=== PATIENT | female | born 2000 | race Two or more races ===

== ENCOUNTER 2024-09-18 16:57 | Outpatient (OUT) | payer OTHER, SELFPAY ==
[2024-09-18 17:12] LABS: Basophils Absolute Auto 0.1 10^3/uL (0.0-0.1); Basophils Percent Auto 0.3 % (0.2-2.0); Eosinophils Percent Auto 0.2 % (0.9-7.0); Hematocrit 34.7 % (36.0-48.0); Immature Granulocytes Pct Auto 0.5 % (0.0-0.5); Lymphocytes Absolute Auto 1.2 10^3/uL (1.2-3.8); Lymphocytes Percent Auto 6.5 % (20.5-60.0); Mean Corpuscular HGB Conc 31.7 g/dL (29.9-35.2); Mean Corpuscular Hemoglobin 25.5 pg (26.7-34.0); Mean Corpuscular Volume 80.5 fL (81.0-99.0); Monocytes Absolute Auto 0.4 10^3/uL (0.3-0.8); Monocytes Percent Auto 1.9 % (1.7-12.0); Neutrophils Absolute Auto 17.4 10^3/uL (1.4-6.5); Neutrophils Percent Auto 90.6 % (43.0-75.0); Platelet Count 416 10^3/uL (150-450); Red Blood Count 4.31 10^6/uL (4.20-5.40); Red Cell Distribution Width 16.7 % (11.0-15.0); White Blood Count 19.2 10^3/uL (4.0-11.0)
[2024-09-21 13:11] LABS: Immunoglobulin E, Total 1297 IU/mL (6-495)
== END 2024-09-18 16:58 | disposition home or self-care (01) ==
LOC: LAB 16:57
DX: E84.8 Cystic fibrosis with other manifestations (principal)
CPT/HCPCS: 36415; 82785; 85025

== ENCOUNTER 2024-09-25 17:01 | Outpatient (OUT) | payer OTHER, SELFPAY ==
--- OUTSIDE RECORDS SUMMARY | 2024-09-25 17:03 | XMS_ITS | Encounter Summary ---
Author Organization [facility] Address [address] [place] [address] Care Team Providers Care Aviation Support Equipment Repairer Name Role Phone Chapo Mitchell MD Primary Care Provider [phone] Source Comments In the event this information is protected by the Federal Confidentiality of Alcohol and Drug AbusePatient Records regulations: The Federal rules restrict any use of the information to criminally investigate or prosecute any alcohol or drug abuse patient.[facility] Reason for Visit * Reason Comments Prior Authorization Encounter Details Date Type Department Care Team (Late st Contact Info) Description 09/25/2024 Telephone Pulmonary Medicine [address] [place] [id number] Consuelo Brooks LISW Prior Authorization Social History Tobacco Use Types Packs/Day Years Used Date Smoking Tobacco: Never Passive Smoke Exposure: Never Smokeless Tobacco: Never Alcohol Use Standard Drinks/Week Comments Never 0 (1 standard drink = 0.6 oz pur e alcohol) [facility] Utilities Answer Date Recorded In the past 12 months has e electric, gas, oil, or water company threatened to shut off services in your home? No 07/30/2024 Hunger Vital Sign Answer Date Recorded Within the past 12 months, y ou worried that your food would run out before you got the money to buy more. Never true 07/31/19 25 Within the past 12 months, t he food you bought just didn't last and you didn't have money to get more. Never true 07/30/2024 PRAPARE - Transportation Answer Date Re corded In the past 12 months, has l ack of transportation kept you from medical appointments or from getting medications? No 10/2024 In the past 12 months, has l ack of transportation kept you from meetings, work, or from getting things needed for daily living? No 07/30/2024 Housing Stability Vital Sign Answer Ernst e Recorded In the last 12 months, was t here a time when you were not able to pay the mortgage or rent on time? No 12/09/2023 Number of Places Lived in the Last Year Not on f ile 12/09/2023 In the last 12 months, was t here a time when you did not have a steady place to sleep or slept in a custodial (including now)? No 12/09/2023 Housing Stability Vital Sign Answer Ernst e Recorded In the last 12 months, was t here a time when you were not able to pay the mortgage or rent on time? No 07/30/2024 Number of Times Moved in the Last Year Not on fi le 07/30/2024 At any time in the past 12 m [facility], were you homeless or living in a custodial (including now)? No 07/30/2024 Area Deprivation Index Answer Date Akhil rded National Score (1-100), lower number is lower ri sk 89 12/08/2023 State Score (1-10), lower number is lower risk 8 12/08/2023 Data from: https://www.neighborhoodatlas.medicine[facility].edu/. Last address used for calculation [address] [place] [address] 12/08/2023 Comments Unknown Sex and Gender Information Value Date Recorded Sex Assigned at Not on file Legal Sex Female 2:33 PM EST Gender Identity Not on file Sexual Orientation Not on file documented as of this encounter Functional Status * Are you deaf or do you have serious difficulty hearing? Answer Date of Assessment Author No 12/30/2023 2:14 PM EDT Leah Hernández, RN * Are you blind or do you have serious difficulty seeing, even when wearing glasses? Answer Date of Assessment Author No 12/30/2023 2:14 PM EDT Leah Hernández RN * Do you have serious difficulty walking or climbing stairs? Answer Date of Assessment Author No 12/30/2023 2:14 PM EDT Leah Hernández RN * Do you have difficulty dressing or bathing? Answer Date of Assessment Author No 12/30/2023 2:14 PM EDT Leah Hernández RN * Because of a physical, mental, or emotional condition, do you have difficulty doing errands alone such as visiting a doctor's office or shopping? Answer Date of Assessment Author No 12/30/2023 2:14 PM EDT Leah Hernández RN documented as of this encounter Mental Status * Because of a physical, mental, or emotional condition, do you have serious difficulty concentrating, remembering, or making decisions? Answer Entry Date Author No 12/30/2023 2:14 PM EDT Leah Hernández RN documented in this encounter Miscellaneous Notes * Telephone Encounter - Consuelo Brooks LISW - 09/25/2024 9:49 AM EDT Images from the original note were not included. Medication: budesonide 0.5mg/2mL (nasal irrigation) Date Submitted: September 25, 2024 Prescribing Provider: Alex Method of Submission: CoverMyMeds Outcome: Approved Outcome Date: 09/25/2024 HAMLET Lozada-S documented in this encounter Plan of Treatment Upcoming Encounters Date Type Department Care Team (Late st Contact Info) Description 10/03/2024 10:00 AM EDT Procedure Pulmonary Medicine [address] [place] [address] CF (cystic fibrosis) ([facility]) [E84.9] 10/03/2024 10:30 AM EDT Office Visit Pulmonary Medicine [address] [place] [address] Chapo Mitchell MD [address] [place] [address] CF (cystic fibrosis) ([facility]) [E84.9] 11/23/2024 3:05 PM EDT Office Visit Otolaryngology [address] [address] Diya Bedolla MD [address] [place] [address] 6 month follow up documented as of this encounter Visit Diagnoses Not on filedocumented in this encounter Care Teams Aviation Support Equipment Repairer Relationship Specialty Start Date End Date Chapo Mitchell MD [address] [address] PCP - General Pulmonary and Critical Care Medicine 12/08/23 documented as of this encounter
--- OUTSIDE RECORDS SUMMARY | 2024-09-25 17:03 | XMS_ITS | Encounter Summary ---
Author Organization [facility] tem Address [facility]-[id number] [address] [place] [address] Care Team Providers Care Orthodontist Name Role Phone Becky Dale MD Primary Care Provider [phone] Encounter Details Date Type Department Care Team (Late st Contact Info) Description 01/13/2023 Orders Only [facility]-Cystic Fibrosis [address] [facility] [address] [place] [phone] Anthony Cardoza MD [address] [place], [place] [phone] Social History Tobacco Use Types Packs/Day Years Used Date Smoking Tobacco: Never Smokeless Tobacco: Never Comments:No smoke exposure Alcohol Use Standard Drinks/Week Comments No 0 (1 standard drink = 0.6 oz pur e alcohol) AUDIT-C Answer Date Recorded Q1: How often do you have a drink containing alcohol? Never 09/30/2022 Q2: How many drinks containi ng alcohol do you have on a typical day when you are drinking? Patient does not drink Q3: How often do you have si x or more drinks on one occasion? Never 09/30/2022 PHQ-2 Answer Date Recorded Total Score 0 09/30/2022 Childcare Answer Date Recorded Childcare Unknown 10/02/2018 Employment Answer Date Recorded Employment Unknown 10/02/2018 Purpose - Life Answer Date Recorded Purpose and direction in life Unknown Comments No Sex and Gender Information Value Date Recorded Sex Assigned at Not on file Legal Sex Female 4:18 PM EDT Gender Identity Not on file Sexual Orientation Not on file documented as of this encounter Plan of Treatment Not on file documented as of this encounter Goals Goal Patient Goal Type Associated Problems Recent Progress Patient-Stated? Author return home General Yes Elizabeth Lovell, RN Note: Evaluation of progress towards goal: return home Increase physical activity Lifestyle No Fidelina Henley, GRANT ADMINISTRATOR Note: Evaluation of progress towards goal: Pt started online schooling recently and will get up during lessons to take a short walk. documented as of this encounter Visit Diagnoses Not on filedocumented in this encounter Additional Health Concerns Infection Onset Date Last Indicated Resolved Time Other MDRO Comment:CYSTIC F 06/05/2007 06/05/2007 COVID-19 Rule-Out 11/15/2023 11/16/2023 11/16/2023 1:40 AM EDT Assessment Noted Time PHQ-9 Depression Total Score: 0 10/01/19 23 7:56 PM EDT documented as of this encounter Care Teams Orthodontist Relationship Specialty Start Date End Date Becky Dale MD [address] [place] [address], [address] [place] [address] PCP - General 06/18/14 documented as of this encounter
--- OUTSIDE RECORDS SUMMARY | 2024-09-25 17:03 | XMS_ITS | Encounter Summary ---
Author Organization [facility] Address [id number] [address] [place] [address] Care Team Providers Care Career Developer Name Role Phone Becky Dale MD Primary Care Provider [phone] Encounter Details Date Type Department Care Team (Late st Contact Info) Description 03/09/2023 Telephone [facility] Pediatric Pulmonology-Cystic Fibrosis [address] [facility] [address] [place] [phone] Rina Wynn LPN Social History Tobacco Use Types Packs/Day Years Used Date Smoking Tobacco: Never Smokeless Tobacco: Never Comments:No smoke exposure Alcohol Use Standard Drinks/Week Comments No 0 (1 standard drink = 0.6 oz pur e alcohol) AUDIT-C Answer Date Recorded Q1: How often do you have a drink containing alcohol? Never 01/24/2023 Q2: How many drinks containi ng alcohol do you have on a typical day when you are drinking? Patient does not drink Q3: How often do you have si x or more drinks on one occasion? Never 01/24/2023 PHQ-2 Answer Date Recorded Total Score 1 01/24/2023 Childcare Answer Date Recorded Childcare Unknown 10/02/2018 Employment Answer Date Recorded Employment Unknown 10/02/2018 Purpose - Life Answer Date Recorded Purpose and direction in life Unknown Comments No Sex and Gender Information Value Date Recorded Sex Assigned at Not on file Legal Sex Female 4:18 PM EDT Gender Identity Not on file Sexual Orientation Not on file documented as of this encounter Miscellaneous Notes * Telephone Encounter - Rina Wynn LPN - 03/09/2023 1:31 PM EST Mom calling to state they have set up picking up Xolair 03/11/2023 from [facility]. Also asking if office can reach out to [facility], they keep getting phone calls to schedule [place] when they do not need refills. Mom states calls are getting excessive. Wanting to set up that patient will call to set up refills, they do not want automatic refills or calls. States she has called pharmacy several times with no improvement. Reached out to [facility]. Spoke with customer loyalty representative Lucas Vallejo. States he updated the account to reflect that they will not automatically refill or call family. documented in this encounter Plan of Treatment Not on file documented as of this encounter Goals Goal Patient Goal Type Associated Problems Recent Progress Patient-Stated? Author return home General Yes Elizabeth Lovell, RN Note: Evaluation of progress towards goal: return home Increase physical activity Lifestyle No Fidelina Henley, PATRICIA Note: Evaluation of progress towards goal: Pt [...] Assessment Noted Time PHQ-9 Depression Total Score: 1 01/25/20 4:27 PM EDT documented as of this encounter Care Teams Career Developer Relationship Specialty Start Date End Date Becky Dale MD [address] [place] [address], [address] [place] [address] PCP - General 06/18/14 documented as of this encounter
--- OUTSIDE RECORDS SUMMARY | 2024-09-25 17:03 | XMS_ITS | Encounter Summary ---
Author Organization [facility] Address [id number] [address] [place] [address] Care Team Providers Care Weed Burner Name Role Phone Becky Dale MD Primary Care Provider [phone] Encounter Details Date Type Department Care Team (Late st Contact Info) Description 01/14/2023 Documentation [facility] Pulmonology-Cystic Fibrosis [address] [facility] [address] [place] [phone] Anthony Cardoza MD [address] [place], [place] [phone] Social History Tobacco Use Types Packs/Day Years [...] Increase physical activity Lifestyle No Fidelina Henley, MOVIE WRITER Note: Evaluation of progress towards goal: Pt [...] Time PHQ-9 Depression Total Score: 0 10/01/19 7:56 PM EDT documented as of this encounter Care Teams Weed Burner Relationship Specialty Start Date End Date Becky Dale MD [address] [place] [address], [address] [place] [address] PCP - General 06/18/14 documented as of this encounter
--- OUTSIDE RECORDS SUMMARY | 2024-09-25 17:03 | XMS_ITS | Encounter Summary ---
Author Organization [facility] Address [address] [place] [address] Care Team Providers Care Industry Analyst Name Role Phone Chapo Mitchell MD Primary Care Provider [phone] Source Comments In the event this information is protected by the Federal Confidentiality of Alcohol and Drug AbusePatient Records regulations: The Federal rules restrict any use of the information to criminally investigate or prosecute any alcohol or drug abuse patient.[facility] Reason for Visit * Reason Comments Results [facility] Encounter Details Date Type Department Care Team (Late st Contact Info) Description 09/20/2024 Telephone Pulmonary Medicine [address] [place] [address] Chapo Mitchell MD [address] [place] [address] Results ([facility]) Social History Tobacco Use Types Packs/Day Years Used Date Smoking Tobacco: Never Passive Smoke Exposure: Never Smokeless Tobacco: Never Alcohol Use Standard Drinks/Week Comments Never 0 (1 standard drink = 0.6 oz pur e alcohol) [facility] Utilities Answer Date Recorded In the past 12 months has [employer] electric, gas, oil, or water company threatened [...] place to sleep or slept in a nursing home (including now)? No 12/09/2023 Housing Stability Vital Sign Answer Ernst e Recorded In the last 12 months, was t here a time when you were not able to pay the mortgage or rent on time? No 07/30/2024 Number of Times Moved in the Last Year Not on fi le 07/30/2024 At any time in the past 12 m [facility], were you homeless or living in a nursing home (including now)? No 07/30/2024 Area Deprivation Index Answer Date Akhil rded National Score (1-100), lower number is lower ri sk 89 12/08/2023 State Score (1-10), lower number is lower risk 8 12/08/2023 Data from: https://www.neighborhoodatlas.medicine.[facility].edu/. Last address used for calculation [address] [facility] 12/08/2023 Comments Unknown Sex and Gender Information Value Date Recorded Sex Assigned at Not on file Legal Sex Female 2:33 PM EST Gender Identity Not on file Sexual Orientation Not on file documented as of this encounter Functional Status * Are you deaf or do you have serious difficulty hearing? Answer Date of Assessment Author No 12/30/2023 2:14 PM Leah Denis RN * Are you blind or do [...] encounter Miscellaneous Notes * Telephone Encounter - Marily Crani RN - 09/21/2024 1:31 PM EDT Reviewed faxed results from labs that were obtained on 09/12/2024 PRIOR to patient starting Itraconazole. Overview of results (full results can be found in scanned documents): WBCs: 17.4 IgE: 1,530 Itraconazole: <0.1 Will update Randee Johnson CNP with these results. Still waiting for the results of the Itraconazole level that was drawn on 09/18/2024 prior to patient started her 5th day of medication. Will reach out to patient to have those results sent to us. * Telephone Encounter - Cindy Rosenberg - 09/20/2024 4:07 PM EDT Received 8 pages of lab results from [facility]. Lab results for: Itraconazole, Serum, IgE and CBC auto Diff Uploaded into chart. documented in this encounter Plan of Treatment Upcoming Encounters Date Type Department Care Team (Late st Contact Info) Description 10/03/2024 10:00 AM EDT Procedure Pulmonary Medicine [address] [place] [address] CF (cystic fibrosis) ([facility]) [E84.9] 10/03/2024 10:30 AM EDT Office Visit Pulmonary Medicine [address] [place] [address] Chapo Mitchell MD [address] [place], [place] [phone] CF (cystic fibrosis) ([facility]) [E84.9] 11/23/2024 3:05 PM EDT Office Visit Otolaryngology [address] [place] [address] Diya Bedolla MD [address] [place], [place] [phone] 6 month follow up documented as of this encounter Visit Diagnoses Not on filedocumented in this encounter Care Teams Industry Analyst Relationship Specialty Start Date End Date Chapo Mitchell MD [address] [place] [phone] PCP - General Pulmonary and Critical Care Medicine 12/08/23 documented as of this encounter
--- OUTSIDE RECORDS SUMMARY | 2024-09-25 17:04 | XMS_ITS | Encounter Summary ---
Author Organization [employer] [facility] Address [facility]-[id number] [address] [place] [address] Care Team Providers Care Regrind Mill Operator Name Role Phone Becky Dale MD Primary Care Provider [phone] Reason for Visit * Reason Onset Date Comments Med Refill 04/06/2018 Encounter Details Date Type Department Care Team (Late st Contact Info) Description 04/06/2018 Refill [facility] Pulmonology-Cystic Fibrosis [address] [facility] [address] [place] [phone] Christy Bhatia RN Cystic fibrosis of the lung ([facility]) (Primary Dx) Social History Tobacco Use Types Packs/Day Years Used Date Smoking Tobacco: Never Smokeless Tobacco: Never Comments:No smoke exposure Alcohol Use Standard Drinks/Week Comments No 0 (1 standard drink = 0.6 oz pur e alcohol) Comments No Sex and Gender Information Value Date Recorded Sex Assigned at Not on file Legal Sex Female 4:18 PM EDT Gender Identity Not on file Sexual Orientation Not on file documented as of this encounter Plan of Treatment Not on file documented as of this encounter Results * Cystic fibrosis respiratory culture includes gram stain (04/06/2018 3:39 PM EST) Specimen description CYSTIC SPUTUM Y 04/06/2018 6:22 PM EST [facility] Gram Stain Result >25 WHITE BLOOD CELLS/LPF 04/06/2018 10:51 PM EST [facility] Gram Stain Result 10 to 24 SQUAMOUS EPITHELIAL CELLS/LPF 04/06/2018 10:51 PM [facility] Gram Stain Result 0 CILIATED EPITHELIAL CELLS/LPF 04/06/2018 10:51 PM [facility] Gram Stain Result MANY GRAM POSITIVE COCCI 04/06/2018 10:51 PM [facility] Gram Stain Result RARE GRAM NEGATIVE COCCOBACILLI 04/06/2018 10:51 PM [facility] Gram Stain Result RARE GRAM POSITIVE RODS 04/06/2018 10:51 PM [facility] Culture MANY STAPHYLOCOCCUS AUREUS 04/12/2018 2:26 PM EST [facility] Culture MODERATE STAPHYLOCOCCUS AUREUS VARIANT 04/12/2018 2:26 PM EST [facility] Culture RARE STENOTROPHOMONAS MALTOPHILIA 04/12/2018 2:26 PM EST [facility] Culture RARE ASPERGILLUS FUMIGATUS 04/12/2018 2:26 PM EST [facility] Culture ALONG WITH RARE NORMAL ORAL BRADLY 04/12/2018 2:26 PM EST [facility] Report status 04/12/2018 FINAL 04/12 2:26 PM EST [facility] Organism STAPHYLOCOCCUS AUREUS 04/09/2018 8:50 AM [facility] Organism STAPHYLOCOCCUS AUREUS 04/09/2018 8:50 AM [facility] Organism STENOTROPHOMONAS MALTOPHILIA 04/10/2018 1:36 PM [facility] Sputum specimen (specimen) Cyst / Unknown 04/06/2018 3:39 PM EST 04/06/2018 7:05 PM EST Narrative Organism Antibiotic Method Susceptibility Staphylococcus Aureus Cefazolin MADONNA Susceptible (deduced) Staphylococcus Aureus Clindamycin MADONNA 0.25: Resistant Comment:INDUCIBLE RE SISTANCE TO CLINDAMYCIN DETECTED Staphylococcus Aureus Erythromycin M[place]ONNA >=8: Resistant Staphylococcus Aureus Gentamicin M[place]ON[place] <=0.5: Susceptible Staphylococcus Aureus Oxacillin M[place] 1: Susceptible Staphylococcus Aureus TRIMETH/SULFAMETHOXAZOLE MADONNA <=0.5/9.5: Susceptible Staphylococcus Aureus Vancomycin M[place]ONNA <=0.5: Susceptible Staphylococcus Aureus Doxycycline M[place]ON[place] >=16: Resistant Comment:MANY STAPHYLOCOCCUS AUREUS Staphylococcus Aureus Cefazolin [place] Susceptible (deduced) Staphylococcus Aureus Clindamycin M[place]ONNA 0.25: Resistant Comment:INDUCIBLE RE SISTANCE TO CLINDAMYCIN DETECTED Staphylococcus Aureus Erythromycin M[place]ONNA >=8: Resistant Staphylococcus Aureus Gentamicin M[place]ONNA <=0.5: Susceptible Staphylococcus Aureus Oxacillin M[place]ON[place] 0.5: Susceptible Staphylococcus Aureus TRIMETH/SULFAMETHOXAZOLE M[place]ONNA <=0.5/9.5: Susceptible Staphylococcus Aureus Vancomycin M[place]ON[place] 1: Susceptible Staphylococcus Aureus Doxycycline M[place]ONNA >=16: Resistant Comment:MODERATE STAPHYLOCOC CUS AUREUS VARIANT Stenotrophomonas Maltophilia Ceftazidime M[place]ONNA 8: Susceptible Stenotrophomonas Maltophilia Levofloxacin M[place]ON[place] 4: Intermediate Stenotrophomonas Maltophilia TRIMETH/SULFAMETHOXAZOLE MADONNA <=0.5: Susceptible Comment:RARE STENOTROPHOMONA S MALTOPHILIA Kt Hardin MD MICROBIOLOGY - GENERAL ORDERA BLES Final Result [facility] [address] [place] [address], [place] [facility] documented in this encounter Visit Diagnoses Diagnosis Cystic fibrosis of the lung ([facility])- Primary Cystic fibrosis with pulmonary manifestations documented in this encounter Additional Health Concerns Infection Onset Date Last Indicated Resolved Time Other MDRO Comment:CYSTIC F 06/05/2007 06/05/2007 Respiratory Rule-Out 06/05/2019 06/05/2019 020 11:59 AM EST COVID-19 Rule-Out 03/05/2020 03/05/2020 03/05/2020 7:23 PM EST COVID-19 Rule-Out 01/29/2021 01/29/2021 01/29/2021 11:34 PM EDT COVID-19 Rule-Out 01/22/2022 01/22/2022 01/22/2022 1:40 PM EDT COVID-19 Rule-Out 03/11/2022 03/11/2022 03/11/2022 6:31 PM EST COVID-19 Rule-Out 11/15/2023 11/16/2023 11/16/2023 1:40 AM EDT Assessment Noted Time PHQ-9 Depression Total Score: 0 03/09/20 18 11:00 AM EST documented as of this encounter Care Teams Regrind Mill Operator Relationship Specialty Start Date End Date Becky Dale MD [facility], [address] [place] [address] PCP - General 06/18/14 documented as of this encounter
--- OUTSIDE RECORDS SUMMARY | 2024-09-25 17:04 | XMS_ITS | Encounter Summary ---
Author Organization [employer] Address [facility]-[id number] [address] [place] [address] Care Team Providers Care Dial Equipment Engineer Name Role Phone Becky Dale MD Primary Care Provider [phone] Reason for Visit * Reason Comments Med Refill Encounter Details Date Type Department Care Team (Late st Contact Info) Description 02/08/2024 Refill [facility]-Cystic Fibrosis [address] [facility] [address] [place] [phone] Becky Dale MD [address] [place] [address] [address], [address] [place] [address] Social History Tobacco Use Types Packs/Day Years Used Date Smoking Tobacco: Never Smokeless Tobacco: Never Comments:No smoke exposure Alcohol Use Standard Drinks/Week Comments No 0 (1 standard drink = 0.6 oz pur e alcohol) [facility] Utilities Answer Date Recorded In the past 12 months has [employer], [employer], oil, or water [employer] threatened to shut off services in your home? No 06/07/2023 AUDIT-C Answer Date Recorded Q1: How often do you have a drink containing alcohol? Never 05/31/2023 Q2: How many drinks containi ng alcohol do you have on a typical day when you are drinking? Patient does not drink Q3: How often do you have si x or more drinks on one occasion? Never 05/31/2023 PHQ-2 Answer Date Recorded Total Score 0 05/31/2023 PRAPARE - Transportation Answer Date Re corded In the past 12 months, has l ack of transportation kept you from medical appointments or from getting medications? No 05/26 In the past 12 months, has l ack of transportation kept you from meetings, work, or from getting things needed for daily living? No 06/07/2023 Housing Instability Answer Date Recorde d Are you worried or concerned that in the next two months you may not have stable housing that you own, rent or stay in as a part of a household? No 06/07/2023 Childcare Answer Date Recorded Childcare Unknown 10/02/2018 Employment Answer Date Recorded Employment Unknown 10/02/2018 Hunger Screening Answer Date Recorded Within the past 12 months we worried whether our food would run out before we got money to buy more. Never True 08/16/2023 Within the past 12 months th e food we bought just didn't last and we didn't have money to get more. Never True 08/16/2023 Purpose - Life Answer Date Recorded Purpose [...] Author return home General Yes Elizabeth Lovell, ANOOP Note: Evaluation of progress towards goal: return home Increase physical activity Lifestyle No Fidelina Henley, MINERALOGY PROFESSOR Note: Evaluation of progress towards goal: Pt started online schooling recently and will get up during lessons to take a short walk. documented as of this encounter Visit Diagnoses Not on filedocumented in this encounter Additional Health Concerns Infection Onset Date Last Indicated Resolved Time Other MDRO Comment:CYSTIC F 06/05/2007 06/05/2007 Assessment Noted Time PHQ-9 Depression Total Score: 0 05/31/19 24 12:42 PM EST documented as of this encounter Care Teams Dial Equipment Engineer Relationship Specialty Start Date End Date Becky Dale MD [facility], [address] [place] [address] PCP - General 06/18/14 documented as of this encounter
--- OUTSIDE RECORDS SUMMARY | 2024-09-25 17:04 | XMS_ITS | Encounter Summary ---
Author Organization [facility] Address [facility] [place]-[id number] [address] [place] [address] Care Team Providers Care Plaster Mixer Name Role Phone Becky Dale MD Primary Care Provider [phone] Encounter Details Date Type Department Care Team (Late st Contact Info) Description 12/26/2020 Orders Only [facility] Specialist Sign In [facility] [place] [address] Ros Muniz MD [address] [place] [address], [address] [place] [address] Social History Tobacco Use Types Packs/Day Years Used Date Smoking Tobacco: Never Smokeless Tobacco: Never Comments:No smoke exposure Alcohol Use Standard Drinks/Week Comments No 0 (1 standard drink = 0.6 oz pur e alcohol) PHQ-2 Answer Date Recorded Total Score 1 12/25/2020 Childcare Answer Date Recorded Childcare Unknown 10/02/2018 Employment Answer Date Recorded Employment Unknown 10/02/2018 Purpose - Life Answer Date Recorded Purpose and direction in life Unknown Comments No Sex and Gender Information Value Date Recorded Sex Assigned at Not on file Legal Sex Female 4:18 PM EDT Gender Identity Not on file Sexual Orientation Not on file COVID-19 Exposure Response Date Recorded In the last month, have you been in contact with someone who was confirmed or suspected to have Coronavirus / COVID-19? No / Unsure 12/25/2020 2:02 PM EDT documented as of this encounter Plan of Treatment Not on file documented as of this encounter Goals Goal Patient Goal Type Associated Problems Recent Progress Patient-Stated? Author Increase physical activity Lifestyle Fidelina Wren LSW Note: Evaluation of progress towards goal: Pt started online schooling recently and will get up during lessons to take a short walk. documented as of this encounter Visit Diagnoses Not on filedocumented in this encounter Additional Health Concerns Infection Onset Date Last Indicated Resolved Time Other MDRO Comment:CYSTIC F 06/05/2007 06/05/2007 COVID-19 Rule-Out 01/29/2021 01/29/2021 01/29/2021 11:34 PM EDT COVID-19 Rule-Out 01/22/2022 01/22/2022 01/22/2022 1:40 PM EDT COVID-19 Rule-Out 03/11/2022 03/11/2022 03/11/2022 6:31 PM EST COVID-19 Rule-Out 11/15/2023 11/16/2023 11/16/2023 1:40 AM EDT Assessment Noted Time PHQ-9 Depression Total Score: 1 12/26/19 21 3:00 PM EDT documented as of this encounter Care Teams Plaster Mixer Relationship Specialty Start Date End Date Becky Dale MD [address] [place] [address], [address] [place] [address] PCP - General 06/18/14 documented as of this encounter
--- OUTSIDE RECORDS SUMMARY | 2024-09-25 17:04 | XMS_ITS | Encounter Summary ---
Author Organization [facility] Address [facility]-[id number] [address] [place] [address] Care Team Providers Care Lacing Cutter Name Role Phone Becky Dale MD Primary Care Provider [phone] Encounter Details Date Type Department Care Team (Late st Contact Info) Description 01/01/2022 Orders Only [facility]-Cystic Fibrosis [address] [facility] [address] [place] [phone] Jonah Mosqueda CMA Cough (Primary Dx) Social History Tobacco Use Types Packs/Day Years Used Date Smoking Tobacco: Never Smokeless Tobacco: Never Comments:No smoke exposure Alcohol Use Standard Drinks/Week Comments No 0 (1 standard drink = 0.6 oz pur e alcohol) PHQ-2 Answer Date Recorded Total Score 2 08/25/2021 Childcare Answer Date Recorded Childcare Unknown 10/02/2018 [...] Progress Patient-Stated? Author Increase physical activity Lifestyle No Fidelina Henley LSW Note: Evaluation of progress towards goal: Pt started online schooling recently and will get up during lessons to take a short walk. documented as of this encounter Results * SPIROMETRY (01/05/2022 1:40 PM EDT) Narrative MANUALLY TRANSCRIBED RESULTS - 01/06/2022 3:36 PM EDT PFT showed an FEV1/FVC ratio 84, FVC 59 % predicted, FEV1 55% predicted, and FEF 25-75 of 59% predicted. Results compared to 12/10/2021 showed an FEV1 of 55% predicted and an FEF 25-75 of 39% predicted. 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 Becky Dale MD PFT ORDERABLES Final Result MANUALLY TRANSCRIBED RESULTS documented in this encounter Visit Diagnoses Diagnosis Cough- Primary Cough documented in this encounter Additional Health Concerns Infection Onset Date Last Indicated Resolved Time Other MDRO Comment:CYSTIC F 06/05/2007 06/05/2007 COVID-19 Rule-Out 01/22/2022 01/22/2022 01/22/2022 1:40 PM EDT COVID-19 Rule-Out 03/11/2022 03/11/2022 03/11/2022 6:31 PM EST COVID-19 Rule-Out 11/15/2023 11/16/2023 11/16/2023 1:40 AM EDT Assessment Noted Time PHQ-9 Depression Total Score: 2 08/26/19 22 4:00 PM EDT documented as of this encounter Care Teams Lacing Cutter Relationship Specialty Start Date End Date Becky Dale MD [address] [place] [address], [address] [place] [address] PCP - General 06/18/14 documented as of this encounter
--- OUTSIDE RECORDS SUMMARY | 2024-09-25 17:04 | XMS_ITS | Encounter Summary ---
Author Organization [facility] Address [id number] [address] [place] [address] Care Team Providers Care Customer Service And Sales Consultant Name Role Phone Becky Dale MD Primary Care Provider [phone] Encounter Details Date Type Department Care Team (Late st Contact Info) Description 05/06/2020 Orders Only [facility]-Cystic Fibrosis [address] [facility] [address] [place] [phone] Anthony Cardoza MD [address] [place] [address] Cystic fibrosis ([facility]) (Primary Dx) Social History Tobacco Use Types Packs/Day Years Used Date Smoking Tobacco: Never Smokeless Tobacco: Never Comments:No smoke exposure Alcohol Use Standard Drinks/Week Comments No 0 (1 standard drink = 0.6 oz pur e alcohol) PHQ-2 Answer Date Recorded PHQ-2 Score 0 03/13/2020 Childcare Answer Date Recorded Childcare Unknown 10/02/2018 [...] have Coronavirus / COVID-19? No / Unsure 04/10/2020 1:20 PM EST documented as of this encounter Plan of [...] as of this encounter Results * SPIROMETRY PRE/POST BRONCHODILATOR (06/24/2020 3:28 PM EST) Narrative MANUALLY TRANSCRIBED RESULTS - 06/24/2020 3:45 PM EST Forced vital capacity 72 percent, FEV1 is 63 percent, and FEF 25/75 is 46 percent. Study is abnormal. Study is worse compared to previous study done 2 months ago. us Anthony Cardoza MD PFT ORDERABLES Final Re sult MANUALLY TRANSCRIBED RESULTS documented in this encounter Visit Diagnoses Diagnosis Cystic fibrosis ([facility])- Primary Cystic fibrosis ([facility]) documented in this encounter Additional Health Concerns Infection Onset Date Last Indicated Resolved Time Other MDRO Comment:CYSTIC F 06/05/2007 06/05/2007 COVID-19 Rule-Out 01/29/2021 01/29/2021 01/29/2021 11:34 PM EDT COVID-19 Rule-Out 01/22/2022 01/22/2022 01/22/2022 1:40 PM EDT COVID-19 Rule-Out 03/11/2022 03/11/2022 03/11/2022 6:31 PM EST COVID-19 Rule-Out 11/15/2023 11/16/2023 11/16/2023 1:40 AM EDT Assessment Noted Time PHQ-9 Depression Total Score: 0 03/13/20 20 12:00 PM EST documented as of this encounter Care Teams Customer Service And Sales Consultant Relationship Specialty Start Date End Date Becky Dale MD [facility], [address] [place] [address] PCP - General 06/18/14 documented as of this encounter
--- OUTSIDE RECORDS SUMMARY | 2024-09-25 17:04 | XMS_ITS | Encounter Summary ---
Author Organization [employer] Address [facility] [place]-[id number] [address] [place] [address] Care Team Providers Care Rock Mason Name Role Phone Becky Dale MD Primary Care Provider [phone] Encounter Details Date Type Department Care Team (Late st Contact Info) Description 01/21/2022 Telephone [facility]mon[facility]-Cystic Fibrosis [address] [facility] [address] [place] [phone] Rina Wynn LPN Social History Tobacco Use [...] have Coronavirus / COVID-19? No / Unsure 01/21/2022 10:21 AM EDT documented as of this encounter Functional Status documented as of this encounter Miscellaneous Notes * Telephone Encounter - Rina Wynn LPN - 01/21/2022 9:46 AM EDT Mom called stating patient is going to be late for appointment. Had been told to arrive at 9:15, but Mom states they will likely be closer to 10:00. Spoke with Dr. Hardin. States if they can be herein the pulmonary function lab by 10:15 and have testing, he is willing to still see the patient. Otherwise, patient will need to be rescheduled for Tuesday. Relayed information to Mom. States she willtry. Reiterated that Dr. Hardin wants a pulmonary function testing prior to seeing the patient. documented in this encounter Plan of Treatment [...] documented as of this encounter Care Teams Rock Mason Relationship Specialty Start Date End Date Becky Dale MD [facility] [employer], [address] [place], [place] [phone] PCP - General 06/18/14 documented as of this encounter
--- OUTSIDE RECORDS SUMMARY | 2024-09-25 17:04 | XMS_ITS | Encounter Summary ---
Author Organization [facility] Address [address] [place] [address] Care Team Providers Care Manager Marketing Communication Name Role Phone Chapo Mitchell MD Primary Care Provider [phone] Source Comments In the event this information is protected by the Federal Confidentiality of Alcohol and Drug AbusePatient Records regulations: The Federal rules restrict any use of the information to criminally investigate or prosecute any alcohol or drug abuse patient.[facility] Reason for Referral * Medication Prior Authorization - Closed Specialty Diagnoses / Procedures Referred By Contcesia t Referred To Contact Diagnoses Cystic fibrosis with pulmonary manifestations (HCC) Chronic sinusitis, unspecified location Cystic fibrosis (HCC) Randee Johnson APRN.CNP [address] [place] [address] Phone: tel: fax: Referral ID Status Reason Start Date Expiration Date Visits Re quested Visits Authorized [id number] Closed 1 1 Reason for Visit * Reason Comments Patient Question Encounter Details Date Type Department Care Team (Late st Contact Info) Description 09/20/2024 Telephone Pulmonary Medicine [address] [phone] Chapo Mitchell MD [address] [place] [address] Patient Question Social History Tobacco Use Types Packs/Day Years Used Date Smoking Tobacco: Never Passive Smoke Exposure: Never Smokeless Tobacco: Never Alcohol Use Standard Drinks/Week Comments Never 0 (1 standard drink = 0.6 oz pur e alcohol) [facility] Utilities Answer Date Recorded In the past 12 months has th e [employer], gas, oil, or water company threatened to [...] place to sleep or slept in a detention (including now)? No 12/09/2023 Housing Stability Vital Sign Answer Ernst e Recorded In the last 12 months, was t here a time when you were not able to pay the mortgage or rent on time? No 07/30/2024 Number of Times Moved in the Last Year Not on fi le 07/30/2024 At any time in the past 12 m [facility], were you homeless or living in a detention (including now)? No 07/30/2024 Area Deprivation Index Answer Date Akhil rded National Score (1-100), lower number is lower ri sk 89 12/08/2023 State Score (1-10), lower number is lower risk 8 12/08/2023 Data from: https://www.neighborhoodatlas.[facility]/. Last address used for calculation [address] [facility] [address] 12/08/2023 Comments Unknown Sex and Gender Information Value Date Recorded Sex Assigned at Not on file Legal Sex Female 2:33 PM EST Gender Identity Not on file Sexual Orientation Not on file documented as of this encounter Functional Status * Are you deaf or do you have serious difficulty hearing? Answer Date of Assessment Author No 12/30/2023 2:14 PM EDT eLah Hernández RN * Are you blind or do [...] documented in this encounter Miscellaneous Notes * Addendum Note - Angeles Thomas RN - 09/24/2024 2:26 PM EDTAddended by: ANGELES THOMSA on: 09/24/2024 02:26 PM Modules accepted: Orders * Addendum Note - Angeles Thomas RN - 09/20/2024 2:15 PM EDTAddended by: ANGELES THOMAS on: 09/20/2024 02:15 PM Modules accepted: Orders * Telephone Encounter - Angeles Thomas RN - 09/20/2024 12:14 PM EDT Patient provided update on how she has been feeling. States she still is coughing since the last time we spoke on 09/10/2024. States the coughing has worsened somewhat since that time and she is now coughing up green mucous. States the coughing is keeping her up at night. Patient started Itraconazole on Tuesday, September 14. Forwarding to CF provider for further instruction per pt's request. * Telephone Encounter - Francisca Jackson - 09/20/2024 12:00 PM EDT Angelia called as she missed your call. She said you know what it is about. Please call her back at [phone]. Thanks. documented in this encounter Plan of Treatment Upcoming Encounters Date Type Department Care Team (Late st Contact Info) Description 10/03/2024 10:00 AM EDT Procedure Pulmonary Medicine [address] [place] [phone] CF (cystic fibrosis) ([facility]) [E84.9] 10/03/2024 10:30 AM EDT Office Visit Pulmonary Medicine [address] [place] [address] Cahpo Mitchell MD [address] [place] [address] CF (cystic fibrosis) ([facility]) [E84.9] 11/23/2024 3:05 PM EDT Office Visit Otolaryngology [address] [place] [address] Diya eBdolla MD [address] [phone] 6 month follow up documented as of this encounter Visit Diagnoses Diagnosis Chronic sinusitis, unspecified location- Primary Cystic fibrosis with pulmonary manifestations (HCC) Cystic fibrosis with pulmonary manifestations Cystic fibrosis (HCC) Cystic fibrosis without mention of meconium ileus documented in this encounter Care Teams Manager Marketing Communication Relationship Specialty Start Date End Date Chapo Mitchell MD [address] [place] [address] PCP - General Pulmonary and Critical Care Medicine 12/08/23 documented as of this encounter
--- OUTSIDE RECORDS SUMMARY | 2024-09-25 17:04 | XMS_ITS | Encounter Summary ---
Author Organization [facility] Address [address] [place] [address] Care Team Providers Care Associate Publisher Name Role Phone Chapo Mitchell MD Primary Care Provider [phone] Source Comments In the event this information is protected by the Federal Confidentiality of Alcohol and Drug AbusePatient Records regulations: The Federal rules restrict any use of the information to criminally investigate or prosecute any alcohol or drug abuse patient.[facility] Reason for Visit * Reason Comments Patient Question Encounter Details Date Type Department Care Team (Late st Contact Info) Description 09/20/2024 Telephone Pulmonary Medicine [address] [place] [address] Chapo Mitchell MD [address] [place] [address] Patient Question Social History Tobacco Use Types Packs/Day Years Used Date Smoking Tobacco: Never Passive Smoke Exposure: Never Smokeless Tobacco: Never Alcohol Use Standard Drinks/Week Comments Never 0 (1 standard drink = 0.6 oz pur e alcohol) [facility] Utilities Answer Date Recorded In the [...] place to sleep or slept in a prison (including now)? No 12/09/2023 Housing Stability Vital Sign Answer Ernst e Recorded In the last 12 months, was t here a time when you were not able to pay the mortgage or rent on time? No 07/30/2024 Number of Times Moved in the Last Year Not on fi le 07/30/2024 At any time in the past 12 m [facility], were you homeless or living in a prison (including now)? No 07/30/2024 Area Deprivation Index Answer Date Akhil rded National Score (1-100), lower number is lower ri sk 89 12/08/2023 State Score (1-10), lower number is lower risk 8 12/08/2023 Data from: https://www.neighborhoodatlas.medicine.[facility].edu/. Last address used for calculation [address] 12/08/2023 Comments Unknown Sex and Gender [...] encounter Miscellaneous Notes * Telephone Encounter - Angeles Thomas RN - 09/20/2024 12:16 PM EDT Spoke with patient. She is having another appointment today and requesting new amoxicillin script. Sent to the requested pharmacy. * Addendum Note - Angeles Thomas RN - 09/20/2024 12:13 PM EDTAddended by: ANGELES THOMAS on: 09/20/2024 12:13 PM Modules accepted: Orders * Telephone Encounter - Angeles Thomas RN - 09/20/2024 11:51 AM EDT Attempted to reach patient- had to leave voicemail. Explained that the amoxicillin script back on 08/27/2024 for her dental procedure to her [facility] pharmacy. Instructed patient to call office back if she is having issues filling/picking it up . * Telephone Encounter - Cindy Rosenberg - 09/20/2024 11:38 AM EDT The patient contacted us to inquire about the antibiotics she is permitted to take before her dental appointment. The patient indicated that she is seeking a prescription. Her dental appointment is scheduled for today. The patient can be reached at [phone]. documented in this encounter Plan of Treatment Upcoming Encounters Date Type Department Care Team (Late st Contact Info) Description 10/03/2024 10:00 AM EDT Procedure Pulmonary Medicine [address] [place] [id number] CF (cystic fibrosis) ([facility]) [E84.9] 10/03/2024 10:30 AM EDT Office Visit Pulmonary Medicine [address] [address] Chapo Mitchell MD [address] [place] [address] CF (cystic fibrosis) (HCC) [E84.9] 11/23/2024 3:05 PM EDT Office Visit Otolaryngology [address] [place] [address] Diya Bedolla MD [address] [place], [place] [id number] 6 month follow up documented as of this encounter Visit Diagnoses Diagnosis CF (cystic fibrosis) (HCC) Cystic fibrosis without mention of meconium ileus Cystic fibrosis (HCC) Cystic fibrosis without mention of meconium ileus Need for antibiotic prophylaxis for dental procedure documented in this encounter Care Teams Associate Publisher Relationship Specialty Start Date End Date Chapo Mitchell MD [address] [place] [id number] PCP - General Pulmonary and Critical Care Medicine 12/08/23 documented as of this encounter
--- OUTSIDE RECORDS SUMMARY | 2024-09-25 17:04 | XMS_ITS | Encounter Summary ---
Author Organization [facility] Sys tem Address [id number] [address] [place] [address] Care Team Providers Care Associate Partner Name Role Phone Becky Dale MD Primary Care Provider [phone] Encounter Details Date Type Department Care Team (Late st Contact Info) Description 04/26/2023 Orders Only [facility]-Cystic Fibrosis [address] [facility] [address] [place] [phone] Jonah Mosqueda CMA Cystic fibrosis ([facility]) (Primary Dx) Social History Tobacco Use Types [...] got money to buy more. Never True 04/27/2023 Within the past 12 months th e food we bought just didn't last and we didn't have money to get more. Never True 04/27/2023 Purpose - Life Answer Date Recorded Purpose [...] as of this encounter Results * SPIROMETRY (04/27/2023 12:20 PM EST) Narrative MANUALLY TRANSCRIBED RESULTS - 04/27/2023 12:40 PM EST Evaluation of pulmonary function testing done on this 22-year-old female on 04/27/2023 demonstrated FVC 63%, FEV1 52% and FEF 25-75 31% of predicted values. Compared to her previous evaluation on 02/17/2023, there has been no significant change. Impression: Evidence of mixed restrictive and moderate to severe obstructive lung disease, interval unchanged. Becky Dale MD PFT ORDERABLES Final Result MANUALLY TRANSCRIBED RESULTS documented in this encounter Visit Diagnoses Diagnosis Cystic fibrosis ([facility])- Primary Cystic fibrosis without mention of meconium ileus Cystic fibrosis ([facility]) Cystic fibrosis without mention of meconium ileus documented in this encounter Additional Health Concerns Infection Onset Date Last Indicated Resolved Time Other MDRO Comment:CYSTIC F 06/05/2007 06/05/2007 COVID-19 Rule-Out 11/15/2023 11/16/2023 11/16/2023 1:40 AM EDT Assessment Noted Time PHQ-9 Depression Total Score: 1 01/25/20 4:27 PM EDT documented as of this encounter Care Teams Associate Partner Relationship Specialty Start Date End Date Becky Dale MD [address] [place] [address], [address] [place] [address] PCP - General 06/18/14 documented as of this encounter
--- OUTSIDE RECORDS SUMMARY | 2024-09-25 17:04 | XMS_ITS | Encounter Summary ---
Author Organization [facility] Sys tem Address [facility] [place][id number] [address] [place] [address] Care Team Providers Care Recording Artist Name Role Phone Becky Dale MD Primary Care Provider [phone] Reason for Visit * Reason Comments Med Refill Encounter Details Date Type Department Care Team (Late st Contact Info) Description 02/17/2024 Refill [facility] Pediatric Pulmonology-Cystic Fibrosis [address] [facility] [address] [place] [phone] Becky Dale MD [address] [place] [address] DRIVE, [address] [place] [address] Social History Tobacco Use Types Packs/Day Years Used Date Smoking Tobacco: Never Smokeless Tobacco: Never Comments:No smoke exposure Alcohol Use Standard Drinks/Week Comments No 0 (1 standard drink = 0.6 oz pur e alcohol) [facility] Utilities Answer Date Recorded In the past 12 months has [employer], [employer], oil, or water [employer] threatened to shut off services in your [...] Increase physical activity Lifestyle No Fidelina Henley, DIRECTOR LEARNING Note: Evaluation of progress towards goal: Pt [...] documented as of this encounter Care Teams Recording Artist Relationship Specialty Start Date End Date Becky Dale MD [facility], [address] [place] [address] PCP - General 06/18/14 documented as of this encounter
--- OUTSIDE RECORDS SUMMARY | 2024-09-25 17:04 | XMS_ITS | Encounter Summary ---
Author Organization [employer] Sys tem Address [facility] [place][id number] [address] [place] [address] Care Team Providers Care Tests Superintendent Name Role Phone Becky Dale MD Primary Care Provider [phone] Reason for Visit * Reason Onset Date Comments Maria Guadalupe S Trek aerosol machine 02/17/2017 Let mom know that [facility] has Rx and office visit notes, call [facility] to find out when to medicinal plant picker machine. Encounter Details Date Type Department Care Team (Late st Contact Info) Description 02/17/2017 [facility]phone [facility] [address] [facility] [address] [place] [phone] Deonna Oviedo RCP Maria Guadalupe S [employer] aerosol machine (Let mom know that [facility] has Rx and office visit notes, call [employer] to find out when to medicinal plant picker machine.) Social History Tobacco Use Types Packs/Day Years Used Date Smoking Tobacco: Never Alcohol Use Standard Drinks/Week Comments No 0 (1 standard drink = 0.6 oz pur e alcohol) Comments No Sex and Gender Information Value Date Recorded Sex Assigned at Not on file Legal Sex Female 4:18 PM EDT Gender Identity Not on file Sexual Orientation Not on file documented as of this encounter Plan of Treatment Not on file documented as of this encounter Visit Diagnoses [...] Noted Time PHQ-9 Depression Total Score: 0 09/09/19 17 3:00 PM EDT documented as of this encounter Care Teams Tests Superintendent Relationship Specialty Start Date End Date Becky Dale MD [address] [place] [address], [address] [place], [place] [id number] PCP - General 06/18/14 documented as of this encounter
--- OUTSIDE RECORDS SUMMARY | 2024-09-25 17:04 | XMS_ITS | Encounter Summary ---
[facility] Address [facility] [place]-[id number] [address] [place] [address] Care Team Providers Care Hair Cutter Name Role Phone Becky Dale MD Primary Care Provider [phone] Encounter Details Date Type Department Care Team (Late st Contact Info) Description 05/05/2020 Orders Only [facility]-Cystic Fibrosis [address] [facility] [address] [place] [phone] Maame Barroso LD Cystic fibrosis ([facility]) (Primary Dx); Pancreatic insufficiency Social History Tobacco Use Types Packs/Day Years [...] as of this encounter Visit Diagnoses Diagnosis Cystic fibrosis (CMS-HCC)- Primary Pancreatic insufficiency Other specified disease of pancreas documented in this encounter Additional Health Concerns [...] documented as of this encounter Care Teams Hair Cutter Relationship Specialty Start Date End Date Becky Dale MD [address] [place] [address], [address] [place], [place] [id number] PCP - General 06/18/14 documented as of this encounter
--- OUTSIDE RECORDS SUMMARY | 2024-09-25 17:04 | XMS_ITS | Encounter Summary ---
Author Organization [facility] [employer] [facility] tem Address [facility]-[id number] [address] [place] [address] Care Team Providers Care Irrigation System Operator Name Role Phone Becky Dale MD Primary Care Provider [phone] Encounter Details Date Type Department Care Team (Late st Contact Info) Description 04/19/2022 Telephone [facility] [address] [place] [phone] Gauri Andrews RN Social History Tobacco Use Types Packs/Day Years Used Date Smoking Tobacco: Never Smokeless Tobacco: Never Comments:No smoke exposure Alcohol Use Standard Drinks/Week Comments No 0 (1 standard drink = 0.6 oz pur e alcohol) PHQ-2 Answer Date Recorded Total Score 2 03/10/2022 Childcare Answer Date Recorded Childcare Unknown 10/02/2018 [...] have Coronavirus / COVID-19? No / Unsure 04/19/2022 2:23 PM EST documented as of this encounter [...] Noted Time PHQ-9 Depression Total Score: 2 03/10/20 22 7:00 AM EST documented as of this encounter Care Teams Irrigation System Operator Relationship Specialty Start Date End Date Becky Dale MD [address] [place] [address], [place] [address] PCP - General 06/18/14 documented as of this encounter
--- OUTSIDE RECORDS SUMMARY | 2024-09-25 17:04 | XMS_ITS | Encounter Summary ---
Author Organization [facility] Address [facility] [place]-[id number] [address] [place] [address] Care Team Providers Care Mud Mixer Operator Name Role Phone Becky Dale MD Primary Care Provider [phone] Encounter Details Date Type Department Care Team (Late st Contact Info) Description 03/15/2022 Telephone [facility]mon[facility]-Cystic Fibrosis [address] [facility] [address] [place] [phone] Taisha Adorno, VEST PRESSER-BULL CHAIN OPERATOR [address] [facility], [facility] [address] [place], [place] [phone] Social History Tobacco Use Types Packs/Day Years [...] have Coronavirus / COVID-19? No / Unsure 03/10/2022 1:12 PM EST documented as of this encounter Plan of Treatment Not on file documented as of this encounter Goals Goal Patient Goal Type Associated Problems Recent Progress Patient-Stated? Author return home General Yes Elizabeth Lovell, RN Note: Evaluation of progress towards goal: return home Increase physical activity Lifestyle No Fidelina Henley, HEALTH SCIENCE WRITER Note: Evaluation of progress towards goal: [...] documented as of this encounter Care Teams Mud Mixer Operator Relationship Specialty Start Date End Date Becky Dale MD [address] [place] [address], [address] [place] [address] PCP - General 06/18/14 documented as of this encounter
--- OUTSIDE RECORDS SUMMARY | 2024-09-25 17:04 | XMS_ITS | Encounter Summary ---
Author Organization [employer] tem Address [facility] [place]-[id number] [address] [place] [address] Care Team Providers Care E Business Consultant Name Role Phone Becky Dale MD Primary Care Provider [phone] Encounter Details Date Type Department Care Team (Late st Contact Info) Description 07/13/2023 Abstract [facility] - Medical Oncology [address] [place] [phone] Araceli Trinidad Social History Tobacco Use Types Packs/Day Years Used Date Smoking Tobacco: Never Smokeless Tobacco: Never Comments:No smoke exposure Alcohol Use Standard Drinks/Week Comments No 0 (1 standard drink = 0.6 oz pur e alcohol) [facility] Utilities Answer Date Recorded In the [...] got money to buy more. Never True 07/12/2023 Within the past 12 months th e food we bought just didn't last and we didn't have money to get more. Never True 07/12/2023 Purpose - Life Answer Date Recorded Purpose [...] documented as of this encounter Care Teams E Business Consultant Relationship Specialty Start Date End Date Becky Dale MD [facility] [facility], [address] [place] [address] PCP - General 06/18/14 documented as of this encounter
--- OUTSIDE RECORDS SUMMARY | 2024-09-25 17:04 | XMS_ITS | Encounter Summary ---
Author Organization [email or web address] Sys tem Address [facility]-[id number] [address] [place] [address] Care Team Providers Care Circus Trainer Name Role Phone Becky Dale MD Primary Care Provider [phone] Encounter Details Date Type Department Care Team (Late st Contact Info) Description 03/07/2017 Telephone [facility] Pediatric Pulmonology-Cystic Fibrosis [address] [place] [address] [address] [place] [phone] Fidelina Henley LSW Social History Tobacco Use Types Packs/Day Years [...] documented as of this encounter Care Teams Circus Trainer Relationship Specialty Start Date End Date Becky Dale MD [address] [place] [address], [address] [place], [place] [id number] PCP - General 06/18/14 documented as of this encounter
--- OUTSIDE RECORDS SUMMARY | 2024-09-25 17:04 | XMS_ITS | Encounter Summary ---
Author Organization [facility] Address [address] [place] [address] Care Team Providers Care Architectural Design Lecturer Name Role Phone Chapo Mitchell MD Primary Care Provider [phone] Source Comments In the event this information is protected by the Federal Confidentiality of Alcohol and Drug AbusePatient Records regulations: The Federal rules restrict any use of the information to criminally investigate or prosecute any alcohol or drug abuse patient.[facility] Encounter Details Date Type Department Care Team (Late st Contact Info) Description 09/13/2024 Get Medical Advice Pulmonary Medicine [address] [place] [phone] Randee Johnson APRN.[place] [phone] Blood draw Social History Tobacco Use Types Packs/Day Years Used Date Smoking Tobacco: Never Passive Smoke Exposure: Never Smokeless Tobacco: Never Alcohol Use Standard Drinks/Week Comments Never 0 (1 standard drink = 0.6 oz pur e alcohol) [facility] Utilities Answer Date Recorded In the [...] place to sleep or slept in a correction (including now)? No 12/09/2023 Housing Stability Vital Sign Answer Ernst e Recorded In the last 12 months, was t here a time when you were not able to pay the mortgage or rent on time? No 07/30/2024 Number of Times Moved in the Last Year Not on fi le 07/30/2024 At any time in the past 12 m [facility], were you homeless or living in a correction (including now)? No 07/30/2024 Area Deprivation Index Answer Date Akhil rded National Score (1-100), lower number is lower ri sk 89 12/08/2023 State Score (1-10), lower number is lower risk 8 12/08/2023 Data from: https://www.neighborhoodatlas.medicine.[facility].edu/. Last address used for calculation [address] [facility] 12/08/2023 Comments Unknown Sex and Gender Information Value Date Recorded Sex Assigned at Not on file Legal Sex Female 2:33 PM EST Gender Identity Not on file Sexual Orientation Not on file documented as of this encounter Functional Status * Are you deaf or do you have serious difficulty hearing? Answer Date of Assessment Author No 12/30/2023 2:14 PM EDT [place], Leah, RN * Are you blind or do [...] Miscellaneous Notes * Telephone Encounter - Marily Crain RN - 09/20/2024 10:59 AM EDT Have not yet received fax. Called [facility] and requested lab results be sent as soon aspossible. documented in this encounter Plan of Treatment Upcoming Encounters Date Type Department Care Team (Late st Contact Info) Description 10/03/2024 10:00 AM EDT Procedure Pulmonary Medicine [address] [place] [address] CF (cystic fibrosis) ([facility]) [E84.9] 10/03/2024 10:30 AM EDT Office Visit Pulmonary Medicine [address] [place] [address] Chapo Mitchell MD [address] [place] [address] CF (cystic fibrosis) ([facility]) [E84.9] 11/23/2024 3:05 PM EDT Office Visit Otolaryngology [address] [address] Diya Bedolla MD [address] [place] [address] 6 month follow up documented as of this encounter Visit Diagnoses Not on filedocumented in this encounter Care Teams Architectural Design Lecturer Relationship Specialty Start Date End Date Chapo Mitchell MD [address] [place] [address] PCP - General Pulmonary and Critical Care Medicine 12/08/23 documented as of this encounter
--- OUTSIDE RECORDS SUMMARY | 2024-09-25 17:04 | XMS_ITS | Encounter Summary ---
Author Organization [employer] [facility] tem Address [facility] [place]-[id number] [address] [place] [address] Care Team Providers Care Coil Finisher Name Role Phone Becky Dale MD Primary Care Provider [phone] Encounter Details Date Type Department Care Team (Late st Contact Info) Description 08/12/2023 Orders Only [facility] [address] [place] [address] [address] [place] [phone] Nadeen Sandra CMA CF (cystic fibrosis) ([facility]) (Primary Dx) Social History Tobacco Use Types Packs/Day Years Used Date Smoking Tobacco: Never Smokeless Tobacco: Never Comments:No smoke exposure Alcohol Use Standard Drinks/Week Comments No 0 (1 standard drink = 0.6 oz pur e alcohol) [facility] Utilities Answer Date Recorded In the past 12 months has [employer], gas, oil, or water company threatened to [...] as of this encounter Plan of Treatment Scheduled Orders Name Type Priority Associated Diagnoses Orde r Schedule Pulmonary function test Spirometry (Flow Volume Loop) PFT Routine [place]cystic [place]) ([facility] 1 Occurrences starting 08/12/2023 until 08/11/2024 documented as of this encounter Goals Goal Patient Goal Type Associated Problems Recent Progress Patient-Stated? Author return home General Yes Elizabeth Lovell, RN Note: Evaluation of progress towards goal: return home Increase physical activity Lifestyle No Fidelina Henley LSW Note: Evaluation of progress towards goal: Pt started online schooling recently and will get up during lessons to take a short walk. 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
--- OUTSIDE RECORDS SUMMARY | 2024-09-25 17:04 | XMS_ITS | Encounter Summary ---
Author Organization [facility] Address [address] [place] [address] Care Team Providers Care Crystal Attacher Name Role Phone Chapo Mitchell MD Primary Care Provider [phone] Source Comments In the event this information is protected by the Federal Confidentiality of Alcohol and Drug AbusePatient Records regulations: The Federal rules restrict any use of the information to criminally investigate or prosecute any alcohol or drug abuse patient.[facility] Encounter Details Date Type Department Care Team (Late st Contact Info) Description 09/11/2024 Telephone Pulmonary Medicine [address] [place] [id number] Randee Johnson APRN.[place] [id number] Social History Tobacco Use Types Packs/Day Years Used Date Smoking Tobacco: Never Passive Smoke Exposure: Never Smokeless Tobacco: Never Alcohol Use Standard Drinks/Week Comments Never 0 (1 standard drink = 0.6 oz pur e alcohol) [facility] Utilities Answer Date Recorded In [...] any time in the past 12 m [facility], were you homeless or living in a prison (including now)? No 07/30/2024 Area Deprivation Index Answer Date Akhil rded National Score (1-100), lower number is lower ri sk 89 12/08/2023 State Score (1-10), lower number is lower risk 8 12/08/2023 Data from: https://www.neighborhoodatlas.medicine.[facility].edu/. Last address used for calculation [address] [facility] 12/08/2023 Comments Unknown Sex and Gender [...] Leah Hernández RN documented in this encounter Plan of Treatment Upcoming Encounters Date Type Department Care Team (Late st Contact Info) Description 10/03/2024 10:00 AM EDT Procedure Pulmonary Medicine [address] [place] [address] CF (cystic fibrosis) ([facility]) [E84.9] 10/03/2024 10:30 AM EDT Office Visit Pulmonary Medicine [address] [address] Chapo Mitchell MD [address] [place] [address] CF (cystic fibrosis) ([facility]) [E84.9] 11/23/2024 3:05 PM EDT Office Visit Otolaryngology [address] [place] [address] Diya Bedolla MD [address] [place], [place] [phone] 6 month follow up documented as of this encounter Visit Diagnoses Not on filedocumented in this encounter Care Teams Crystal Attacher Relationship Specialty Start Date End Date Chapo Mitchell MD [address] [place] [address] PCP - General Pulmonary and Critical Care Medicine 12/08/23 documented as of this encounter
--- OUTSIDE RECORDS SUMMARY | 2024-09-25 17:04 | XMS_ITS | Encounter Summary ---
Author Organization [facility] Address [facility][id number] [address] [place] [address] Care Team Providers Care Aprn Name Role Phone Becky Dale MD Primary Care Provider [phone] Encounter Details Date Type Department Care Team (Late st Contact Info) Description 03/11/2020 Telephone [facility]mon[facility]-Cystic Fibrosis [address] [facility] [address] [place] [phone] Anthony Cardoza MD [address] [place] [address] Social History Tobacco Use Types Packs/Day Years Used Date Smoking Tobacco: Never Smokeless Tobacco: Never Comments:No smoke exposure Alcohol Use Standard Drinks/Week Comments No 0 (1 standard drink = 0.6 oz pur e alcohol) PHQ-2 Answer Date Recorded PHQ-2 Score 0 03/13/2020 Childcare Answer Date Recorded Childcare Unknown 10/02/2018 Employment Answer Date Recorded Employment Unknown 10/02/2018 Comments No Sex and Gender Information Value Date Recorded Sex Assigned at Not on file Legal Sex Female 4:18 PM EDT Gender Identity Not on file Sexual Orientation Not on file COVID-19 Exposure Response Date Recorded In the last month, have you been in contact with someone who was confirmed or suspected to have Coronavirus / COVID-19? No / Unsure 03/13/2020 10:51 AM EST documented as of this encounter Miscellaneous Notes * Telephone Encounter - Lolis Moe - 03/11/2020 11:28 AM EST Mother called and stated that they would be late for appointment. Chief Client Officer spoke with Dr. Cardoza and was told to reschedule appointment for 03/13. Chief Client Officer called Mother back and let her knowthat we would be unable to see them today and would have to reschedule for 03/13. Mother voiced concern about having PFT being done in PPA room. Chief Client Officer informed her that there was no availability in the PFT room upstairs. Mother agreed to come in for the appointment on 03/13. documented in this encounter Plan of Treatment [...] Noted Time PHQ-9 Depression Total Score: 1 12/04/19 20 12:00 PM EDT documented as of this encounter Care Teams Aprn Relationship Specialty Start Date End Date Becky Dale MD [address] [place] [address], [address] [place] [address] PCP - General 06/18/14 documented as of this encounter
--- OUTSIDE RECORDS SUMMARY | 2024-09-25 17:04 | XMS_ITS | Encounter Summary ---
Author Organization [facility] Address [facility] [place] [address] Care Team Providers Care Agricultural Consultant Name Role Phone Chapo Mitchell MD Primary Care Provider [phone] Source Comments In the event this information is protected by the Federal Confidentiality of Alcohol and Drug AbusePatient Records regulations: The Federal rules restrict any use of the information to criminally investigate or prosecute any alcohol or drug abuse patient.[facility] Reason for Visit * Reason Comments Medication Question Encounter Details Date Type Department Care Team (Late st Contact Info) Description 09/13/2023 Telephone Pediatric Pulmonary [address] [phone] Randee Johnson APRN.[employer] [address] [place] [address] Medication Question Social History Tobacco Use Types Packs/Day Years Used Date Smoking Tobacco: Never Assessed [facility] Utilities Answer Date Recorded [...] any time in the past [address] [facility], were you homeless or living in a prison (including now)? No 07/30/2024 Area Deprivation Index Answer Date Akhil rded National Score (1-100), lower number is lower ri sk 89 12/08/2023 State Score (1-10), lower number is lower risk 8 12/08/2023 Data from: https://www.neighborhoodatlas.medicine.[facility].edu/. Last address used for calculation [address] [place] [address] 12/08/2023 Comments Unknown Sex and Gender Information Value Date Recorded Sex Assigned at Not on file Legal Sex Female 2:33 PM EST Gender Identity Not on file Sexual Orientation Not on file documented as of this encounter Miscellaneous Notes * Telephone Encounter - Elizabet Lancaster - 09/13/2023 11:14 AM EDT Patient's Name: Angelia Caro Caller's Name: Mitra Relation to Patient: [facility] Telephone Number: [phone] Reason for Call: Colistimethate Colistimethate dosage question, current dosage is 150 mg. Pharmacy has a question about preparationand how many days the medication has been approved for. Elizabet Lancaster documented in this encounter Plan of Treatment Upcoming Encounters Date Type Department Care Team (Late st Contact Info) Description 10/03/2024 10:00 AM EDT Procedure Pulmonary Medicine [address] [place] [phone] CF (cystic fibrosis) ([facility]) [E84.9] 10/03/2024 10:30 AM EDT Office Visit Pulmonary Medicine [address] [place] [phone] Chapo Mitchell MD [address] [place], [place] [phone] CF (cystic fibrosis) ([facility]) [E84.9] 11/23/2024 3:05 PM EDT Office Visit Otolaryngology [address] [place] [address] Diya Bedolla MD [address] [place], [place] [phone] 6 month follow up documented as of this encounter Visit Diagnoses Not on filedocumented in this encounter Additional Health Concerns Infection Onset Date Last Indicated Resolved Time Respiratory Rule-Out 09/26/2023 09/27/2023 024 12:46 PM EDT COVID-19 Rule-Out 12/09/2023 12/09/2023 12/09/2023 4:45 PM EDT Respiratory Rule-Out 12/09/2023 12/09/2023 024 4:45 PM EDT COVID-19 Rule-Out 04/09/2024 04/09/2024 04/09/2024 2:28 PM EST Respiratory Rule-Out 04/09/2024 04/09/2024 024 2:28 PM EST Respiratory Rule-Out 05/15/2024 05/15/20242 025 1:34 AM EST Rhinovirus 05/15/2024 05/15/2024 05/26/2024 8:51 PM EST COVID-19 Rule-Out 07/29/2024 07/30/2024 07/30/2024 1:39 AM EDT Respiratory Rule-Out 07/29/2024 07/30/2024 025 1:39 AM EDT documented as of this encounter Care Teams Agricultural Consultant Relationship Specialty Start Date End Date Chapo Mitchell MD [address] [place] [address] PCP - General Pulmonary and Critical Care Medicine 12/08/23 documented as of this encounter
--- OUTSIDE RECORDS SUMMARY | 2024-09-25 17:04 | XMS_ITS | Encounter Summary ---
Author Organization [employer] [facility] [employer] Address [id number] [address] [place] [address] Care Team Providers Care Dub Room Engineer Name Role Phone Becky Dale MD Primary Care Provider [phone] Encounter Details Date Type Department Care Team (Late st Contact Info) Description 04/08/2022 Telephone [facility] Pediatric Pulmonology-Cystic Fibrosis [address] [phone] Samy Cam RN Social History Tobacco Use Types Packs/Day [...] have Coronavirus / COVID-19? No / Unsure 04/07/2022 4:51 PM EST documented as of this encounter Miscellaneous Notes * Telephone Encounter - Samy Cam RN - 04/08/2022 4:58 PM EST LVM letting patient know reviewed lab work. Improving but still elevated. Continue with 30mg of prednisone daily and we will get blood work done again with CT on 04/19/22. documented in this encounter Plan of Treatment Not on file documented as of this encounter Goals Goal Patient Goal Type Associated Problems Recent Progress Patient-Stated? Author return home General Yes Elizabeth Lovell, ANOOP Note: Evaluation of progress towards goal: return home Increase physical activity Lifestyle No Fidelina Henley, PHOTOGRAPHY SALES ASSOCIATE Note: Evaluation of progress towards goal: Pt [...] documented as of this encounter Care Teams Dub Room Engineer Relationship Specialty Start Date End Date Becky Dale MD [address] [place] [address], [place] [address] PCP - General 06/18/14 documented as of this encounter
--- OUTSIDE RECORDS SUMMARY | 2024-09-25 17:04 | XMS_ITS | Encounter Summary ---
Author Organization [employer] Address [id number] [address] [place] [address] Care Team Providers Care Larry Car Operator Name Role Phone Becky Dale MD Primary Care Provider [phone] Reason for Visit * Reason Onset Date Comments Med Refill 05/08/2018 Encounter Details Date Type Department Care Team (Late st Contact Info) Description 05/08/2018 Refill [facility] Pediatric Pulmonology-Cystic Fibrosis [address] [facility] [address] [place] [phone] Christy Bhatia RN Social History Tobacco Use Types Packs/Day Years Used Date Smoking Tobacco: Never Smokeless Tobacco: Never Comments:No smoke exposure Alcohol Use Standard Drinks/Week Comments No 0 (1 standard drink = 0.6 oz pur e alcohol) PHQ-2 Answer Date Recorded PHQ-2 Score 0 04/21/2018 Comments No Sex and Gender Information Value [...] documented as of this encounter Care Teams Larry Car Operator Relationship Specialty Start Date End Date Becky Dale MD [address] [place] [address], [address] [place], [place] [id number] PCP - General 06/18/14 documented as of this encounter
--- OUTSIDE RECORDS SUMMARY | 2024-09-25 17:04 | XMS_ITS | Encounter Summary ---
Author Organization [facility] [employer] [facility] Address [id number] [address] [place] [address] Care Team Providers Care Steam Brush Operator Name Role Phone Becky Dale MD Primary Care Provider [phone] Encounter Details Date Type Department Care Team (Late st Contact Info) Description 06/06/2020 Orders Only [facility] Pediatric Pulmonology-Cystic Fibrosis [address] [facility] [address] [place] [phone] Kt Hardin MD [address] [facility], [address] Provider left PM 06/2023 [place] [address] Social History Tobacco Use Types Packs/Day Years [...] have Coronavirus / COVID-19? No / Unsure 05/15/2020 11:25 AM EST documented as of this encounter Plan [...] Noted Time PHQ-9 Depression Total Score: 0 05/15/19 21 12:00 PM EST documented as of this encounter Care Teams Steam Brush Operator Relationship Specialty Start Date End Date Becky Dale MD [address] [place] [address], [address] [place] [address] PCP - General 06/18/14 documented as of this encounter
--- OUTSIDE RECORDS SUMMARY | 2024-09-25 17:04 | XMS_ITS | Encounter Summary ---
Author [facility] Address [id number] [address] [place] [address] Care Team Providers Care E Business Project Manager Name Role Phone Becky Dale MD Primary Care Provider [phone] Reason for Visit * Reason Onset Date Comments Follow-up 11/25/2021 Encounter Details Date Type Department Care Team (Late st Contact Info) Description 11/25/2021 Nurse Triage [facility] Pediatric Pulmonology-Cystic Fibrosis [address] [facility] [address] [place] [phone] Rina Wynn LPN Social History Tobacco Use [...] have Coronavirus / COVID-19? No / Unsure 11/26/2021 2:05 PM EDT documented as of this encounter Functional Status documented as of this encounter Miscellaneous Notes * Telephone Encounter - Rina Wynn LPN - 11/25/2021 10:50 AM EDT Patient's mom, Inder calling to give status update and to get culture results. Attempted to triagecall, but Inder declined to give further information. documented in this encounter Plan of Treatment [...] of this encounter Care Teams E Business Project Manager Relationship Specialty Start Date End Date Becky Dale MD [address] [place] [address], [address] [place] [address] PCP - General 06/18/14 documented as of this encounter
--- OUTSIDE RECORDS SUMMARY | 2024-09-25 17:04 | XMS_ITS | Clinical Summary ---
Author Organization [facility] Address [address] [place] [id number] Care Team Providers Care Mud Tank Operator Name Role Phone Chapo Mitchell MD Primary Care Provider [phone] Allergies Active Allergy Reactions Criticality Noted Date Comments Sulfamethoxazole-Trimethoprim Rash,Swelling Medium Voriconazole Other: See Comments 03/30/2023 Medications pediatric multivit 22-D3-vit K (MVW COMPLETE FORMUL MULTIVIT) 1,500-1,000 unit-mcg chew Take 2 tablets by mouth. 021 Active lactobacillus rhamnosus (CULTURELLE) 10 billion cell capsuleIndications :Cystic fibrosis (HCC),ABPA (allergic bronchopulmonary aspergillosis) (HCC) Take 1 capsule by mouth once daily. 30 capsule 2 024 Active sterile water (STERILE WATER FOR INJECTION) injection Inject 4 mL intravenously two times a day. Inject 4 mls in 1 vial of ceftaz, then pull up 2 mls and nebulize twice daily 240 mL 6 024 Active acetaminophen (TYLENOL) 500 mg tablet Take 2 tablets by mouth every 8 hours as needed for pain. 90 tablet 04/27/19 25 12:51 PM EST 025 Active vanzacaftor-tezaca ftor-deutivacaftor (ALYFTREK) 10-50-125 mg tablet Take 2 tablets by mouth once daily. 56 tablet 11 025 Active budesonide (PULMICORT) 1 mg/2 mL nebulizer solutionIndication s:Cystic fibrosis with pulmonary manifestations (HCC) INHALE CONTENTS OF 1 VIAL( 2 MILLILITERS) IN NEBULIZER ONCE DAILY 60 mL 11 /03/2 025 Active Nebulizer Accessories miscIndications:Cy stic fibrosis with pulmonary manifestations (HCC) Please dispense tubing for nebulizer 2 Each Active ibuprofen (MOTRIN) 800 mg tablet Take 2 tablets by mouth every 12 hours. 120 tablet Active pseudoephedrine (SUDAFED) 30 mg tablet Take 1 tablet by mouth every 6 hours as needed. 30 tablet 025 Active xczjru-andhbrpm-rh ylase (CREON 24) 24,000-76,000 -120,000 unit delayed release capsuleIndications :Pancreatic insufficiency due to cystic fibrosis (HCC) Take 3 capsules with meals and 1 with snacks. Total 12 capsules per day 360 capsule Active loratadine (CLARITIN) 10 mg tabletIndications: Cystic fibrosis (HCC),Cystic fibrosis with pulmonary manifestations (HCC),Chronic sinusitis, unspecified location Take 1 tablet by mouth once daily. 30 tablet Active azithromycin (ZITHROMAX) 500 mg tabletIndications: Cystic fibrosis (HCC),Cystic fibrosis with pulmonary manifestations (HCC),Chronic sinusitis, unspecified location 500 mg every Tuesday, Tuesday, Tuesday 12 tablet Active fluticasone propion-salmeterol 232-14 mcg/actuationIndic ations:Cystic fibrosis (HCC),Cystic fibrosis with pulmonary manifestations (HCC),Chronic sinusitis, unspecified location Inhale 1 Inhalation as instructed two times a day. 1 Each Active albuterol HFA (PROVENTIL HFA, VENTOLIN HFA) 90 mcg/actuation inhalerIndications :Cystic fibrosis (HCC),Cystic fibrosis with pulmonary manifestations (HCC),Chronic sinusitis, unspecified location Inhale 2 Puffs as instructed once daily. 1 g 025 Active dornase odilon (PULMOZYME) 1 mg/mL nebulizer solutionIndication s:Cystic fibrosis (HCC),Cystic fibrosis with pulmonary manifestations (HCC),Chronic sinusitis, unspecified location Inhale 2.5 mL as instructed once daily. 75 mL 025 Active fluticasone (FLONASE) 50 mcg/actuation nasal sprayIndications:C ystic fibrosis (HCC),Cystic fibrosis with pulmonary manifestations (HCC),Chronic sinusitis, unspecified location Use 1 [place] in each nostril once daily. 1 Each Active cefTAZidime (FORTAZ) 1 gram solrIndications:Cy stic fibrosis (HCC),Cystic fibrosis with pulmonary manifestations (HCC),Chronic sinusitis, unspecified location Inhale 500 mg as instructed q 12 HR. Use 1 month on, 1 month off, alternating with coly-mycin. 28 g Active cholecalciferol (VITAMIN D3) 5,000 unit tabIndications:Cys tic fibrosis (HCC),Cystic fibrosis with pulmonary manifestations (HCC),Chronic sinusitis, unspecified location Take 1 tablet by mouth once daily. 30 tablet Active colistimethate (COLY-MYCIN M) 150 mg injectionIndicatio ns:Cystic fibrosis (HCC),Cystic fibrosis with pulmonary manifestations (HCC),Chronic sinusitis, unspecified location Inhale 2cc (150mg) twice daily every other month 60 Each 025 Active Syringe with Needle, Safety (3CC SAFETY SYRINGE 22GX1 ) 3 mL 22 gauge x 1 syrgIndications:Cy stic fibrosis (HCC),Cystic fibrosis with pulmonary manifestations (HCC),Chronic sinusitis, unspecified location 1 Each two times a day. 60 Each 025 Active Syringe with Needle, Safety (ECLIPSE SYRINGE) 3 mL 21 gauge x 1 syrgIndications:Cy stic fibrosis (HCC),Cystic fibrosis with pulmonary manifestations (HCC),Chronic sinusitis, unspecified location 1 Units two times a day. Pull up 4 mls sterile water and mix with ceftaz . Then pull up 2 mls and nebulize. Every other month 60 Each Active tiotropium bromide (SPIRIVA RESPIMAT) 1.25 mcg/actuation inhalerIndications :Cystic fibrosis (HCC),Cystic fibrosis with pulmonary manifestations (HCC),Chronic sinusitis, unspecified location Inhale 2 Puffs as instructed once daily. 1 Each Active sodium chloride 3% solution 3 % nebulizer solutionIndication s:Cystic fibrosis (HCC),Cystic fibrosis with pulmonary manifestations (HCC),Chronic sinusitis, unspecified location Use 4 mL via nebulizer two times a day. 240 mL Active Omeprazole Magnesium (PRILOSEC OTC) 20 mg tabletIndications: Cystic fibrosis (HCC),Cystic fibrosis with pulmonary manifestations (HCC),Chronic sinusitis, unspecified location Take 1 tablet by mouth once daily. 30 tablet 025 2025 Active ferrous sulfate (FEROSUL) 325 mg (65 mg iron) tabletIndications: Cystic fibrosis (HCC),Cystic fibrosis with pulmonary manifestations (HCC),Chronic sinusitis, unspecified location Take 1 tablet by mouth every other day. 15 tablet Active albuterol (PROVENTIL) 2.5 mg /3 mL (0.083 %) nebulizer solutionIndication s:Cystic fibrosis (HCC),Cystic fibrosis with pulmonary manifestations (HCC),Chronic sinusitis, unspecified location Use 3 mL via nebulizer three times a day as needed for wheezing/shortn ess of breath. Inhale over 5-15 minutes 270 mL Active sodium chloride 0.65 % nasal sprayIndications:C ystic fibrosis (HCC),Cystic fibrosis with pulmonary manifestations (HCC),Chronic sinusitis, unspecified location Use 2 Sprays in the nose as needed. 50 mL Active polyethylene glycol 3350 17 gram/dose powder Take 17 g by mouth two times a day as needed for constipation. Dissolve dose in 4 - 8 ounces of liquid and take as directed. 238 g 1 08/23/19 25 6:16 PM EDT Active predniSONE (DELTASONE) 10 mg tablet Take 3 tablets by mouth once daily. Take 30 mg (3 tabs) X14 days; then 20 mg (2 tablets) X 28 days; then 10 mg (1 tablet) X 28 days then 10 mg every other day X 28 days 126 tablet Active famotidine (PEPCID) 20 mg tabletIndications: Cystic fibrosis (HCC),ABPA (allergic bronchopulmonary aspergillosis) (HCC) Take 1 tablet by mouth daily at bedtime. 30 tablet 3 Active itraconazole (SPORANOX) 100 mg capsuleIndications :ABPA (allergic bronchopulmonary aspergillosis) (HCC),Cystic fibrosis (HCC) Take 2 capsules by mouth two times a day with meals. 120 capsule 2 025 2024 Active amoxicillin (AMOXIL) 875 mg tabletIndications: CF (cystic fibrosis) (HCC),Cystic fibrosis (HCC),Need for antibiotic prophylaxis for dental procedure Take 1 tablet by mouth every 24 hours. Take 1 tablet the day before dental procedure then take 1 tablet the day of dental procedure. 2 tablet Active minocycline (MINOCIN, DYNACIN) 100 mg capsuleIndications :Cystic fibrosis with pulmonary manifestations (HCC) Take 1 capsule by mouth two times a day for 21 days. 42 capsule 025 2024 Active budesonide (PULMICORT) 0.5 mg/2 mL nebulizer solutionIndication s:Cystic fibrosis with pulmonary manifestations (HCC),Chronic sinusitis, unspecified location,Cystic fibrosis (HCC) Add the entire 2 mL of budesonide to 240 mL of normal saline irrigation bottle and mix well. Apply half of this mixture (about 120 mL) to each nasal cavity, two times a day. 120 mL 11 Active famotidine (PEPCID) 20 mg tabletIndications: Cystic fibrosis (HCC),ABPA (allergic bronchopulmonary aspergillosis) (HCC) Take 1 tablet by mouth daily at bedtime. 30 tablet 1 024 2024 Discontinued minocycline (MINOCIN, DYNACIN) 100 mg capsuleIndications :Cystic fibrosis with pulmonary manifestations (HCC) Take 1 capsule by mouth two times a day for 21 days. 42 capsule 025 2024 Discontinued predniSONE (DELTASONE) 10 mg tablet Take 3 tablets by mouth once daily for 5 days, THEN 2 tablets once daily for 7 days, THEN 1 tablet once daily for 7 days, THEN 0.5 tablets once daily for 7 days. 40 tablet 025 2024 Discontinued amoxicillin (AMOXIL) 875 mg tabletIndications: CF (cystic fibrosis) (HCC),Cystic fibrosis (HCC),Need for antibiotic prophylaxis for dental procedure Take 1 tablet by mouth every 24 hours. Take 1 tablet the day before dental procedure then take 1 tablet the day of dental procedure. 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 09/27/2023 Pancreatic insufficiency due to cystic fibrosis 09/27/2023 Sinusitis (chronic) 09/27/2023 Cystic fibrosis with pulmonary exacerbation 07/2023 CF (cystic fibrosis) 09/26/2023 Encounters Date Type Department Care Team Description 09/25/2024 Telephone Pulmonary Medicine [address] [place] [address] Consuelo Brooks LISW Prior Authorization 09/20/2024 Telephone Pulmonary Medicine [address] [place] [address] Chapo Mitchell MD Results ([facility]) 09/20/2024 Telephone Pulmonary Medicine [address] [place], [place] [phone] Chapo Mitchell MD Patient Question 09/20/2024 Telephone Pulmonary Medicine [address] [address] Chapo Mitchell MD Patient Question 09/19/2024 Telephone Pulmonary Medicine [address] [place] [id number] Tony Johnson APRN.CARPENTERS Results () 09/13/2024 Get Medical Advice Pulmonary Medicine [address] [place], [place] [id number] Tony Johnson APRN.CARPENTERS Blood draw 09/11/2024 Telephone Pulmonary Medicine [address] [place], [place] [phone] Tony Johnson APRN.CARPENTERS 09/10/2024 Get Medical Advice Pulmonary Medicine [address] [place], [place] [phone] Tony Johnson ADE.CARPENTERS Symptom Update 08/27/2024 Orders Only Pulmonary Medicine [address] [place] [address] Tony Johnson APRN.CARPENTERS Cystic fibrosis ([facility]) (Primary Dx); ABPA (allergic bronchopulmonary aspergillosis) ([facility]) 08/27/2024 Get Medical Advice Pulmonary Medicine [address] [place] [address] Tony Johnson, ADE.CARPENTERS Prednisone/ Antibiotic 08/23/2024 Get Medical Advice Pulmonary Medicine [address] [place] [address] Chapo Mitchell MD Prednisone 08/22/2024 Telephone Pulmonary Medicine [address] [place] [address] Consuelo Brooks LISW Saturator Tender - Other ([facility]-nebulizers) 08/15/2024 2:45 PM EDT Office Visit Pulmonary Medicine [address] [place] [address] CF (cystic fibrosis) ([facility]) (Primary Dx) 08/09/2024 Get Medical Advice Pulmonary Medicine [address] [place] [address] Tony Johnson, ADE.CARPENTERS Prednisone 08/07/2024 Abstract Pulmonary Medicine [address] [place] [address] Helena Johns, MICHELLE Abstract 08/02/2024 2:30 PM EDT Office Visit Pulmonary Medicine [address] [place] [id number] CF (cystic fibrosis) ([facility]) (Primary Dx) 07/29/2024 6:26 PM EDT - 08/22/2024 3:28 PM EDT Hospital Encounter [id number] [address] [place] [id number] Kelly Howard MD Farooq, Sobia, MD Pennington, Emily, MD Lessa Ribeiro Neto, Manuel, MD Heresi, Gustavo A, MD Parambil, Joseph, MD Abou Asala, Elian, MD Cystic fibrosis ([facility]) Discharge Disposition: Home 07/26/2024 Telephone Pulmonary Medicine [address] [address] Tony Johnson APRN.CARPENTERS Patient Question 07/23/2024 Orders Only Pulmonary Medicine [address] [place] [address] CF (cystic fibrosis) ([facility]) (Primary Dx) 07/20/2024 Orders Only Pulmonary Medicine [address] [place] [address] Marily Crain, ANOOP Cystic fibrosis ([facility]); Cystic fibrosis with pulmonary manifestations ([facility]); Chronic sinusitis, unspecified location 07/11/2024 11:00 AM EDT Office Visit Pulmonary Medicine [address] [address] Therapy, Pulm Main Respiratory CF (cystic fibrosis) ([facility]) (Primary Dx) 07/11/2024 10:30 AM EDT Office Visit Pulmonary Medicine [address] [place] [address] Chapo Mitchell MD CF (cystic fibrosis) ([facility]) (Primary Dx); ABPA (allergic bronchopulmonary aspergillosis) ([facility]) 07/11/2024 10:15 AM EDT Procedure Pulmonary Medicine [address] [place] [address] Spirometry 07/11/2024 Social Work Pulmonary Medicine [address] [place] [address] Consuelo Brooks LISW 07/11/2024 Orders Only Pulmonary Medicine [address] [place] [address] Marily Crain, ANOOP Cystic fibrosis ([facility]) (Primary Dx) 07/11/2024 Orders Only Pulmonary Medicine [address] [place] [address] Pancreatic insufficiency due to cystic fibrosis ([facility]) (Primary Dx) 07/11/2024 Travel 07/06/2024 Abstract Pulmonary Medicine [address] [place] [address] Abstract from Last 3 Months Immunizations Immunization Administration Dates Next Due COVID-19 vaccine, unspecifie d formulation 12/11/2021 Haemophilus influenzae b (Hi b PRP-T) vaccine, 4-dose series (ACTHIB, HIBERIX) 03/18/2004 Haemophilus influenzae b (Hi b) vaccine, unspecified formulation 12/23/2003,04/23/2003,02/21/2003,02/19 Haemophilus influenzae b-hep atitis B (Hib-HepB) vaccine (COMVAX) 12/23/2003 diphtheria tetanus pertussis (DTaP) vaccine, pediatric (INFANRIX) 09/11/2007,03/18/2004,06/27/2003,04/23,02/19/2003 hepatitis A (HepA) vaccine, adult (HAVRIX, VAQTA) 09/11/2007,03/02/2007 hepatitis B (HepB) vaccine, 3-dose series, age 20+ yr (ENGERIX-B, RECOMBIVAX HB) 12/23/2003,04/23/2003,02/19/2003 human papillomavirus (HPV4) vaccine, quadrivalent (GARDASIL) 06/27/2014 influenza (IIV3) vaccine, tr ivalent (AFLURIA, FLULAVAL, FLUVIRIN, FLUZONE) 01/28/2009,03/05/2008,03/02/2007 influenza (IIV3) vaccine, tr ivalent, PF (AFLURIA, FLUARIX, FLULAVAL, FLUVIRIN, FLUZONE) 01/06/2016,03/01/2013,12/28/2011,02/08 influenza (IIV4) vaccine, ag e 6 mo - 64 yr, quadrivalent, PF (AFLURIA, FLUARIX, FLULAVAL, FLUZONE) 02/18/2022,03/04/2020,03/29/2019,03/09,02/15/2017 influenza (IIV4) vaccine, qu adrivalent (AFLURIA, FLULAVAL, FLUZONE) 04/16/2014 influenza (LAIV) vaccine, na isidro, unspecified formulation 02/03/2010 influenza vaccine, whole virus 03/04/2005 measles mumps rubella (MMR) vaccine (M-M-R II, PRIORIX) 03/05/2008,03/18/2004 meningococcal (MenACWY-D) [facility], quadrivalent (MENACTRA) 06/27/2014 novel influenza (R2Z8-39) vaccine 05/21/2009 pneumococcal (PCV7) vaccine, 7 valent (PREVNAR 7) 03/18/2004,06/27/2003 pneumococcal conjugate (PCV1 3) vaccine, 13 valent (PREVNAR 13) 01/06/2016 pneumococcal vaccine, unspec ified formulation 05/21/2009,04/23/2003,02/19/2003 poliovirus (IPV) vaccine, in activated (IPOL) 09/11/2007,09/30/2003,04/23/2003,02/19 tetanus diphtheria pertussis (Tdap) vaccine, age 7+ yr (ADACEL, BOOSTRIX) 06/27/2014 varicella (JOAQUINA) vaccine (VARIVAX) 05/21/2009, Social History Tobacco Use Types Packs/Day Years Used Date Smoking Tobacco: Never Passive Smoke Exposure: Never Smokeless Tobacco: Never Tobacco Cessation:Counseling Given: Not Answered Alcohol Use Standard Drinks/Week Comments Never 0 (1 standard drink = 0.6 oz pur e alcohol) [facility] Utilities Answer Date Recorded In the past 12 months has th e [facility], gas, oil, or water [email or web address] threatened to shut off services in your [...] place to sleep or slept in a half-way (including now)? No 12/09/2023 Housing Stability Vital Sign Answer Ernst e Recorded In the last 12 months, was t here a time when you were not able to pay the mortgage or rent on time? No 07/30/2024 Number of Times Moved in the Last Year Not on fi le 07/30/2024 At any time in the past 12 m [facility], were you homeless or living in a half-way (including now)? No 07/30/2024 Area Deprivation Index Answer Date Akhil rded National Score (1-100), lower number is lower ri sk 89 12/08/2023 State Score (1-10), lower number is lower risk 8 12/08/2023 Data from: https://www.neighborhoodatlas.medicine.[employer] [facility].edu/. Last address used for calculation [address] 12/08/2023 Comments Unknown Sex and Gender Information Value Date Recorded Sex Assigned at Not on file Legal Sex Female 2:33 PM EST Gender Identity Not on file Sexual Orientation Not on file Last Filed Vital Signs Vital Sign Reading Time Taken Comments Blood Pressure 127/79 08/22/2024 10:04 AM EDT Pulse 90 08/22/2024 11:42 AM EDT Temperature 36.6 C (97.9 F) 08/22/2024 10:04 AM EDT Respiratory Rate 16 08/22/2024 11:42 AM EDT Oxygen Saturation 98% 08/22/2024 11:42 AM EDT Inhaled Oxygen Concentration - - Weight 60.6 kg (133 lb 9.6 oz) 07/29/2024 6:42 P M EDT Height 154.9 cm (5' 1 ) 07/29/2024 6:42 PM EDT Body Mass Index 25.24 07/29/2024 6:42 PM EDT Plan of Treatment Upcoming Encounters Date Type Department Care Team (Late st Contact Info) Description 10/03/2024 10:00 AM EDT Procedure Pulmonary Medicine [address] [place] [address] CF (cystic fibrosis) ([facility]) [E84.9] 10/03/2024 10:30 AM EDT Office Visit Pulmonary Medicine [address], [place] [address] Chapo Mitchell MD [address] [place] [address] CF (cystic fibrosis) ([facility]) [E84.9] 11/23/2024 3:05 PM EDT Office Visit Otolaryngology [address], [place] [address] Diya Bedolla MD [address] [place] [address] 6 month follow up Health Maintenance Due Date Last Done Comments Peds To Adult Transition Ini tial Discussion 2014 HPV Vaccine (2 - 2-dose series) 12/28/2014 5 Pneumococcal Vaccine (2 of 2 - PPSV23) 03/02/2016 01/06/2016, 05/21/2009, 03/18/2004, Additional history exists Peds To Adult Transition Iesha ual Assessment 2016 Meningococcal B Vaccine (1 o f 2 - Standard) 2018 Anxiety Screening 2020 Chlamydia Screening (18-24) 2020 Depression Screening 2020 GC (Gonorrhea) Screening (18-24) 2020 HIV Screening 2020 Hepatitis C Screening 2020 Cervical Cancer Screening 12/15/2023 Covid-19 Vaccine (4 - 2023-2 5 season) 2023 12/11/2021, 08/27/2020, 08/06/2020 DTaP,Tdap,Td Vaccine (7 - Td or Tdap) 06/27/2024 06/27/2014, 09/11/2007, 03/18/2004, Additional history exists Influenza Vaccine (Season Ended) 2024 02/17/2023, 02/18/2022, 03/04/2020, Additional history exists Hepatitis B Vaccine Completed 12/23/2003, 12/23/2003, 04/23/2003, Additional history exists Procedures Procedure Name Priority Date/Time Associated Diagnosis Comments EXTERNAL LAB 09/21/2024 2:06 PM EDT EXTERNAL LAB 09/21/2024 8:58 AM EDT EXTERNAL LAB 09/21/2024 8:58 AM EDT EXTERNAL LAB 09/21/2024 8:57 AM EDT EXTERNAL LAB 09/20/2024 11:07 AM EDT EXTERNAL LAB 09/18/2024 6:06 PM EDT COMPREHENSIVE METABOLIC PANEL Routine 08/20/2024 6:56 AM EDT COMPLETE BLOOD COUNT Routine 08/20/2024 6:56 AM EDT COMPLETE BLOOD COUNT Routine 08/16/2024 5:53 AM EDT COMPREHENSIVE METABOLIC PANEL Routine 08/16/2024 5:53 AM EDT SPIROMETRY BASELINE ONLY Routine 08/15/2024 2:52 PM EDT SPIROMETRY BASELINE ONLY Routine 08/15/2024 12:01 AM EDT COMPREHENSIVE METABOLIC PANEL Routine 08/13/2024 6:42 AM EDT COMPLETE BLOOD COUNT Routine 08/13/2024 6:42 AM EDT COMPLETE BLOOD COUNT Routine 08/09/2024 7:15 AM EDT COMPREHENSIVE METABOLIC PANEL Routine 08/09/2024 7:15 AM EDT SPIROMETRY BASELINE ONLY Routine 08/08/2024 12:02 AM EDT FERRITIN BLD Add-on 08/06/2024 6:07 AM EDT IRON + TIBC Add-on 08/06/2024 6:07 AM EDT COMPREHENSIVE METABOLIC PANEL Routine 08/06/2024 6:07 AM EDT COMPLETE BLOOD COUNT Routine 08/06/2024 6:07 AM EDT SPIROMETRY BASELINE ONLY Routine 08/02/2024 2:24 PM EDT COMPLETE BLOOD COUNT Routine 08/02/2024 5:24 AM EDT COMPREHENSIVE METABOLIC PANEL Routine 08/02/2024 5:24 AM EDT DIFFERENTIAL BLD Add-on 08/02/2024 5:24 AM EDT FUNGAL CULTURE AND SMEAR (NON DERMAL) Routine 07/31/2024 5:53 PM EDT BACTERIAL CULTURE AND GRAM STAIN, ABSCESS AND WOUND (AEROBIC CULTURE) Routine 07/31/2024 5:52 PM EDT OTOLARYNGOLOGY IMAGING (TASHA) 07/31/2024 5:[address] CHEST WO IVCON STAT 07/30/2024 10: 35 AM EDT XR CHEST 1V FRONTAL PORT STAT 07/30/2024 9:42 AM EDT STREPTOCOCCUS PNEUMONIAE AG Routine 07/30/2024 12:50 AM EDT URINALYSIS, REFLEX MICROSCOPIC Routine 07/30/2024 12:50 AM EDT LEGIONELLA AG URINE Routine 07/30/2024 1 2:50 AM EDT EXPANDED RESPIRATORY PATHOGEN PANEL BY PCR, EXPEDITED Routine 07/30/2024 12:25 AM EDT STAPHYLOCOCCUS AUREUS & MRSA SCREEN, PCR, NASAL Routine 07/30/2024 12:25 AM EDT BACTERIAL CULTURE AND GRAM STAIN, RESPIRATORY, SPUTUM AND TRACHEAL ASPIRATE Routine 07/30/2024 12:24 AM EDT MYCOPLASMA PNEUM PCR Routine 07/30/2024 12:24 AM EDT BACTERIAL CULTURE, BLOOD Routine 07/29/2024 11:30 PM EDT RAST, IMMUNOCAP SCORE (REFLEX ONLY) Routine 07/29/2024 11:30 PM EDT VITAMIN D 25 HYDROXY Add-on 07/29/2024 11:30 PM EDT HEMOGLOBIN A1C Add-on 07/29/2024 11:30 PM EDT IGE BLD Add-on 07/29/2024 11:30 PM EDT D-DIMER STAT 07/29/2024 11:30 PM EDT HCG QUANTITATIVE Routine 07/29/2024 11:3 0 PM EDT SEPSIS LACTATE STAT 07/29/2024 11:30 PM EDT C-REACTIVE PROTEIN (CRP) Routine 07/29/2024 11:30 PM EDT SED RATE WESTERGREN Routine 07/29/2024 1 1:30 PM EDT ASPERGILLUS GALACTOMANNAN SERUM Routine 07/29/2024 11:30 PM EDT BRONCHOPUL ASPERGILL Routine 07/29/2024 11:30 PM EDT PROCALCITONIN (LAB) STAT 07/29/2024 1 1:30 PM EDT PROTHROMBIN TIME Routine 07/29/2024 11:3 0 PM EDT HEPATIC FUNCTION PNL Routine 07/29/2024 11:30 PM EDT MAGNESIUM BLD Routine 07/29/2024 11:30 PM EDT PHOSPHORUS INORGANIC Routine 07/29/2024 11:30 PM EDT BASIC METABOLIC PANEL Routine 07/29/2024 11:30 PM EDT COMPLETE BLOOD COUNT Routine 07/29/2024 11:30 PM EDT BACTERIAL CULTURE AND GRAM STAIN, RESPIRATORY, SPUTUM AND TRACHEAL ASPIRATE Routine 07/29/2024 8:28 PM EDT HCG QUAL UR Routine 07/29/2024 8:28 PM EDT COMPREHENSIVE METABOLIC PANEL Routine 07/11/2024 12:56 PM EDT Cystic fibrosis (HCC) ORGANISM IDENT. MOLD (LAB ORDER ONLY) Routine 07/11/2024 12:22 PM EDT CF (cystic fibrosis) (HCC) ABPA (allergic bronchopulmonary aspergillosis) ([facility]) BACTERIAL CULTURE, RESPIRATORY, CYSTIC FIBROSIS Routine 07/11/2024 12:22 PM EDT CF (cystic fibrosis) (HCC) ABPA (allergic bronchopulmonary aspergillosis) ([facility]) FUNGAL CULTURE AND SMEAR (NON DERMAL) Routine 07/11/2024 12:22 PM EDT CF (cystic fibrosis) (HCC) ABPA (allergic bronchopulmonary aspergillosis) ([facility]) AFB CULTURE & STAIN FOR PATIENTS WITH CYSTIC FIBROSIS Routine 07/11/2024 12:22 PM EDT CF (cystic fibrosis) (HCC) ABPA (allergic bronchopulmonary aspergillosis) ([facility]) SPIROMETRY BASELINE ONLY Routine 07/11/2024 11:29 AM EDT Cystic fibrosis (HCC) from Last 3 Months Results * EXTERNAL LAB (09/21/2024 2:06 PM EDT) Only the most recent of6 resultswithin the time period is included. us External Provider [facility] Final Res ult * (ABNORMAL) COMPREHENSIVE METABOLIC PANEL (08/20/2024 6:56 AM EDT) Only the most recent of7 resultswithin the time period is included. Pathologist [facility] Protein, Total 5.2(L) 6.3 - 8.0 g/dL 08/20/2024 8:41 AM EDT [facility] Albumin 2.7(L) 3.9 - 4.9 g/dL 08/20/2024 8:41 AM EDT [facility] Calcium, Total 7.0(L) 8.5 - 10.2 mg/dL 08/20/2024 8:41 AM EDT [facility] Bilirubin, Total 0.4 0.2 - 1.3 mg/dL 08/20/2024 8:41 AM EDT [facility] Alkaline Phosphatase 92 34 - 123 U/L 08/20/2024 8:41 AM EDT [facility] AST 22 13 - 35 U/L 08/20/2024 8:41 AM EDT [facility] ALT 19 7 - 38 U/L 08/20/2024 8:41 AM EDT [facility] Glucose 67(L) 74 - 99 mg/dL 08/20/2024 8:41 AM EDT [facility] Comment: The [place] Diabetes [employer] (ADA) provides guidance for cutoff values for fasting glucose and random glucose. The ADA defines fasting as no caloric intake for at least 8 hours. Fasting plasma glucose results between 100 to 125 mg/dL indicate increased risk for diabetes (prediabetes). Fasting plasma glucose results greater than or equal to 126 mg/dL meet the criteria for diagnosis of diabetes. In the absence of unequivocal hyperglycemia, results should be confirmed by repeat testing. In a patient with classic symptoms of hyperglycemia or hyperglycemic crisis, random plasma glucose results greater than or equal to 200 mg/dL meet the criteria for diagnosis of diabetes. Reference: Standards of Medical Care in Diabetes 2016, [place] [employer]. Diabetes Care. 2016.39(Suppl 1). BUN 26(H) 7 - 21 mg/dL 08/20/2024 8:41 AM EDT [facility] Creatinine 0.90 0.58 - 0.96 mg/dL 08/20/2024 8:41 AM EDT [facility] Sodium 138 136 - 144 mmol/L 08/20/2024 8:41 AM EDT [facility] Potassium 5.1 3.7 - 5.1 mmol/L 08/20/2024 8:41 AM EDT [facility] Chloride 105 98 - 107 mmol/L 08/20/2024 8:41 AM EDT [facility] CO2 21(L) 22 - 30 mmol/L 08/20/2024 8:41 AM EDT [facility] Anion Gap 12 8 - 15 mmol/L 08/20/2024 8:41 AM EDT [facility] Estimated Glomerular Filtration Rate 93 >=60 mL/min/1.7 3m 08/20/2024 8:41 AM EDT [facility] Comment:Estimated Glomerular Filtration Rate (eGFR) is calculated using the 2020 CKD-EPI creatinine equation. This equation utilizes serum creatinine, sex, and age as parameters. The creatinine assay has traceable calibration to isotope dilution- mass spectrometry. Refer to KDIGO guidelines for clinical interpretation. In patients with unstable renal function, e.g. those with acute kidney injury, the eGFR may not accurately reflect actual GFR. Blood BLOOD SPECIMEN / Unknown Central Line / Unknown 08/20/2024 6:56 AM EDT 08/20/2024 7:01 AM EDT us Kelly Howard MD LABORATORY Final Result [facility] [address] [place] [address], * (ABNORMAL) COMPLETE BLOOD COUNT (08/20/2024 6:56 AM EDT) Only the most recent of7 resultswithin the time period is included. WBC 11.32(H) 3.70 - 11.00 k/uL 08/20/2024 8:33 AM EDT [facility] RBC 3.85(L) 3.90 - 5.20 m/uL 08/20/2024 8:33 AM EDT [facility] Hemoglobin 9.8(L) 11.5 - 15.5 g/dL 08/20/2024 8:33 AM EDT [facility] Hematocrit 29.5(L) 36.0 - 46.0 % 08/20/2024 8:33 AM EDT [facility] MCV 76.6(L) 80.0 - 100.0 fL 08/20/2024 8:33 AM EDT [facility] MCH 25.5(L) 26.0 - 34.0 pg 08/20/2024 8:33 AM EDT [facility] MCHC 33.2 30.5 - 36.0 g/dL 08/20/2024 8:33 AM EDT [facility] RDW-CV 15.9(H) 11.5 - 15.0 % 08/20/2024 8:33 AM EDT [facility] Platelet Count 296 150 - 400 k/uL 08/20/2024 8:33 AM EDT [facility] MPV 10.7 9.0 - 12.7 fL 08/20/2024 8:33 AM EDT [facility] Absolute nRBC 0.04(H) <0.01 k/uL 08/20/2024 8:33 AM EDT [facility] Blood BLOOD SPECIMEN / Unknown Central Line / Unknown 08/20/2024 6:56 AM EDT 08/20/2024 7:01 AM EDT us Kelly Howard MD LABORATORY Final Result [facility] [address] [place] [id number], * SPIROMETRY BASELINE ONLY (08/15/2024 2:52 PM EDT) FVC PRE (L) 2.45 L [facility] FVC PREDICTED (L) 3.10 L [facility] FVC LLN (L) 2.41 L [facility] FVC ULN (L) 3.82 L [facility] FEV1 PRE (L) 1.68 L [facility]A RY FUNCTION [facility] FEV1 PREDICTED (L) 2.78 L [facility] FEV1 LLN (L) 2.15 L [facility] FEV1 ULN (L) 3.37 L [facility] FEV1/FVC PRE (%) 68 % [facility] FEV1/FVC PREDICTED (%) 89 % [facility] FEV1/FVC LLN (%) 78 % [facility] FEF25% PRE (L/S) 3.44 L/S [facility] FEF75% PRE (L/S0 0.32 L/S [facility] FEF75% PREDICTED (L/S) 1.70 L/S [facility] FEF75% LLN (L/S) 0.95 L/S [facility] FEF75% ULN (L/S) 2.76 L/S [facility] SYV57-15% PRE (L/S) 0.98 L/S [facility] MPV18-28% PREDICTED (L/S) 3.46 L/S [facility] FPU56-51% LLN (L/S) 2.29 L/S [facility] PEF PRE (L/S) 5.52 L/S [facility] T[facility] PEF LLN (L/S) 4.86 L/S [facility] PEF ULN (L/S) 7.97 L/S [facility] FET PRE (S) 10.57 S [facility] 08/15/2024 2:52 PM EDT Narrative [facility] - 08/17/2024 11:[address] [facility] [address] [place] [address] Test Date: 2024-08-15 Pat Name: ANGELIA SANCHEZ Department: Room: Gender: Female Manufacturing Applications Engineer: : 2000 Requested By: Order Number: [id number] Reading MD: Kana Sánchez MD Interpretive Statements Current ATS/ERS acceptability and repeatability standards for spirometry met. Start of test and EOFE criteria met. //HC IMPRESSION: Spirometry indicates moderate obstruction. Electronically Signed On 08-17-2024 11:10:54 EDT by Kana Sánchez MD ID: [id number] Name: ANGELIA SANCHEZ Race: Other Ht: 61.02 in Wt: 133.60 lbs Age: 23 Gender: Female : 2000 Dx: Cystic Fibrosis - Unspecified. May include CFTR disorder. Smoking Hx: Non-smoker Doctor: Test Date: 08/15/2024 Site: Tech: Beatriz Tom PRE-BRONCH POST-BRONCH Daniel LLN Pred ULN %Pred ZScore Daniel %Pred %Chg ZScore SPIROMETRY FVC 2.45 2.41 3.10 3.82 78 -1.54 FEV1 1.68 2.15 2.78 3.37 60 -2.82 FEV1/FVC 0.68 0.78 0.89 0.98 76 -2.68 FEFMax 5.52 4.86 6.42 7.97 86 -0.95 FEF50 1.50 2.41 4.02 5.63 37 -2.58 FIF50 5.12 FEF50/FIF50 0.29 90-100 FIVC 2.01 JSR62-15 0.98 2.29 3.46 4.77 28 -3.91 ExpiredTime 10.57 TimeToFEFMax 0.06 AUREA 0.05 VolExtrap% 2 Comments: Current ATS/ERS acceptability and repeatability standards for spirometry met. Start of test and EOFE criteria met. //HC us Chapo Mitchell MD PULMONARY Final Result [facility] [address] [facility]. [place] [id number] * IRON AND TIBC (08/06/2024 6:07 AM EDT) Iron 77 41 - 186 ug/dL 08/06/2024 2:18 PM EDT [facility] TIBC 275 232 - 386 ug/dL 08/06/2024 2:18 PM EDT [facility] Transferrin Saturation 28.0 15.0 - 57.0 % 08/06/2024 2:18 PM EDT [facility] Blood BLOOD SPECIMEN / Unknown Venipuncture / Unknown 08/06/2024 6:07 AM EDT 08/06/2024 6:16 AM EDT Jana Ovalle MD LABORATORY Final Result [facility] [address] [place] [address], * FERRITIN (08/06/2024 6:07 AM EDT) [facility] Ferritin 37.5 14.7 - 205.1 ng/mL 08/06/2024 2:24 PM EDT [facility] Blood BLOOD SPECIMEN / Unknown Venipuncture / Unknown 08/06/2024 6:07 AM EDT 08/06/2024 6:16 AM EDT Jana Ovalle MD LABORATORY Final Result [facility] [address] [place] [id number], * SPIROMETRY BASELINE ONLY (08/02/2024 2:24 PM EDT) [facility] FVC PRE (L) 2.44 L P[facility] Y FUNCTION LAB FVC PREDICTED (L) 3.10 L [facility] FVC LLN (L) 2.41 L [facility] FUNCTION [facility] FVC ULN (L) 3.82 L [facility] FUN[facility] FEV1 PRE (L) 1.67 L [facility]UL[facility]A RY FUNCTION [facility] FEV1 PREDICTED (L) 2.78 L [facility] FEV1 LLN (L) 2.15 L [facility] FEV1 ULN (L) 3.37 L [facility] FEV1/FVC PRE (%) 69 % [facility] FEV1/FVC PREDICTED (%) 89 % [facility] FEV1/FVC LLN (%) 78 % [facility] FEF25% PRE (L/S) 3.18 L/S [facility] FEF75% PRE (L/S0 0.27 L/S [facility] FEF75% PREDICTED (L/S) 1.75 L/S [facility] FEF75% LLN (L/S) 0.96 L/S [facility] FEF75% ULN (L/S) 2.89 L/S [facility] DFY23-54% PRE (L/S) 0.90 L/S [facility] KDM99-93% PREDICTED (L/S) 3.65 L/S [facility] TGD23-05% LLN (L/S) 2.43 L/S [facility] PEF PRE (L/S) 5.78 L/S [facility] PEF LLN (L/S) 4.86 L/S [facility] PEF ULN (L/S) 7.97 L/S [facility] FET PRE (S) 8.36 S [facility] 08/02/2024 2:24 PM EDT Narrative [facility] - 08/02/2024 4:[address] [facility] [address] [place] [address] Test Date: 2024-08-02 Pat Name: ANGELIA SANCHEZ Department: Room: [place] [address] Gender: Female Manufacturing Applications Engineer: : 2000 Requested By: Order Number: [id number] Reading MD: Kana Sánchez MD Interpretive Statements Current ATS/ERS acceptability and repeatability standards for spirometry met. Start of test and EOFE criteria met. Coughing noted throughout. //HC IMPRESSION: Spirometry indicates moderate obstruction. Electronically Signed On 08-02-2024 16:36:11 EDT by Kana Sánchez MD ID: [id number] Name: ANGELIA SANCHEZ Race: White Ht: 61.02 in Wt: 134.04 lbs Age: 23 Gender: Female : 2000 Dx: Cystic Fibrosis - Unspecified. May include CFTR disorder. Smoking Hx: Non-smoker Doctor: Test Date: 08/02/2024 Site: Tech: Beatriz Tom PRE-BRONCH POST-BRONCH Daniel LLN Pred ULN %Pred ZScore Daniel %Pred %Chg ZScore SPIROMETRY FVC 2.44 2.41 3.10 3.82 78 -1.57 FEV1 1.67 2.15 2.78 3.37 60 -2.83 FEV1/FVC 0.69 0.78 0.89 0.98 76 -2.67 FEFMax 5.78 4.86 6.42 7.97 90 -0.68 FEF50 1.44 2.41 4.02 5.63 35 -2.64 FIF50 5.91 FEF50/FIF50 0.24 90-100 FIVC 2.12 XON25-98 0.90 2.43 3.65 5.02 24 -4.20 ExpiredTime 8.36 TimeToFEFMax 0.05 AUREA 0.04 VolExtrap% 2 Comments: Current ATS/ERS acceptability and repeatability standards for spirometry met. Start of test and EOFE criteria met. Coughing noted throughout. //HC us Delia Camilo MD PULMONARY Final Result [facility] [address] [place] [phone] * DIFFERENTIAL BLD (08/02/2024 5:24 AM EDT) Neutrophils % 63.0 % 08/02/2024 5:40 AM EDT [facility] Abs Neut 6.24 1.45 - 7.50 k/uL 08/02/2024 5:40 AM EDT [facility] Lymphocytes % 27.3 % 08/02/2024 5:40 AM EDT [facility] Abs Lymph 2.71 1.00 - 4.00 k/uL 08/02/2024 5:40 AM EDT [facility] Monocytes % 7.4 % 08/02/2024 5:40 AM EDT [facility] Abs Sevier 0.73 <0.87 k/uL 08/02/2024 5:40 AM EDT [facility] Eosinophils % 1.5 % 08/02/2024 5:40 AM EDT [facility] Abs Eosin 0.15 <0.46 k/uL 08/02/2024 5:40 AM EDT [facility] Basophils % 0.5 % 08/02/2024 5:40 AM EDT [facility] Abs Baso 0.05 <0.11 k/uL 08/02/2024 5:40 AM EDT [facility] Immature Granulocytes % 0.3 % 08/02/2024 5:40 AM EDT [facility] Abs Immature Gran 0.03 <0.10 k/uL 025 5:40 AM EDT [facility] Diff Type Auto 08/02/2024 5:40 AM EDT [facility] Blood BLOOD SPECIMEN / Unknown Venipuncture / Unknown 08/02/2024 5:24 AM EDT 08/02/2024 5:29 AM EDT us Kelly Howard MD LABORATORY Final Result [facility] [address] [place] [address], * (ABNORMAL) FUNGAL CULTURE AND SMEAR (NON DERMAL) (07/31/2024 5:53 PM EDT) Only the most recent of2 resultswithin the time period is included. Culture, Fungal Rare Yeast, not Cryptococcus neoformans(A) MINIMUM INHIBITORY CONCENTRATION (VITEK) 08/28/2024 3:39 PM EDT [facility] Culture, Fungal Rare Aspergillus fumigatus(A) 08/28/2024 3:39 PM EDT [facility] Comment:Refer to specimen co llected on 07/11/2024 1222 ORGANISM IDENT. MOLD (LAB ORDER ONLY)[[id number]] for identification. Fungal Smear No fungus seen 08/29/19 3:39 PM EDT [facility] Sputum SPUTUM SPECIMEN / Unknown Non Blood / Unknown 07/31/2024 5:53 PM EDT 07/31/2024 6:01 PM EDT Narrative [facility] - 08/28/2024 3:39 PM EDT This test was developed and its performance characteristics determined by the [facility] ([facility]). It has not been cleared or approved by the FDA. [facility] is regulated under CLIA as qualified to perform high-complexity testing. This test is used for clinical purposes. It should not be regarded as investigational or for research. us Kelly Howard MD MICROBIOLOGY Final Result [facility] [address] [facility] [address] [address], * (ABNORMAL) BACTERIAL CULTURE AND GRAM STAIN, ABSCESS AND WOUND (AEROBIC CULTURE) (07/31/2024 5:52 PM EDT) Culture, Wound Few Staphylococcus aureus(A) MINIMUM INHIBITORY CONCENTRATION( VITEK) 5 5:23 PM EDT [facility] [place] PBP2a SA Culture [place] Test PBP2a was not detected by an immunochromatographic assay, so this isolate is methicillin-susceptible . MINIMUM INHIBITORY CONCENTRATION (VIZION) 5 5:23 PM EDT [facility] Culture, Wound Few Stenotrophomonas maltophilia(A) MINIMUM INHIBITORY CONCENTRATION (VIZION) 5 5:23 PM EDT [facility] Culture, Wound Few normal respiratory bentley MINIMUM INHIBITORY CONCENTRATION( VITEK) 5 5:23 PM EDT [facility] Gram Stain Rare Gram positive cocci(A) 5 5:23 PM EDT [facility] Gram Stain No Polymorphonuclear Leukocytes(A) 5 5:23 PM EDT [facility] Swab NASAL / Unknown Non Blood / Unknown 07/31/2024 5:52 PM EDT 07/31/2024 6:01 PM EDT [facility] - 08/06/2024 5:23 PM EDT For wound culture, tissue or aspirates are superior to swab specimens. If a swab must be used, eSwab is preferred (Snapflow No. [id number]). This test was developed and its performance characteristics determined by the [facility] ([facility]). It has not been cleared or approved by the FDA. -[facility] is regulated under CLIA as qualified to perform high-complexity testing. This test is used for clinical purposes. It should not be regarded as investigational or for research. Organism Antibiotic Method Susceptibility Staphylococcus aureus Oxacillin MINIMUM IN HIBITORY CONCENTRATION(VITEK) 1: Susceptible Comment:Oxacillin-swanson sceptible staphylococci are susceptible to other penicilllinase-stable penicillins, beta-lactam/beta-lactamase inhibitor combinations, anti-staphylococcal cephems, and carbapenems. Staphylococcus aureus Erythromycin MINIMUM IN HIBITORY CONCENTRATION(VITEK) Resistant Staphylococcus aureus Clindamycin MINIMUM IN HIBITORY CONCENTRATION(VITEK) Resistant Comment:Inducible cl indamycin resistance detected. Staphylococcus aureus Trimeth sulfameth MINIMUM INHIBITORY CONCENTRATION(VITEK) <=10: Susceptible Staphylococcus aureus Vancomycin MINIMUM IN HIBITORY CONCENTRATION(VITEK) 1: Susceptible Staphylococcus aureus Rifampin MINIMUM IN HIBITORY CONCENTRATION(VITEK) <=0.5: Susceptible Comment:Rifampin derrick uld not be used alone for antimicrobial therapy. Staphylococcus aureus Tetracycline MINIMUM IN HIBITORY CONCENTRATION(VITEK) >=16: Resistant Staphylococcus aureus Doxycycline MINIMUM IN HIBITORY CONCENTRATION(VITEK) >=16: Resistant Stenotrophomonas maltophilia Trimeth sulfameth MINIMUM INHIBITORY CONCENTRATION (VIZION) <=1: Susceptible Comment:Stenotrophom onas maltophilia is intrinsically resistant to aminoglycosides and most B-lactam agents including carbapenem. Stenotrophomonas maltophilia Minocycline MINIMUM INHIBITORY CONCENTRATION (VIZION) <=1: Susceptible Stenotrophomonas maltophilia Levofloxacin MINIMUM INHIBITORY CONCENTRATION(E-TEST ) 4: Intermediate Stenotrophomonas maltophilia Levofloxacin DISK DIFFUSION SUSCEPTIBILITY Comment:See E-test f or result us Kelly Howard MD MICROBIOLOGY Final Result [facility] [address] [address], * OTOLARYNGOLOGY IMAGING (TASHA) (07/31/2024 5:38 PM EDT) Anatomical Region Laterality Modality Other 07/31/2024 5:38 PM EDT us [facility] Provider IMAGES Final Result * CT CHEST WO IVCON (07/30/2024 10:35 AM EDT) Anatomical Region Laterality Modality Chest Computed Tomogra phy 07/30/2024 10:3 5 AM EDT Impressions 07/30/2024 5:02 PM EDT IMPRESSION: Findings compatible with known cystic fibrosis with upper lobe predominant air trapping and bronchiectasis. Findings are progressed from the 08/06/2021 CT. Multifocal areas of tree-in-bud nodularity and nodular consolidations and mucous impaction and endobronchial air-fluid levels scattered throughout both lungs suggesting superimposed acute infection. I agree that this report by the resident or fellow represents my interpretation of the study. Support Representative: RAFAELA Transcribe Date/Time: Jul 30 2024 10:43A Dictated by : CLAUDIA FERREIRA, DO This examination was interpreted and the report reviewed and electronically signed by: CHAPO MARX MD on Jul 30 2024 5:00PM EST Narrative 07/30/2024 5:02 PM EDT * * *Final Report* * * DATE OF EXAM: Jul 30 2024 10:35AM [facility] [place] 0541 - CT CHEST WO IVCON / PROCEDURE REASON: Chronic lung disease (Ped 0-18y) * * * * Physician Interpretation * * * * EXAMINATION: CHEST CT WITHOUT CONTRAST CLINICAL HISTORY: Cystic fibrosis. Fever, worsening cough. Technique: Spiral CT acquisition of the chest from the thoracic inlet to the upper abdomen without contrast. MQ: CTCWO_6 CT Radiation dose: Integrated Dose-length product (DLP) for this visit = 179 mGy*cm CT Dose Reduction Employed: Automated exposure control (AEC) Comparison: CT 08/06/2021 RESULT: Lines, tubes, and devices: Right chest port with tip in the right atrium. Lung parenchyma and airways: Diffuse bronchiectasis, with a slight upper lobe predominance with bronchial wall thickening. Multifocal areas of tree-in-bud nodularity greatest in the upper lobes and right middle lobe, lingula and left lung base. Consolidations in the anterior right upper lobe and middle lobes. Scattered areas of mucus plugging. Free breathing images show upper lobe predominant Mosaic attenuation/air trapping. Pleural space: No pleural effusion. No pleural thickening. Lower neck, lymph nodes, and mediastinum: The imaged thyroid gland is normal. Borderline enlarged hilar and mediastinal lymph nodes, for example a 1.1 cm right paratracheal node (image 59) and a 1.0 cm subcarinal node (3:73), likely reactive. Heart, pericardium, and thoracic vessels: The thoracic aorta and main pulmonary artery are normal in caliber. The cardiac chambers are normal in size. No coronary artery atherosclerotic calcifications are noted, although the study is not optimized for coronary assessment. No pericardial effusion or thickening. Bones and soft tissues: No destructive bone lesion. Chest wall is unremarkable. Upper abdomen: Atrophic pancreas. Localizer images: No additional findings. Procedure Note Provider, [facility] - 07/30/2024 * * *Final Report* * * DATE OF EXAM: Jul 30 2024 10:35AM [facility] [place] 0541 - CT CHEST WO IVCON / PROCEDURE REASON: Chronic lung disease (Ped 0-18y) * * * * Physician Interpretation * * * * EXAMINATION: CHEST CT WITHOUT CONTRAST CLINICAL HISTORY: Cystic fibrosis. Fever, worsening cough. Technique: Spiral CT acquisition of the chest from the thoracic inlet to the upper abdomen without contrast. MQ: CTCWO_6 CT Radiation dose: Integrated Dose-length product (DLP) for this visit = 179 mGy*cm CT Dose Reduction Employed: Automated exposure control (AEC) Comparison: CT 08/06/2021 RESULT: Lines, tubes, and devices: Right chest port with tip in the rightatrium. Lung parenchyma and airways: Diffuse bronchiectasis, with a slight upper lobe predominance with bronchial wall thickening. Multifocal areas of tree-in-bud nodularity greatest in the upper lobes and right middle lobe, lingula and left lung base. Consolidations in the anterior right upper lobe and middle lobes. Scattered areas of mucus plugging. Free breathing images show upper lobe predominant Mosaic attenuation/air trapping. Pleural space: No pleural effusion. No pleural thickening. Lower neck, lymph nodes, and mediastinum: The imaged thyroid gland is normal. Borderline enlarged hilar and mediastinal lymph nodes, for example a 1.1 cm right paratracheal node (image 59) and a 1.0 cm subcarinal node (3:73), likely reactive. Heart, pericardium, and thoracic vessels: The thoracic aorta and main pulmonary artery are normal in caliber. The cardiac chambers are normal in size. No coronary artery atherosclerotic calcifications are noted, although the study is not optimized for coronary assessment. No pericardial effusion or thickening. Bones and soft tissues: No destructive bone lesion. Chest wall is unremarkable. Upper abdomen: Atrophic pancreas. Localizer images: No additional findings. IMPRESSION IMPRESSION: Findings compatible with known cystic fibrosis with upper lobe predominant air trapping and bronchiectasis. Findings are progressed from the 08/06/2021 CT. Multifocal areas of tree-in-bud nodularity and nodular consolidations and mucous impaction and endobronchial air-fluid levels scattered throughout both lungs suggesting superimposed acute infection. I agree that this report by the resident or fellow represents my interpretation of the study. Support Representative: RAFAELA Transcribe Date/Time: Jul 30 2024 10:43A Dictated by : CLAUDIA FERREIRA DO This examination was interpreted and the report reviewed and electronically signed by: CHAPO MARX MD on Jul 30 2024 5:00PM EST Chaz Joel MD CT-PAMA Final Result * XR CHEST 1V FRONTAL PORT (07/30/2024 9:42 AM EDT) Anatomical Region Laterality Modality Chest Radiographic Crystal ging 07/30/2024 9:42 AM EDT Impressions 07/30/2024 11:03 AM EDT IMPRESSION: See result. Support Representative: RAFAELA Transcribe Date/Time: Jul 30 2024 11:00A Dictated by : GER CONNER MD This examination was interpreted and the report reviewed and electronically signed by: GER CONNER MD on Jul 30 2024 11:01AM EST Narrative 07/30/2024 11:03 AM EDT * * *Final Report* * * DATE OF EXAM: Jul 30 2024 9:42AM [id number] [id number] - XR CHEST 1V FRONTAL PORT / PROCEDURE REASON: Evaluate tube, line, or lead position * * * * Physician Interpretation * * * * EXAMINATION: CHEST RADIOGRAPH (PORTABLE SINGLE VIEW AP) Exam Date/Time: 07/30/2024 9:42 AM Clinical History: Evaluate tube, line, or lead position MQ: XCPMC_6 Comparison: 04/09/2024 RESULT: Lines, tubes, and devices: Right internal jugular port catheter remains in place per Lungs and pleura: Bilateral diffuse bronchiectasis and bronchial wall thickening is seen. Interstitial and airspace opacities are likely infectious/inflammatory in etiology. No substantial pleural effusion is seen. There is no pneumothorax. Cardiomediastinal silhouette: Stable cardiomediastinal silhouette. Procedure Note Provider, [facility] - 07/30/2024 * * *Final Report* * * DATE OF EXAM: Jul 30 2024 9:42AM [id number] [id number] - XR CHEST 1V FRONTAL PORT / PROCEDURE REASON: Evaluate tube, line, or lead position * * * * Physician Interpretation * * * * EXAMINATION: CHEST RADIOGRAPH (PORTABLE SINGLE VIEW AP) Exam Date/Time: 07/30/2024 9:42 AM Clinical History: Evaluate tube, line, or lead position MQ: XCPMC_6 Comparison: 04/09/2024 RESULT: Lines, tubes, and devices: Right internal jugular port catheter remains in place per Lungs and pleura: Bilateral diffuse bronchiectasis and bronchial wall thickening is seen. Interstitial and airspace opacities are likely infectious/inflammatory in etiology. No substantial pleural effusion is seen. There is no pneumothorax. Cardiomediastinal silhouette: Stable cardiomediastinal silhouette. IMPRESSION IMPRESSION: See result. Support Representative: RAFAELA Transcribe Date/Time: Jul 30 2024 11:00A Dictated by : GER CONNER MD This examination was interpreted and the report reviewed and electronically signed by: GER CONNER MD on Jul 30 2024 11:01AM EST Chaz Joel MD RAD-PAMA Final Result * (ABNORMAL) URINALYSIS, REFLEX MICROSCOPIC (07/30/2024 12:50 AM EDT) Color Yellow Yellow 07/30/2024 2:22 AM EDT [facility] Clarity Clear Clear 07/30/2024 2:22 AM EDT [facility] Glucose, Urine Negative Negative 07/30/2024 2:22 AM EDT [facility] Bilirubin, Urine Negative Negative 07/31/19 25 2:22 AM EDT [facility] Ketones, Urine Negative Negative 07/30/2024 2:22 AM EDT [facility] Specific Gracey, Ur 1.014 1.005 - 1.030 07/30/2024 2:22 AM EDT [facility] Hemoglobin/Blood ,Ur Trace(A) Negative 07/30/2024 2:22 AM EDT [facility] pH, Urine 6.0 <8.5 07/30/2024 2:22 AM EDT [facility] Protein, Urine Negative Negative 07/30/2024 2:22 AM EDT [facility] Urobilinogen 0.2 EU/dL 0.2-1.0 EU/dL 07/30/2024 2:22 AM EDT [facility] Nitrites Negative Negative 07/30/2024 2:22 AM EDT [facility] Leuk Esterase Negative Negative 07/30/2024 2:22 AM EDT [facility] WBC, Urine 0-5 /HPF 0-5 /HPF 07/30/2024 2:22 AM EDT [facility] RBC, Urine 0-2 /HPF 0-2 /HPF 07/30/2024 2:22 AM EDT [facility] Bacteria Negative Negative /HPF 07/30/2024 2:22 AM EDT [facility] Squamous Epithelial Cells None Seen /HPF 07/30/2024 2:22 AM EDT [facility] Casts, Hyaline 0 /LPF 0 /LPF 07/30/2024 2:22 AM EDT [facility] Urine URINE SPECIMEN / Unknown Non Blood / Unknown 07/30/2024 12:50 AM EDT 07/30/2024 1:07 AM EDT [facility] - 07/30/2024 2:22 AM EDT This test was developed and its performance characteristics determined by [facility]'s Ty Rodriguez [facility] ([facility]). It has not been cleared or approved by the FDA. -[facility] is regulated under CLIA as qualified to perform high-complexity testing. This test is used for clinical purposes. It should not be regarded as investigational or for research. Chaz Joel MD LABORATORY Final Result Performing Organization Address [facility] Co de Phone Number [facility] [address] [place] [address], [place] * STREPTOCOCCUS PNEUMONIAE ANTIGEN URINE (07/30/2024 12:50 AM EDT) Strep pneumo AG Result Negative for Streptococcus pneumoniae antigen. Negative 07/30/2024 11:01 AM EDT [facility] Comment:Presumptive negative for pneumococcal pneumonia, suggesting no current or recent pneumococcal infection. Infection due to S.pneumoniae cannot be ruled out since the antigen present in the sample may be below the detection limit of the test. Urine URINE SPECIMEN / Unknown Non Blood / Unknown 07/30/2024 12:50 AM EDT 07/30/2024 5:41 AM EDT Chaz Joel MD MICROBIOLOGY Final Result Performing Organization Address [facility] Co de Phone Number [facility] [address] [place] [phone], [place] * LEGIONELLA ANTIGEN URINE (07/30/2024 12:50 AM EDT) [facility] Legionella Urine Ag Negative Negative 07/31/2024 11:04 AM EDT [facility] Comment:Legionella urinary a ntigen test is used as an aid in diagnosis of infection with Legionella pneumophila serogroup 1. It may be detected from a few days to several months after onset of signs and symptoms despite antibiotic therapy or disease resolution. A negative result cannot exclude Legionellosis. Clinical correlation is required. Urine URINE SPECIMEN / Unknown Non Blood / Unknown 07/30/2024 12:50 AM EDT 07/30/2024 5:41 AM EDT Chaz Joel MD LABORATORY Final Result Performing Organization Address [facility] Co de Phone Number [facility] [address] [place] [address], [place] * (ABNORMAL) STAPHYLOCOCCUS AUREUS & MRSA SCREEN, PCR, NASAL (07/30/2024 12:25 AM EDT) Staphylococcus aureus DNA Methicillin-SUSC EPTIBLE Staphylococcus aureus Detected(A) Not Detected CEPHEID GENEXPERT COVID19 07/30/2024 6:11 AM EDT [facility] Swab POSTERIOR NARES / Unknown Non Blood / Unknown 07/30/2024 12:25 AM EDT 07/30/2024 2:40 AM EDT Narrative [facility] - 07/30/2024 6:11 AM EDT Performance characteristics of this assay for testing specimens from patients <=21 years of age were determined by [facility]'s Ty Rodriguez [facility] ([facility]). Performance on this age group has not been approved by the FDA. [facility] is regulated under CLIA as qualfied to perform high-complexity testing. This test is used for clinical purposes. It shoudl not be regarded as investigational or for research us Chaz Joel MD LABORATORY Final Result [facility] [address] [place] [address], * EXPANDED RESPIRATORY PATHOGEN PANEL BY PCR, EXPEDITED (07/30/2024 12:25 AM EDT) Pathologist [facility] SARS-CoV-2 (Agent of COVID-19) RNA Not detected See comment 07/30/2024 1:39 AM EDT [facility] Influenza A RNA Not detected Not detected 07/30/2024 1:39 AM EDT [facility] Influenza B RNA Not detected Not detected 07/30/2024 1:39 AM EDT [facility] Respiratory syncytial virus (RSV) RNA Not detected Not detected 07/30/2024 1:39 AM EDT [facility] Human metapneumovirus (hMPV) RNA Not detected Not detected 07/30/2024 1:39 AM EDT [facility] Human rhinovirus/enterov irus RNA Not detected Not detected 07/30/2024 1:39 AM EDT [facility] Adenovirus DNA Not detected Not detected 07/30/2024 1:39 AM EDT [facility] Parainfluenza 1 RNA Not detected Not detected 07/30/2024 1:39 AM EDT [facility] Parainfluenza 2 RNA Not detected Not detected 07/30/2024 1:39 AM EDT [facility] Parainfluenza 3 RNA Not detected Not detected 07/30/2024 1:39 AM EDT [facility] Parainfluenza 4 RNA Not detected Not detected 07/30/2024 1:39 AM EDT [facility] Coronavirus 229E RNA Not detected Not detected 07/30/2024 1:39 AM EDT [facility] Coronavirus OC43 RNA Not detected Not detected 07/30/2024 1:39 AM EDT [facility] Coronavirus NL63 RNA Not detected Not detected 07/30/2024 1:39 AM EDT [facility] Coronavirus HKU1 RNA Not detected Not detected 07/30/2024 1:39 AM EDT [facility] Chlamydia pneumoniae DNA Not detected Not detected 07/30/2024 1:39 AM EDT [facility] Mycoplasma pneumoniae DNA Not detected Not detected 07/30/2024 1:39 AM EDT [facility] Bordetella pertussis DNA Not detected Not detected 07/30/2024 1:39 AM EDT [facility] Bordetella parapertussis DNA Not detected Not detected 07/30/2024 1:39 AM EDT [facility] Swab NASOPHARYNGEAL SWAB / Unknown Non Blood / Unknown 07/30/2024 12:25 AM EDT 07/30/2024 12:48 AM EDT Narrative [facility] - 07/30/2024 1:39 AM EDT Reference Range (the expected result in uninfected individuals): Not detected us Chaz Joel MD MICROBIOLOGY Final Result [facility] [address] [facility] [address] [address], * MYCOPLASMA PNEUM PCR (07/30/2024 12:24 AM EDT) Specimen Source (MYCPCR) Sputum 08/01/2024 11:36 AM EDT [facility] Mycoplasma pneum DNA Not Detected 08/01/2024 11:36 AM EDT [facility] [employer] Comment: NOT DETECTED - A negative result does not rule out the presence of PCR inhibitors in the patient specimen or assay specific nucleic acid in concentrations below the level of detection by the assay. INTERPRETIVE INFORMATION: Mycoplasma pneumoniae by PCR This test was developed and its performance characteristics determined by [facility]. It has not been cleared or approved by the [place] Food and Drug Administration. This test was performed in a CLIA certified laboratory and is intended for clinical purposes. Performed By: [facility] [address] [place] [address] Riprap Worker: Gildardo Herrera MD, PhD CLIA Number: [id number] [employer] SPUTUM SPECIMEN / Unknown Non Blood / Unknown 07/30/2024 12:24 AM EDT 07/30/2024 2:27 AM EDT Chaz Joel MD MICROBIOLOGY Final Result [facility] [address] [place] [address] * (ABNORMAL) BACTERIAL CULTURE AND GRAM STAIN, RESPIRATORY, SPUTUM AND TRACHEAL ASPIRATE (07/30/2024 12:24 AM EDT) Only the most recent of2 resultswithin the time period is included. Pathologist [facility] Culture, Respiratory Few Staphylococcus aureus(A) MINIMUM INHIBITORY CONCENTRATION( VITEK) 11:59 AM EDT [facility] Comment:Insignificant colony count. No further workup. Culture, Respiratory Few normal respiratory bentley(A) 11:59 AM EDT [facility] Culture, Respiratory Few Stenotrophomonas maltophilia(A) MINIMUM INHIBITORY CONCENTRATION (VIZION) 11:59 AM EDT [facility] Comment:Additional susceptib ility testing performed by request. Gram Stain Moderate Mixed oral bentley(A) 11:59 AM EDT [facility] Gram Stain Moderate Polymorphonuclear leukocytes(A) 11:59 AM EDT [facility] Gram Stain Rare Epithelial cells(A) 11:59 AM EDT [facility] Sputum SPUTUM SPECIMEN / Unknown Non Blood / Unknown 07/30/2024 12:24 AM EDT 07/30/2024 2:27 AM EDT Narrative [facility] - 08/05/2024 11:59 AM EDT No Pseudomonas aeruginosa isolated. This test was developed and its performance characteristics determined by the [facility]). It has not been cleared or approved by the FDA. [facility] is regulated under CLIA as qualified to perform high-complexity testing. This test is used for clinical purposes. It should not be regarded as investigational or for research. Organism Antibiotic Method Susceptibility Stenotrophomonas maltophilia Trimeth sulfameth MINIMUM INHIBITORY CONCENTRATION (VIZION) <=1: Susceptible Comment:Stenotrophom onas maltophilia is intrinsically resistant to aminoglycosides and most B-lactam agents including carbapenem. Stenotrophomonas maltophilia Levofloxacin MINIMUM INHIBITORY CONCENTRATION (VIZION) 8: Resistant Stenotrophomonas maltophilia Minocycline MINIMUM INHIBITORY CONCENTRATION (VIZION) <=1: Susceptible Chaz Joel MD MICROBIOLOGY Edited Resul t - Final Performing Organization Address [facility]/ZIP Co de Phone Number [facility] [address] [place] [address], * MAGNESIUM (07/29/2024 11:30 PM EDT) Magnesium 1.8 1.7 - 2.3 mg/dL 07/30/2024 12:40 AM EDT [facility] Blood BLOOD SPECIMEN / Unknown Venipuncture / Unknown 07/29/2024 11:30 PM EDT 07/29/2024 11:51 PM EDT Chaz Joel MD LABORATORY Final Result [facility] [address] [place] [phone], * ASPERGILLUS GALACTOMANNAN SERUM (07/29/2024 11:30 PM EDT) Pathologist [facility] Asper. Ag Ser,Qual Negative Negative 2024 3:47 PM EDT [facility] Comment:Aspergillus Galactom donell antigen assay is used as an aid in diagnosis of invasive aspergillosis in immunocompromised individuals especially in post-stem cell transplant, hematological malignancies on chemotherapy, and HIV-positive patients with very low CD4 T-cell counts. The test may also be used in disease prognostication and for monitoring response to anti-fungal therapy. False positive and false negative results are not uncommon. Clinical and radiological correlation is required. Aspergillus galactomannan 0.22 <=0.49 Index Value 07/31/2024 3:47 PM EDT [facility] Blood BLOOD SPECIMEN / Unknown Venipuncture / Unknown 07/29/2024 11:30 PM EDT 07/29/2024 11:51 PM EDT Chaz Joel MD LABORATORY Final Result Performing Organization Address [facility]/State/ZIP Co de Phone Number [facility] [address] [place] [address], * RAST, IMMUNOCAP SCORE (REFLEX ONLY) (07/29/2024 11:30 PM EDT) [facility] Allergen, Interp, Immunocap Score IgE See Note 08/01/2024 7:33 AM EDT [employer] Comment: REFERENCE INTERVAL: Allergen, Interpretation Less than 0.10 kU/L......Class 0.....No significant level detected 0.10-0.34 kU/L...........Class 0/1...Clinical relevance undetermined 0.35-0.70 kU/L...........Class 1.....Low 0.71-3.50 kU/L...........Class 2.....Moderate 3.51-17.50 kU/L..........Class 3.....High 17.51-50.00 kU/L.........Class 4.....Very High 50.01-100.00 kU/L........Class 5.....Very High Greater than 100.00kU/L..Class 6.....Very High Allergen results of 0.10-0.34 kU/L are intended for specialist use as the clinical relevance is undetermined. Even though increasing ranges are reflective of increasing concentrations of allergen-specific IgE, these concentrations may not correlate with the degree of clinical response or skin testing results when challenged with a specific allergen. The correlation of allergy laboratory results with clinical history and in vivo reactivity to specific allergens is essential. A negative test may not rule out clinical allergy or even anaphylaxis. Performed By: [facility] [address] [place] [id number] Riprap Worker: Gildardo Herrera MD, PhD CLIA Number: [id number] Blood BLOOD SPECIMEN / Unknown Venipuncture / Unknown 07/29/2024 11:30 PM EDT 07/29/2024 11:51 PM EDT Chaz Joel MD LABORATORY Final Result Performing Organization Address City/[facility]/ZIP Co de Phone Number [employer] [address] [place] [address] * SEPSIS LACTATE (07/29/2024 11:30 PM EDT) Sepsis Lactate 1.2 <=2.0 mmol/L 07/30/2024 12:00 AM EDT [facility] Blood BLOOD SPECIMEN / Unknown Venipuncture / Unknown 07/29/2024 11:30 PM EDT 07/29/2024 11:56 PM EDT us Chaz Joel MD BLOOD GASES Final Result [facility] [address] [place] [address], [place] * (ABNORMAL) PROCALCITONIN (07/29/2024 11:30 PM EDT) Procalcitonin 0.09(H) <0.09 ng/mL 07/30/2024 12:49 AM EDT [facility] Comment:For a guided interpr etation of test results, please visit the Change in Procalcitonin Calculator, [email or web address]. Blood BLOOD SPECIMEN / Unknown Venipuncture / Unknown 07/29/2024 11:30 PM EDT 07/29/2024 11:51 PM EDT Chaz Joel MD LABORATORY Final Result [facility] [address] [facility] [address] [place] [phone], * (ABNORMAL) BRONCHOPUL ASPERGILL (07/29/2024 11:30 PM EDT) Immunoglobulin E 4994(H) <=214 kU/L 08/05/19 6:33 AM EDT [employer] Comment: REFERENCE INTERVAL: Immunoglobulin E, Serum Access complete set of age- and/or gender-specific reference intervals for this test in the [facility] Test Directory (Handshake). Allergen, Fungi/Mold, A. Fumigatus IgE 2.55(H) <=0.34 kU/L 08/04/2024 6:33 AM EDT [employer] [facility] Aspergillus fumigatus 6 Detected (A) None Detected 08/04/2024 6:33 AM EDT [employer] Comment: Performed By: [facility] [address] [place] [id number] Riprap Worker: Gildardo Herrera MD, PhD CLIA Number: [id number] Aspergillus fumigatus 1 Detected (A) None Detected 08/04/2024 6:33 AM EDT [employer] Blood BLOOD SPECIMEN / Unknown Venipuncture / Unknown 07/29/2024 11:30 PM EDT 07/29/2024 11:51 PM EDT Chaz Joel MD LABORATORY Final Result [address] [address] * BACTERIAL CULTURE, BLOOD (07/29/2024 11:30 PM EDT) Culture, Blood No growth 5 days 08/04/2024 4:01 AM EDT [facility] Blood BLOOD SPECIMEN / Unknown Venipuncture / Unknown 07/29/2024 11:30 PM EDT 07/30/2024 3:15 AM EDT Chaz Joel MD MICROBIOLOGY Final Result Performing Organization Address City/[facility]/ZIP Co de Phone Number [facility] [address] [place] [phone], * VITAMIN D 25 HYDROXY (07/29/2024 11:30 PM EDT) Vitamin D 25 Hydroxy 42.4 31.0 - 80.0 ng/mL 07/31/2024 3:21 PM EDT [facility] Comment: Classification of 25 OH Vitamin D status: Deficiency/Insufficiency: < or = 30 ng/ml. Sufficiency/Optimal Levels: 31-80 ng/mL Toxicity: > 100 ng/mL. Test performed by chemiluminescent immunoassay. Blood BLOOD SPECIMEN / Unknown Venipuncture / Unknown 07/29/2024 11:30 PM EDT 07/29/2024 11:51 PM EDT Narrative [facility] - 07/31/2024 3:21 PM EDT The reference range interval was based on an analysis of samples from healthy adults and may not pertain to children from 0-18 years old. Kelly Howard MD LABORATORY Final Result [facility] [address] [address], * (ABNORMAL) SEDIMENTATION RATE, WESTERGREN (07/29/2024 11:30 PM EDT) Sed Rate, Westergren 26(H) 0 - 20 mm/hr 07/30/2024 2:39 AM EDT [facility] Blood BLOOD SPECIMEN / Unknown Venipuncture / Unknown 07/29/2024 11:30 PM EDT 07/29/2024 11:51 PM EDT us Chaz Joel MD LABORATORY Final Result [facility] [address] [facility] [place] [address], [place] * PROTHROMBIN TIME (07/29/2024 11:30 PM EDT) PT Sec 11.1 9.7 - 13.0 sec 07/30/2024 12:10 AM EDT [facility] INR 1.0 0.9 - 1.3 07/30/2024 12:10 AM EDT [facility] Comment: Vitamin K Antagonist (VKA) Therapeutic Range: INR 2 to 3 (Target INR of 2.5) Note: For patients treated with VKA drugs, such as warfarin, the [place] [employer] 2012 Guideline recommends a therapeutic INR range of 2 to 3 (target INR of 2.5). This recommendation includes high-risk patients with antiphospholipid syndrome with previous arterial or venous thromboembolism, current-generation mechanical or bioprosthetic aortic heart valve replacement. Note: Patients with mechanical aortic valve replacement and additional risk factors for thromboembolic events (atrial fibrillation, previous thromboembolism, LV dysfunction, hypercoagulable conditions) or an older generation mechanical AVR (i.e., ball in-Cage) or any mechanical MVR should have a INR therapeutic range of 2.5 to 3.5 (target INR of 3). Veronica GH, et al. Chest 2012, 141:7S-47S Pearl RA et al. [facility] 2017, 70: 252-289 Blood BLOOD SPECIMEN / Unknown Venipuncture / Unknown 07/29/2024 11:30 PM EDT 07/29/2024 11:53 PM EDT us Chaz Joel MD LABORATORY Final Result Performing Organization Address City/[facility]/ZIP Co de Phone Number [facility] [address] [place] [phone], [place] * PHOSPHORUS INORGANIC (07/29/2024 11:30 PM EDT) Phosphorus 3.5 2.7 - 4.8 mg/dL 07/30/2024 12:40 AM EDT [facility] Blood BLOOD SPECIMEN / Unknown Venipuncture / Unknown 07/29/2024 11:30 PM EDT 07/29/2024 11:51 PM EDT Chaz Joel MD LABORATORY Final Result Performing Organization Address City/[facility] Co de Phone Number [facility] [address] [address], [place] * (ABNORMAL) IMMUNOGLOBULIN E (07/29/2024 11:30 PM EDT) IgE 4,436.0(H) <114.0 kU/l 07/30/2024 9:34 PM EDT [facility] Blood BLOOD SPECIMEN / Unknown Venipuncture / Unknown 07/29/2024 11:30 PM EDT 07/29/2024 11:51 PM EDT Kelly Howard MD LABORATORY Final Result Performing Organization Address City/[facility]/ZIP Co de Phone Number [facility] [address] [address], [place] * HEMOGLOBIN A1C (07/29/2024 11:30 PM EDT) Hemoglobin A1C 5.6 4.3 - 5.6 % 07/31/2024 4:18 PM EDT [facility] Comment:[place] [employer] As sociation guidelines indicate that patients with HgbA1c in the range 5.7-6.4% are at increased risk for development of diabetes, and intervention by lifestyle modification may be beneficial. HgbA1c greater or equal to 6.5% is considered diagnostic of diabetes. Estimated Average Glucose 114 mg/dL 07/31/2024 4:18 PM EDT [facility] Comment:eAG: (Estimated aver age glucose) is a calculated value from HgbA1c and is hotel services sales representative of the average blood glucose level in the last 2-3 month period. Blood BLOOD SPECIMEN / Unknown Venipuncture / Unknown 07/29/2024 11:30 PM EDT 07/29/2024 11:51 PM EDT Kelly Howard MD LABORATORY Final Result Performing Organization Address City/[facility]/ZIP Co de Phone Number [facility] [address] * HEPATIC FUNCTION PNL (07/29/2024 11:30 PM EDT) Albumin 3.9 3.9 - 4.9 g/dL 07/30/2024 12:40 AM EDT [facility] Bilirubin, Total 0.3 0.2 - 1.3 mg/dL 07/30/2024 12:40 AM EDT [facility] Bilirubin, Direct 0.1 <0.3 mg/dL 07/30/2024 12:40 AM EDT [facility] Alkaline Phosphatase 75 34 - 123 U/L 07/30/2024 12:40 AM EDT [facility] AST 18 13 - 35 U/L 07/30/2024 12:40 AM EDT [facility] ALT 12 7 - 38 U/L 07/30/2024 12:40 AM EDT [facility] Protein, Total 7.1 6.3 - 8.0 g/dL 07/30/2024 12:40 AM EDT [facility] Blood BLOOD SPECIMEN / Unknown Venipuncture / Unknown 07/29/2024 11:30 PM EDT 07/29/2024 11:51 PM EDT Chaz Joel MD LABORATORY Final Result [facility] [address] [facility] [address] [place] [address], [place] * HCG QUANTITATIVE (07/29/2024 11:30 PM EDT) hCG Quantitative, Blood <0.6 <5.0 mIU/mL 07/30/2024 12:46 AM EDT [facility] Comment:Negative Blood BLOOD SPECIMEN / Unknown Venipuncture / Unknown 07/29/2024 11:30 PM EDT 07/29/2024 11:51 PM EDT Chaz Joel MD LABORATORY Final Result [facility] [address] [address], [place] * D-DIMER (07/29/2024 11:30 PM EDT) Pathologist [facility] D Dimer 300 <500 ng/mL FEU 07/30/2024 12:10 AM EDT [facility] Blood BLOOD SPECIMEN / Unknown Venipuncture / Unknown 07/29/2024 11:30 PM EDT 07/29/2024 11:53 PM EDT Narrative [facility] - 07/30/2024 12:10 AM EDT 500 ng/mL FEU is the D Dimer cutoff to exclude DVT (deep vein thrombosis) and PE (pulmonary embolism) in patients with a low pre test probability. Supplemental Comment: In patients over 50 years with a low pre test probability for DVT and/or PE, an age adjusted D dimer cutoff can be calculated as [age x 10] ng/mL FEU. For example, a patient of 88 years would have an age adjusted D dimer cutoff of 880 ng/mL FEU. For patients with a suspected DVT, a D dimer level below 500 ng/mL FEU has a negative predictive value of >98.9%, a sensitivity of >96.9% and a specificity of >35.7%. For patients with a suspected PE, a D dimer level below 500 ng/mL FEU has a negative predictive value of >98.5%, and a sensitivity of >96.5% and a specificity of >38.8%. Reference: Alcides M, et al. CHRIS 2014 311:1117 and Stepan Garcia N, et al. Iesha Int Med 2016 165:253. Chaz Joel MD LABORATORY Final Result Performing Organization Address [facility] Co de Phone Number [facility] [address] [place] [phone], [place] * (ABNORMAL) C-REACTIVE PROTEIN (07/29/2024 11:30 PM EDT) CRP 1.9(H) <0.9 mg/dL 07/30/2024 12:40 AM EDT [facility] Blood BLOOD SPECIMEN / Unknown Venipuncture / Unknown 07/29/2024 11:30 PM EDT 07/29/2024 11:51 PM EDT Chaz Joel MD LABORATORY Final Result Performing Organization Address [facility] Co de Phone Number [facility] [address] [address], [place] * (ABNORMAL) BASIC METABOLIC PANEL (07/29/2024 11:30 PM EDT) Glucose 101(H) 74 - 99 mg/dL 07/30/2024 12:42 AM EDT [facility] Comment: The [place] [employer] (ADA) provides guidance for cutoff values for fasting glucose and random glucose. The ADA defines fasting as no caloric intake for at least 8 hours. Fasting plasma glucose results between 100 to 125 mg/dL indicate increased risk for diabetes (prediabetes). Fasting plasma glucose results greater than or equal to 126 mg/dL meet the criteria for diagnosis of diabetes. In the absence of unequivocal hyperglycemia, results should be confirmed by repeat testing. In a patient with classic symptoms of hyperglycemia or hyperglycemic crisis, random plasma glucose results greater than or equal to 200 mg/dL meet the criteria for diagnosis of diabetes. Reference: Standards of Medical Care in Diabetes 2016, [place] [employer]. Diabetes Care. 2016.39(Suppl 1). BUN 11 7 - 21 mg/dL 07/30/2024 12:42 AM EDT [facility] Creatinine 0.68 0.58 - 0.96 mg/dL 07/30/2024 12:42 AM EDT [facility] Sodium 141 136 - 144 mmol/L 07/30/2024 12:42 AM EDT [facility] Potassium 4.0 3.7 - 5.1 mmol/L 07/30/2024 12:42 AM EDT [facility] Chloride 108(H) 98 - 107 mmol/L 07/30/2024 12:42 AM EDT [facility] CO2 18(L) 22 - 30 mmol/L 07/30/2024 12:42 AM EDT [facility] Anion Gap 15 8 - 15 mmol/L 07/30/2024 12:42 AM EDT [facility] Calcium, Total 9.0 8.5 - 10.2 mg/dL 07/30/2024 12:42 AM EDT [facility] Estimated Glomerular Filtration Rate 127 >=60 mL/min/1.7 3m 07/30/2024 12:42 AM EDT [facility] Comment:Estimated Glomerular Filtration Rate (eGFR) is calculated using the 2020 CKD-EPI creatinine equation. This equation utilizes serum creatinine, sex, and age as parameters. The creatinine assay has traceable calibration to isotope dilution- mass spectrometry. Refer to KDIGO guidelines for clinical interpretation. In patients with unstable renal function, e.g. those with acute kidney injury, the eGFR may not accurately reflect actual GFR. Blood BLOOD SPECIMEN / Unknown Venipuncture / Unknown 07/29/2024 11:30 PM EDT 07/29/2024 11:51 PM EDT us Chaz Joel MD LABORATORY Final Result [facility] [address] [address], * HCG, QUALITATIVE, URINE (07/29/2024 8:28 PM EDT) HCG Qualitative, Urine Negative Negative 07/29/2024 10:05 PM EDT [facility] Comment:This test is intende d to aid in the early detection of . Very dilute urine samples, as indicated by a low specific gravity, may not contain hotel services sales representative levels of hCG. This test detects intact hCG only. This test does not reliably detect hCG degradation products, including free-beta subunit and beta-core fragment. Therefore, this test may show reduced reactivity in urine after 8 weeks gestation. A number of conditions other than , including trophoblastic disease and certain non-trophoblastic neoplasms cause elevated levels of hCG. As with any assay employing mouse antibodies, the possibility exists for interference by human anti-mouse antibodies (HAMA) in the specimen. The test provides a presumptive diagnosis for . Urine URINE SPECIMEN / Unknown Non Blood / Unknown 07/29/2024 8:28 PM EDT 07/29/2024 8:35 PM EDT Chaz Joel MD LABORATORY Final Result Performing Organization Address [facility] Co de Phone Number [facility] [address] [place] [address], [place] * AFB CULTURE & STAIN FOR PATIENTS WITH CYSTIC FIBROSIS (07/11/2024 12:22 PM EDT) Culture, AFB No Acid Fast Bacilli isolated after 42 days 08/22/2024 8:02 PM EDT [facility] AFB Stain No acid fast bacilli seen by fluorochrome stain 08/22/2024 8:02 PM EDT [facility] Sputum SPUTUM SPECIMEN / Unknown Non Blood / Unknown 07/11/2024 12:22 PM EDT 07/11/2024 7:07 PM EDT Chapo Mitchell MD MICROBIOLOGY Final Result Performing Organization Address [facility] Co de Phone Number [facility] [address] [place] [address], [place] * (ABNORMAL) BACTERIAL CULTURE, RESPIRATORY, CYSTIC FIBROSIS (07/11/2024 12:22 PM EDT) Culture, Resp Cystic Fibrosis Few normal respiratory bentley(A) MINIMUM INHIBITORY CONCENTRATION (VIZION) 07/19/2024 1:57 PM EDT [facility] Culture, Resp Cystic Fibrosis One colony Mold(A) MINIMUM INHIBITORY CONCENTRATION (VIZION) 07/19/2024 1:57 PM EDT [facility] Comment:Mold isolated. Refer to Organism Identification, Mold culture, for species identification. Culture, Resp Cystic Fibrosis One colony Stenotrophomonas maltophilia(A) MINIMUM INHIBITORY CONCENTRATION (VIZION) 07/19/2024 1:57 PM EDT [facility] Comment: Sputum SPUTUM SPECIMEN / Unknown Non Blood / Unknown 07/11/2024 12:22 PM EDT 07/11/2024 7:07 PM EDT Narrative [facility] - 07/19/2024 1:57 PM EDT No S. aureus, P. aeruginosa, or B. cepacia complex isolated. This test was developed and its performance characteristics determined by the [facility] ([facility]). It has not been cleared or approved by the FDA. [facility] is regulated under CLIA as qualified to perform high-complexity testing. This test is used for clinical purposes. It should not be regarded as investigational or for research. Organism Antibiotic Method Susceptibility Stenotrophomonas maltophilia Trimeth sulfameth MINIMUM INHIBITORY CONCENTRATION (VIZION) <=1: Susceptible Comment:Stenotrophom onas maltophilia is intrinsically resistant to aminoglycosides and most B-lactam agents including carbapenem. Stenotrophomonas maltophilia Minocycline MINIMUM INHIBITORY CONCENTRATION (VIZION) <=1: Susceptible Stenotrophomonas maltophilia Levofloxacin MINIMUM INHIBITORY CONCENTRATION(E-TEST) 2: Susceptible Stenotrophomonas maltophilia Levofloxacin DISK DIFFUSION SUSCEPTIBILITY Comment:See E-test f or result Comment: This slow growing organism required an additional period of incubation to generate susceptibility results. The impact of extended incubation on the accuracy of the susceptibility test results is unknown. us Chapo Mitchell MD MICROBIOLOGY Edited Result - Final [facility] [address] [facility] [address]k [address] [address], * (ABNORMAL) ORGANISM IDENT. MOLD (LAB ORDER ONLY) (07/11/2024 12:22 PM EDT) Culture, Organism ID Mold Rare Aspergillus fumigatus(A) 07/16/2024 12:16 PM EDT [facility] Comment: By MALDI TOF Mass Spectrometry. Sputum SPUTUM SPECIMEN / Unknown Non Blood / Unknown 07/11/2024 12:22 PM EDT 07/11/2024 7:07 PM EDT us Chapo Mitchell MD MICROBIOLOGY Final Result [facility] [address] [facility] [place] [address], * SPIROMETRY BASELINE ONLY (07/11/2024 11:29 AM EDT) FVC PRE (L) 2.58 L [facility] FVC PREDICTED (L) 3.10 L [facility] FVC LLN (L) 2.41 L [facility] FVC ULN (L) 3.82 L [facility] FEV1 PRE (L) 1.81 L PULMONA RY FUNCTION LAB FEV1 PREDICTED (L) 2.78 L [facility] FEV1 LLN (L) 2.15 L [facility] FEV1 ULN (L) 3.38 L [facility] FEV1/FVC PRE (%) 70 % [facility] FEV1/FVC PREDICTED (%) 89 % [facility] FEV1/FVC LLN (%) 78 % [facility] FEF25% PRE (L/S) 3.61 L/S [facility] FEF75% PRE (L/S0 0.36 L/S [facility] FEF75% PREDICTED (L/S) 1.75 L/S [facility] FEF75% LLN (L/S) 0.96 L/S [facility] FEF75% ULN (L/S) 2.89 L/S [facility] CEP05-50% PRE (L/S) 1.08 L/S [facility] BQN12-44% PREDICTED (L/S) 3.65 L/S [facility] FAF31-05% LLN (L/S) 2.43 L/S [facility] PEF PRE (L/S) 6.40 L/S [facility] PEF LLN (L/S) 4.86 L/S [facility] PEF ULN (L/S) 7.97 L/S [facility] FET PRE (S) 7.38 S [facility] 07/11/2024 11:2 9 AM EDT Narrative [facility] - 07/16/2024 11:[address] [facility] [address] [place] [address] Test Date: 2024-07-11 Pat Name: ANEGLIA SANCHEZ Department: Room: Gender: Female Manufacturing Applications Engineer: : 2000 Requested By: Order Number: [id number] Reading MD: Tiago Gomez MD Interpretive Statements Current ATS/ERS acceptability and repeatability standards for spirometry met. Start of test and EOFE criteria met. // IMPRESSION: Spirometry indicates moderate obstruction. Electronically Signed On 07-16-2024 11:54:04 EDT by Tiago Gomez MD ID: [id number] Name: ANGELIA SANCHEZ Race: White Ht: 61.02 in Wt: 134.04 lbs Age: 23 Gender: Female : 2000 Dx: Cystic Fibrosis - Unspecified. May include CFTR disorder. Smoking Hx: Non-smoker Doctor: TONY JOHNSON Test Date: 07/11/2024 Site: Tech: Olive Guzman PRE-BRONCH POST-BRONCH Daniel LLN Pred ULN %Pred ZScore Daniel %Pred %Chg ZScore SPIROMETRY FVC 2.58 2.41 3.10 3.82 83 -1.24 FEV1 1.81 2.15 2.78 3.38 65 -2.50 FEV1/FVC 0.70 0.78 0.89 0.98 78 -2.53 FEFMax 6.40 4.86 6.42 7.97 99 -0.01 FEF50 1.59 2.41 4.02 5.63 39 -2.48 FIF50 5.85 FEF50/FIF50 0.27 90-100 FIVC 2.15 AEG87-69 1.08 2.43 3.65 5.03 29 -3.83 ExpiredTime 7.38 TimeToFEFMax 0.04 AUREA 0.05 VolExtrap% 2 Comments: Current ATS/ERS acceptability and repeatability standards for spirometry met. Start of test and EOFE criteria met. //BH us Tony Johnson BEEF LUGGER.CARPENTERS SCHEDULED PROCEDURES Sis l Result [facility] [address] [place] [address] from Last 3 Months Insurance [employer]ICA[employer] Advance Directives * Full Code (Latest Code Status on File) Date Activated Date Inactivated Comments 07/29/2024 10:09 PM 08/22/2024 7:35 PM Question Answer Comments Full Code Order Discussed With: Patient * Full Code Date Activated Date Inactivated Comments 04/06/2024 11:25 PM 04/28/2024 4:13 AM Question Answer Comments Full Code Order Discussed With: Patient Care Teams Mud Tank Operator Relationship Specialty Start Date End Date Chapo Mitchell MD [address] [place] [address] PCP - General Pulmonary and Critical Care Medicine 12/08/23
--- OUTSIDE RECORDS SUMMARY | 2024-09-25 17:04 | XMS_ITS | Encounter Summary ---
Author Organization [facility] Address [address] [place] [address] Care Team Providers Care Battery Assembler Plastic Name Role Phone Chapo Mitchell MD Primary Care Provider [phone] Source Comments In the event this information is protected by the Federal Confidentiality of Alcohol and Drug AbusePatient Records regulations: The Federal rules restrict any use of the information to criminally investigate or prosecute any alcohol or drug abuse patient.[facility] Encounter Details Date Type Department Care Team (Late st Contact Info) Description 09/10/2024 Get Medical Advice Pulmonary Medicine [address] [place] [id number] Randee Johnson APRN.INSTALLMENT DEALER [address] [place] [address] [phone] Symptom Update Social History Tobacco Use Types Packs/Day Years Used Date Smoking Tobacco: Never Passive Smoke Exposure: Never Smokeless Tobacco: Never Alcohol Use Standard Drinks/Week Comments Never 0 (1 standard drink = 0.6 oz pur e alcohol) [facility] Utilities Answer Date Recorded In the [...] place to sleep or slept in a senior living (including now)? No 12/09/2023 Housing Stability Vital Sign Answer Ernst e Recorded In the last 12 months, was t here a time when you were not able to pay the mortgage or rent on time? No 07/30/2024 Number of Times Moved in the Last Year Not on fi le 07/30/2024 At any time in the past 12 m [facility], were you homeless or living in a senior living (including now)? No 07/30/2024 Area Deprivation Index Answer Date Akhil rded National Score (1-100), lower number is lower ri sk 89 12/08/2023 State Score (1-10), lower number is lower risk 8 12/08/2023 Data from: https://www.neighborhoodatlas.medicine.[facility].edu/. Last address used for calculation [address] 12/08/2023 Comments Unknown Sex and Gender Information Value Date Recorded Sex Assigned at Not on file Legal Sex Female 2:33 PM EST Gender Identity Not on file Sexual Orientation Not on file documented as of this encounter Functional Status * Are you deaf or do you have serious difficulty hearing? Answer Date of Assessment Author No 12/30/2023 2:14 PM EDT Angels, Leah, RN * Are you blind or [...] Date Type Department Care Team (Late st 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
--- OUTSIDE RECORDS SUMMARY | 2024-09-25 17:04 | XMS_ITS | Encounter Summary ---
Author Organization [facility] Address [address] [place] [address] Care Team Providers Care Lime Plant Operator Name Role Phone Chapo Mitchell MD Primary Care Provider [phone] Source Comments In the event this information is protected by the Federal Confidentiality of Alcohol and Drug AbusePatient Records regulations: The Federal rules restrict any use of the information to criminally investigate or prosecute any alcohol or drug abuse patient.[facility] Reason for Visit * Reason Comments Results [facility] Encounter Details Date Type Department Care Team (Late st Contact Info) Description 09/19/2024 Telephone Pulmonary Medicine [address] [place] [phone] Randee Johnson APRN.SNACK BAR ATTENDANT [address] [place], [place] [phone] Results ([facility]) Social History Tobacco Use Types Packs/Day Years Used Date Smoking Tobacco: Never Passive Smoke Exposure: Never Smokeless Tobacco: Never Alcohol Use Standard Drinks/Week Comments Never 0 (1 standard drink = 0.6 oz pur e alcohol) [facility] Utilities Answer Date Recorded In the past [...] place to sleep or slept in a skilled nursing (including now)? No 12/09/2023 Housing Stability Vital Sign Answer Ernst e Recorded In the last 12 months, was t here a time when you were not able to pay the mortgage or rent on time? No 07/30/2024 Number of Times Moved in the Last Year Not on fi le 07/30/2024 At any time in the past 12 m [facility], were you homeless or living in a skilled nursing (including now)? No 07/30/2024 Area Deprivation Index Answer Date Akhil rded National Score (1-100), lower number is lower ri sk 89 12/08/2023 State Score (1-10), lower number is lower risk 8 12/08/2023 Data from: https://www.neighborhoodatlas.medicine.[facility].edu/. Last address used for calculation [address] [facility] 12/08/2023 Comments Unknown Sex and Gender [...] 2:14 PM EDT Leah Hernández RN * Are you blind or [...] Encounter - Marily Crain RN - 09/20/2024 11:00 AM EDT Reviewed CBC w/ Diff results. Await IgE level as well a Itraconazole level. Patient started the Itraconazole on September 14. She stopped and completed her labs on September 18 before taking that day's dose. * Telephone Encounter - Cindy Rosenberg - 09/19/2024 4:48 PM EDT Images from the original note were not included. Received lab results from [facility]. Dated: 09/18/2024 Uploaded into chart. documented in this encounter Plan of Treatment Upcoming Encounters Date Type Department Care Team (Late st Contact Info) Description 10/03/2024 10:00 AM EDT Procedure Pulmonary Medicine [address] [place] [address] CF (cystic fibrosis) ([facility]) [E84.9] 10/03/2024 10:30 AM EDT Office Visit Pulmonary Medicine [address] [place] [address] Chapo Mitchell MD [address] [place], [place] [phone] CF (cystic fibrosis) ([facility]) [E84.9] 11/23/2024 3:05 PM EDT Office Visit Otolaryngology [address] [place] [address] Diya Bedolla MD [address] [place], [place] [phone] 6 month follow up documented as of this encounter Visit Diagnoses Not on filedocumented in this encounter Care Teams Lime Plant Operator Relationship Specialty Start Date End Date Chapo Mitchell MD [address] [place] [address] PCP - General Pulmonary and Critical Care Medicine 12/08/23 documented as of this encounter
--- OUTSIDE RECORDS SUMMARY | 2024-09-25 17:04 | XMS_ITS | Encounter Summary ---
Author Organization [facility] Address [id number] [address] [place] [address] Care Team Providers Care Outsole Compressor Name Role Phone Becky Dale MD Primary Care Provider [phone] Encounter Details Date Type Department Care Team (Late st Contact Info) Description 07/22/2020 Orders Only [facility]-Cystic Fibrosis [address] [facility] [address] [place] [phone] Jonah Mosqueda CMA Cystic fibrosis ([facility]) (Primary Dx) Social History Tobacco Use Types [...] have Coronavirus / COVID-19? No / Unsure 06/25/2020 6:35 PM EST documented as of this encounter [...] as of this encounter Results * SPIROMETRY (08/05/2020 1:27 PM EDT) Narrative MANUALLY TRANSCRIBED RESULTS - 08/05/2020 5:27 PM EDT Evaluation of spirometry shows the FVC is 77%, FEV1 is 71% and FEF 25-75 is 64%. The FEV1 shows some decline compared to previous while the small airway flows are similar to previous. 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 us Anthony Cardoza MD PFT ORDERABLES Final Re sult MANUALLY TRANSCRIBED RESULTS documented in this encounter Visit Diagnoses Diagnosis Cystic fibrosis ([facility])- Primary Cystic fibrosis without mention of meconium ileus Cystic fibrosis ([facility]) Cystic fibrosis without mention of meconium ileus [...] documented as of this encounter Care Teams Outsole Compressor Relationship Specialty Start Date End Date Becky Dale MD [facility], [address] [place] [address] PCP - General 06/18/14 documented as of this encounter
--- OUTSIDE RECORDS SUMMARY | 2024-09-25 17:04 | XMS_ITS | Encounter Summary ---
Author Organization [employer] Address [id number] [address] [place] [address] Care Team Providers Care Business School Dean Name Role Phone Becky Dale MD Primary Care Provider [phone] Encounter Details Date Type Department Care Team (Late st Contact Info) Description 10/31/2020 Telephone [facility]-Cystic Fibrosis [address] [phone] Reyna Bowser, RN Social History Tobacco Use Types Packs/Day Years Used Date Smoking Tobacco: Never Smokeless Tobacco: Never Comments:No smoke exposure Alcohol Use Standard Drinks/Week Comments No 0 (1 standard drink = 0.6 oz pur e alcohol) PHQ-2 Answer Date Recorded Total Score 0 08/05/2020 Childcare Answer Date Recorded Childcare Unknown 10/02/2018 [...] encounter Miscellaneous Notes * Telephone Encounter - Reyna Bowser RN - 10/31/2020 10:44 AM EDT Mom called stating that Angelia was prescribed an antibiotic on 10/02/20 for 14 days and that momentarily stopped her cough but a couple days after the antibiotic was finished her cough increased again with clear to yellow sputum. She also stated that Angelia feels like she has a lot of nasal drainage. Mom would like an another antibiotic prescribed and stated that Angelia has an appointment on 11/06/20 but is worried about waiting that long to start another antibiotic. Please advise. * Telephone Encounter - Reyna Bowser RN - 10/31/2020 10:44 AM EDT Medical Service Representative spoke with Dr. Matthews who stated that we will wait on antibiotic until we see Angelia at her appointment and encouraged that she increase her albuterol treatments to 4 times per day. Medical Service Representative informed mom of Dr. Matthews???s advise, mom voiced concern and frustration and stated she wanted me to inform the doctor how she feels and stated ???You guys don???t want to give them an antibiotic and then you see them 5 days later and give them an antibiotic and now they are 5 days behind?? . She stated she does not want her daughter to suffer that long and stated she will most likely takeher to the emergency room. Medical Service Representative verbalized understanding and informed mom that Dr. Matthews is radiation technician if she feels that she needs to take them to the ER, and to call us Tuesday with an update. Mom verbalized understanding. documented in this encounter Plan of Treatment [...] Noted Time PHQ-9 Depression Total Score: 0 08/06/19 1:00 PM EDT documented as of this encounter Care Teams Business School Dean Relationship Specialty Start Date End Date Becky Dale MD [address] [place] [address], [place] [address] PCP - General 06/18/14 documented as of this encounter
--- OUTSIDE RECORDS SUMMARY | 2024-09-25 17:04 | XMS_ITS | Encounter Summary ---
Author Organization [employer] Address [id number] [address] [place] [address] Care Team Providers Care Material Handler Name Role Phone Becky Dale MD Primary Care Provider [phone] Reason for Visit * Reason Comments Med Refill Encounter Details Date Type Department Care Team (Late st Contact Info) Description 02/13/2024 Refill [facility]-Cystic Fibrosis [address] [facility] [address] [place] [phone] Becky Dale MD [address] [place] [address] [address] [place] [address] Social History Tobacco Use Types Packs/Day Years Used Date Smoking Tobacco: Never Smokeless Tobacco: Never Comments:No smoke exposure Alcohol Use Standard Drinks/Week Comments No 0 (1 standard drink = 0.6 oz pur e alcohol) [facility] Utilities Answer Date Recorded In the past 12 months has [employer], [employer], oil, or water [employer] threatened to shut off services in your [...] Increase physical activity Lifestyle No Fidelina Henley, INVESTIGATION MANAGER Note: Evaluation of progress towards goal: Pt [...] documented as of this encounter Care Teams Material Handler Relationship Specialty Start Date End Date Becky Dale MD [facility] [employer], [address] [place] [address] PCP - General 06/18/14 documented as of this encounter
--- OUTSIDE RECORDS SUMMARY | 2024-09-25 17:04 | XMS_ITS | Encounter Summary ---
Author Organization [facility] Sys tem Address [facility] [id number] [address] [place] [address] Care Team Providers Care Photographic Laboratory Technician Name Role Phone Becky Dale MD Primary Care Provider [phone] Encounter Details Date Type Department Care Team (Late st Contact Info) Description 03/08/2022 Telephone [facility] Pediatric Pulmonology-Cystic Fibrosis [address] [phone] Samy Cam RN Social History Tobacco Use [...] Telephone Encounter - Samy Cam RN - 03/08/2022 4:30 PM EST Mother calling patient has been coughing since Tuesday with a harsh productive cough. Coughing all day and starting to cough through the night as well. Patient finished Linazolid on 02/18/22 and started the minocycline after visit. Tuesday the patient started with a cough that is lasting all day longand is starting to keep them up at night. It has not gotten to the point of the patient coughing so hard she vomits but mom would like to come up with a plan before it gets that bad. They are currently taking the minocycling, increasing albuterol treatments and nasal rinses. Mom is aware that since it is late in the day that we will call her tomorrow with a plan. Please advise * Telephone Encounter - Samy Cam RN - 03/08/2022 4:30 PM EST Rn Radiology had a care team conference with Dr. Dale, Dr. Cardoza, Dr. Matthews and Taisha Adorno nurse practitioner Nurse practitioner is the only one with open appointments and MD's would like patient to be seen tomorrow. MD will have a plan in place and be available to assist nurse practitioner with care. MD's would like blood work, RPP, sputum culture and assessment on patient. From there we will determine if patient qualifies for an antiinflammatory medication which they think taken with the current antibiotic minocycline could help improve their cough. They suspect inflammation could be playing a role in increased cough. They also based on cultures may place them on a secondary antibiotic Zithromax if after work up and assessment seem appropriate. Please contact mom with plan. * Telephone Encounter - Samy Cam RN - 03/08/2022 4:30 PM EST Rn Radiology called back to let mom know that the [facility] CF team would like her to come in on Tuesday afternoon and be seen with the nurse practitioner in the office. The [facility] doctors do not have any appointments available for the next few weeks and they did not want to wait to get patient in to be seen.They had a plan in place and science writer explained the plan in detail as explained in her previous note to mother letting her know the steps that would occur during the appointment. Mom was confused and upset why the nurse practitioner was going to see the patient because she had never seen the patient before and now was not the time for her to see the patient because she was sick and she needed someone who knew her child to see her for a sick visit. The mother continued to speak on behalf of the patient mom was pressured speech and defensive towards the science writer and stated that they would not be coming in to see the nurse practitioner because she is just a nurse and what is she going to be able to do for the patient , it would be no different if the science writer was to see the patient for a visit. She needs a physician to be seeing her daughter and they do this to them every time they are sick theythrow them into the adult world during one of their sickest hospital stays and now they are doing it now and they will not be coming. Rn Radiology verbalized she understood the mother's frustration, she stated that the nurse practitioner that they would be seeing is very knowledgeable in CF because she sees and manages the adult cf patients at the center. The nurse practitioner manages some pretty sickadult CF patients and that a new perspective could be a good thing for the patient, also that the [facility] physicians would be available for the nurse practiconer to update and bounce ideas off of because she does not change big things especially in this case without collaborating with a physician first. Plus the nurse practiceoner had a detailed conversation with the [facility] cf team about what their plan was and she was involved in the conversation and knew what was expected with this visit. The patient got on the phone and stated I am not _ _ _ _ing coming and seeing some nurse. I am not starting any new medications. I just need something to let the Trielia kick in They pushed us off to the adult world what they were sick and they are pushing us to the adult providers now that they are sick Rn Radiology let mom know that when the patient transistioned this is who would be managing the patient with the collaboration with Dr. Duncan Strauss and Dr. Ellen Balbuena and that they are only in on Wednesdays so Taisha will be mostly who they would be communicating with. Inder stated she did not like that aphysician was not in the office everyday in the adult clinic and that this might be a good reason for them to leave this center. Mom then stated that they do not want to start a new medication because that is not the answer we never listen to the patient and what she wants to do and the mother is just advocating for her daughter and to call the family back when the office had a better plan in place and hung up the phone. documented in this encounter Plan of Treatment [...] MDRO Comment:CYSTIC F 06/05/2007 06/05/2007 COVID-19 Rule-Out 03/11/2022 03/11/2022 03/11/2022 6:31 PM EST COVID-19 Rule-Out 11/15/2023 11/16/2023 11/16/2023 1:40 AM EDT Assessment Noted Time PHQ-9 Depression Total Score: 2 08/26/19 22 4:00 PM EDT documented as of this encounter Care Teams Photographic Laboratory Technician Relationship Specialty Start Date End Date Becky Dale MD [address] [place] [address], [address] [place] [address] PCP - General 06/18/14 documented as of this encounter
--- OUTSIDE RECORDS SUMMARY | 2024-09-25 17:05 | XMS_ITS | Encounter Summary ---
Author Organization [employer] Sys tem Address [facility] [place][id number] [address] [place] [address] Care Team Providers Care Sole Scraper Name Role Phone Becky Dale MD Primary Care Provider [phone] Reason for Visit * Reason Onset Date Comments Med Refill 07/02/2016 Encounter Details Date Type Department Care Team (Late st Contact Info) Description 07/02/2016 Refill [facility] Pediatric Pulmonology-Cystic Fibrosis [address] [facility] [address] [place] [phone] Dayan Crouch, MACHINED PARTS METAL SPRAYER Cystic fibrosis of the lung (HCC) (Primary Dx) Social History Tobacco Use Types Packs/Day Years Used Date Smoking Tobacco: Never Assessed Comments Unknown Sex and Gender Information Value Date Recorded Sex Assigned at Not on file Legal Sex Female 4:18 PM EDT Gender Identity Not on file Sexual Orientation Not on file documented as of this encounter Plan of Treatment Not on file documented as of this encounter Visit Diagnoses Diagnosis Cystic fibrosis of the lung (CMS-HCC)- Primary Cystic fibrosis with pulmonary manifestations documented [...] Rule-Out 11/15/2023 11/16/2023 11/16/2023 1:40 AM EDT documented as of this encounter Care Teams Sole Scraper Relationship Specialty Start Date End Date Becky Dale MD [address] [place] [address], [address] [place] [id number] PCP - General 06/18/14 documented as of this encounter
--- OUTSIDE RECORDS SUMMARY | 2024-09-25 17:05 | XMS_ITS | Encounter Summary ---
Author Organization [facility] Address [address] [place] [address] Care Team Providers Care Gravel Wheeler Name Role Phone Chapo Mitchell MD Primary Care Provider [phone] Source Comments In the event this information is protected by the Federal Confidentiality of Alcohol and Drug AbusePatient Records regulations: The Federal rules restrict any use of the information to criminally investigate or prosecute any alcohol or drug abuse patient.[facility] Encounter Details Date Type Department Care Team (Late st Contact Info) Description 08/09/2024 Get Medical Advice Pulmonary Medicine [address] [place] [id number] Randee Johnson APRN.[address] [id number] Prednisone Social History Tobacco Use Types Packs/Day Years Used Date Smoking Tobacco: Never Passive Smoke Exposure: Never Smokeless Tobacco: Never Alcohol Use Standard Drinks/Week Comments Never 0 (1 standard drink = 0.6 oz pur e alcohol) [facility] Utilities Answer Date Recorded In the past [...] any time in the past 12 m [facility], were you homeless or living in a prison (including now)? No 07/30/2024 Area Deprivation Index Answer Date Akhil rded National Score (1-100), lower number is lower ri sk 89 12/08/2023 State Score (1-10), lower number is lower risk 8 12/08/2023 Data from: https://www.neighborhoodatlas.medicine.[facility].edu/. Last address used for calculation [address] [facility] 12/08/2023 Comments Unknown Sex and Gender [...] AM EDT Procedure Pulmonary Medicine [address] [place] [address] CF (cystic fibrosis) ([facility]) [E84.9] 10/03/2024 10:30 AM EDT Office Visit Pulmonary Medicine [address] [address] Chapo Mitchell MD [address] [place] [phone] CF (cystic fibrosis) ([facility]) [E84.9] 11/23/2024 3:05 PM EDT Office Visit Otolaryngology [address] [address] Diya Bedolla MD [address] [place] [address] 6 month follow up documented as of this encounter Visit Diagnoses Not on filedocumented in this encounter Care Teams Gravel Wheeler Relationship Specialty Start Date End Date Chapo Mitchell MD [address] [address] PCP - General Pulmonary and Critical Care Medicine 12/08/23 documented as of this encounter
--- OUTSIDE RECORDS SUMMARY | 2024-09-25 17:05 | XMS_ITS | Encounter Summary ---
Author Organization [facility] Sys tem Address [facility] [id number] [address] [place] [address] Care Team Providers Care Vacuum Tester Cans Name Role Phone Becky Dale MD Primary Care Provider [phone] Reason for Visit * Reason Comments Med Refill Encounter Details Date Type Department Care Team (Late st Contact Info) Description 06/12/2021 Refill [facility] Pediatric Pulmonology-Cystic Fibrosis [address] [facility] [address] [place] [phone] Becky Dale MD [address], [address] [place], [place] [phone] Cystic fibrosis ([facility]) Social History Tobacco Use Types Packs/Day Years [...] Patient-Stated? Author Increase physical activity Lifestyle No Kale, Fidelina, CHIEF BANK EXAMINER Note: Evaluation of progress towards goal: Pt started online schooling recently and will get up during lessons to take a short walk. documented as of this encounter Visit Diagnoses Diagnosis Cystic fibrosis (CMS-HCC) Cystic fibrosis without mention of meconium ileus [...] documented as of this encounter Care Teams Vacuum Tester Cans Relationship Specialty Start Date End Date Becky Dale MD [address] [place] [address], [address] [place] [address] PCP - General 06/18/14 documented as of this encounter
--- OUTSIDE RECORDS SUMMARY | 2024-09-25 17:05 | XMS_ITS | Encounter Summary ---
[facility] [facility] Address [facility] [id number] [address] [place] [address] Care Team Providers Care Superintendent Cemetery Name Role Phone Becky Dale MD Primary Care Provider [phone] Encounter Details Date Type Department Care Team (Late st Contact Info) Description 03/27/2019 Telephone [facility] Pediatric Pulmonology-Cystic Fibrosis [address] [facility] [address] [place] [phone] Fidelina Helney LSW Social History Tobacco Use Types Packs/Day Years Used Date Smoking Tobacco: Never Smokeless Tobacco: Never Comments:No smoke exposure Alcohol Use Standard Drinks/Week Comments No 0 (1 standard drink = 0.6 oz pur e alcohol) PHQ-2 Answer Date Recorded PHQ-2 Score 0 04/21/2018 Childcare Answer Date Recorded Childcare Unknown 10/02/2018 [...] Noted Time PHQ-9 Depression Total Score: 0 12/29/19 2:00 PM EDT documented as of this encounter Care Teams Superintendent Cemetery Relationship Specialty Start Date End Date Becky Dale MD [address] [place] [address], [place] [phone] PCP - General 06/18/14 documented as of this encounter
--- OUTSIDE RECORDS SUMMARY | 2024-09-25 17:05 | XMS_ITS | Encounter Summary ---
Author [facility] Address [facility] [id number] [address] [place] [address] Care Team Providers Care Pants Presser Name Role Phone Becky Dale MD Primary Care Provider [phone] Encounter Details Date Type Department Care Team (Late st Contact Info) Description 08/06/2022 Orders Only [facility] Pediatric Pulmonology-Cystic Fibrosis [address] [facility] [address] [place] [phone] Jonah Mosqueda CMA Cystic fibrosis ([facility]) (Primary Dx) Social History Tobacco Use Types Packs/Day Years Used Date Smoking Tobacco: Never Smokeless Tobacco: Never Comments:No smoke exposure Alcohol Use Standard Drinks/Week Comments No 0 (1 standard drink = 0.6 oz pur e alcohol) PHQ-2 Answer Date Recorded Total Score 2 05/25/2022 Childcare Answer Date Recorded Childcare Unknown 10/02/2018 [...] have Coronavirus / COVID-19? No / Unsure 07/22/2022 5:14 PM EDT documented as of this encounter Plan of Treatment Not on file documented as of this encounter Goals Goal Patient Goal Type Associated Problems Recent Progress Patient-Stated? Author return home General Yes Elizabeth Lovell, RN Note: Evaluation of progress towards goal: return home Increase physical activity Lifestyle No Fidleina Henley, ELEMENTARY TUTOR Note: Evaluation of progress towards goal: Pt started online schooling recently and will get up during lessons to take a short walk. documented as of this encounter Results * SPIROMETRY (08/10/2022 2:27 PM EDT) Narrative MANUALLY TRANSCRIBED RESULTS - 08/11/2022 7:08 AM EDT Evaluation of pulmonary function testing done on this 21-year-old female on 08/10/2022 demonstrated FVC 70%, FEV1 61% and FEF 25-75 44% of predicted values. Previous study from 06/22/2022 demonstrated FVC 61%, FEV1 54% and FEF 25-75 42% of predicted values. 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
--- OUTSIDE RECORDS SUMMARY | 2024-09-25 17:05 | XMS_ITS | Encounter Summary ---
Author Organization [employer] Sys tem Address [facility] [id number] [address] [place] [address] Care Team Providers Care Corporate Strategist Name Role Phone Becky Dale MD Primary Care Provider [phone] Reason for Visit * Reason Onset Date Comments Med Refill 04/11/2019 Encounter Details Date Type Department Care Team (Late st Contact Info) Description 04/11/2019 Refill [facility] Pediatric Pulmonology-Cystic Fibrosis [address] [facility] [address] [place] [phone] Reyna Bowser RN Cystic fibrosis ([facility]) (Primary Dx) Social History Tobacco Use [...] Telephone Encounter - Reyna Bowser RN - 04/11/2019 10:35 AM EST [facility] called stating they need a prescription for [place]. Reyna Bowser RN 04/11/19 1038 documented in this encounter Plan of Treatment Not on file documented as of this encounter Visit Diagnoses Diagnosis Cystic fibrosis ([facility]-HCC)- Primary documented in this encounter Additional Health Concerns [...] Noted Time PHQ-9 Depression Total Score: 0 03/29/20 2:00 PM EST documented as of this encounter Care Teams Corporate Strategist Relationship Specialty Start Date End Date Becky Dale MD [address] [place] [address], [place] [address] PCP - General 06/18/14 documented as of this encounter
--- OUTSIDE RECORDS SUMMARY | 2024-09-25 17:05 | XMS_ITS | Encounter Summary ---
Author Organization [facility] Address [address] [place] [address] Care Team Providers Care Referral Coordinator Name Role Phone Chapo Mitchell MD Primary Care Provider [phone] Source Comments In the event this information is protected by the Federal Confidentiality of Alcohol and Drug AbusePatient Records regulations: The Federal rules restrict any use of the information to criminally investigate or prosecute any alcohol or drug abuse patient.[facility] Encounter Details Date Type Department Care Team (Late st Contact Info) Description 11/01/2023 Patient Msg Pulmonary Medicine [address] [place], [place] [phone] Provider, [facility] Quarterly Newsletter Social History Tobacco Use Types Packs/Day Years Used Date Smoking Tobacco: Never Passive Smoke Exposure: Never Alcohol Use Standard Drinks/Week Comments Never 0 (1 standard drink = 0.6 oz pur e alcohol) [facility] Utilities Answer Date Recorded In the past 12 months has e electric, gas, oil, or water company threatened to shut off services in your home? No 09/26/2023 Hunger Vital Sign Answer Date Recorded Within the past 12 months, y ou worried that your food would run out before you got the money to buy more. Never true 09/26/19 24 Within the past 12 months, t he food you bought just didn't last and you didn't have money to get more. Never true 09/26/2023 PRAPARE - Transportation Answer Date Re corded In the past 12 months, has l ack of transportation kept you from medical appointments or from getting medications? No 06/2023 In the past 12 months, has l ack of transportation kept you from meetings, work, or from getting things needed for daily living? No 09/26/2023 Housing Stability Vital Sign Answer Ernst e Recorded In the last 12 months, was t here a time when you were not able to pay the mortgage or rent on time? No 09/26/2023 Number of Places Lived in the Last Year Not on f ile 09/26/2023 In the last 12 months, was t here a time when you did not have a steady place to sleep or slept in a custodial (including now)? No 09/26/2023 Area Deprivation Index Answer Date Akhil rded National Score (1-100), lower number is lower ri sk 63 10/25/2023 State Score (1-10), lower number is lower risk 4 10/25/2023 Data from: https://www.neighborhoodatlas.medicine.[facility].edu/. Last address used for calculation [address] 10/25/2023 Comments Unknown Sex and Gender Information Value Date Recorded Sex Assigned at Not on file Legal Sex Female 2:33 PM EST Gender Identity Not on file Sexual Orientation Not on file documented as of this encounter Plan of Treatment Upcoming Encounters Date Type Department Care Team (Late st Contact Info) Description 10/03/2024 10:00 AM EDT Procedure Pulmonary Medicine [address] [place] [address] CF (cystic fibrosis) ([facility]) [E84.9] 10/03/2024 10:30 AM EDT Office Visit Pulmonary Medicine [address] [place] [address] Chapo Mitchell MD [address] [place], [place] [phone] CF (cystic fibrosis) ([facility]) [E84.9] 11/23/2024 3:05 PM EDT Office Visit Otolaryngology [address] [address] Diya Bedolla MD [address] [place] [address] 6 month follow up documented as of this encounter Visit Diagnoses Not on filedocumented in this encounter Additional Health Concerns Infection Onset Date Last Indicated Resolved Time COVID-19 Rule-Out 12/09/2023 12/09/2023 12/09/2023 4:45 PM EDT Respiratory Rule-Out 12/09/2023 12/09/2023 024 4:45 PM EDT COVID-19 Rule-Out 04/09/2024 04/09/2024 04/09/2024 2:28 PM EST Respiratory Rule-Out 04/09/2024 04/09/2024 024 2:28 PM EST Respiratory Rule-Out 05/15/2024 05/15/2024 025 1:34 AM EST Rhinovirus 05/15/2024 05/15/2024 05/26/2024 8:51 PM EST COVID-19 Rule-Out 07/29/2024 07/30/2024 07/30/2024 1:39 AM EDT Respiratory Rule-Out 07/29/2024 07/30/2024 025 1:39 AM EDT documented as of this encounter Care Teams Referral Coordinator Relationship Specialty Start Date End Date Chapo Mitchell MD [address] [address] PCP - General Pulmonary and Critical Care Medicine 12/08/23 documented as of this encounter
--- OUTSIDE RECORDS SUMMARY | 2024-09-25 17:05 | XMS_ITS | Clinical Summary ---
Author Organization [employer] tem Address [id number] [address] [place] [address] Care Team Providers Care Lithographic Camera Operator Name Role Phone Becky Dale MD Primary Care Provider [phone] Allergies Active Allergy Reactions Criticality Noted Date Comments Sulfamethoxazole-Trimethoprim Swelling,Rash Medium Voriconazole Facial Swelling 03/30/2023 Medications inhalational spacing device (AEROCHAMBER WITH FLOWSIGNAL) spacerIndications:C ystic fibrosis of the lung ([facility]) use with MDI as directed 1 each 09/23/19 22 Active compressor, for nebulizer (DEVILBISS PULMO-AIDE COMPRESSR) deviceIndications:C ystic fibrosis ([facility]) Per CF guidelines please dispense pulmoaide to nebulize inhaled medications. 1 each 03/16/20 22 Active compressor, for nebulizer deviceIndications:C ystic fibrosis ([facility]) Please dispense [place] Erin nebulizer 1 each 03/22/20 22 Active fluticasone propionate (FLONASE) 50 mcg/actuation nasal sprayIndications:Cy stic fibrosis of the lung ([facility]) Administer 1 spray into each nostril in the morning. 16 g 11 06/09/19 23 Active pediatric multivit 22-D3-vit K (MVW COMPLETE FORMUL MULTIVIT) 1,500-1,000 unit-mcg tablet,chewableIndi cations:Cystic fibrosis ([facility]) Chew 2 tablets and swallow in the morning. (Winston flavor). 60 tablet 06/09/19 23 Active sodium chloride 3 % nebulizer solution Inhale by nebulization 2 (two) times a day. 750 mL 06/09/19 Active nebulizers miscIndications:Cys tic fibrosis ([facility]) Please dispense 1 altera handset for cayston nebulization. 1 each 10/15/19 Active nebulizers (CodeStreetA NEBULIZER SYSTEM) miscIndications:Cys tic fibrosis ([facility]) Please dispense altera handset and neb cups for cayston administration 1 each 11/03/19 Active nebulizers (CodeStreetA NEBULIZER SYSTEM) miscIndications:Cys tic fibrosis ([facility]) Please dispense 1 altera nebulizer machine for cayston administration 1 each 11/13/19 Active syringe with needle, safety 10 mL 18 gauge x 1 1/2 syringeIndications: Cystic fibrosis ([facility]) To be used to reconstitute medication 28 each 12/07/19 Active sterile water, PF, (sterile water, preservative free,) solutionIndications :Cystic fibrosis ([facility]) To reconstitute with fortaz/ceftazidim e. Mix 10 ml daily for 28 days on and 28 days off cycling. 280 mL 12/07/19 Active aztreonam lysine ([facility]) 75 mg/mL solution for nebulization Inhale 75 mg by nebulization every 8 (eight) hours. Active budesonide (PULMICORT) 0.5 mg/2 mL nebulizer solutionIndications :Cystic fibrosis ([facility]) Administer 2 mL (0.5 mg total) into each nostril in the morning and 2 mL (0.5 mg total) before bedtime. 120 mL 02/06/20 Active sod vwebj-sihbfu-qrpgmk bottle (AYR NASAL RINSE) packet with rinse device nasal solution Administer 1 packet into each nostril in the morning and 1 packet before bedtime. 30 each 02/06/20 Active calcium carbonate (TUMS) 200 mg elemental (500 mg) chewable tablet Chew 1 tablet (200 mg total) and swallow daily as needed for indigestion or heartburn. 30 tablet 1 02/06/20 Active EPINEPHrine (EPIPEN) 0.3 mg/0.3 mL auto-injectorIndica tions:ABPA (allergic bronchopulmonary aspergillosis) ([facility]),Severe persistent asthma without complication ([facility]) Inject 0.3 mL (0.3 mg total) into the appropriate muscle as needed (anaphylaxis). 2 each 1 02/18/20 23 Active elexacaftor-tezacaf tor-ivacaft (TRIKAFTA) 100-50-75 mg(d) /150 mg (n) tablets, sequentialIndicatio ns:Cystic fibrosis ([facility]) Two tablets in the AM and one tablet in the pm 84 tablet 03/03/20 23 Active fluticasone propion-salmeteroL (AIRDUO RESPICLICK) 232-14 mcg/actuation aerosol powdr breath activatedIndication s:Cystic fibrosis ([facility]) Inhale 1 puff in the morning and 1 puff before bedtime. 1 each 03/03/20 23 Active budesonide (PULMICORT) 1 mg/2 mL nebulizer solutionIndications :Cystic fibrosis ([facility]),ABPA (allergic bronchopulmonary aspergillosis) ([facility]),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[facility]) Inhale 2 mL (1 mg total) by nebulization once daily. 60 mL 03/30/20 23 Active predniSONE (DELTASONE) 5 mg tabletIndications:C ystic fibrosis ([facility]),ABPA (allergic bronchopulmonary aspergillosis) ([facility]) Take 1 tablet (5 mg total) by mouth every other day. 30 tablet 2 04/27/19 24 Active PULMOZYME 1 mg/mL nebulizer solutionIndications :Cystic fibrosis ([facility]) INHALE CONTENTS OF ONE VIAL VIA NEBULIZER ONCE DAILY. KEEP REFRIGERATED UNTIL USE. 75 mL 06/15/19 24 Active omeprazole (PriLOSEC) 20 mg capsuleIndications: Cystic fibrosis ([facility]),Pancreati c insufficiency TAKE 1 CAPSULE (20 MG TOTAL) BY MOUTH IN THE MORNING. 30 capsule 06/15/19 24 Active ALLERGY RELIEF, LORATADINE, 10 mg tabletIndications:C ystic fibrosis of the lung ([facility]),Allergic rhinitis TAKE 1 TABLET (10 MG TOTAL) BY MOUTH DAILY NEEDED FOR ALLERGIES. 30 tablet 06/15/19 24 Active jtljqf-crxqhypt-vdu lase (CREON) 24,000-76,000 -120,000 unit capsule,delayed release(DR/EC)Indic ations:Cystic fibrosis ([facility]) TAKE 1-2 CAPSULES WITH MEALS AND SNACKS. ALLOWING FOR 3 MEALS AND 3 SNACKS PER DAY. 12 CAPS/DAY 360 capsule 06/15/19 24 Active albuterol (VENTOLIN HFA) 90 mcg/actuation inhalerIndications: Cystic fibrosis of the lung ([facility]) INHALE 2 PUFFS TWICE DAILY AND EVERY 4 HOURS NEEDED. 18 g 06/15/19 24 Active cholecalciferol, vitamin D3, (VITAMIN D3) 5,000 units capsuleIndications: Pancreatic insufficiency due to cystic fibrosis ([facility]) TAKE 1 CAPSULE (5,000 UNITS TOTAL) BY MOUTH IN THE MORNING. 30 capsule 06/16/19 24 Active miscellaneous medical supply tray Apply 1 Application topically as needed (Maintain PICC line per agency protocol). 100 each 06/20/19 24 Active sodium chloride injection Infuse 10-20 mL into a venous catheter as needed for line care (Per agency protocol and PRN for PICC maintenance and lab draws). 1000 mL 06/20/19 24 Active miscellaneous medical supply tray Apply 1 Application topically as needed (Maintain PICC line per agency protocol). 100 each 06/20/19 24 Active omalizumab (XOLAIR) 150 mg/mL syringeIndications: Severe persistent asthma without complication ([facility]),Elevated IgE level,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[facility]) Inject 2 mL (300 mg total) under the skin every 14 (fourteen) days. 4 mL 3 07/25/19 24 Active nebulizers (ANNIE LC D NEBULIZER) miscIndications:Cys tic fibrosis ([facility]) Please dispense annie set up with mask per CF guidelines with inhaled medications 1) Albuterol 2) Hypertonic saline 3% . 3)Fortaz 4)Pulmozyme 5) Pulmicort 10 each 08/03/19 24 Active tiotropium bromide (SPIRIVA RESPIMAT) 1.25 mcg/actuation mist INHALE 2 PUFFS BY MOUTH IN THE MORNING. 4 g 5 08/17/19 24 Active Active Problems Problem Noted Date Diagnosed Date Cystic fibrosis exacerbation 05/30/2023 Cystic fibrosis with pulmonary exacerbation 11/2021 Chronic pansinusitis 04/10/2020 Moderate persistent asthma without complication 03/29/2019 Pseudomonas aeruginosa colonization 09/04/2018 MSSA (methicillin-susceptibl e Staphylococcus aureus) colonization 06/29/2018 Infection due to Stenotrophomonas maltophilia Pancreatic insufficiency 02/18/2005 Cystic fibrosis 02/15/2005 Overview (04/27/2018): [id number] Resolved Problems Problem Noted Date Diagnosed Date Resolved Date Exacerbation of cystic fibrosis 09/30/2022 01/25/2023 Cystic fibrosis exacerbation 11/26/2021 10/01/2022 Anaphylaxis 03/04/2021 07/30/2021 Cystic fibrosis exacerbation 06/25/2020 07/30/2021 Cystic fibrosis with pulmonary exacerbation 01/08/2020 07/30/2021 Exacerbation of cystic fibrosis 06/05/2019 07/30/2021 Cystic fibrosis with pulmonary exacerbation 02/27/2019 06/06/2019 Exacerbation of cystic fibrosis 10/06/2017 03/08/2019 Encounters Date Type Department Care Team Description 09/12/2024 Travel 07/16/2024 3:30 PM EDT Infusion [facility] [address] [place] [address] Cystic fibrosis ([facility]) (Primary Dx) 07/16/2024 Travel 07/11/2024 Travel 07/06/2024 Travel from Last 3 Months Immunizations Immunization Administration Dates Next Due Covid-19, Mrna, Lnp-s, Pf, 3 0 Mcg/0.3 Ml Dose, Kign-sucrose 12/11/2021 DTaP 09/11/2007, 4,06/27/2003,04/23,02/19/2003 DTaP, Unspecified 09/11/2007,04/23/2003,02/20/20 03 H1N1 Inj 05/21/2009 H1N1 Inj Preservative Free 05/21/2009 HPV Quadrivalent 06/27/2014 HPV, Unspecified 06/27/2014 Hep A, 2 Dose 09/11/2007,03/02/2007 Hep B / HIB 12/23/2003 Hep B, Adolescent or Pediatric 04/23/2003,2002 Hepatitis A 09/11/2007,03/02/2007 Hepatitis B 12/23/2003,04/23/2003,02/19/2003 HiB 03/18/2004, 4,04/23/2003,02/21,02/19/2003 Hib (PRP-T) 03/18/2004 IPV 09/11/2007, 4,04/23/2003,02/19 Influenza (IM) Preservative Free 016,03/01/2013,12/28/2011,02/08 Influenza Whole 01/06/2016,03/04/2005 Influenza, Im Pediatric (Pf) 04/16/2014 Influenza, Im Trivalent Preservative 03/2010,01/28/2009,03/05/2008,03/02 Influenza, Injectable, Quadrivalent 04/16/2014 Influenza, Injectable, quadr ivalent (PF) 02/17/2023,02/18/2022,03/04/2020,03/29,03/09/2018,02/15/2017 Influenza, Unspecified 04/16/2014,2012,12/28/2011,02/08,02/03/2010 MMR 03/05/2008,03/18/2004 Meningococcal Conjugate 06/27/2014 Meningococcal MCV4P 06/27/2014 Pneumococcal Conjugate 03/18/2004,2003,04/23/2003,02/19 Pneumococcal Conjugate 13-Valent 01/06/2016 Pneumococcal, Unspecified 05/21/2009,04/23/2003, 02/19/2003 Polio, Unspecified 04/23/2003,02/19/2003 Tdap 06/27/2014 Varicella 05/21/2009,12/23/2003 Family History Medical History Relation Name Comments No Known Problems Father defects Maternal Aunt Cancer Maternal Grandfather No Known Problems Mother Cystic fibrosis Sister Relation Name Status Comments Father Maternal Aunt Maternal Grandfather Mother Sister Social History Tobacco Use Types Packs/Day Years Used Date Smoking Tobacco: Never Smokeless Tobacco: Never Tobacco Cessation:Counseling Given: Not Answered Comments:No smoke exposure Alcohol Use Standard Drinks/Week Comments No 0 (1 standard drink = 0.6 oz pur e alcohol) [facility] Utilities Answer Date Recorded In the past 12 months has th e [employer], [employer], or water company threatened to shut off [...] Sign Reading Time Taken Comments Blood Pressure 110/73 11/16/2023 2:30 AM EDT Pulse 126 11/16/2023 2:30 AM EDT Temperature 37.6 C (99.7 F) 11/15/2023 11:46 PM EDT Respiratory Rate 24 11/16/2023 2:30 AM EDT Oxygen Saturation 97% 11/16/2023 2:30 AM EDT Inhaled Oxygen Concentration - - Weight 56.7 kg (125 lb) 11/15/2023 11:46 PM EDT Height 154.9 cm (5' 1 ) 11/15/2023 11:46 PM EDT Body Mass Index 23.62 11/15/2023 11:46 PM EDT Plan of Treatment Health Maintenance Due Date Last Done Comments Pap Smear 12/15/2023 COVID-19 Vaccine (4 - 2023-2 5 season) 2023 12/11/2021, 08/27/2020, 08/06/2020 Depression Screening 05/31/2024 05/31/2023 DTaP,Tdap and Td Vaccines (7 - Td or Tdap) 06/27/2024 06/27/2014, 09/11/2007, 09/11/2007, Additional history exists Adult BMI Screening 11/14/2024 11/15/2023 Tobacco Screening 11/14/2024 11/15/2023 Influenza Vaccine 12/24/2024 02/17/2023, , 03/04/2020, Additional history exists Goals Goal Patient Goal Type Associated Problems Recent Progress Patient-Stated? Author return home General Yes Elizabeth Lovell, RN Note: Evaluation of progress towards goal: return home Increase physical activity Lifestyle No Fidelina Henley LSW Note: Evaluation of progress towards goal: Pt started online schooling recently and will get up during lessons to take a short walk. Medical Devices Implanted Type Area Refrigerated Cargo Clerk Device Identifier Shelf Expiration Date Model / Serial / Lot Port Powerport Clrvu 8fr Intmd Kt Slim Implinfn Lf - [id number] Implanted:Qty: 1 on 06/16/2023 at [facility] [place] [employer] [id number] 07/23/2024 [id number] / / [id number] Procedures Procedure Name Priority Date/Time Associated Diagnosis Comments ITRACONAZOLE, SERUM Routine 09/12/2024 5 :12 PM EDT Cystic fibrosis with other manifestations (CMS-HCC) IGE Routine 09/12/2024 5:12 PM EDT Cystic fibrosis with other manifestations (CMS-HCC) CBC WITH AUTO DIFFERENTIAL Routine 09/12/2024 5:12 PM EDT Cystic fibrosis with other manifestations ([facility]) from Last 3 Months Results * Itraconazole, Serum (09/12/2024 5:12 PM EDT) [facility] ITRACONAZOLE, S <0.1 mcg/mL 11:44 AM EDT [facility] [employer] Comment: REFERENCE VALUE >0.5 (localized infection), >1.0 (systemic infection) HYDROXYITRACONAZOLE <0.1 mcg/mL 09/14 11:44 AM EDT [facility] [employer] Comment: REFERENCE VALUE No therapeutic range established; activity and serum concentration are similar to parent drug. ADDITIONAL INFORMATION This test was developed and its performance characteristics determined by [facility] in a manner consistent with CLIA requirements. This test has not been cleared or approved by the U.S. Food and Drug Administration. Test Performed by: [facility] [place] [address] Radiator Mechanic: Patricia Laura Ph.D.; CLIA# [id number] Blood Venous blood / Unknown Venipuncture / Unknown 09/12/2024 5:12 PM EDT 09/12/2024 5:12 PM EDT us Chapo Mitchell MD LAB BLOOD ORDERABLES Final Res ult [facility] [address] [place] [id number], [place] * (ABNORMAL) CBC auto differential (09/12/2024 5:12 PM EDT) WBC 17.4(H) 4 - 11 x10E9/L 09/12/2024 9:24 PM EDT [facility] RBC Count 4.24 3.8 - 5.2 X10E12/L 09/12/2024 9:24 PM EDT [facility] Hemoglobin 10.7(L) 11.7 - 15.5 g/dL 09/12/2024 9:24 PM T [facility] Hematocrit 33.1(L) 35 - 47 % 09/12/2024 9:24 PM EDT [facility] MCV 78(L) 80 - 100 fL 09/12/2024 9:24 PM T [facility] MCH 25.1(L) 27 - 34 pg 09/12/2024 9:24 PM EDT [facility] MCHC 32.2 32 - 36 g/dL 09/12/2024 9:24 PM T [facility] RDW 17.1(H) 11.5 - 15 % 09/12/2024 9:24 PM EDT [facility] Platelet Count 454(H) 150 - 450 X10E9/L 09/12/2024 9:24 PM [facility] MPV 7.7 7 - 12 fL 09/12/2024 9:24 PM [facility] Neutrophils Relative 69.8 % 09/12/2024 [facility] Lymphocytes Relative 21.6 % 09/12/2024 9[facility] Monocytes Relative 7.2 % 09/12/2024 9:24 [facility] Eosinophils Relative 1.0 % 09/12/2024 9:24 PM [facility] Basophils Relative 0.4 % 09/12/2024 9:24 PM [facility] Neutrophils Absolute (A) 12.1(H) 1.5 - 6.6 10*3/uL 09/12/2024 9:24 PM T [facility] Lymphocytes Absolute 3.8(H) 1.0 - 3.5 10*3/uL 09/12/2024 9:24 PM EDT [facility] Monocytes Absolute 1.2(H) 0.0 - 0.9 10*3/uL 09/12/2024 9:24 PM EDT [facility] Eosinophils Absolute 0.2 0.0 - 0.4 10*3/uL 09/12/2024 9:24 PM EDT [facility] Basophils Absolute 0.1 0.0 - 0.2 10*3/uL 09/12/2024 9:24 PM EDT [facility] Differential Type AUTOMATED DIFFERENTIAL 09/12/2024 9:24 PM EDT [facility] Blood Venous blood / Unknown Venipuncture / Unknown 09/12/2024 5:12 PM EDT 09/12/2024 5:12 PM EDT us Chapo Mitchell MD LAB BLOOD ORDERABLES Final Res ult [facility] [address] [place] [address], [place] [phone] * (ABNORMAL) IgE (09/12/2024 5:12 PM EDT) IGE 1,530(H) <=165 IU/mL 09/13/2024 11:47 AM EDT [facility] Blood Venous blood / Unknown Venipuncture / Unknown 09/12/2024 5:12 PM EDT 09/12/2024 5:12 PM EDT us Chapo Mitchell MD LAB BLOOD ORDERABLES Final Res ult [facility] [address] [place] [address], [place] [phone] from Last 3 Months Additional Health Concerns Infection Onset Date Last Indicated Other MDRO Comment:CYSTIC F 06/05/2007 06/05/2007 Insurance [facility] [employer] [facility] Advance Directives * Full Code (Latest Code Status on File) Date Activated Date Inactivated Comments 05/30/2023 11:32 PM 06/20/2023 8:50 PM * Full Code Date Activated Date Inactivated Comments 01/24/2023 5:19 PM 02/05/2023 9:03 PM * Full Code Date Activated Date Inactivated Comments 09/30/2022 5:53 PM 10/14/2022 7:58 PM * Full Code Date Activated Date Inactivated Comments 01/21/2022 3:16 PM 02/04/2022 5:01 PM * Full Code Date Activated Date Inactivated Comments 11/26/2021 7:25 PM 12/11/2021 2:53 PM Care Teams Lithographic Camera Operator Relationship Specialty Start Date End Date Becky Dale MD [address] [place] [address], [address] [place] [address] PCP - General 06/18/14
--- OUTSIDE RECORDS SUMMARY | 2024-09-25 17:05 | XMS_ITS | Encounter Summary ---
Author Organization [facility] Address [id number] [address] [place] [address] Care Team Providers Care Director Home Name Role Phone Becky Dale MD Primary Care Provider [phone] Encounter Details Date Type Department Care Team (Late st Contact Info) Description 06/18/2022 Orders Only [facility] Pediatric Pulmonology-Cystic Fibrosis [address] [facility] [address] [place] [phone] Jonah Mosqueda CMA Cystic fibrosis ([facility]) (Primary Dx) Social History Tobacco Use [...] have Coronavirus / COVID-19? No / Unsure 06/21/2022 4:54 PM EST documented as of this encounter Plan of Treatment Not on file documented as of this encounter Goals Goal Patient Goal Type Associated Problems Recent Progress Patient-Stated? Author return home General Yes Eilzabeth Lovell, RN Note: Evaluation of progress towards goal: return home Increase physical activity Lifestyle No Fidelina Henley LSW Note: Evaluation of progress towards goal: Pt started online schooling recently and will get up during lessons to take a short walk. documented as of this encounter Results * SPIROMETRY (06/22/2022 2:55 PM EST) Narrative MANUALLY TRANSCRIBED RESULTS - 06/23/2022 12:24 PM EST Consistent with a moderate ventilatory defect. FEV1 is 1.7 L, 54% predicted. Forced vital capacity is 61% predicted. Expiratory flow rates are preserved. History of cystic fibrosis is noted. Clinical correlation is advised. Becky Dale MD PFT ORDERABLES Final Result MANUALLY TRANSCRIBED RESULTS documented in this encounter Visit Diagnoses Diagnosis Cystic fibrosis ([facility])- Primary Cystic fibrosis without mention of meconium ileus Cystic fibrosis ([facility]) Cystic fibrosis without mention of meconium ileus documented in this encounter Additional Health Concerns Infection Onset Date Last Indicated Resolved Time Other MDRO Comment:CYSTIC F 06/05/2007 06/05/2007 COVID-19 Rule-Out 11/15/2023 11/16/2023 11/16/2023 1:40 AM EDT Assessment Noted Time PHQ-9 Depression Total Score: 2 05/25/19 23 4:00 PM EST documented as of this encounter Care Teams Director Home Relationship Specialty Start Date End Date Becky Dale MD [facility] [employer], [address] [place] [address] PCP - General 06/18/14 documented as of this encounter
--- OUTSIDE RECORDS SUMMARY | 2024-09-25 17:05 | XMS_ITS | Encounter Summary ---
Author Organization [facility] Address [address] [place] [address] Care Team Providers Care Director Of Web Marketing Name Role Phone Chapo Mitchell MD Primary Care Provider [phone] Source Comments In the event this information is protected by the Federal Confidentiality of Alcohol and Drug AbusePatient Records regulations: The Federal rules restrict any use of the information to criminally investigate or prosecute any alcohol or drug abuse patient.[facility] Encounter Details Date Type Department Care Team (Late st Contact Info) Description 06/06/2024 Patient Msg Pulmonary Medicine [address] [place], [place] [id number] Consuelo Brooks [facility] renewal Social History Tobacco Use Types Packs/Day Years Used Date Smoking Tobacco: Never Passive Smoke Exposure: Never Smokeless Tobacco: Never Alcohol Use Standard Drinks/Week Comments Never 0 (1 standard drink = 0.6 oz pur e alcohol) [facility] Utilities Answer Date Recorded In the past 12 months has e electric, gas, oil, or water company threatened to shut off services in your home? No 12/09/2023 Hunger Vital Sign Answer Date Recorded Within the past 12 months, y ou worried that your food would run out before you got the money to buy more. Never true 12/09/19 24 Within the past 12 months, t he food you bought just didn't last and you didn't have money to get more. Never true 12/09/2023 PRAPARE - Transportation Answer Date Re corded In the past 12 months, has l ack of transportation kept you from medical appointments or from getting medications? No 11/23 In the past 12 months, has l ack of transportation kept you from meetings, work, or from getting things needed for daily living? No 12/09/2023 Housing Stability Vital Sign Answer [...] in a half-way (including now)? No 12/09/2023 Area Deprivation Index Answer Date Akhil rded National Score (1-100), lower number is lower ri sk 89 12/08/2023 State Score (1-10), lower number is lower risk 8 12/08/2023 Data from: https://www.neighborhoodatlas.medicine.[facility].edu/. Last address used for calculation [address] [facility] 12/08/2023 Comments Unknown Sex and Gender Information Value Date Recorded Sex Assigned at Not on file Legal Sex Female 2:33 PM EST Gender Identity Not on file Sexual Orientation Not on file documented as of this encounter Functional Status * Are you deaf or do you have serious difficulty hearing? Answer Date of Assessment Author No 12/30/2023 2:14 PM CANDIT Leah Hernández RN * Are you blind or do you have serious difficulty seeing, even when wearing glasses? Answer Date of Assessment Author No 12/30/2023 2:14 PM CANDIT Leah Hernández RN * Do you have [...] Date Type Department Care Team (Late st [facility] Info) Description 10/03/2024 10:00 AM EDT Procedure Pulmonary Medicine [address] [place] [address] CF (cystic fibrosis) ([facility]) [E84.9] 10/03/2024 10:30 AM EDT Office Visit Pulmonary Medicine [address] [place] [address] Chapo Mitchell MD [address] [place], [place] [phone] CF (cystic fibrosis) ([facility]) [E84.9] 11/23/2024 3:05 PM EDT Office Visit Otolaryngology [address] [place] [address] Diya Bedolla MD [address] [place] [address] 6 month follow up documented as of this encounter Visit Diagnoses Not on filedocumented in this encounter Additional Health Concerns Infection Onset Date Last Indicated Resolved Time COVID-19 Rule-Out 07/29/2024 07/30/2024 07/30/2024 1:39 AM EDT Respiratory Rule-Out 07/29/2024 07/30/2024 025 1:39 AM EDT documented as of this encounter Care Teams Director Of Web Marketing Relationship Specialty Start Date End Date Chapo Mitchell MD [address] [place] [address] PCP - General Pulmonary and Critical Care Medicine 12/08/23 documented as of this encounter
--- OUTSIDE RECORDS SUMMARY | 2024-09-25 17:05 | XMS_ITS | Encounter Summary ---
Author [facility] Address [facility]-[id number] [address] [place] [address] Care Team Providers Care Civil Engineering Draftsperson Name Role Phone Becky Dale MD Primary Care Provider [phone] Encounter Details Date Type Department Care Team (Late st Contact Info) Description 09/14/2021 Orders Only [facility] Pediatric Pulmonology-Cystic Fibrosis [address] [facility] [address] [place] [phone] Jonah Mosqueda CMA Cough (Primary Dx) Social [...] Exposure Response Date Recorded In the last 10 days, have yo u been in contact with someone who was confirmed or suspected to have Coronavirus/COVID-19? No / Unsure 09/16/2021 1:16 PM EDT documented as of this encounter [...] as of this encounter Results * SPIROMETRY (09/16/2021 2:46 PM EDT) Narrative MANUALLY TRANSCRIBED RESULTS - 09/17/2021 6:49 AM EDT [id number] Evaluation of flow volume loop done on 09/16/2021 on this 20-year-old female known to have cystic fibrosis demonstrates forced vital capacity of 75, FEV1 of 66, and FEF 25-75% of 52. Impression mixed obstructive and restrictive lung disease. Compared to previous study done 08/25/2021 there is some mild improvement appreciated in small airway flow. Clinical correlation is suggested. us Carline Matthews MD PFT ORDERABLES Final Result MANUALLY TRANSCRIBED [...] documented as of this encounter Care Teams Civil Engineering Draftsperson Relationship Specialty Start Date End Date Becky Dale MD [address] [place] [address], [address] [place] [address] PCP - General 06/18/14 documented as of this encounter
--- OUTSIDE RECORDS SUMMARY | 2024-09-25 17:05 | XMS_ITS | Encounter Summary ---
Author Organization [employer] [facility] [employer] Address [facility][id number] [address] [place] [address] Care Team Providers Care Shade Matcher Name Role Phone Becky Dale MD Primary Care Provider [phone] Reason for Visit * Reason Comments Med Refill Encounter Details Date Type Department Care Team (Late st Contact Info) Description 06/14/2022 Refill [facility] Pediatric Pulmonology-Cystic Fibrosis [address] [facility] [address] [place] [phone] Becky Dale MD [address], [address] [place], [place] [phone] Cystic fibrosis ([facility]) Social History Tobacco Use Types Packs/Day Years [...] have Coronavirus / COVID-19? 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
--- OUTSIDE RECORDS SUMMARY | 2024-09-25 17:05 | XMS_ITS | Encounter Summary ---
Author Organization [employer] Address [facility][id number] [address] [place] [address] Care Team Providers Care Security And Privacy Consultant Name Role Phone Becky Dale MD Primary Care Provider [phone] Encounter Details Date Type Department Care Team (Late st Contact Info) Description 04/07/2021 Telephone [facility] Pediatric Pulmonology-Cystic Fibrosis [address] [phone] Reyna Bowser, RN Social History Tobacco Use [...] Telephone Encounter - Reyna Bowser RN - 04/07/2021 10:42 AM EST Paper Tester received a faxed prescription request for Creon 24,000 from [facility]. Previousmedications have been filled through [facility] [employer] [facility] [employer]. Jaiden attempted to contact mom to clarifywhich pharmacy the Creon needs to be at. No answer, mortgage underwriter left voicemail for return call. documented in this encounter Plan of Treatment Not on file documented as of this encounter Goals Goal Patient Goal Type Associated Problems Recent Progress Patient-Stated? Author Increase physical activity Lifestyle No Fidelina Henley, [...] documented as of this encounter Care Teams Security And Privacy Consultant Relationship Specialty Start Date End Date Becky Dale MD [address] [place] [address], [address] [address] PCP - General 06/18/14 documented as of this encounter
--- OUTSIDE RECORDS SUMMARY | 2024-09-25 17:05 | XMS_ITS | Encounter Summary ---
Author Organization [employer] [facility] [employer] Address [facility] [id number] [address] [place] [address] Care Team Providers Care Salicylic Acid Blender Name Role Phone Becky Dale MD Primary Care Provider [phone] Reason for Visit * Reason Onset Date Comments Med Refill 06/14/2019 Encounter Details Date Type Department Care Team (Late st Contact Info) Description 06/14/2019 Refill [facility] Pulmonology-Cystic Fibrosis [address] [facility] [address] [place] [phone] Christy Bhatia RN Social History Tobacco Use [...] Time PHQ-9 Depression Total Score: 0 03/29/20 19 2:00 PM EST documented as of this encounter Care Teams Salicylic Acid Blender Relationship Specialty Start Date End Date Becky Dale MD [address] [place] [address], [address] [place], [place] [phone] PCP - General 06/18/14 documented as of this encounter
--- OUTSIDE RECORDS SUMMARY | 2024-09-25 17:05 | XMS_ITS | Encounter Summary ---
Author Organization [employer] Address [facility] [id number] [address] [place] [address] Care Team Providers Care Shade Cutter Name Role Phone Becky Dale MD Primary Care Provider [phone] Encounter Details Date Type Department Care Team (Latest Contact Info) Description 09/12/2024 Travel Social History Tobacco Use Types Packs/Day Years Used Date Smoking Tobacco: Never Smokeless Tobacco: Never Comments:No smoke exposure Alcohol Use Standard Drinks/Week Comments No 0 (1 standard drink = 0.6 oz pur e alcohol) [facility] Utilities Answer Date Recorded In the past 12 months has [employer] electric, gas, oil, or water [employer] threatened to shut off services in your [...] as of this encounter Care Teams Shade Cutter Relationship Specialty Start Date End Date Becky Dale MD [facility], [address] [place] [address] PCP - General 06/18/14 documented as of this encounter
--- OUTSIDE RECORDS SUMMARY | 2024-09-25 17:05 | XMS_ITS | Encounter Summary ---
Author Organization [employer] [facility] [employer] Address [facility][id number] [address] [place] [address] Care Team Providers Care Dimension Warehouse Supervisor Name Role Phone Becky Dale MD Primary Care Provider Reason for Visit * Reason Comments Med Refill Encounter Details Date Type Department Care Team (Late st Contact Info) Description 04/30/2024 Refill [facility]monology-Cystic Fibrosis [address] [facility] [address] [place] [phone] Becky Dale MD [address] [place] [address] DR[address], [address] [place] [address] Social History Tobacco Use Types Packs/Day Years Used Date Smoking Tobacco: Never Smokeless Tobacco: Never Comments:No smoke exposure Alcohol Use Standard Drinks/Week Comments No 0 (1 standard drink = 0.6 oz pur e alcohol) [facility] Utilities Answer Date Recorded In the past 12 months has [employer], oil, or water [employer] threatened to shut off services in your [...] Increase physical activity Lifestyle No Fidelina Henley, RPG DEVELOPER Note: Evaluation of progress towards goal: Pt [...] documented as of this encounter Care Teams Dimension Warehouse Supervisor Relationship Specialty Start Date End Date Becky Dale MD [facility] [email or web address], [address] [place] [address] PCP - General 06/18/14 documented as of this encounter
--- OUTSIDE RECORDS SUMMARY | 2024-09-25 17:05 | XMS_ITS | Encounter Summary ---
Author Organization [facility] Address [facility] [place][id number] [address] [place] [address] Care Team Providers Care Allied Health Teacher Name Role Phone Becky Dale MD Primary Care Provider [phone] Encounter Details Date Type Department Care Team (Late st Contact Info) Description 08/21/2021 Orders Only [facility] Pediatric Pulmonology-Cystic Fibrosis [address] [facility] [address] [place] [phone] Jonah Mosqueda CMA Cough (Primary Dx); Cystic fibrosis (CMS-HCC) Social History Tobacco Use Types Packs/Day Years [...] suspected to have Coronavirus/COVID-19? No / Unsure 07/23/2021 10:00 AM EDT documented as of this encounter Plan [...] as of this encounter Results * SPIROMETRY (08/25/2021 3:25 PM EDT) Narrative MANUALLY TRANSCRIBED RESULTS - 08/25/2021 4:36 PM EDT Evaluation of spirometry shows the FVC is 77%, FEV1 is 63%, and FEF 25-75 is 36%. This is decreased compared to previous spirometry. 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
--- OUTSIDE RECORDS SUMMARY | 2024-09-25 17:05 | XMS_ITS | Encounter Summary ---
Author Organization [employer] Sys tem Address [facility] [id number] [address] [place] [address] Care Team Providers Care Line Pilot Name Role Phone Becky Dale MD Primary Care Provider [phone] Encounter Details Date Type Department Care Team (Late st Contact Info) Description 04/28/2022 Telephone [facility]monology-Cystic Fibrosis [address] [facility] [address] [place] [phone] Samy Cam RN Social History Tobacco Use [...] have Coronavirus / COVID-19? No / Unsure 04/23/2022 4:37 PM EST documented as of this encounter Miscellaneous Notes * Telephone Encounter - Samy Cam RN - 04/28/2022 4:00 PM EST [facility] needs a new rx for Trikafta * Telephone Encounter - Samy Cam RN - 04/28/2022 4:00 PM EST Water Sander spoke with [facility] who stated they did not need a new rx, they were just trying to reach patient to deliver medication. * Telephone Encounter - Samy Cam RN - 04/28/2022 4:00 PM EST Water Sander called and asked if patient was able to get trikafta ordered. Family stated they were waiting for the prescription to process, they will let us know if they have any problems obtaining. documented in this encounter Plan of Treatment [...] encounter Visit Diagnoses Diagnosis Cystic fibrosis (CMS-HCC) documented in this encounter Additional Health Concerns Infection Onset Date Last Indicated Resolved Time Other MDRO Comment:CYSTIC F 06/05/2007 06/05/2007 COVID-19 Rule-Out 11/15/2023 11/16/2023 11/16/2023 1:40 AM EDT Assessment Noted Time PHQ-9 Depression Total Score: 2 03/10/20 22 7:00 AM EST documented as of this encounter Care Teams Line Pilot Relationship Specialty Start Date End Date Becky Dale MD [address] [place] [address], [address] [place] [address] PCP - General 06/18/14 documented as of this encounter
--- OUTSIDE RECORDS SUMMARY | 2024-09-25 17:05 | XMS_ITS | Encounter Summary ---
Author Organization [employer] [facility] [employer] Address [facility] [id number] [address] [place] [address] Care Team Providers Care Lobby Attendant Name Role Phone Becky Dale MD Primary Care Provider [phone] Reason for Visit * Reason Comments Med Refill Encounter Details Date Type Department Care Team (Late st Contact Info) Description 05/24/2024 Refill [facility] Pulmonology-Cystic Fibrosis [address] [place] [address] [address] [place] [phone] Becky Dale MD [address] [place] [address], [address] [place] [address] Cystic fibrosis ([facility]); ABPA (allergic bronchopulmonary aspergillosis) ([facility]); 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[facility]) Social History Tobacco Use Types Packs/Day Years Used Date Smoking Tobacco: Never Smokeless Tobacco: Never Comments:No smoke exposure Alcohol Use Standard Drinks/Week Comments No 0 (1 standard drink = 0.6 oz pur e alcohol) [facility] Utilities Answer Date Recorded In the past 12 months has [employer], gas, oil, or water [employer] threatened to shut off services in your [...] this encounter Visit Diagnoses Diagnosis Cystic fibrosis ([facility]) ABPA (allergic bronchopulmonary aspergillosis) ([facility]) 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
--- OUTSIDE RECORDS SUMMARY | 2024-09-25 17:05 | XMS_ITS | Encounter Summary ---
Author Organization [employer] Address [facility][id number] [address] [place] [address] Care Team Providers Care Media/Instructional Designer Name Role Phone Becky Dale MD Primary Care Provider [phone] Reason for Visit * Reason Comments Med Refill Encounter Details Date Type Department Care Team (Late st Contact Info) Description 06/20/2024 Refill [facility] Pulmonology-Cystic Fibrosis [address] [place] [address] [address] [place] [phone] Becky Dale MD [address] [place] [address], [address] [place], [place] [phone] Cystic fibrosis ([facility]); Cystic fibrosis ([facility]); Pancreatic insufficiency; Cystic fibrosis of the lung ([facility]); Allergic rhinitis Social History Tobacco Use Types Packs/Day Years Used Date Smoking Tobacco: Never Smokeless Tobacco: Never Comments:No smoke exposure Alcohol Use Standard Drinks/Week Comments No 0 (1 standard drink = 0.6 oz pur e alcohol) [facility] Utilities Answer Date Recorded In the past 12 months has [employer], gas, oil, or water [employer] threatened to shut off services in your [...] mention of meconium ileus Cystic fibrosis (CMS-HCC) Pancreatic insufficiency Other specified disease of pancreas Cystic fibrosis of the lung (CMS-HCC) Cystic fibrosis with pulmonary manifestations Allergic rhinitis Allergic rhinitis, cause unspecified documented in this encounter Additional Health Concerns Infection Onset Date Last Indicated Resolved Time Other MDRO Comment:CYSTIC F 06/05/2007 06/05/2007 Assessment Noted Time PHQ-9 Depression Total Score: 0 05/31/19 24 12:42 PM EST documented as of this encounter Care Teams Media/Instructional Designer Relationship Specialty Start Date End Date Becky Dale MD [address] [place] [address], [address] [place] [id number] PCP - General 06/18/14 documented as of this encounter
--- OUTSIDE RECORDS SUMMARY | 2024-09-25 17:05 | XMS_ITS | Encounter Summary ---
Author Organization [employer] Address [facility]-[id number] [address] [place] [address] Care Team Providers Care Glass Driller Name Role Phone Becky Dale MD Primary Care Provider Encounter Details Date Type Department Care Team (Late st Contact Info) Description 09/25/2021 Telephone [facility] Pulmonology-Cystic Fibrosis [address] [facility] [address] [place] [phone] Reyna Bowser, ANOOP Social History Tobacco Use Types Packs/Day Years [...] PM EDT documented as of this encounter Miscellaneous Notes * Telephone Encounter - Reyna Bowser RN - 09/25/2021 11:23 AM EDT Mom called stating that Angelia has been coughing since a couple days after her last appointment and that it has gotten worse the last couple days. She informed that she does her albuterol treatments 3times a day but from past experience increasing the albuterol treatments does not help. She stated that the sputum is yellow/green and that there is no blood. Mom said that the cough is aggravating for Angelia and she is not sure she can go another day coughing as much. Mom is inquiring about an antibiotic. Wire Stripper spoke with Dr. Cardoza who informed that they are getting a bronch done next week so he ishesitant about starting an antibiotic. He informed that he will send a prednisone prescription to the pharmacy and to have her stop the current prednisone taper dose. He would like a call Tuesday withan update from mom. Wire Stripper spoke with mom and informed her of the steroid prescription, she verbalized understanding. documented in this encounter Plan [...] documented as of this encounter Care Teams Glass Driller Relationship Specialty Start Date End Date Becky Dale MD [address] [place] [address], [address] [place] [address] PCP - General 06/18/14 documented as of this encounter
--- OUTSIDE RECORDS SUMMARY | 2024-09-25 17:05 | XMS_ITS | Encounter Summary ---
Author Organization [employer] Address [facility]-[id number] [address] [place] [address] Care Team Providers Care Grill Associate Name Role Phone Becky Dale MD Primary Care Provider [phone] Encounter Details Date Type Department Care Team (Late st Contact Info) Description 08/23/2022 Telephone [facility]ology-Cystic Fibrosis [address] [facility] [address] [place] [phone] Maame Barroso LD Social History Tobacco Use Types Packs/Day Years [...] Patient-Stated? Author return home General Yes Elizabeth Lovlel, RN Note: Evaluation of progress towards goal: [...] documented as of this encounter Care Teams Grill Associate Relationship Specialty Start Date End Date Becky Dale MD [address] [place] [address], [address] [place] [address] PCP - General 06/18/14 documented as of this encounter
[2024-09-25 17:51] LABS: Basophils Absolute Auto 0.1 10^3/uL (0.0-0.1); Basophils Percent Auto 0.3 % (0.2-2.0); Eosinophils Percent Auto 0.2 % (0.9-7.0); Hematocrit 39.2 % (36.0-48.0); Hemoglobin 12.4 g/dL (12.0-16.0); Immature Granulocytes Abs Auto 0.05 10^3/uL (0.00-0.03); Immature Granulocytes Pct Auto 0.3 % (0.0-0.5); Lymphocytes Absolute Auto 0.9 10^3/uL (1.2-3.8); Lymphocytes Percent Auto 6.1 % (20.5-60.0); Mean Corpuscular HGB Conc 31.6 g/dL (29.9-35.2); Mean Corpuscular Hemoglobin 25.3 pg (26.7-34.0); Mean Platelet Volume 9.3 fL (9.5-13.5); Monocytes Absolute Auto 0.4 10^3/uL (0.3-0.8); Monocytes Percent Auto 2.9 % (1.7-12.0); Neutrophils Absolute Auto 13.2 10^3/uL (1.4-6.5); Neutrophils Percent Auto 90.2 % (43.0-75.0); Platelet Count 430 10^3/uL (150-450); Red Cell Distribution Width 17.2 % (11.0-15.0); White Blood Count 14.7 10^3/uL (4.0-11.0)
[2024-09-30 20:11] LABS: Immunoglobulin E, Total 961 IU/mL (6-495)
== END 2024-09-25 17:02 | disposition home or self-care (01) ==
LOC: LAB 17:01
DX: E84.8 Cystic fibrosis with other manifestations (principal)
CPT/HCPCS: 36415; 80189; 82785; 85025

== ENCOUNTER 2024-10-17 16:51 | Outpatient (OUT) | payer OTHER, SELFPAY ==
--- OUTSIDE RECORDS SUMMARY | 2024-10-03 10:00 | XMS_ITS | Encounter Summary ---
Author Organization [facility] Address [address] [place] [id number] Care Team Providers Care Try On Baster Name Role Phone Chapo Adams MD Primary Care Provider [phone] Source Comments In the event this information is protected by the Federal Confidentiality of Alcohol and Drug AbusePatient Records regulations: The Federal rules restrict any use of the information to criminally investigate or prosecute any alcohol or drug abuse patient.[facility] Reason for Visit * Reason Comments Spirometry * Outpatient Procedure (Routine) - Closed Specialty Diagnoses / Procedures Referred By Contact Referred To Contact [facility] Diagnoses CF (cystic fibrosis) ([facility]) ABPA (allergic bronchopulmonary aspergillosis) ([facility]) Procedures SPIROMETRY BASELINE ONLY SPMTRY W/VC EXPIRATORY BRIANA W/WO MXML VOL VNTJ Chapo Adams MD [address] [place] [address] Phone: tel:[phone] fax:[phone] [facility] [place] [address] [place] [address] Referral ID Status Reason Start Date Expiration Date V isits Requested Visits Authorized [id number] Closed Auto-Generate d Referral 07/11/2024 08/10/2025 1 1 Encounter Details Date Type Department Care Team (Late st Contact Info) Description 10/03/2024 10:00 AM EDT Procedure Pulmonary Medicine [address] [address] Main, [facility] Pulm Lab [address] [address] Spirometry Social History Tobacco Use Types Packs/Day Years Used Date Smoking Tobacco: Never Passive Smoke Exposure: Never Smokeless Tobacco: Never Alcohol Use Standard Drinks/Week Comments Never 0 (1 standard drink = 0.6 oz pur e alcohol) [facility] Utilities Answer Date Recorded In the past 12 months has th e [employer], gas, oil, or water [employer] threatened to shut off services in your [...] place to sleep or slept in a care home (including now)? No 12/09/2023 Housing Stability Vital Sign Answer Ernst e Recorded In the last 12 months, was t here a time when you were not able to pay the mortgage or rent on time? No 07/30/2024 Number of Times Moved in the Last Year Not on fi le 07/30/2024 At any time in the past 12 m [facility], were you homeless or living in a care home (including now)? No 07/30/2024 Area Deprivation Index Answer Date Akhil rded National Score (1-100), lower number is lower ri sk 63 10/03/2024 State Score (1-10), lower number is lower risk 4 10/03/2024 Data from: https://www.neighborhoodatlas.medicine.[facility]/. Last address used for calculation [address] [address] 10/03/2024 Comments Unknown Sex and Gender Information Value [...] Upcoming Encounters Date Type Department Care Team (Latest Contact Info) Description 11/08/2024 9:15 AM EDT Procedure Pulmonary Medicine [address] [address] Tyrone Davila Pulm Lab [address] [address] 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] 11/08/2024 9:45 AM EDT Appointment Radiology [address] [place] [id number] US ELASTOGRAPHY LIVER 11/08/2024 10:45 AM EDT Office Visit Pulmonary Medicine [address] [address] Randee Johnson APRN.NUCLEAR EQUIPMENT DESIGN ENGINEER [address] [place] [address] follow up 4-5 weeks 11/08/2024 1:30 PM EDT Appointment Radiology [address] [address] [place] ABD RIGHT UPPER QUADRANT 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] 11/23/2024 3:05 PM EDT Office Visit Otolaryngology [address] [address] Diya Bedolla MD [address] [place] [address] 6 month follow up documented as of this encounter Procedures Procedure Name Priority Date/Time Associated Diagnosis Comments SPIROMETRY BASELINE ONLY Routine 10/03/2024 11:22 AM EDT CF (cystic fibrosis) ([facility]) ABPA (allergic bronchopulmonary aspergillosis) ([facility]) documented in this encounter Results * SPIROMETRY BASELINE ONLY (10/03/2024 11:22 AM EDT) FVC PRE (L) 2.38 L PULMONAR Y FUNCTION LAB FVC PREDICTED (L) 3.10 L PULMONARY FUNCTION LAB FVC LLN (L) 2.41 L PULMONAR Y FUNCTION LAB FVC ULN (L) 3.82 L PULMONAR Y FUNCTION LAB FEV1 PRE (L) 1.61 L PULMONA RY FUNCTION LAB FEV1 PREDICTED (L) 2.78 L PULMONARY FUNCTION LAB FEV1 LLN (L) 2.15 L PULMONA RY FUNCTION LAB FEV1 ULN (L) 3.37 L PULMONA RY FUNCTION LAB FEV1/FVC PRE (%) 67 % PULMONARY FUNCTION LAB FEV1/FVC PREDICTED (%) 89 % PULMONARY FUNCTION LAB FEV1/FVC LLN (%) 78 % PULMONARY FUNCTION LAB FEF25% PRE (L/S) 3.31 L/S PULMONARY FUNCTION LAB FEF75% PRE (L/S0 0.24 L/S PULMONARY FUNCTION LAB FEF75% PREDICTED (L/S) 1.70 L/S PULMONARY FUNCTION LAB FEF75% LLN (L/S) 0.95 L/S PULMONARY FUNCTION LAB FEF75% ULN (L/S) 2.76 L/S PULMONARY FUNCTION LAB NDQ13-82% PRE (L/S) 0.82 L/S PULMONARY FUNCTION LAB VHV65-69% PREDICTED (L/S) 3.46 L/S PULMONARY FUNCTION LAB URM60-48% LLN (L/S) 2.29 L/S PULMONARY FUNCTION LAB PEF PRE (L/S) 5.55 L/S PULMON TONY FUNCTION LAB PEF LLN (L/S) 4.87 L/S PULMON TONY FUNCTION LAB PEF ULN (L/S) 7.98 L/S PULMON TONY FUNCTION LAB FET PRE (S) 10.63 S PULMONAR Y FUNCTION LAB 10/03/2024 11:2 2 AM EDT Narrative PULMONARY FUNCTION LAB - 10/09/2024 11:24 AM EDT [facility] [address] [place] [address] Test Date: 2024-10-03 Pat Name: ANGELIA CARO Department: Room: Gender: Female Medical Records Assistant: : 2000 Requested By: Order Number: [id number] Reading MD: Tiago Gomez MD Interpretive Statements Current ATS/ERS acceptability and repeatability standards for spirometry met. Start of test and EOFE criteria met. //HC IMPRESSION: Spirometry indicates obstruction. The severity of obstruction cannot be graded due to the reduced FVC. The reduced FVC may be due to obstruction, however, concomitant restriction cannot be excluded, recommend lung volumes for definitive determination. Electronically Signed On 10-09-2024 11:24:18 EDT by Tiago Gomez MD ID: [id number] Name: ANGELIA CARO Race: Other Ht: 61.02 in Wt: 128.09 lbs Age: 23 Gender: Female : 2000 Dx: Cystic Fibrosis - Unspecified. May include CFTR disorder. Smoking Hx: Non-smoker Doctor: CHAPO ADAMS Test Date: 10/03/2024 Site: Tech: Beatriz Tom PRE-BRONCH POST-BRONCH Daniel LLN Pred ULN %Pred ZScore Daniel %Pred %Chg ZScore SPIROMETRY FVC 2.38 2.41 3.10 3.82 76 -1.70 FEV1 1.61 2.15 2.78 3.37 57 -2.98 FEV1/FVC 0.67 0.78 0.89 0.98 75 -2.76 FEFMax 5.55 4.87 6.42 7.98 86 -0.92 FEF50 1.23 2.41 4.01 5.62 30 -2.85 FIF50 5.55 FEF50/FIF50 0.22 90-100 FIVC 2.06 EVM15-39 0.82 2.29 3.46 4.77 23 -4.23 ExpiredTime 10.63 TimeToFEFMax 0.06 AUREA 0.06 VolExtrap% 3 Comments: Current ATS/ERS acceptability and repeatability standards for spirometry met. Start of test and EOFE criteria met. //HC us Chapo Adams MD SCHEDULED PROCEDURES Final Res ult PULMONARY FUNCTION LAB [address] [facility]. 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
--- OUTSIDE RECORDS SUMMARY | 2024-10-03 10:30 | XMS_ITS | Encounter Summary ---
Author Organization [facility] Address [address] [place] [address] Care Team Providers Care Director Pharmacy Services Name Role Phone Chapo Mitchell MD Primary Care Provider [phone] Source Comments In the event this information is protected by the Federal Confidentiality of Alcohol and Drug AbusePatient Records regulations: The Federal rules restrict any use of the information to criminally investigate or prosecute any alcohol or drug abuse patient.[facility] Reason for Referral * Consult, Test, Treat (Routine) - Authorized Specialty Diagnoses / Procedures Referred By Contac t Referred To Contact Dermatology Diagnoses Cystic fibrosis with pulmonary manifestations (HCC) Procedures CONSULT TO DERMATOLOGY OFFICE/OUTPATIENT [facility] 60 MINUTES Chapo Mitchell MD [facility] [place] [address] Phone: tel: fax: Referral ID Status Reason Start Date Expiration Date Visits Requested Visits Authorized [id number] Authorized PCP Requested Referral 11/28/2024 10/03/2025 1 1 * Diagnostic Procedure Only (Routine) - Authorized Specialty Diagnoses / Procedures Referred By Contac t Referred To Contact [facility] IM[facility] Diagnoses 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) Pancreatic insufficiency due to cystic fibrosis (HCC) Procedures US ELASTOGRAPHY LIVER ULTRASOUND ELASTOGRAPHY PARENCHYMA Chapo Mitchell MD [address] [place] [address] Phone: tel: fax: [facility] [place] [phone] Referral ID Status Reason Start Date Expiration Date Visits Requested Visits Authorized [id number] Authorized Auto-Generat ed Referral 10/03/2024 11/02/2025 1 1 * Diagnostic Procedure Only (Routine) - Authorized Specialty Diagnoses / Procedures Referred By Contac t Referred To Contact US IMAGING Diagnoses 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) Pancreatic insufficiency due to cystic fibrosis (HCC) Procedures US ABD RIGHT UPPER QUADRANT US ABDOMINAL REAL TIME W/IMAGE LIMITED Chapo Mitchell MD [address] [place] [address] Phone: tel: fax: [facility] [place] [phone] Referral ID Status Reason Start Date Expiration Date Visits Requested Visits Authorized [id number] Authorized Auto-Generat ed Referral 10/03/2024 11/02/2025 1 1 * Outpatient Procedure (Routine) - Authorized Specialty Diagnoses / Procedures Referred By Contac t Referred To Contact [facility] Diagnoses Cystic fibrosis with pulmonary manifestations (HCC) Procedures SPIROMETRY BASELINE ONLY SPMTRY W/VC EXPIRATORY BRIANA W/WO MXML VOL VNTJ Chapo Mitchell MD [facility] [place] [address] Phone: tel: fax: [facility] [address] [place] [address] Referral ID Status Reason Start Date Expiration Date Visits Requested Visits Authorized [id number] Authorized Auto-Generat ed Referral 10/03/2024 11/02/2025 1 1 Reason for Visit * Reason Comments Recheck Encounter Details Date Type Department Care Team (Latest Contact Info) Description 10/03/2024 10:30 AM EDT Office Visit Pulmonary Medicine [address] [place] [address] Chapo Mitchell MD [address] [place] [address] 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); ABPA (allergic bronchopulmonary aspergillosis) (HCC); Pancreatic insufficiency due to cystic fibrosis (HCC) Social History Tobacco Use Types Packs/Day Years Used Date Smoking Tobacco: Never Passive Smoke Exposure: Never Smokeless Tobacco: Never Tobacco Cessation:Counseling Given: Not Answered Alcohol Use Standard Drinks/Week Comments Never 0 (1 standard drink = 0.6 oz pur e alcohol) [facility] Utilities Answer Date Recorded In the past 12 months has th e electric, gas, oil, or water company [...] place to sleep or slept in a longterm (including now)? No 12/09/2023 Housing Stability Vital Sign Answer Ernst e Recorded In the last 12 months, was t here a time when you were not able to pay the mortgage or rent on time? No 07/30/2024 Number of Times Moved in the Last Year Not on fi le 07/30/2024 At any time in the past 12 m [facility], were you homeless or living in a longterm (including now)? No 07/30/2024 Area Deprivation Index Answer Date Akhil rded National Score (1-100), lower number is lower ri sk 63 10/03/2024 State Score (1-10), lower number is lower risk 4 10/03/2024 Data from: https://www.neighborhoodatlas.[facility]/. Last address used for calculation [address] [address] 10/03/2024 Comments Unknown Sex and Gender Information Value Date Recorded Sex Assigned at Not on file Legal Sex Female 2:33 PM EST Gender Identity Not on file Sexual Orientation Not on file documented as of this encounter Last Filed Vital Signs Vital Sign Reading Time Taken Comments Blood Pressure 124/76 10/03/2024 11:10 AM EDT Pulse 79 10/03/2024 11:10 AM EDT Temperature 36.1 C (97 F) 10/03/2024 11:10 AM EDT Respiratory Rate 20 10/03/2024 11:10 AM EDT Oxygen Saturation 97% 10/03/2024 11:10 AM EDT Inhaled Oxygen Concentration - - Weight 58.1 kg (128 lb 1.4 oz) 10/03/2024 11:10 AM EDT Height - - Body Mass Index 24.2 07/29/2024 6:42 PM EDT documented in this encounter Functional Status * Are you [...] Leah Hernández RN documented in this encounter Patient Instructions * Patient Instructions* Chapo Mitchell MD - 10/03/2024 1:07 PM EDT Welcome back to the [facility]. It was a pleasure to see you today. You were seen by Dr. Mitchell. Today we discussed your lab studies, your X-rays, and breathing tests. We reviewed the normal and potentially abnormal values for you (if applicable). Please continue Alyftrek Please increase prednisone to 40 mg daily for a week, then decrease to 20 mg prednisone for a month Please continue your inhaled ceftaz Please continue your minocycline through October 24 I have ordered tums I have ordered a derm consult I have requested an ultrasound of the liver for next time Again, it was good to see you today... Please don't hesitate to call or email with concerns or questions. Sincerely, Chapo Mitchell MD documented in this encounter Progress Notes * Chapo Mitchell MD - 09/30/2024 7:50 AM EDT Images from the original note were not included. PULMONARY MEDICINE CYSTIC FIBROSIS FOLLOW UP Patient Name: Angelia Caro PRIMARY CARE PHYSICIAN: Chapo Mitchell MD Portions of this note were taken from the note dated 07/11/2024 ASSESSMENT AND PLAN: Angelia Caro is a 22 year old female, here for return visit / post hospitalization follow up for Cystic Fibrosis Genotype: [id number] Complications of CF: ---moderate stage lung disease (FEV1 around 50%) ---Chronic infection with stenotrophomonas ---Intermittent infection with pseudomonas and MSSA ---Pancreatic insufficiency ---Chronic sinusitis ---aspergillus ---H/O ABPA ---Moderate persistent Asthma A CF Pulmonary Exacerbation is MILD and worsening We discussed the following today: ----Your PFT was down slightly compared to hospital discharge ----CF respiratory culture today ----Continue minocycline through October 24 as planned ----Continue your cycling inhaled ceftaz ----Please increase prednisone back to 40 mg daily tomorrow and continue 7 days ----After that restart prednisone 20 mg daily for a month, after that step down to 10 mg daily for a month ----continue Alyftrek use today ----you saw social work today ----we need a liver ultrasound this year. ----I have requested dermatology appointment ----Follow up with Dr Mitchell on TueOctober 03 at 10:30 with PFT 1. CYSTIC FIBROSIS PULMONARY DISEASE AND BRONCHIECTASIS Symptoms : worse currently on oral levaquin FEV1% predicted today: 1.61 L and 57% predicted on 10/03/24 1.81 L and 65 % predicted 54%; was 69% 04/23 end of IV abx. Was 52% 10/25/23 up from 50% Complicated by chronic respiratory tract infection with Stenotrophomonas and MSSA Chronic maintenance regimen: CFTR modulators: Alyftrek full dose Modulator Management CFTR Modulator: Alyftrek Dosing: Full dose Experiencing any of these side effects? No symptoms or side effects of VTD Any other side effects not listed above? none Pulmozyme: once daily Hypertonic saline: once to twice daily; 3% Chronic Azithromycin (anti-inflammatory): 500 mg Tue Inhaled Abx: alternates inhaled colistin and ceftazidime now Ibuprofen: no - but will obtain kinetics Nebulized short-acting bronchodilator: albuterol VEST: BID ICS: budesonide Oral prednisone: as needed Pulm rehab: N/A Supplemental oxygen use: N/A Exercise and minutes per week: 5 hrs walking Recommended ORDER OF AIRWAY CLEARANCE: Albuterol, Hypertonic, VEST (with hypertonic), pulmozyme, Inhaled antibiotics, Inhaled corticosteroids INTERMITTENT RESPIRATORY TRACT PSEUDOMONAS ---Inhaled antibiotic: ceftazidime ---Second inhaled antibiotic: colistin, every other month alternating with the first inhaled antibiotic ---Oral antibiotic that patient responds to: levaquin ---IV abx that patient responds to: avycaz, colistin CYSTIC FIBROSIS PANCREATIC INSUFFICIENCY --- No generic enzymes, ever. ---Creon 24,000 1-2, BEFORE meals AND 1-2 BEFORE snacks ---Fat soluble supplemental vitamins: cholecalciferol 5,000 daily ---CF Vitamins: MVW 2 daily Vitamin D 25 Hydroxy (ng/mL) Date Value 09/26/2023 41.0 CHRONIC PANSINUSITIS Sinuses can be a reservoir of bacterial infection and contribute to recurrent lower respiratory tract infections, especially in patients infected with Pseudomonas Symptoms congested and draining typical for spring allergy season stable. Nasal polyps present. S/P 2 sinus surgeries 03/15 and 07/14 ---Antihistamine: claritin ---Nasal steroid: flonase ---Nasal rinse: saline, steroid, antibiotic ---Referral to ENT for surgical eval. Appt [phone]. Needs ENT - will reschedule eval this summer Reviewed CT sinus Hemoglobin A1C (%) Date Value 09/26/2023 6.0 ANNUAL SCREENING: ANNUAL LABS: Needs in Fall OGTT: Fall 2023 EYE EXAM TO CHECK FOR CATARACTS:Needs DEXA: NEEDS LIVER US/Fibroscan: Needs COLONOSCOPY: Start screening at age 40 years (re-screen every 5 years) in CF due to increased risk of GI carcinoma: <35 INTERESTED IN RESEARCH: Yes Was the patient screened for barriers to adherence using the Daily Care Check- In? No Immunization History Administered Date(s) Administered COVID-19 original vaccine, age 12+ yr, monovalent ([place] [employer] - PURPLE TOP) 08/06/2020 08/27/2020 COVID-19 vaccine, unspecified formulation 12/11/2021 Haemophilus influenzae b (Hib PRP-T) vaccine, 4-dose series (ACTHIB, HIBERIX) 03/18/2004 Haemophilus influenzae b (Hib) vaccine, unspecified formulation 02/19/2003 02/21/2003 04/23/2003 12/23/2003 Haemophilus influenzae b-hepatitis B (Hib-HepB) vaccine (COMVAX) 12/23/2003 diphtheria tetanus pertussis (DTaP) vaccine, pediatric (INFANRIX) 02/19/2003 04/23/2003 06/27/2003 03/18/2004 09/11/2007 hepatitis A (HepA) vaccine, adult (HAVRIX, VAQTA) 03/02/2007 09/11/2007 hepatitis B (HepB) vaccine, 3-dose series, age 20+ yr (ENGERIX-B, RECOMBIVAX HB) 02/19/2003 04/23/2003 12/23/2003 human papillomavirus (HPV4) vaccine, quadrivalent (GARDASIL) 06/27/2014 influenza (IIV3) vaccine, trivalent (AFLURIA, FLULAVAL, FLUVIRIN, FLUZONE) 03/02/2007 03/05/2008 01/28/2009 influenza (IIV3) vaccine, trivalent, PF (AFLURIA, FLUARIX, FLULAVAL, FLUVIRIN, FLUZONE) 02/08/2011 12/28/2011 03/01/2013 01/06/2016 influenza (IIV4) vaccine, age 6 mo - 64 yr, quadrivalent, PF (AFLURIA, FLUARIX, FLULAVAL, FLUZONE) 02/15/2017 03/09/2018 03/29/2019 03/04/2020 02/18/2022 influenza (IIV4) vaccine, quadrivalent (AFLURIA, FLULAVAL, FLUZONE) 04/16/2014 influenza (LAIV) vaccine, nasal, unspecified formulation 02/03/2010 influenza vaccine, whole virus 03/04/2005 measles mumps rubella (MMR) vaccine (M-M-R II, PRIORIX) 03/18/2004 03/05/2008 meningococcal (MenACWY-D) vaccine, quadrivalent (MENACTRA) 06/27/2014 novel influenza (E4U0-05) vaccine 05/21/2009 pneumococcal (PCV7) vaccine, 7 valent (PREVNAR 7) 06/27/2003 03/18/2004 pneumococcal conjugate (PCV13) vaccine, 13 valent (PREVNAR 13) 01/06/2016 pneumococcal vaccine, unspecified formulation 02/19/2003 04/23/2003 05/21/2009 poliovirus (IPV) vaccine, inactivated (IPOL) 02/19/2003 04/23/2003 09/30/2003 09/11/2007 tetanus diphtheria pertussis (Tdap) vaccine, age 7+ yr (ADACEL, BOOSTRIX) 06/27/2014 varicella (JOAQUINA) vaccine (VARIVAX) 12/23/2003 05/21/2009 CHIEF COMPLAINT: Cystic Fibrosis HISTORY OF PRESENT ILLNESS: Angelia Caro is a 23 year old female, here for follow-up of Cystic Fibrosis last seen in June for a sick visit and was admitted for IV antibiotics the next day. Messages / interval events 08/23/24-Questions about pred taper 08/27/24-needed amoxicillin for dental appt 09/09/24- symptom update - increased cough; wants abx on hand--start itraconazole; modify Alyftrek dose; stop PPI, start Pepcid 09/20/24-cough has worsened; increased green mucous; start PO Minocycline; budesonide nasal rinses need separate script and prior auth-Approved 09/20/24-needed itraconazole level? Or IgE level (last on 09/18/24) 09/27/24-[facility] referral sent for appt next week Starting to get sick with rhinorrhea, cough, chest tightness; currently taking minocycline, inhaledceftaz, along with 20 mg prednisone (about 2-3 weeks in) and on PO itraconazole. Feels like she is getting sick, in the same way her sister who is recovering got sick; patients' mother also sick - feels viral INTERVAL HISTORY RESPIRATORY: Cough: moderate and worsening Paroxysms: moderate Sputum: yes moderate and worsening Hemoptysis: no Chest Congestion: moderate Dyspnea: mild with stairs Chest Pain: no Night sweats: no Fever: no Fatigue:yes Wheezing: mild - occasional Sinuses: very severe GASTROINTESTINAL: GE Reflux: very severe Appetite: improving Abdominal Pain: minimal Bowel Movement: 1/day, Diet (details): high calorie/high fat Supplements: none Vomiting: no Prolapse: None TINNITUS: no JOINT/BACK PAIN: moderate/no Anxiety no Depression: no ENDOCRINE CFRD: Not present Without polyuria, polydipsia, nocturia or hypoglycemic symptoms PAST MEDICAL HISTORY Diagnosis Date Cystic fibrosis (HCC) No past surgical history on file. No family history on file. Social History Tobacco Use Smoking status: Never Passive exposure: Never Smokeless tobacco: Never Vaping Use Vaping status: Never Used Substance Use Topics Alcohol use: Never Drug use: Never ALLERGIES: ALLERGIES Allergen Reactions Sulfamethoxazole-Tr* Rash, Swelling Voriconazole Other: See Comments CURRENT OUTPATIENT MEDICATIONS: budesonide (PULMICORT) 0.5 mg/2 mL nebulizer solution Add the entire 2 mL of budesonide to 240 mL of normal saline irrigation bottle and mix well. Apply half of this mixture (about 120 mL) to each nasal cavity, two times a day. amoxicillin (AMOXIL) 875 mg tablet Take 1 tablet by mouth every 24 hours. Take 1 tablet the day before dental procedure then take 1 tablet the day of dental procedure. minocycline (MINOCIN, DYNACIN) 100 mg capsule Take 1 capsule by mouth two times a day for 21 days. famotidine (PEPCID) 20 mg tablet Take 1 tablet by mouth daily at bedtime. itraconazole (SPORANOX) 100 mg capsule Take 2 capsules by mouth two times a day with meals. predniSONE (DELTASONE) 10 mg tablet Take 3 tablets by mouth once daily. Take 30 mg (3 tabs) X14 days; then 20 mg (2 tablets) X 28 days; then 10 mg (1 tablet) X 28 days then 10 mg every other day X 28days polyethylene glycol 3350 17 gram/dose powder Take 17 g by mouth two times a day as needed for constipation. Dissolve dose in 4 - 8 ounces of liquid and take as directed. loratadine (CLARITIN) 10 mg tablet Take 1 tablet by mouth once daily. azithromycin (ZITHROMAX) 500 mg tablet 500 mg every Tuesday, Tuesday, Tuesday fluticasone propion-salmeterol 232-14 mcg/actuation Inhale 1 Inhalation as instructed two times a day. albuterol HFA (PROVENTIL HFA, VENTOLIN HFA) 90 mcg/actuation inhaler Inhale 2 Puffs as instructed once daily. dornase odilon (PULMOZYME) 1 mg/mL nebulizer solution Inhale 2.5 mL as instructed once daily. fluticasone (FLONASE) 50 mcg/actuation nasal spray Use 1 Newell in each nostril once daily. cefTAZidime (FORTAZ) 1 gram solr Inhale 500 mg as instructed q 12 HR. Use 1 month on, 1 month off, alternating with coly-mycin. cholecalciferol (VITAMIN D3) 5,000 unit tab Take 1 tablet by mouth once daily. colistimethate (COLY-MYCIN M) 150 mg injection Inhale 2cc (150mg) twice daily every other month Syringe with Needle, Safety (3CC SAFETY SYRINGE 22GX1 ) 3 mL 22 gauge x 1 syrg 1 Each two times a day. Syringe with Needle, Safety (ECLIPSE SYRINGE) 3 mL 21 gauge x 1 syrg 1 Units two times a day. Pullup 4 mls sterile water and mix with ceftaz . Then pull up 2 mls and nebulize. Every other month tiotropium bromide (SPIRIVA RESPIMAT) 1.25 mcg/actuation inhaler Inhale 2 Puffs as instructed once daily. sodium chloride 3% solution 3 % nebulizer solution Use 4 mL via nebulizer two times a day. Omeprazole Magnesium (PRILOSEC OTC) 20 mg tablet Take 1 tablet by mouth once daily. ferrous sulfate (FEROSUL) 325 mg (65 mg iron) tablet Take 1 tablet by mouth every other day. albuterol (PROVENTIL) 2.5 mg /3 mL (0.083 %) nebulizer solution Use 3 mL via nebulizer three times a day as needed for wheezing/shortness of breath. Inhale over 5-15 minutes sodium chloride 0.65 % nasal spray Use 2 Sprays in the nose as needed. vogbsi-mwivdbpl-agyvwty (CREON 24) 24,000-76,000 -120,000 unit delayed release capsule Take 3 capsules with meals and 1 with snacks. Total 12 capsules per day pseudoephedrine (SUDAFED) 30 mg tablet Take 1 tablet by mouth every 6 hours as needed. ibuprofen (MOTRIN) 800 mg tablet Take 2 tablets by mouth every 12 hours. Nebulizer Accessories [facility] Please dispense tubing for nebulizer budesonide (PULMICORT) 1 mg/2 mL nebulizer solution INHALE CONTENTS OF 1 VIAL( 2 MILLILITERS) IN NEBULIZER ONCE DAILY pdeilirzgwj-varsnbpkpn-lcdduvqvakrmb (ALYFTREK) 10-50-125 mg tablet Take 2 tablets by mouth once daily. acetaminophen (TYLENOL) 500 mg tablet Take 2 tablets by mouth every 8 hours as needed for pain. sterile water (STERILE WATER FOR INJECTION) injection Inject 4 mL intravenously two times a day. Inject 4 mls in 1 vial of ceftaz, then pull up 2 mls and nebulize twice daily lactobacillus rhamnosus (CULTURELLE) 10 billion cell capsule Take 1 capsule by mouth once daily. pediatric multivit 22-D3-vit K (MVW COMPLETE FORMUL MULTIVIT) 1,500-1,000 unit- mcg chew Take 2 tablets by mouth. REVIEW OF SYSTEMS CONSTITUTIONAL: No acute distress. HEENT:POS for sinusitis; See HPI RESPIRATORY: Positive for cough. See HPI CARDIOVASCULAR: Neg for chest pain GASTROINTESTINAL: Neg for abdominal discomfort, No blood in stools or black stools MUSCULOSKELETAL: Neg for synovitis NEUROLOGIC:Negative for focal numbness or weakness, SKIN:Negative for rash. PSYCHIATRIC: Negative for mood disorder The remainder of the ROS was negative. PHYSICAL EXAMINATION: VITAL SIGNS: BP 124/76 Pulse 79 Temp (Src) 97 (Temporal) Resp 20 Wt 128 lb 1.4 oz (58.1kg) SpO2 97% Last 5 Encounter Wt Readings: Date: Wt: 10/03/2024 58.1 kg (128 lb 1.4 oz) 07/11/2024 60.8 kg (134 lb 0.6 oz) 05/15/2024 57.4 kg (126 lb 8.7 oz) 04/04/2024 60.5 kg (133 lb 6.1 oz) 01/10/2024 59 kg (130 lb 1.1 oz) 12/07/2023 61.8 kg (136 lb 3.9 oz) 10/25/2023 57.2 kg (126 lb) GENERAL APPEARANCE: She Is well appearing, alert, in no acute distress, well-hydrated, INTEGUMENTARY: skin color, texture, turgor normal, no rashes or lesions; Port on right side of chest wall . EYES: Anicteric sclera. Pupils are equally round and reactive to light. Extraocular movements are intact. ENT: Mild nasal erthema; mild congestion of B turbinates; +cobblestoning. mild HEME/LYMPH: Supple neck, no adenopathy; thyroid symmetric, normal size, no bruits RESPIRATORY: Good air exchange. Rare fine crackles on RUL. No wheezing, rhonchi, rales, Percussion normal, good diaphragmatic excursion, Cough, CARDIOVASCULAR: No edema. RRR without murmur, gallop, or rubs. No ectopy GI: Normal abdominal exam, Abdomen soft, non-tender. Bowel sounds normal. No masses, organomegaly MUSCULOSKELETAL: 1+ clubbing B; No arthritis. No deformities or cyanosis. Gait normal. PSYCH:no signs of depression or anxiety Neuro: Non-focal. Sensation grossly intact. DATA: Diagnostic tests reviewed for today's visit were personally reviewed by me: Sputum culture results and Most recent labs LAST LAB RESULTS: ---Reviewed in [facility] CBC with diff: WBC 11.04 04/26/2024 RBC 3.99 04/26/2024 Hemoglobin 10.0 04/26/2024 Hematocrit 32.5 04/26/2024 MCV 81.5 04/26/2024 MCH 25.1 04/26/2024 MCHC 30.8 04/26/2024 RDW-CV 17.6 04/26/2024 Platelet Count 271 04/26/2024 MPV 9.8 04/26/2024 Neutrophils % 81.1 04/26/2024 Lymphocytes % 14.2 04/26/2024 Monocytes % 3.3 04/26/2024 Eosinophils % 0.3 04/26/2024 Basophils % 0.6 04/26/2024 Abs Neut 8.95 04/26/2024 Abs Craig 0.36 04/26/2024 Abs Eosin 0.03 04/26/2024 Abs Baso 0.07 04/26/2024 Glucose (mg/dL) Date Value 08/20/2024 67 07/31/2021 135 Potassium (mmol/L) Date Value 08/20/2024 5.1 01/23/2022 3.5 Sodium (mmol/L) Date Value 08/20/2024 138 Chloride (mmol/L) Date Value 08/20/2024 105 CO2 (mmol/L) Date Value 08/20/2024 21 Creatinine (mg/dL) Date Value 08/20/2024 0.90 BUN (mg/dL) Date Value 08/20/2024 26 Anion Gap (mmol/L) Date Value 08/20/2024 12 Calcium, Total (mg/dL) Date Value 08/20/2024 7.0 Protein, Total (g/dL) Date Value 08/20/2024 5.2 Albumin (g/dL) Date Value 08/20/2024 2.7 Bilirubin, Total (mg/dL) Date Value 08/20/2024 0.4 Alkaline Phosphatase (U/L) Date Value 08/20/2024 92 AST (U/L) Date Value 08/20/2024 22 ALT (U/L) Date Value 08/20/2024 19 Vitamin D 25 Hydroxy (ng/mL) Date Value 07/29/2024 42.4 ] Hemoglobin A1C (%) Date Value 07/29/2024 5.6 05/25/2024 5.9 04/07/2024 6.3 12/08/2023 5.8 09/26/2023 6.0 SPIROMETRY: Reviewed in [facility] FVC 2.38 2.41 3.10 3.82 76 -1.70 FEV1 1.61 2.15 2.78 3.37 57 -2.98 FEV1/FVC 0.67 0.78 0.89 0.98 75 -2.76 FEFMax 5.55 4.87 6.42 7.98 86 -0.92 FEF50 1.23 2.41 4.01 5.62 30 -2.85 FIF50 5.55 FEF50/FIF50 0.22 90-100 FIVC 2.06 FJT85-66 0.82 2.29 3.46 4.77 23 -4.23 ExpiredTime 10.63 MICROBIOLOGY: Reviewed MICROBIOLOGY SNAPSHOT Written and verbal health teaching given to patient, patient verbalizes understanding and agrees with treatment plan. I spent a total of 45 minutes on the date of the service which included preparing to see the patient, qobi-rl-zxer patient care, completing clinical documentation, performing a medically appropriate examination, ordering medications, tests, or procedures, independently interpreting results (not sepa rately reported), communicating results to the patient/family/caregiver, and care coordination (notseparately reported). Electronically Signed: Chapo Mitchell MD October 03, 2024 documented in this encounter Plan of Treatment Upcoming Encounters Date Type Department Care Team (Latest Contact Info) Description 11/08/2024 9:15 AM EDT Procedure Pulmonary Medicine [address] [address] [place], [place] Pulm Lab [address] [address] 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] 11/08/2024 9:45 AM EDT Appointment Radiology [address] [address] US ELASTOGRAPHY LIVER 11/08/2024 10:45 AM EDT Office Visit Pulmonary Medicine [address] [address] Randee Johnson APRN.[employer] ATTENDANT [address] [place] [address] follow up 4-5 weeks 11/08/2024 1:30 PM EDT Appointment Radiology [address] [address] US ABD RIGHT UPPER QUADRANT 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] 11/23/2024 3:05 PM EDT Office Visit Otolaryngology [address] [address] Diya Bedolla MD [address] [place] [address] 6 month follow up Pending Results Name Type Priority Associated Diagnoses Date /Time AFB CULTURE & STAIN FOR PATIENTS WITH CYSTIC FIBROSIS Microbiology Routine Cystic fibrosis with pulmonary manifestations (HCC) 10/03/2024 11:59 AM EDT FUNGAL CULTURE AND SMEAR (NON DERMAL) Microbiology Routine Cystic fibrosis with pulmonary manifestations (HCC) 10/03/2024 11:59 AM EDT Scheduled Orders Name Type Priority Associated Diagnoses Orde r Schedule SPIROMETRY BASELINE ONLY PFT Routine Cystic fibrosis with pulmonary manifestations (HCC) 1 Occurrences starting 10/03/2024 until 11/02/2025 US ABD RIGHT UPPER QUADRANT Radiology Routine 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) Pancreatic insufficiency due to cystic fibrosis (HCC) 1 Occurrences starting 10/03/2024 until 11/02/2025 US ELASTOGRAPHY LIVER Radiology Routine 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) Pancreatic insufficiency due to cystic fibrosis (HCC) 1 Occurrences starting 10/03/2024 until 11/02/2025 documented as of this encounter Procedures Procedure Name Priority Date/Time Associated Diagnosis Comments AFB CULTURE & STAIN FOR PATIENTS WITH CYSTIC FIBROSIS Routine 10/03/2024 11:59 AM EDT Cystic fibrosis with pulmonary manifestations (HCC) EXPANDED RESPIRATORY PATHOGEN PANEL BY PCR, ROUTINE Routine 10/03/2024 11:59 AM EDT Cystic fibrosis with pulmonary manifestations (HCC) BACTERIAL CULTURE, RESPIRATORY, CYSTIC FIBROSIS Routine 10/03/2024 11:59 AM EDT Cystic fibrosis with pulmonary manifestations (HCC) FUNGAL CULTURE AND SMEAR (NON DERMAL) Routine 10/03/2024 11:59 AM EDT Cystic fibrosis with pulmonary manifestations (HCC) documented in this encounter Results * (ABNORMAL) EXPANDED RESPIRATORY PATHOGEN PANEL BY PCR, ROUTINE (10/03/2024 11:59 AM EDT) SARS-CoV-2 (Agent of COVID-19) RNA Not detected See comment 10/03/2024 11:45 PM EDT [facility] Influenza A RNA Not detected Not detected 10/03/2024 11:45 PM EDT [facility] Influenza B RNA Not detected Not detected 10/03/2024 11:45 PM EDT [facility] Respiratory syncytial virus (RSV) RNA Not detected Not detected 10/03/2024 11:45 PM EDT [facility] Human metapneumovirus (hMPV) RNA Not detected Not detected 10/03/2024 11:45 PM EDT [facility] Human rhinovirus/enterov irus RNA Not detected Not detected 10/03/2024 11:45 PM EDT [facility] Adenovirus DNA Not detected Not detected 10/03/2024 11:45 PM EDT [facility] Parainfluenza 1 RNA Not detected Not detected 10/03/2024 11:45 PM EDT [facility] Parainfluenza 2 RNA Not detected Not detected 10/03/2024 11:45 PM EDT [facility] Parainfluenza 3 RNA Detected(A) Not detected 10/03/2024 11:45 PM EDT [facility] Parainfluenza 4 RNA Not detected Not detected 10/03/2024 11:45 PM EDT [facility] Coronavirus 229E RNA Not detected Not detected 10/03/2024 11:45 PM EDT [facility] Coronavirus OC43 RNA Not detected Not detected 10/03/2024 11:45 PM EDT [facility] Coronavirus NL63 RNA Not detected Not detected 10/03/2024 11:45 PM EDT [facility] Coronavirus HKU1 RNA Not detected Not detected 10/03/2024 11:45 PM EDT [facility] Chlamydia pneumoniae DNA Not detected Not detected 10/03/2024 11:45 PM EDT [facility] Mycoplasma pneumoniae DNA Not detected Not detected 10/03/2024 11:45 PM EDT [facility] Bordetella pertussis DNA Not detected Not detected 10/03/2024 11:45 PM EDT [facility] Bordetella parapertussis DNA Not detected Not detected 10/03/2024 11:45 PM EDT [facility] Swab NASOPHARYNGEAL SWAB / Unknown Non Blood / Unknown 10/03/2024 11:59 AM EDT 10/03/2024 5:32 PM EDT Narrative [facility] - 10/03/2024 11:45 PM EDT Reference Range (the expected result in uninfected individuals): Not detected us Chapo Mitchell MD MICROBIOLOGY Final Result [facility] [address] [place] [address], * (ABNORMAL) BACTERIAL CULTURE, RESPIRATORY, CYSTIC FIBROSIS (10/03/2024 11:59 AM EDT) Culture, Resp Cystic Fibrosis Many Staphylococcus aureus(A) MINIMUM INHIBITORY CONCENTRATION( VITEK) 5 2:46 PM EDT [facility] Dupree PBP2a SA Culture [place] Test PBP2a was not detected by an immunochromatographic assay, so this isolate is methicillin-susceptible . 5 2:46 PM EDT [facility] Culture, Resp Cystic Fibrosis Few Stenotrophomonas maltophilia(A) MINIMUM INHIBITORY CONCENTRATION (VIZION) 5 2:46 PM EDT [facility] Culture, Resp Cystic Fibrosis Moderate normal respiratory bentley(A) MINIMUM INHIBITORY CONCENTRATION( VITEK) 5 2:46 PM EDT [facility] Culture, Resp Cystic Fibrosis Rare Aspergillus species(A) MINIMUM INHIBITORY CONCENTRATION( VITEK) 5 2:46 PM EDT [facility] Comment: Refer to specimen collected on 10/03/2024 at 1159 (Fungal Culture and smear [id number], Isolate 1) Sputum SPUTUM SPECIMEN / Unknown Non Blood / Unknown 10/03/2024 11:59 AM EDT 10/03/2024 8:17 PM EDT [facility] - 10/10/2024 2:46 PM EDT No Pseudomonas aeruginosa isolated. No Burkholderia cepacia complex isolated. This test was developed and its performance characteristics determined by the [facility]'s [facility] [place] ([facility]). It has not been cleared or approved by the FDA. [facility] is regulated under CLIA as qualified to perform high-complexity testing. This test is used for clinical purposes. It should not be regarded as investigational or for research. Organism Antibiotic Method Susceptibility Staphylococcus aureus Oxacillin MINIMUM IN HIBITORY CONCENTRATION(VITEK) 0.5: Susceptible Comment:Oxacillin-swanson sceptible staphylococci are susceptible to [...] Stenotrophomonas maltophilia Minocycline MINIMUM INHIBITORY CONCENTRATION (VIZION) 2: Susceptible us Chapo Mitchell MD MICROBIOLOGY Final Result [facility] [address] [facility] [address] [place] [address], documented in this encounter Visit Diagnoses Diagnosis Cystic fibrosis with pulmonary manifestations (HCC)- Primary Cystic fibrosis with pulmonary manifestations ABPA (allergic bronchopulmonary aspergillosis) (HCC) Allergic bronchopulmonary aspergillosis Pancreatic insufficiency due to cystic fibrosis (HCC) documented in this encounter Additional Health Concerns Infection Onset Date Last Indicated Resolved Time Respiratory Rule-Out 10/03/2024 10/03/2024 025 11:45 PM EDT documented as of this encounter Care Teams Director Pharmacy Services Relationship Specialty Start Date End Date Chapo Mitchell MD [address] [place] [address] PCP - General Pulmonary and Critical Care Medicine 12/08/23 documented as of this encounter
--- OUTSIDE RECORDS SUMMARY | 2024-10-17 17:00 | XMS_ITS | Encounter Summary ---
Author Organization [facility] Sys tem Address [id number] [address] [place] [address] Care Team Providers Care Lehr Cutter Name Role Phone Becky Dale MD Primary Care Provider [phone] Encounter Details Date Type Department Care Team (Late st Contact Info) Description 01/13/2023 Orders Only [facility] Pulmonology-Cystic Fibrosis [address] [facility] [address] [place] [phone] Anthony Cardoza MD [address] [place], [place] [id number] Social History Tobacco Use Types Packs/Day Years [...] Increase physical activity Lifestyle No Fidelina Henley, FOOD TECHNICIAN Note: Evaluation of progress towards goal: Pt [...] documented as of this encounter Care Teams Lehr Cutter Relationship Specialty Start Date End Date Becky Dale MD [address] [place] [address], [address] [place] [address] PCP - General 06/18/14 10/03/24 documented as of this encounter
--- OUTSIDE RECORDS SUMMARY | 2024-10-17 17:00 | XMS_ITS | Encounter Summary ---
Author Organization [facility] Address [facility] [place] [id number] [address] [place] [address] Care Team Providers Care Manager Photography Name Role Phone Becky Dale MD Primary Care Provider [phone] Encounter Details Date Type Department Care Team (Late st Contact Info) Description 03/09/2023 Telephone [facility] Pulmonology-Cystic Fibrosis [address] [facility] [address] [place] [phone] Rina Wynn LPN Social History Tobacco Use [...] asking if office can reach out to [facility] Specialty, they keep getting phone calls to schedule [place] when they do not need refills. Mom states calls are getting excessive. Wanting to set up that patient will call to set up refills, they do not want automatic refills or calls. States she has called pharmacy several times with no improvement. Reached out to [facility] Specialty Pharmacy. Spoke with quality audit representative Lucas Vallejo. States he updated the [...] documented as of this encounter Care Teams Manager Photography Relationship Specialty Start Date End Date Becky Dale MD [address] [place] [address], [address] [place] [address] PCP - General 06/18/14 10/03/24 documented as of this encounter
--- OUTSIDE RECORDS SUMMARY | 2024-10-17 17:00 | XMS_ITS | Encounter Summary ---
Author Organization [facility] Address [address] [place] [id number] Care Team Providers Care Rn Transitional Care Name Role Phone Chapo Mitchell MD Primary Care Provider [phone] Source Comments In the event this information is protected by the Federal Confidentiality of Alcohol and Drug AbusePatient Records regulations: The Federal rules restrict any use of the information to criminally investigate or prosecute any alcohol or drug abuse patient.[facility] Reason for Visit * Reason Comments Results [facility] Encounter Details Date Type Department Care Team (Late st Contact Info) Description 09/20/2024 Telephone Pulmonary Medicine [address] [place] [address] Chapo Mitchell MD [address] [place] [id number] Results ([facility]) Social History Tobacco Use Types Packs/Day Years Used Date Smoking Tobacco: Never Passive Smoke Exposure: Never Smokeless Tobacco: Never Alcohol Use Standard Drinks/Week Comments Never 0 (1 standard drink = 0.6 oz pur e alcohol) [facility] Utilities Answer Date Recorded In the past 12 months has [employer] electric, gas, oil, or water company threatened [...] place to sleep or slept in a mcc (including now)? No 12/09/2023 Housing Stability Vital Sign Answer Ernst e Recorded In the last 12 months, was t here a time when you were not able to pay the mortgage or rent on time? No 07/30/2024 Number of Times Moved in the Last Year Not on fi le 07/30/2024 At any time in the past 12 m [facility], were you homeless or living in a mcc (including now)? No 07/30/2024 Area Deprivation Index Answer Date Akhil rded National Score (1-100), lower number is lower ri sk 63 10/03/2024 State Score (1-10), lower number is lower risk 4 10/03/2024 Data from: https://www.neighborhoodatlas.medicine.[facility].edu/. Last address used for calculation [address] [...] Telephone Encounter - Marily Crain RN - 10/05/2024 1:22 PM EDT Reviewed faxed result from [facility] system (in scanned documents from 10/03/2024). Result was drawn on 09/25/2024 PRIOR to patient's 13th Itraconazole dose: Itraconzole level: 0.5 ug/mL Result forwarded to providers. * Telephone Encounter - Marily Crain RN - 09/21/2024 1:31 PM EDT Reviewed [...] Received 8 pages of lab results from [facility]. Lab results for: Itraconazole, Serum, IgE and CBC auto Diff Uploaded into chart. documented in this encounter Plan of Treatment Upcoming Encounters Date Type Department Care Team (Latest Contact Info) Description 11/08/2024 9:15 AM EDT Procedure Pulmonary Medicine [address] [place] [id number] Main, [facility] Pulm Lab [address] [address] 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] 11/08/2024 9:45 AM EDT Appointment Radiology [address] [place] [phone] US ELASTOGRAPHY LIVER 11/08/2024 10:45 AM EDT Office Visit Pulmonary Medicine [address] [place] [address] Randee Johnson APRN.ON SITE PROPERTY MANAGER [address] [place] [address] follow up 4-5 weeks 11/08/2024 1:30 PM EDT Appointment Radiology [address] [address] US ABD RIGHT UPPER QUADRANT 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] 11/23/2024 3:05 PM EDT Office Visit Otolaryngology [address] [address] Diya Bedolla MD [address] [place] [address] 6 month follow up documented as of this encounter Visit Diagnoses Not on filedocumented in this encounter Additional Health Concerns Infection Onset Date Last Indicated Resolved Time Respiratory Rule-Out 10/03/2024 10/03/2024 025 11:45 PM EDT Parainfluenza Virus 10/03/2024 10/03/2024 documented as of this encounter Care Teams Rn Transitional Care Relationship Specialty Start Date End Date Chapo Mitchell MD [address] [place] [phone] PCP - General Pulmonary and Critical Care Medicine 12/08/23 documented as of this encounter
--- OUTSIDE RECORDS SUMMARY | 2024-10-17 17:00 | XMS_ITS | Clinical Summary ---
Author Organization [facility] Address [address] [place] [address] Care Team Providers Care Finishing Room Operator Name Role Phone Chapo Mitchell MD Primary Care Provider [phone] Allergies Active Allergy Reactions Criticality Noted Date [...] hours as needed. 30 tablet 025 Active rouuka-ysepjqtb-lh ylase (CREON 24) 24,000-76,000 -120,000 unit delayed [...] manifestations (HCC),Chronic sinusitis, unspecified location Use 1 [place] in each nostril once daily. 1 Each [...] Each two times a day. 60 Each Active Syringe with Needle, Safety (ECLIPSE SYRINGE) 3 mL 21 gauge x 1 syrgIndications:Cy stic fibrosis (HCC),Cystic fibrosis with pulmonary manifestations (HCC),Chronic sinusitis, unspecified location 1 Units two times a day. Pull up 4 mls sterile water and mix with ceftaz . Then pull up 2 mls and nebulize. Every other month 60 Each Active sodium chloride 3% solution 3 % nebulizer solutionIndication s:Cystic fibrosis (HCC),Cystic fibrosis with pulmonary manifestations (HCC),Chronic sinusitis, unspecified location Use 4 mL via nebulizer two times a day. 240 mL Active Omeprazole Magnesium (PRILOSEC OTC) 20 mg tabletIndications: Cystic fibrosis (HCC),Cystic fibrosis with pulmonary manifestations (HCC),Chronic sinusitis, unspecified location Take 1 tablet by mouth once daily. 30 tablet 11 025 2025 Active ferrous sulfate (FEROSUL) 325 [...] breath. Inhale over 5-15 minutes 270 mL 2 Active sodium chloride 0.65 % nasal sprayIndications:C [...] tabletIndications: Cystic fibrosis (HCC),ABPA (allergic bronchopulmonary aspergillosis) ([facility]LY [facility]) Take 1 tablet by mouth daily at bedtime. 30 tablet 3 025 Active amoxicillin (AMOXIL) 875 mg tabletIndications: CF (cystic fibrosis) ([facility]),Cystic fibrosis (HCC),Need for antibiotic prophylaxis for dental procedure Take 1 tablet by mouth every 24 hours. Take 1 tablet the day before dental procedure then take 1 tablet the day of dental procedure. 2 tablet 025 Active budesonide (PULMICORT) 0.5 mg/2 mL nebulizer solutionIndication s:Cystic fibrosis with pulmonary manifestations (HCC),Chronic sinusitis, unspecified location,Cystic fibrosis (HCC) Add the entire 2 mL of budesonide to 240 mL of normal saline irrigation bottle and mix well. Apply half of this mixture (about 120 mL) to each nasal cavity, two times a day. 120 mL 11 Active calcium carbonate (TUMS) 500 mg chew Take 2 tablets by mouth two times a day as needed. 180 tablet 025 2024 Active itraconazole (SPORANOX) 100 mg capsuleIndications :ABPA (allergic bronchopulmonary aspergillosis) (HCC),Cystic fibrosis (HCC) Take 3 capsules by mouth two times a day with meals. 180 capsule 1 Active minocycline (MINOCIN, DYNACIN) 100 mg capsuleIndications :Cystic fibrosis with pulmonary manifestations (HCC) Take 1 capsule by mouth two times a day for 21 days. 42 capsule 025 2024 Discontinued tiotropium bromide (SPIRIVA RESPIMAT) 1.25 mcg/actuation inhalerIndications :Cystic fibrosis (HCC),Cystic fibrosis with pulmonary manifestations (HCC),Chronic sinusitis, unspecified location Inhale 2 Puffs as instructed once daily. 1 Each 11 025 2024 Discontinued amoxicillin (AMOXIL) 875 mg tabletIndications: CF (cystic fibrosis) (HCC),Cystic fibrosis (HCC),Need for antibiotic prophylaxis for dental procedure Take 1 tablet by mouth every 24 hours. Take 1 tablet the day before dental procedure then take 1 tablet the day of dental procedure. 2 tablet 025 2024 Discontinued itraconazole (SPORANOX) 100 mg capsuleIndications :ABPA (allergic bronchopulmonary aspergillosis) (HCC),Cystic fibrosis (HCC) Take 2 capsules by mouth two times a day with meals. 120 capsule 2 025 2024 Discontinued minocycline (MINOCIN, DYNACIN) 100 mg capsuleIndications :Cystic fibrosis with pulmonary manifestations (HCC) Take 1 capsule by mouth two times a day for 21 days. 42 capsule 025 2024 Active Problems Problem Noted Date Diagnosed Date [...] Encounters Date Type Department Care Team Description 10/10/2024 Telephone Pulmonary Medicine [address] [place], [place] [phone] Helena Johns RD Medication Problem 10/05/2024 Telephone Pulmonary Medicine [address] [phone] Chapo Mitchell MD Medication Problem 10/05/2024 Telephone Pulmonary Medicine [address] [place], [place] [phone] Chapo Mitchell MD Results ([place]) 10/04/2024 Telephone Pediatric Pulmonary [address] [place] [phone] Randee Johnson APRN.GEOSPATIAL ENGINEER Orders 10/03/2024 10:30 AM EDT Office Visit Pulmonary Medicine [address] [place], [place] [phone] Chapo Mitchell MD 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); ABPA (allergic bronchopulmonary aspergillosis) (HCC); Pancreatic insufficiency due to cystic fibrosis (HCC) 10/03/2024 10:00 AM EDT Procedure Pulmonary Medicine [address] [place] [address] Tyrone Davila Pulm Lab Spirometry 10/03/2024 Social Work Pulmonary Medicine [address] [place] [address] Consuelo Brooks LISW 10/03/2024 Orders Only Pulmonary Medicine [address] [place], [place] [phone] Marily Crain RN ABPA (allergic bronchopulmonary aspergillosis) ([facility]); Cystic fibrosis ([facility]) 10/03/2024 Orders Only Pulmonary Medicine [address] [place] [address] Marily Crain RN 10/02/2024 Travel 09/27/2024 Abstract Pulmonary Medicine [address] [address] Consuelo Brooks LISW 09/27/2024 Telephone Pulmonary Medicine [address] [address] Randee Johnson APRN.GEOSPATIAL ENGINEER Medication Authorization 09/27/2024 Telephone Pulmonary Medicine [address] [place], [place] [phone] Chapo Mitchell MD Results, Lab ([place]) 09/25/2024 Telephone Pulmonary Medicine [address] [place], [place] [phone] Consuelo Brooks LISW Prior Authorization 09/20/2024 Telephone Pulmonary Medicine [address] [place] [address] Chapo Mitchell MD Results ([facility]) 09/20/2024 Telephone Pulmonary Medicine [address] [place] [address] Chapo Mitchell MD Patient Question 09/20/2024 Telephone Pulmonary Medicine [address] [place] [address] Chapo Mitchell MD Patient Question 09/19/2024 Telephone Pulmonary Medicine [address] [place] [address] Randee Johnson APRN.GEOSPATIAL ENGINEER Results ([place]) 09/13/2024 Get Medical Advice Pulmonary Medicine [address] [place] [address] Randee Johnson APRN.GEOSPATIAL ENGINEER Blood draw 09/11/2024 Telephone Pulmonary Medicine [address] [place] [address] Randee Johnson APRN.GEOSPATIAL ENGINEER 09/10/2024 Get Medical Advice Pulmonary Medicine [address] [place] [address] Randee Johnson, ADE.GEOSPATIAL ENGINEER Symptom Update 08/27/2024 Orders Only Pulmonary Medicine [address] [place] [address] Randee Johnson, AIRBRUSH PAINTER.GEOSPATIAL ENGINEER Cystic fibrosis ([facility]) (Primary Dx); ABPA (allergic bronchopulmonary aspergillosis) ([facility]) 08/27/2024 Get Medical Advice Pulmonary Medicine [address] [address] Randee Johnson, AIRBRUSH PAINTER.GEOSPATIAL ENGINEER Prednisone/ Antibiotic 08/23/2024 Get Medical Advice Pulmonary Medicine [address] [place] [address] Chapo Mitchell MD Prednisone 08/22/2024 Telephone Pulmonary Medicine [address] [place], [place] [phone] Consuelo Brooks LISW Special Events Manager - Other ([facility]-nebulizers) 08/15/2024 2:45 PM EDT Office Visit Pulmonary Medicine [address] [place] [address] CF (cystic fibrosis) ([facility]) (Primary Dx) 08/09/2024 Get Medical Advice Pulmonary Medicine [address] [place] [address] Randee Johnson, ADE.GEOSPATIAL ENGINEER Prednisone 08/07/2024 Abstract Pulmonary Medicine [address] [place] [address] Helena Johns, MICHELLE Abstract 08/02/2024 2:30 PM EDT Office Visit Pulmonary Medicine [address] [place] [address] CF (cystic fibrosis) ([facility]) (Primary Dx) 07/29/2024 6:26 PM EDT - 08/22/2024 3:28 PM EDT Hospital Encounter [id number] [address] [phone] Kelly Howard MD Farooq, Sobia, MD Pennington, Emily, MD Lessa Ribeiro Neto, Manuel, MD Heresi, Gustavo A, MD Parambil, Joseph, MD Abou Asala, Elian MD Cystic fibrosis ([facility]) Discharge Disposition: Home 07/26/2024 Telephone Pulmonary Medicine [address] [phone] Randee Johnson APRN.GEOSPATIAL ENGINEER Patient Question 07/23/2024 Orders Only Pulmonary Medicine [address] [place] [address] CF (cystic fibrosis) ([facility]) (Primary Dx) 07/20/2024 Orders Only Pulmonary Medicine [address] [place] [address] [phone] Marily Crain RN Cystic fibrosis ([facility]); Cystic fibrosis with pulmonary manifestations ([facility]); Chronic sinusitis, unspecified location from Last 3 Months Immunizations Immunization Administration [...] vaccine (M-M-R II, PRIORIX) 03/05/2008,03/18/2004 meningococcal (MenACWY-D) va ccine, quadrivalent (MENACTRA) 06/27/2014 novel influenza (I1H2-94) vaccine 05/21/2009 pneumococcal (PCV7) vaccine, 7 valent [...] drink = 0.6 oz pur e alcohol) [facility] Utilities Answer Date Recorded In the past 12 months has e [employer], gas, oil, or water [employer] threatened to shut off services in your [...] any time in the past 12 m [facility], were you homeless or living in a care home (including now)? No 07/30/2024 Area Deprivation Index Answer Date Akhil rded National Score (1-100), lower number is lower ri sk 63 10/03/2024 State Score (1-10), lower number is lower risk 4 10/03/2024 Data from: https://www.neighborhoodatlas.medicine.[facility].edu/. Last address used for calculation [address] [...] 1.4 oz) 10/03/2024 11:10 AM EDT Height 154.9 cm (5' 1 ) 07/29/2024 6:42 PM EDT Body Mass Index 24.2 07/29/2024 6:42 PM EDT Plan of Treatment Upcoming Encounters Date Type Department Care Team (Latest Contact Info) Description 11/08/2024 9:15 AM EDT Procedure Pulmonary Medicine [address] [address] Main, Cf Pulm Lab [address] [address] 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] 11/08/2024 9:45 AM EDT Appointment Radiology [address] [address] US ELASTOGRAPHY LIVER 11/08/2024 10:45 AM EDT Office Visit Pulmonary Medicine [address] [address] Randee Johnson APRN.GEOSPATIAL ENGINEER [address] [place] [address] follow up 4-5 weeks 11/08/2024 1:30 PM EDT Appointment Radiology [address] [address] [place] ABD RIGHT UPPER QUADRANT 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] 11/23/2024 3:05 PM EDT Office Visit Otolaryngology [address] [address] Diya Bedolla MD [address] [place] [address] 6 month follow up Health Maintenance Due [...] Priority Date/Time Associated Diagnosis Comments EXTERNAL LAB 10/03/2024 12:12 PM EDT BACTERIAL CULTURE, RESPIRATORY, CYSTIC FIBROSIS Routine 10/03/2024 11:59 AM EDT Cystic fibrosis with pulmonary manifestations (HCC) FUNGAL CULTURE AND SMEAR (NON DERMAL) Routine 10/03/2024 11:59 AM EDT Cystic fibrosis with pulmonary manifestations (HCC) AFB CULTURE & STAIN FOR PATIENTS WITH CYSTIC FIBROSIS Routine 10/03/2024 11:59 AM EDT Cystic fibrosis with pulmonary manifestations (HCC) EXPANDED RESPIRATORY PATHOGEN PANEL BY PCR, ROUTINE Routine 10/03/2024 11:59 AM EDT Cystic fibrosis with pulmonary manifestations (HCC) SPIROMETRY BASELINE ONLY Routine 10/03/2024 11:22 AM EDT CF (cystic fibrosis) (HCC) ABPA (allergic bronchopulmonary aspergillosis) (HCC) EXTERNAL LAB 09/30/2024 9:04 PM EDT EXTERNAL LAB 09/25/2024 6:11 PM EDT EXTERNAL LAB 09/21/2024 2:06 PM EDT EXTERNAL [...] QUAL UR Routine 07/29/2024 8:28 PM EDT from Last 3 Months Results * EXTERNAL LAB (10/03/2024 12:12 PM EDT) Only the most recent of9 resultswithin the time period is included. us External Provider PA-C LABORATORY Final Res ult * (ABNORMAL) EXPANDED RESPIRATORY PATHOGEN PANEL BY PCR, ROUTINE (10/03/2024 11:59 AM EDT) SARS-CoV-2 (Agent of COVID-19) RNA Not detected See comment 10/03/2024 11:45 PM EDT [facility] Influenza A RNA Not detected Not detected 10/03/2024 11:45 PM EDT [facility] Influenza B RNA Not detected Not detected 10/03/2024 11:45 PM EDT [facility] Respiratory syncytial virus (RSV) RNA Not detected Not detected 10/03/2024 11:45 PM EDT [facility] Human metapneumovirus (hMPV) RNA Not detected Not detected 10/03/2024 11:45 PM EDT [facility] Human rhinovirus/enterov irus RNA Not detected Not detected 10/03/2024 11:45 PM EDT [facility] Adenovirus DNA Not detected Not detected 10/03/2024 11:45 PM EDT [facility] Parainfluenza 1 RNA Not detected Not detected 10/03/2024 11:45 PM EDT [facility] Parainfluenza 2 RNA Not detected Not detected 10/03/2024 11:45 PM EDT [facility] Parainfluenza 3 RNA Detected(A) Not detected 10/03/2024 11:45 PM EDT [facility] Parainfluenza 4 RNA Not detected Not detected 10/03/2024 11:45 PM EDT [facility] Coronavirus 229E RNA Not detected Not detected 10/03/2024 11:45 PM EDT [facility] Coronavirus OC43 RNA Not detected Not detected 10/03/2024 11:45 PM EDT [facility] Coronavirus NL63 RNA Not detected Not detected 10/03/2024 11:45 PM EDT [facility] Coronavirus HKU1 RNA Not detected Not detected 10/03/2024 11:45 PM EDT [facility] Chlamydia pneumoniae DNA Not detected Not detected 10/03/2024 11:45 PM EDT [facility] Mycoplasma pneumoniae DNA Not detected Not detected 10/03/2024 11:45 PM EDT [facility] Bordetella pertussis DNA Not detected Not detected 10/03/2024 11:45 PM EDT [facility] Bordetella parapertussis DNA Not detected Not detected 10/03/2024 11:45 PM EDT [facility] Swab NASOPHARYNGEAL SWAB / Unknown Non Blood / Unknown 10/03/2024 11:59 AM EDT 10/03/2024 5:32 PM EDT Narrative [facility] - 10/03/2024 11:45 PM EDT Reference Range (the expected result in uninfected individuals): Not detected us Chapo Mitchell MD MICROBIOLOGY Final Result [facility] [address] [place] [address], * (ABNORMAL) BACTERIAL CULTURE, RESPIRATORY, CYSTIC FIBROSIS (10/03/2024 11:59 AM EDT) Culture, Resp Cystic Fibrosis Many Staphylococcus aureus(A) MINIMUM INHIBITORY CONCENTRATION( VITEK) 2:46 PM EDT [facility] [employer] PBP2a SA Culture [place] Test PBP2a was not detected by an immunochromatographic assay, so this isolate is methicillin-susceptible . 2:46 PM EDT [facility] Culture, Resp Cystic Fibrosis Few Stenotrophomonas maltophilia(A) MINIMUM INHIBITORY CONCENTRATION (VIZION) 2:46 PM EDT [facility] Culture, Resp Cystic Fibrosis Moderate normal respiratory bentley(A) MINIMUM INHIBITORY CONCENTRATION( VITEK) 2:46 PM EDT [facility] Culture, Resp Cystic Fibrosis Rare Aspergillus species(A) MINIMUM INHIBITORY CONCENTRATION( VITEK) 2:46 PM EDT [facility] Comment: Refer to specimen collected on 10/03/2024 at 1159 (Fungal Culture and smear [id number], Isolate 1) Sputum SPUTUM SPECIMEN / Unknown Non Blood / Unknown 10/03/2024 11:59 AM EDT 10/03/2024 8:[address] [facility] - 10/10/2024 2:46 PM EDT No Pseudomonas aeruginosa isolated. No Burkholderia cepacia complex isolated. This test was developed and its performance characteristics determined by the [facility] [place] ([facility]). It has not been cleared or approved by the FDA. -[facility] is regulated under CLIA as qualified [...] MINIMUM INHIBITORY CONCENTRATION (VIZION) 2: Susceptible us Chaop Mitchell MD MICROBIOLOGY Final Result [facility] [address] [facility] [place] [address], * SPIROMETRY BASELINE ONLY (10/03/2024 11:22 AM [...] ULN (L/S) 2.76 L/S [facility] GTP31-74% PRE (L/S) 0.82 L/S [facility] GCM58-73% PREDICTED (L/S) 3.46 L/S [facility]CTION LAB CDO24-70% LLN (L/S) 2.29 L/S [facility] LAB PEF PRE (L/S) 5.55 L/S PULMON TONY FUNCTION LAB PEF LLN (L/S) 4.87 L/S PULMON [facility]ONY FUNCTION LAB PEF ULN (L/S) 7.98 L/S PULMON TONY FUNCTION LAB FET PRE (S) 10.63 S PULMONAR Y FUNCTION LAB 10/03/2024 11:2 2 AM EDT Narrative PULMONARY FUNCTION LAB - 10/09/2024 11:24 AM EDT [facility] [address] [place] [address] Test Date: 2024-10-03 Pat Name: ANGELIA SANCHEZ Department: Room: Gender: Female Installment Dealer: : 2000 Requested By: Order Number: [id number] Reading MD: Tiago Gomez MD Interpretive Statements [...] 11:24:18 EDT by Tiago Gomez MD ID: [id number] Name: ANGELIA SANCHEZ Race: Other Ht: 61.02 in Wt: 128.09 lbs Age: 23 Gender: Female : 2000 Dx: Cystic Fibrosis - Unspecified. May include CFTR disorder. Smoking Hx: Non-smoker Doctor: CHAPO MITCHELL Test Date: 10/03/2024 Site: Tech: Beatriz Tom PRE-BRONCH POST-BRONCH Daniel LLN Pred ULN %Pred ZScore Daniel %Pred %Chg ZScore SPIROMETRY FVC 2.38 2.41 3.10 3.82 76 -1.70 FEV1 1.61 2.15 2.78 3.37 57 -2.98 FEV1/FVC 0.67 0.78 0.89 0.98 75 -2.76 FEFMax 5.55 4.87 6.42 7.98 86 -0.92 FEF50 1.23 2.41 4.01 5.62 30 -2.85 FIF50 5.55 FEF50/FIF50 0.22 90-100 FIVC 2.06 RLN66-78 0.82 2.29 3.46 4.77 23 -4.23 ExpiredTime 10.63 TimeToFEFMax 0.06 AUREA 0.06 VolExtrap% 3 Comments: Current ATS/ERS acceptability and repeatability standards for spirometry met. Start of test and EOFE criteria met. //HC us Chapo Mitchell MD SCHEDULED PROCEDURES Final Res ult [facility] FUNCTION LAB [address] [place] [id number] * (ABNORMAL) COMPREHENSIVE METABOLIC PANEL (08/20/2024 6:56 AM EDT) Only the most recent of6 resultswithin the time period is included. Protein, Total 5.2(L) 6.3 - 8.0 g/dL 08/20/2024 8:41 AM EDT [facility] Albumin 2.7(L) 3.9 - 4.9 g/dL 08/20/2024 8:41 AM EDT [facility] Calcium, Total 7.0(L) 8.5 - 10.2 mg/dL 08/20/2024 8:41 AM EDT [facility] Bilirubin, Total 0.4 0.2 - 1.3 mg/dL 08/20/2024 8:41 AM EDT [facility] Alkaline Phosphatase 92 34 - 123 U/L 08/20/2024 8:41 AM [facility] AST 22 13 - 35 U/L 08/20/2024 8:41 AM [facility] ALT 19 7 - 38 U/L 08/20/2024 8:41 AM [facility] Glucose 67(L) 74 - 99 mg/dL 08/20/2024 8:41 AM [facility] Comment: The [place] Diabetes Association (ADA) provides guidance for cutoff [...] Standards of Medical Care in Diabetes 2016, [place] [employer]. Diabetes Care. 2016.39(Suppl 1). BUN 26(H) 7 - 21 mg/dL 08/20/2024 8:41 AM [facility] Creatinine 0.90 0.58 - 0.96 mg/dL 08/20/2024 8:41 AM [facility] Sodium 138 136 - 144 mmol/L 08/20/2024 8:41 AM [facility] Potassium 5.1 3.7 - 5.1 mmol/L 08/20/2024 8:41 AM [facility] Chloride 105 98 - 107 mmol/L 08/20/2024 8:41 AM [facility] CO2 21(L) 22 - 30 mmol/L 08/20/2024 8:41 AM [facility] Anion Gap 12 8 - 15 mmol/L 08/20/2024 8:41 AM [facility] Estimated Glomerular Filtration Rate 93 >=60 mL/min/1.7 3m 08/20/2024 8:41 AM [facility] Comment:Estimated Glomerular Filtration Rate (eGFR) is [...] us Kelly Howard MD LABORATORY Final Result [facility] [address] [facility] [place] [address], * (ABNORMAL) COMPLETE BLOOD COUNT (08/20/2024 6:56 AM EDT) Only the most recent of7 resultswithin the time period is included. WBC 11.32(H) 3.70 - 11.00 k/uL 08/20/2024 8:33 AM EDT [facility] RBC 3.85(L) 3.90 - 5.20 m/uL 08/20/2024 8:33 AM EDT [facility] Hemoglobin 9.8(L) 11.5 - 15.5 g/dL 08/20/2024 8:33 AM EDT [facility] Hematocrit 29.5(L) 36.0 - 46.0 % 08/20/2024 8:33 AM EDT [facility] MCV 76.6(L) 80.0 - 100.0 fL 08/20/2024 8:33 AM EDT [facility] MCH 25.5(L) 26.0 - 34.0 pg 08/20/2024 8:33 AM EDT [facility] MCHC 33.2 30.5 - 36.0 g/dL 08/20/2024 8:33 AM EDT [facility] RDW-CV 15.9(H) 11.5 - 15.0 % 08/20/2024 8:33 AM EDT [facility] Platelet Count 296 150 - 400 k/uL 08/20/2024 8:33 AM EDT [facility] MPV 10.7 9.0 - 12.7 fL 08/20/2024 8:33 AM EDT [facility] Absolute nRBC 0.04(H) <0.01 k/uL 08/20/2024 8:33 AM EDT [facility] Blood BLOOD SPECIMEN / Unknown Central Line / Unknown 08/20/2024 6:56 AM EDT 08/20/2024 7:01 AM EDT us Kelly Howard MD LABORATORY Final Result [facility] [address] [address], * SPIROMETRY BASELINE ONLY (08/15/2024 2:52 PM [...] ULN (L/S) 2.76 L/S [facility] LAB IAJ82-31% PRE (L/S) 0.98 L/S [facility]CTION LAB DRY84-22% PREDICTED (L/S) 3.46 L/S [facility] LAB QNG91-21% LLN (L/S) 2.29 L/S [facility] LAB PEF PRE (L/S) 5.52 L/S PULMON TONY FUNCTION LAB PEF LLN (L/S) 4.86 L/S PULMON [facility]ONY FUNCTION LAB PEF ULN (L/S) 7.97 L/S PULMON [facility]ONY FUNCTION LAB FET PRE (S) 10.57 S PULMONAR Y FUNCTION LAB 08/15/2024 2:52 PM EDT Narrative PULMONARY FUNCTION LAB - 08/17/2024 11:10 AM EDT [facility] [address] [place] [address] Test Date: 2024-08-15 Pat Name: ANGELIA SANCHEZ Department: Room: Gender: Female Installment Dealer: : 2000 Requested By: Order Number: [id number] Reading MD: Kana Sánchez MD Interpretive Statements Current ATS/ERS acceptability and repeatability standards for spirometry met. Start of test and EOFE criteria met. //HC IMPRESSION: Spirometry indicates moderate obstruction. Electronically Signed On 08-17-2024 11:10:54 EDT by Kana Sánchez MD ID: [id number] Name: ANGELIA SANCHEZ Race: Other Ht: 61.02 [...] FIF50 5.12 FEF50/FIF50 0.29 90-100 FIVC 2.01 NKH81-44 0.98 2.29 3.46 4.77 28 -3.91 ExpiredTime 10.57 TimeToFEFMax 0.06 AUREA 0.05 VolExtrap% 2 Comments: Current ATS/ERS acceptability and repeatability standards for spirometry met. Start of test and EOFE criteria met. //HC Chapo Mitchell MD PULMONARY Final Result Performing Organization Address [facility]/ZIP Co de Phone Number PULMONARY FUNCTION LAB [address] [place] [phone] * IRON AND TIBC (08/06/2024 6:07 AM EDT) Iron 77 41 - 186 ug/dL 08/06/2024 2:18 PM EDT [facility] TIBC 275 232 - 386 ug/dL 08/06/2024 2:18 PM EDT [facility] Transferrin Saturation 28.0 15.0 - 57.0 % 08/06/2024 2:18 PM EDT [facility] Blood BLOOD SPECIMEN / Unknown Venipuncture / Unknown 08/06/2024 6:07 AM EDT 08/06/2024 6:16 AM EDT Jana Ovalle MD LABORATORY Final Result Performing Organization Address [facility]/ZIP Co de Phone Number [facility] [address] * FERRITIN (08/06/2024 6:07 AM EDT) Ferritin 37.5 14.7 - 205.1 ng/mL 08/06/2024 2:24 PM EDT [facility] Blood BLOOD SPECIMEN / Unknown Venipuncture / Unknown 08/06/2024 6:07 AM EDT 08/06/2024 6:16 AM EDT us Jana Ovalle MD LABORATORY Final Result [facility] [address] [facility] [address] [place] [address], * SPIROMETRY BASELINE ONLY (08/02/2024 2:24 PM EDT) FVC PRE (L) 2.44 L PULMONAR Y [...] ULN (L/S) 2.89 L/S PULMONARY FUNCTION LAB VVM71-89% PRE (L/S) 0.90 L/S PULMONARY FUNCTION LAB KPI85-56% PREDICTED (L/S) 3.65 L/S PULMONARY FUNCTION LAB WZU27-26% LLN (L/S) 2.43 L/S PULMONARY FUNCTION LAB PEF PRE (L/S) 5.78 L/S PULMON TONY FUNCTION LAB PEF LLN (L/S) 4.86 L/S PULMON TONY FUNCTION LAB PEF ULN (L/S) 7.97 L/S PULMON TONY FUNCTION LAB FET PRE (S) 8.36 S PULMONAR Y FUNCTION LAB 08/02/2024 2:24 PM EDT Narrative PULMONARY FUNCTION LAB - 08/02/2024 4:36 PM EDT [facility] [address] [place] [address] Test Date: 2024-08-02 Pat Name: ANGELIA SANCHEZ Department: Room: [place] [address] Gender: Female Installment Dealer: : [id number] Requested By: Order Number: [id number] Reading MD: Kana Sánchez MD Interpretive Statements Current ATS/ERS acceptability and repeatability standards for spirometry met. Start of test and EOFE criteria met. Coughing noted throughout. //HC IMPRESSION: Spirometry indicates moderate obstruction. Electronically Signed On 08-02-2024 16:36:11 EDT by Kana Sánchez MD ID: [id number] Name: ANGELIA SANCHEZ Race: White Ht: 61.02 [...] FIF50 5.91 FEF50/FIF50 0.24 90-100 FIVC 2.12 ILC80-08 0.90 2.43 3.65 5.02 24 -4.20 ExpiredTime 8.36 TimeToFEFMax 0.05 AUREA 0.04 VolExtrap% 2 Comments: Current ATS/ERS acceptability and repeatability standards for spirometry met. Start of test and EOFE criteria met. Coughing noted throughout. //HC us Delia Camilo MD PULMONARY Final Result Performing Organization Address City/[facility]/ZIP Co de Phone Number [facility] [address] [place] [address] * DIFFERENTIAL BLD (08/02/2024 5:24 AM EDT) Neutrophils % 63.0 % 08/02/2024 5:40 AM EDT [facility] Abs Neut 6.24 1.45 - 7.50 k/uL 08/02/2024 5:40 AM EDT [facility] Lymphocytes % 27.3 % 08/02/2024 5:40 AM EDT [facility] Abs Lymph 2.71 1.00 - 4.00 k/uL 08/02/2024 5:40 AM EDT [facility] Monocytes % 7.4 % 08/02/2024 5:40 AM EDT [facility] Abs Dunn 0.73 <0.87 k/uL 08/02/2024 5:40 AM EDT [facility] Eosinophils % 1.5 % 08/02/2024 5:40 AM EDT [facility] Abs Eosin 0.15 <0.46 k/uL 08/02/2024 5:40 AM EDT [facility] Basophils % 0.5 % 08/02/2024 5:40 AM EDT [facility] Abs Baso 0.05 <0.11 k/uL 08/02/2024 5:40 AM EDT [facility] Immature Granulocytes % 0.3 % 08/02/2024 5:40 AM EDT [facility] Abs Immature Gran 0.03 <0.10 k/uL 025 5:40 AM EDT [facility] Diff Type Auto 08/02/2024 5:40 AM EDT [facility] Blood BLOOD SPECIMEN / Unknown Venipuncture / Unknown 08/02/2024 5:24 AM EDT 08/02/2024 5:29 AM EDT us Kelly Howard MD LABORATORY Final Result [facility] [address] [facility] [address] [place] [address], [place] * (ABNORMAL) FUNGAL CULTURE AND SMEAR (NON DERMAL) (07/31/2024 5:53 PM EDT) Culture, Fungal Rare Yeast, not Cryptococcus neoformans(A) MINIMUM INHIBITORY CONCENTRATION (VITEK) 08/28/2024 3:39 PM EDT [facility] Culture, Fungal Rare Aspergillus fumigatus(A) 08/28/2024 3:39 PM EDT [facility] Comment:Refer to specimen co llected on 07/11/2024 1222 ORGANISM IDENT. MOLD (LAB ORDER ONLY)[[id number]] for identification. Fungal Smear No fungus seen 08/29/19 3:39 PM EDT [facility] Sputum SPUTUM SPECIMEN / Unknown Non Blood / Unknown 07/31/2024 5:53 PM EDT 07/31/2024 6:01 PM EDT Narrative [facility] - 08/28/2024 3:39 PM EDT This test was developed and its performance characteristics determined by the [facility] [place] ([facility]). It has not been cleared or approved by the FDA. -[facility] is regulated under CLIA as qualified to perform high-complexity testing. This test is used for clinical purposes. It should not be regarded as investigational or for research. Kelly Howard MD MICROBIOLOGY Final Result [facility] [address] [facility] [address] [address] [place] [address], [place] * (ABNORMAL) BACTERIAL CULTURE AND GRAM STAIN, ABSCESS AND WOUND (AEROBIC CULTURE) (07/31/2024 5:52 PM EDT) Culture, Wound Few Staphylococcus aureus(A) MINIMUM INHIBITORY CONCENTRATION( VITEK) 5:23 PM EDT [facility] [employer] PBP2a SA Culture [place] Test PBP2a was not detected by an immunochromatographic assay, so this isolate is methicillin-susceptible . MINIMUM INHIBITORY CONCENTRATION (VIZION) 5 5:23 PM EDT [facility] Culture, Wound Few Stenotrophomonas maltophilia(A) MINIMUM INHIBITORY CONCENTRATION (VIZION) 5 5:23 PM EDT [facility] Culture, Wound Few normal respiratory bentley MINIMUM INHIBITORY CONCENTRATION( VITEK) 5 5:23 PM EDT [facility] Gram Stain Rare Gram positive cocci(A) 5 5:23 PM EDT [facility] Gram Stain No Polymorphonuclear Leukocytes(A) 5 5:23 PM EDT [facility] Swab NASAL / Unknown Non Blood / Unknown 07/31/2024 5:52 PM EDT 07/31/2024 6:[address] [facility] - 08/06/2024 5:23 PM EDT For wound culture, tissue or aspirates are superior to swab specimens. If a swab must be used, eSwab is preferred ([employer] No. [id number]). This test was developed and its performance characteristics determined by the [facility] [place] ([facility]). It has not been cleared or approved by the FDA. [facility] is regulated under CLIA as qualified [...] us Kelly Howard MD MICROBIOLOGY Final Result [facility] [address] [facility] [address] [place] [id number], [place] * OTOLARYNGOLOGY IMAGING (TASHA) (07/31/2024 5:38 PM [...] fellow represents my interpretation of the study. Cpo: RAFAELA Transcribe Date/Time: Jul 30 2024 10:43A Dictated by : CLAUDIA FERREIRA, DO This examination was interpreted and the report reviewed and electronically signed by: CHAPO MARX MD on Jul 30 2024 5:00PM EST Narrative 07/30/2024 5:02 PM EDT * * *Final Report* * * DATE OF EXAM: Jul 30 2024 10:35AM [facility] 0541 - CT CHEST WO IVCON / [...] images: No additional findings. Procedure Note Provider, [facility] [place] - 07/30/2024 * * *Final Report* * * DATE OF EXAM: Jul 30 2024 10:35AM [facility] 0541 - CT CHEST WO IVCON / [...] fellow represents my interpretation of the study. Cpo: RAFAELA Transcribe Date/Time: Jul 30 2024 10:43A Dictated by : CLAUDIA FERREIRA, DO This examination was interpreted and the report reviewed and electronically signed by: CHAPO MARX MD on Jul 30 2024 5:00PM EST us Chaz Joel MD CT-PAMA Final Result * XR CHEST 1V FRONTAL PORT (07/30/2024 9:42 AM EDT) Anatomical Region Laterality Modality Chest Radiographic Crystal ging 07/30/2024 9:42 AM EDT Impressions 07/30/2024 11:03 AM EDT IMPRESSION: See result. Cpo: RAFAELA Transcribe Date/Time: Jul 30 2024 11:00A [...] silhouette: Stable cardiomediastinal silhouette. Procedure Note Provider, [facility] [place] - 07/30/2024 * * *Final Report* * [...] Stable cardiomediastinal silhouette. IMPRESSION IMPRESSION: See result. Cpo: RAFAELA Transcribe Date/Time: Jul 30 2024 11:00A Dictated by : GER CONNER MD This examination was interpreted and the report reviewed and electronically signed by: GER CONNER MD on Jul 30 2024 11:01AM EST hCaz Joel MD RAD-PAMA Final Result * (ABNORMAL) URINALYSIS, REFLEX MICROSCOPIC (07/30/2024 12:50 AM EDT) Color Yellow Yellow 07/30/2024 2:22 AM EDT [facility] Clarity Clear Clear 07/30/2024 2:22 AM EDT [facility] Glucose, Urine Negative Negative 07/30/2024 2:22 AM EDT [facility] Bilirubin, Urine Negative Negative 07/31/19 2:22 AM EDT [facility] Ketones, Urine Negative Negative 07/30/2024 2:22 AM EDT [facility] Specific Triangle, Ur 1.014 1.005 - 1.030 07/30/2024 2:22 AM EDT [facility] Hemoglobin/Blood ,Ur Trace(A) Negative 07/30/2024 2:22 AM EDT [facility] pH, Urine 6.0 <8.5 07/30/2024 2:22 AM EDT [facility] Protein, Urine Negative Negative 07/30/2024 2:22 AM EDT [facility] Urobilinogen 0.2 EU/dL 0.2-1.0 EU/dL 07/30/2024 2:22 AM EDT [facility] Nitrites Negative Negative 07/30/2024 2:22 AM EDT [facility] Leuk Esterase Negative Negative 07/30/2024 2:22 AM EDT [facility] WBC, Urine 0-5 /HPF 0-5 /HPF 07/30/2024 2:22 AM EDT [facility] RBC, Urine 0-2 /HPF 0-2 /HPF 07/30/2024 2:22 AM EDT [facility] Bacteria Negative Negative /HPF 07/30/2024 2:22 AM EDT [facility] Squamous Epithelial Cells None Seen /HPF 07/30/2024 2:22 AM EDT [facility] Casts, Hyaline 0 /LPF 0 /LPF 07/30/2024 2:22 AM EDT [facility] Urine URINE SPECIMEN / Unknown Non Blood / Unknown 07/30/2024 12:50 AM EDT 07/30/2024 1:07 AM EDT Narrative [facility] - 07/30/2024 2:22 AM EDT This test was developed and its performance characteristics determined by [facility] [place] ([facility]). It has not been cleared or approved by the FDA. [facility] is regulated under CLIA as qualified to perform high-complexity testing. This test is used for clinical purposes. It should not be regarded as investigational or for research. us Chaz Jeol MD LABORATORY Final Result Performing Organization Address City/[facility]/ZIP Co de Phone Number [facility] [address] [place] [phone], [place] * STREPTOCOCCUS PNEUMONIAE ANTIGEN URINE (07/30/2024 12:50 AM EDT) Strep pneumo AG Result Negative for Streptococcus pneumoniae antigen. Negative 07/30/2024 11:01 AM EDT [facility] Comment:Presumptive negative for pneumococcal pneumonia, suggesting no current or recent pneumococcal infection. Infection due to S.pneumoniae cannot be ruled out since the antigen present in the sample may be below the detection limit of the test. Urine URINE SPECIMEN / Unknown Non Blood / Unknown 07/30/2024 12:50 AM EDT 07/30/2024 5:41 AM EDT Chaz Joel MD MICROBIOLOGY Final Result [facility] [address] [address], [place] * LEGIONELLA ANTIGEN URINE (07/30/2024 12:50 AM EDT) Pathologist [facility] Legionella Urine Ag Negative Negative 07/31/2024 11:04 AM EDT [facility] Comment:Legionella urinary a ntigen test is [...] MD LABORATORY Final Result Performing Organization Address [facility] de Phone Number [facility] [address] [place] [phone], * (ABNORMAL) STAPHYLOCOCCUS AUREUS & MRSA SCREEN, PCR, NASAL (07/30/2024 12:25 AM EDT) Pathologist [facility] Staphylococcus aureus DNA Methicillin-SUSC EPTIBLE Staphylococcus aureus Detected(A) Not Detected CEPHEID GENEXPERT COVID19 07/30/2024 6:11 AM EDT [facility] Swab POSTERIOR NARES / Unknown Non Blood / Unknown 07/30/2024 12:25 AM EDT 07/30/2024 2:40 AM EDT Narrative [facility] - 07/30/2024 6:11 AM EDT Performance characteristics of this assay for testing specimens from patients <=21 years of age were determined by [facility] [place] ([facility]). Performance on this age group has not been approved by the FDA. [facility] is regulated under CLIA as qualfied to perform high-complexity testing. This test is used for clinical purposes. It shoudl not be regarded as investigational or for research Chaz Joel MD LABORATORY Final Result [facility] [address] [facility] [address] [place] [address], * EXPANDED RESPIRATORY PATHOGEN PANEL BY PCR, EXPEDITED (07/30/2024 12:25 AM EDT) SARS-CoV-2 (Agent of COVID-19) RNA Not detected See comment 07/30/2024 1:39 AM EDT [facility] Influenza A RNA Not detected Not detected 07/30/2024 1:39 AM EDT [facility] Influenza B RNA Not detected Not detected 07/30/2024 1:39 AM EDT [facility] Respiratory syncytial virus (RSV) RNA Not detected Not detected 07/30/2024 1:39 AM EDT [facility] Human metapneumovirus (hMPV) RNA Not detected Not detected 07/30/2024 1:39 AM EDT [facility] Human rhinovirus/enterov irus RNA Not detected Not detected 07/30/2024 1:39 AM EDT [facility] Adenovirus DNA Not detected Not detected 07/30/2024 1:39 AM EDT [facility] Parainfluenza 1 RNA Not detected Not detected 07/30/2024 1:39 AM EDT [facility] Parainfluenza 2 RNA Not detected Not detected 07/30/2024 1:39 AM EDT [facility] Parainfluenza 3 RNA Not detected Not detected 07/30/2024 1:39 AM EDT [facility] Parainfluenza 4 RNA Not detected Not detected 07/30/2024 1:39 AM EDT [facility] Coronavirus 229E RNA Not detected Not detected 07/30/2024 1:39 AM EDT [facility] Coronavirus OC43 RNA Not detected Not detected 07/30/2024 1:39 AM EDT [facility] Coronavirus NL63 RNA Not detected Not detected 07/30/2024 1:39 AM EDT [facility] Coronavirus HKU1 RNA Not detected Not detected 07/30/2024 1:39 AM EDT [facility] Chlamydia pneumoniae DNA Not detected Not detected 07/30/2024 1:39 AM EDT [facility] Mycoplasma pneumoniae DNA Not detected Not detected 07/30/2024 1:39 AM EDT [facility] Bordetella pertussis DNA Not detected Not detected 07/30/2024 1:39 AM EDT [facility] Bordetella parapertussis DNA Not detected Not detected 07/30/2024 1:39 AM EDT [facility] Swab NASOPHARYNGEAL SWAB / Unknown Non Blood / Unknown 07/30/2024 12:25 AM EDT 07/30/2024 12:48 AM EDT Narrative [facility] - 07/30/2024 1:39 AM EDT Reference Range (the expected result in uninfected individuals): Not detected Chaz Joel MD MICROBIOLOGY Final Result [facility] [address] * MYCOPLASMA PNEUM PCR (07/30/2024 12:24 AM EDT) Specimen Source (MYCPCR) Sputum 08/01/2024 11:36 AM EDT [facility] Mycoplasma pneum DNA Not Detected 08/01/2024 11:36 AM EDT [facility] Comment: NOT DETECTED - A negative result does not rule out the presence of PCR inhibitors in the patient specimen or assay specific nucleic acid in concentrations below the level of detection by the assay. INTERPRETIVE INFORMATION: Mycoplasma pneumoniae by PCR This test was developed and its performance characteristics determined by [facility]. It has not been cleared or approved by the [place] Food and Drug Administration. This test was performed in a CLIA certified laboratory and is intended for clinical purposes. Performed By: [facility] [address] [place] [address] Sales Operations Director: Gildardo Herrera MD, PhD CLIA Number: [id number] Sputum SPUTUM SPECIMEN / Unknown Non Blood / Unknown 07/30/2024 12:24 AM EDT 07/30/2024 2:27 AM EDT Chaz Joel MD MICROBIOLOGY Final Result [place] [address] * (ABNORMAL) BACTERIAL CULTURE AND GRAM STAIN, RESPIRATORY, SPUTUM AND TRACHEAL ASPIRATE (07/30/2024 12:24 AM EDT) Only the most recent of2 resultswithin the time period is included. Culture, Respiratory Few Staphylococcus aureus(A) MINIMUM INHIBITORY CONCENTRATION( VITEK) 11:59 AM EDT [facility] Comment:Insignificant colony count. No further workup. Culture, Respiratory Few normal respiratory bentley(A) 11:59 AM EDT [facility] Culture, Respiratory Few Stenotrophomonas maltophilia(A) MINIMUM INHIBITORY CONCENTRATION (VIZION) 11:59 AM EDT [facility] Comment:Additional susceptib ility testing performed by request. Gram Stain Moderate Mixed oral bentley(A) 11:59 AM EDT [facility] Gram Stain Moderate Polymorphonuclear leukocytes(A) 11:59 AM EDT [facility] Gram Stain Rare Epithelial cells(A) 11:59 AM EDT [facility] Sputum SPUTUM SPECIMEN / Unknown Non Blood / Unknown 07/30/2024 12:24 AM EDT 07/30/2024 2:27 AM EDT Narrative [facility] - 08/05/2024 11:59 AM EDT No Pseudomonas aeruginosa isolated. This test was developed and its performance characteristics determined by the [facility] [place] (-[facility]). It has not been cleared or approved by the FDA. -[facility] is regulated under CLIA as qualified [...] Minocycline MINIMUM INHIBITORY CONCENTRATION (VIZION) <=1: Susceptible us Chaz Joel MD MICROBIOLOGY Edited Resul t - Final Performing Organization Address City/[facility]/ZIP Co de Phone Number [facility] [place] [address], [place] * MAGNESIUM (07/29/2024 11:30 PM EDT) Magnesium 1.8 1.7 - 2.3 mg/dL 07/30/2024 12:40 AM EDT [facility] Blood BLOOD SPECIMEN / Unknown Venipuncture / Unknown 07/29/2024 11:30 PM EDT 07/29/2024 11:51 PM EDT Chaz Joel MD LABORATORY Final Result Performing Organization Address [facility] Co de Phone Number [facility] [place] [address], [place] * ASPERGILLUS GALACTOMANNAN SERUM (07/29/2024 11:30 PM EDT) Asper. Ag Ser,Qual Negative Negative 2024 3:47 PM EDT [facility] Comment:Aspergillus Galactom donell antigen assay is [...] <=0.49 Index Value 07/31/2024 3:47 PM EDT [facility] Blood BLOOD SPECIMEN / Unknown Venipuncture / Unknown 07/29/2024 11:30 PM EDT 07/29/2024 11:51 PM EDT Chaz Joel MD LABORATORY Final Result [facility] [address] [facility] [address] [place] [address], [place] * RAST, IMMUNOCAP SCORE (REFLEX ONLY) (07/29/2024 11:30 PM EDT) Allergen, Interp, Immunocap Score IgE See Note 08/01/2024 7:33 AM EDT [facility] Comment: REFERENCE INTERVAL: Allergen, Interpretation Less than [...] clinical allergy or even anaphylaxis. Performed By: [facility] [address] [place] [address] Sales Operations Director: Gildardo Herrera MD, PhD CLIA Number: [id number] Blood BLOOD SPECIMEN / Unknown Venipuncture / Unknown 07/29/2024 11:30 PM EDT 07/29/2024 11:51 PM EDT Chaz Joel MD LABORATORY Final Result [facility] [address] [place] [address] * SEPSIS LACTATE (07/29/2024 11:30 PM EDT) [facility] Sepsis Lactate 1.2 <=2.0 mmol/L 07/30/2024 12:00 AM EDT [facility] Blood BLOOD SPECIMEN / Unknown Venipuncture / Unknown 07/29/2024 11:30 PM EDT 07/29/2024 11:56 PM EDT Chaz Joel MD BLOOD GASES Final Result Performing Organization Address City/[facility]/ZIP Co de Phone Number [facility] [address] [place] [address], [place] * (ABNORMAL) PROCALCITONIN (07/29/2024 11:30 PM EDT) [facility] Procalcitonin 0.09(H) <0.09 ng/mL 07/30/2024 12:49 AM EDT [facility] Comment:For a guided interpr etation of test results, please visit the Change in Procalcitonin Calculator, [email or web address]. Blood BLOOD SPECIMEN / Unknown Venipuncture / Unknown 07/29/2024 11:30 PM EDT 07/29/2024 11:51 PM EDT Chaz Joel MD LABORATORY Final Result [facility] [address] [place] [phone], [place] * (ABNORMAL) BRONCHOPUL ASPERGILL (07/29/2024 11:30 PM EDT) [facility] Immunoglobulin E 4994(H) <=214 kU/L 08/05/19 6:33 AM EDT [facility] Comment: REFERENCE INTERVAL: Immunoglobulin E, Serum Access complete set of age- and/or gender-specific reference intervals for this test in the [facility] Test Directory ([email or web address]). Allergen, Fungi/Mold, A. Fumigatus IgE 2.55(H) <=0.34 kU/L 08/04/2024 6:33 AM EDT [facility] Aspergillus fumigatus 6 Detected (A) None Detected 08/04/2024 6:33 AM EDT [facility] Comment: Performed By: [facility] [employer] [address] [place] [address] Sales Operations Director: Gildardo Herrera MD, PhD CLIA Number: [id number] Aspergillus fumigatus 1 Detected (A) None Detected 08/04/2024 6:33 AM EDT [facility] [employer] Blood BLOOD SPECIMEN / Unknown Venipuncture / Unknown 07/29/2024 11:30 PM EDT 07/29/2024 11:51 PM EDT Chaz Joel MD LABORATORY Final Result [address] [address] * BACTERIAL CULTURE, BLOOD (07/29/2024 11:30 PM EDT) [facility] Culture, Blood No growth 5 days 08/04/2024 4:01 AM EDT [facility] Blood BLOOD SPECIMEN / Unknown Venipuncture / Unknown 07/29/2024 11:30 PM EDT 07/30/2024 3:15 AM EDT Chaz Joel MD MICROBIOLOGY Final Result [facility] [address] * VITAMIN D 25 HYDROXY (07/29/2024 11:30 PM EDT) Vitamin D 25 Hydroxy 42.4 31.0 - 80.0 ng/mL 07/31/2024 3:21 PM EDT [facility] Comment: Classification of 25 [place] Vitamin D status: Deficiency/Insufficiency: < or = 30 ng/ml. Sufficiency/Optimal Levels: 31-80 ng/mL Toxicity: > 100 ng/mL. Test performed by chemiluminescent immunoassay. Blood BLOOD SPECIMEN / Unknown Venipuncture / Unknown 07/29/2024 11:30 PM EDT 07/29/2024 11:51 PM EDT Narrative [facility] - 07/31/2024 3:21 PM EDT The reference range interval was based on an analysis of samples from healthy adults and may not pertain to children from 0-18 years old. Kelly Howard MD LABORATORY Final Result Performing Organization Address [facility]/ZIP Co de Phone Number [facility] [address] [place] [address], [place] * (ABNORMAL) SEDIMENTATION RATE, WESTERGREN (07/29/2024 11:30 PM EDT) Sed Rate, Westergren 26(H) 0 - 20 mm/hr 07/30/2024 2:39 AM EDT [facility] Blood BLOOD SPECIMEN / Unknown Venipuncture / Unknown 07/29/2024 11:30 PM EDT 07/29/2024 11:51 PM EDT Chaz Joel MD LABORATORY Final Result Performing Organization Address City/[facility]/ZIP Co de Phone Number [facility] [address] [place] [phone], [place] * PROTHROMBIN TIME (07/29/2024 11:30 PM EDT) PT Sec 11.1 9.7 - 13.0 sec 07/30/2024 12:10 AM EDT [facility] INR 1.0 0.9 - 1.3 07/30/2024 12:10 AM EDT [facility] Comment: Vitamin K Antagonist (VKA) Therapeutic Range: INR 2 to 3 (Target INR of 2.5) Note: For patients treated with VKA drugs, such as warfarin, the [place] [employer] 2012 Guideline recommends [...] GH, et al. Chest 2012, 141:7S-47S Pearl RA, et al. [facility] 2017, 70: 252-289 Blood BLOOD SPECIMEN / Unknown Venipuncture / Unknown 07/29/2024 11:30 PM EDT 07/29/2024 11:53 PM EDT Chaz Joel MD LABORATORY Final Result Performing Organization Address City/[facility]/ZIP Co de Phone Number [facility] [address] [place] [address], [place] * PHOSPHORUS INORGANIC (07/29/2024 11:30 PM EDT) [facility] Phosphorus 3.5 2.7 - 4.8 mg/dL 07/30/2024 12:40 AM EDT [facility] Blood BLOOD SPECIMEN / Unknown Venipuncture / Unknown 07/29/2024 11:30 PM EDT 07/29/2024 11:51 PM EDT Chaz Joel MD LABORATORY Final Result [facility] [address] [place], [place] [id number], [place] * (ABNORMAL) IMMUNOGLOBULIN E (07/29/2024 11:30 PM EDT) IgE 4,436.0(H) <114.0 kU/l 07/30/2024 9:34 PM EDT [facility] Blood BLOOD SPECIMEN / Unknown Venipuncture / Unknown 07/29/2024 11:30 PM EDT 07/29/2024 11:51 PM EDT Kelly Howard MD LABORATORY Final Result Performing Organization Address City/[facility]/ZIP Co de Phone Number [facility] [address] [place] [address], * HEMOGLOBIN A1C (07/29/2024 11:30 PM EDT) [facility] Hemoglobin A1C 5.6 4.3 - 5.6 % 07/31/2024 4:18 PM EDT [facility] Comment:[place] Diabetes As sociation guidelines indicate that patients with HgbA1c in the range 5.7-6.4% are at increased risk for development of diabetes, and intervention by lifestyle modification may be beneficial. HgbA1c greater or equal to 6.5% is considered diagnostic of diabetes. Estimated Average Glucose 114 mg/dL 07/31/2024 4:18 PM EDT [facility] Comment:eAG: (Estimated aver age glucose) is a calculated value from HgbA1c and is surgical sales representative of the average blood glucose level in the last 2-3 month period. Blood BLOOD SPECIMEN / Unknown Venipuncture / Unknown 07/29/2024 11:30 PM EDT 07/29/2024 11:51 PM EDT Kelly Howard MD LABORATORY Final Result Performing Organization Address City/[facility]/ZIP Co de Phone Number [facility] [address] [place] [address], * HEPATIC FUNCTION PNL (07/29/2024 11:30 PM EDT) [facility] Albumin 3.9 3.9 - 4.9 g/dL 07/30/2024 12:40 AM EDT [facility] Bilirubin, Total 0.3 0.2 - 1.3 mg/dL 07/30/2024 12:40 AM EDT [facility] Bilirubin, Direct 0.1 <0.3 mg/dL 07/30/2024 12:40 AM EDT [facility] Alkaline Phosphatase 75 34 - 123 U/L 07/30/2024 12:40 AM EDT [facility] AST 18 13 - 35 U/L 07/30/2024 12:40 AM EDT [facility] ALT 12 7 - 38 U/L 07/30/2024 12:40 AM EDT [facility] Protein, Total 7.1 6.3 - 8.0 g/dL 07/30/2024 12:40 AM EDT [facility] Blood BLOOD SPECIMEN / Unknown Venipuncture / Unknown 07/29/2024 11:30 PM EDT 07/29/2024 11:51 PM EDT Chaz Joel MD LABORATORY Final Result [facility] [address] [place] [address], [place] * HCG QUANTITATIVE (07/29/2024 11:30 PM EDT) [facility] hCG Quantitative, Blood <0.6 <5.0 mIU/mL 07/30/2024 12:46 AM EDT [facility] Comment:Negative Blood BLOOD SPECIMEN / Unknown Venipuncture / Unknown 07/29/2024 11:30 PM EDT 07/29/2024 11:51 PM EDT Chaz Joel MD LABORATORY Final Result [facility] [address] [place] [address], [place] * D-DIMER (07/29/2024 11:30 PM EDT) [facility] D Dimer 300 <500 ng/mL FEU 07/30/2024 12:10 AM EDT [facility] Blood BLOOD SPECIMEN / Unknown Venipuncture / Unknown 07/29/2024 11:30 PM EDT 07/29/2024 11:53 PM EDT Narrative [facility] - 07/30/2024 12:10 AM EDT 500 [...] et al. Iesha Int Med 2016 165:253. us Chaz Joel MD LABORATORY Final Result [facility] [place] [address], * (ABNORMAL) C-REACTIVE PROTEIN (07/29/2024 11:30 PM EDT) CRP 1.9(H) <0.9 mg/dL 07/30/2024 12:40 AM EDT [facility] Blood BLOOD SPECIMEN / Unknown Venipuncture / Unknown 07/29/2024 11:30 PM EDT 07/29/2024 11:51 PM EDT us Chaz Joel MD LABORATORY Final Result [facility] [address] [facility] [address] [place] [id number], * (ABNORMAL) BASIC METABOLIC PANEL (07/29/2024 11:30 PM EDT) Glucose 101(H) 74 - 99 mg/dL 07/30/2024 12:42 AM EDT [facility] Comment: The [place] Diabetes Association (ADA) provides guidance for cutoff [...] Standards of Medical Care in Diabetes 2016, [place] Diabetes Association. Diabetes Care. 2016.39(Suppl 1). BUN 11 7 - 21 mg/dL 07/30/2024 12:42 AM EDT [facility] Creatinine 0.68 0.58 - 0.96 mg/dL 07/30/2024 12:42 AM EDT [facility] Sodium 141 136 - 144 mmol/L 07/30/2024 12:42 AM EDT [facility] Potassium 4.0 3.7 - 5.1 mmol/L 07/30/2024 12:42 AM EDT [facility] Chloride 108(H) 98 - 107 mmol/L 07/30/2024 12:42 AM EDT [facility] CO2 18(L) 22 - 30 mmol/L 07/30/2024 12:42 AM EDT [facility] Anion Gap 15 8 - 15 mmol/L 07/30/2024 12:42 AM EDT [facility] Calcium, Total 9.0 8.5 - 10.2 mg/dL 07/30/2024 12:42 AM EDT [facility] Estimated Glomerular Filtration Rate 127 >=60 mL/min/1.7 3m 07/30/2024 12:42 AM EDT [facility] Comment:Estimated Glomerular Filtration Rate (eGFR) is [...] MD LABORATORY Final Result Performing Organization Address [facility] Co de Phone Number [facility] [address], [place] * HCG, QUALITATIVE, URINE (07/29/2024 8:28 PM EDT) Pathologist [facility] HCG Qualitative, Urine Negative Negative 07/29/2024 10:05 PM EDT [facility] Comment:This test is intende d to aid in the early detection of . Very dilute urine samples, as indicated by a low specific gravity, may not contain surgical sales representative levels of hCG. This test [...] 8:28 PM EDT 07/29/2024 8:35 PM EDT us Chaz Joel MD LABORATORY Final Result Performing Organization Address City/[facility]/ZIP Co de Phone Number [facility] [address] [address], [place] from Last 3 Months Additional Health Concerns Infection Onset Date Last Indicated Parainfluenza Virus 10/03/2024 10/03/2024 Insurance [facility] MEDICA[facility] Advance Directives * Full Code (Latest Code Status on File) Date Activated Date Inactivated Comments 07/29/2024 10:09 PM 08/22/2024 7:35 PM Question Answer Comments Full Code Order Discussed With: Patient * Full Code Date Activated Date Inactivated Comments 04/06/2024 11:25 PM 04/28/2024 4:13 AM Question Answer Comments Full Code Order Discussed With: Patient Care Teams Finishing Room Operator Relationship Specialty Start Date End Date Chapo Mitchell MD [address] [place] [address] PCP - General Pulmonary and Critical Care Medicine 12/08/23
--- OUTSIDE RECORDS SUMMARY | 2024-10-17 17:01 | XMS_ITS | Encounter Summary ---
Author Organization [facility] Address [id number] [address] [place] [address] Care Team Providers Care Financial Consultant Name Role Phone Becky Dale MD Primary Care Provider [phone] Reason for Visit * Reason Onset Date Comments Follow-up 11/25/2021 Encounter Details Date Type Department Care Team (Late st Contact Info) Description 11/25/2021 Nurse Triage [facility]-Cystic Fibrosis [address] [facility] [address] [place] [phone] Rina Wynn LPN Social History Tobacco Use [...] documented as of this encounter Care Teams Financial Consultant Relationship Specialty Start Date End Date Becky Dale MD [address] [place] [address], [address] [place] [address] PCP - General 06/18/14 10/03/24 documented as of this encounter
--- OUTSIDE RECORDS SUMMARY | 2024-10-17 17:01 | XMS_ITS | Encounter Summary ---
Author Organization [facility] Address [address] [place] [address] Care Team Providers Care Interpersonal Communications Professor Name Role Phone Chapo Mitchell MD Primary Care Provider [phone] Source Comments In the event this information is protected by the Federal Confidentiality of Alcohol and Drug AbusePatient Records regulations: The Federal rules restrict any use of the information to criminally investigate or prosecute any alcohol or drug abuse patient.[facility] Encounter Details Date Type Department Care Team (Late st Contact Info) Description 11/01/2023 Patient Msg Pulmonary Medicine [address] [place], [place] [phone] Provider, [facility] Quarterly Newsletter Social History Tobacco Use Types Packs/Day Years Used Date Smoking Tobacco: Never Passive Smoke Exposure: Never Alcohol Use Standard Drinks/Week Comments Never 0 (1 standard drink = 0.6 oz pur e alcohol) [facility] Utilities Answer Date Recorded In the [...] place to sleep or slept in a usp (including now)? No 09/26/2023 Area Deprivation Index Answer Date Akhil rded National Score (1-100), lower number is lower ri sk 63 10/25/2023 State Score (1-10), lower number is lower risk 4 10/25/2023 Data from: https://www.neighborhoodatlas.medicine.[facility].edu/. 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] 11/08/2024 9:45 AM EDT Appointment Radiology [address] [place] [phone] [place] ELASTOGRAPHY LIVER 11/08/2024 10:45 AM EDT Office Visit Pulmonary Medicine [address] [place] [phone] Randee Johnson APRN.TAPE SEWING MACHINE OPERATOR [address] [place] [address] follow up 4-5 weeks 11/08/2024 1:30 PM EDT Appointment Radiology [address] [address] [place] ABD RIGHT UPPER QUADRANT 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] 11/23/2024 3:05 PM EDT Office Visit Otolaryngology [address] [address] Diya Bedolla MD [address] [place] [place] [address] 6 month follow up documented as of [...] Rule-Out 07/29/2024 07/30/2024 025 1:39 AM EDT Respiratory Rule-Out 10/03/2024 10/03/2024 025 11:45 PM EDT Parainfluenza Virus 10/03/2024 10/03/2024 documented as of this encounter Care Teams Interpersonal Communications Professor Relationship Specialty Start Date End Date Chapo Mitchell MD [address] [place] [address] PCP - General Pulmonary and Critical Care Medicine 12/08/23 documented as of this encounter
--- OUTSIDE RECORDS SUMMARY | 2024-10-17 17:01 | XMS_ITS | Encounter Summary ---
Author Organization [facility] Address [facility]-[id number] [address] [place] [address] Care Team Providers Care Car Inspector Name Role Phone Becky Dale MD Primary Care Provider [phone] Encounter Details Date Type Department Care Team (Late st Contact Info) Description 05/06/2020 Orders Only [facility] Pediatric Pulmonology-Cystic Fibrosis [address] [facility] [address] [place] [phone] Anthony Cardoza MD [address] [place] [address] Cystic fibrosis ([facility]) (Primary Dx) Social History Tobacco Use Types [...] this encounter Visit Diagnoses Diagnosis Cystic fibrosis ([facility])- Primary Cystic fibrosis ([facility]) documented in this encounter Additional Health Concerns [...] documented as of this encounter Care Teams Car Inspector Relationship Specialty Start Date End Date Becky Dale MD [facility], [address] [place] [address] PCP - General 06/18/14 10/03/24 documented as of this encounter
--- OUTSIDE RECORDS SUMMARY | 2024-10-17 17:01 | XMS_ITS | Encounter Summary ---
Author Organization [employer] Address [facility]-[id number] [address] [place] [address] Care Team Providers Care Meeting Manager Name Role Phone Becky Dale MD Primary Care Provider [phone] Encounter Details Date Type Department Care Team (Late st Contact Info) Description 07/13/2023 Abstract [facility] - Medical Oncology [address] [place] [phone] Araceli Trinidad Social History Tobacco Use Types Packs/Day Years Used Date Smoking Tobacco: Never Smokeless Tobacco: Never Comments:No smoke exposure Alcohol Use Standard Drinks/Week Comments No 0 (1 standard drink = 0.6 oz pur e alcohol) [facility] Utilities Answer Date Recorded In the past [...] Increase physical activity Lifestyle No Fidelina Henley, PATIRCIA Note: Evaluation of progress towards goal: Pt [...] documented as of this encounter Care Teams Meeting Manager Relationship Specialty Start Date End Date Becky Dale MD [facility] [employer], [address] [place] [address] PCP - General 06/18/14 10/03/24 documented as of this encounter
--- OUTSIDE RECORDS SUMMARY | 2024-10-17 17:01 | XMS_ITS | Encounter Summary ---
Author Organization [facility] Address [facility] [id number] [address] [place] [address] Care Team Providers Care Vocational Horticulture Instructor Name Role Phone Becky Dale MD Primary Care Provider [phone] Encounter Details Date Type Department Care Team (Late st Contact Info) Description 05/05/2020 Orders Only [facility] Pulmonology-Cystic Fibrosis [address] [facility] [address] [place] [phone] Maame Barroso LD Cystic fibrosis ([facility]) (Primary Dx); Pancreatic insufficiency Social History Tobacco [...] this encounter Visit Diagnoses Diagnosis Cystic fibrosis ([facility]-HCC)- Primary Pancreatic insufficiency Other specified disease of [...] documented as of this encounter Care Teams Vocational Horticulture Instructor Relationship Specialty Start Date End Date Becky Dale MD [address] [place] [address], [address] [place], [place] [id number] PCP - General 06/18/14 10/03/24 documented as of this encounter
--- OUTSIDE RECORDS SUMMARY | 2024-10-17 17:01 | XMS_ITS | Encounter Summary ---
Author Organization [facility] Sys tem Address [facility][id number] [address] [place] [address] Care Team Providers Care Samples And Repairs Preparer Name Role Phone Becky Dale MD Primary Care Provider [phone] Encounter Details Date Type Department Care Team (Late st Contact Info) Description 04/26/2023 Orders Only [facility] Pulmonology-Cystic Fibrosis [address] [facility] [address] [place] [phone] Jonah Mosqueda CMA Cystic fibrosis ([facility]) (Primary Dx) Social History Tobacco Use Types [...] this encounter Visit Diagnoses Diagnosis Cystic fibrosis ([facility])- Primary Cystic fibrosis without mention of meconium ileus Cystic fibrosis ([facility]) Cystic fibrosis without mention of meconium ileus documented in this encounter Additional Health Concerns Infection Onset Date Last Indicated Resolved Time Other MDRO Comment:CYSTIC F 06/05/2007 06/05/2007 COVID-19 Rule-Out 11/15/2023 11/16/2023 11/16/2023 1:40 AM EDT Assessment Noted Time PHQ-9 Depression Total Score: 1 01/25/20 4:27 PM EDT documented as of this encounter Care Teams Samples And Repairs Preparer Relationship Specialty Start Date End Date Becky Dale MD [address] [place] [address], [address] [place] [address] PCP - General 06/18/14 10/03/24 documented as of this encounter
--- OUTSIDE RECORDS SUMMARY | 2024-10-17 17:01 | XMS_ITS | Encounter Summary ---
Author Organization [employer] [facility] Address [facility] [place]-[id number] [address] [place] [address] Care Team Providers Care Clerical Warehouse Worker Name Role Phone Becky Dale MD Primary Care Provider [phone] Reason for Visit * Reason Comments Med Refill Encounter Details Date Type Department Care Team (Late st Contact Info) Description 02/08/2024 Refill [facility] Pulmonology-Cystic Fibrosis [address] [facility] [address] [place] [phone] Becky Dale MD [address] [place] [address] DR[address], [address] [place] [address] Social History Tobacco Use Types Packs/Day Years Used Date Smoking Tobacco: Never Smokeless Tobacco: Never Comments:No smoke exposure Alcohol Use Standard Drinks/Week Comments No 0 (1 standard drink = 0.6 oz pur e alcohol) [facility] Utilities Answer Date Recorded In the past 12 months has [employer], frenting, oil, or water [employer] threatened to shut off services in your [...] Increase physical activity Lifestyle No Fidelina Henley, BOTTLE SELECTOR Note: Evaluation of progress towards goal: Pt [...] documented as of this encounter Care Teams Clerical Warehouse Worker Relationship Specialty Start Date End Date Becky Dale MD [facility] [employer], [address] [place] [address] PCP - General 06/18/14 10/03/24 documented as of this encounter
--- OUTSIDE RECORDS SUMMARY | 2024-10-17 17:01 | XMS_ITS | Encounter Summary ---
Author Organization [facility] Address [address] [place] [address] Care Team Providers Care Nail Puller Name Role Phone Chapo Mitchell MD Primary Care Provider [phone] Source Comments In the event this information is protected by the Federal Confidentiality of Alcohol and Drug AbusePatient Records regulations: The Federal rules restrict any use of the information to criminally investigate or prosecute any alcohol or drug abuse patient.[facility] Encounter Details Date Type Department Care Team (Late st Contact Info) Description 08/09/2024 Get Medical Advice Pulmonary Medicine [address] [place] [phone] Randee Johnson APRN.[address] [id number] Prednisone Social History Tobacco Use Types Packs/Day Years Used Date Smoking Tobacco: Never Passive Smoke Exposure: Never Smokeless Tobacco: Never Alcohol Use Standard Drinks/Week Comments Never 0 (1 standard drink = 0.6 oz pur e alcohol) [facility] Utilities Answer Date Recorded In [...] place to sleep or slept in a [place] health [place] facility (including now)? No 12/09/2023 Housing Stability Vital Sign Answer Ernst e Recorded In the last 12 months, was t here a time when you were not able to pay the mortgage or rent on time? No 07/30/2024 Number of Times Moved in the Last Year Not on fi le 07/30/2024 At any time in the past [address] [facility], were you homeless or living in a [place] health care facility (including now)? No 07/30/2024 Area Deprivation Index Answer Date Akhil rded National Score (1-100), lower number is lower ri sk 89 12/08/2023 State Score (1-10), lower number is lower risk 8 12/08/2023 Data from: https://www.neighborhoodatlas.medicine.[facility].edu/. 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] 11/08/2024 9:45 AM EDT Appointment Radiology [address] [place] [phone] US ELASTOGRAPHY LIVER 11/08/2024 10:45 AM EDT Office Visit Pulmonary Medicine [address] [address] Randee Johnson, EXECUTIVE PERSONAL ASSISTANT.DECISION SCIENCE ANALYST [address] [place] [address] follow up 4-5 weeks 11/08/2024 1:30 PM EDT Appointment Radiology [address] [place] [phone] [place] ABD RIGHT UPPER QUADRANT 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] 11/23/2024 3:05 PM EDT Office Visit Otolaryngology [address] [place] [address] Diya Bedolla MD [address] [place], [place] [phone] 6 month follow up documented as of this encounter Visit Diagnoses Not on filedocumented in this encounter Additional Health Concerns Infection Onset Date Last Indicated Resolved Time Respiratory Rule-Out 10/03/2024 10/03/2024 025 11:45 PM EDT Parainfluenza Virus 10/03/2024 10/03/2024 documented as of this encounter Care Teams Nail Puller Relationship Specialty Start Date End Date Chapo Mitchell MD [address] [address] PCP - General Pulmonary and Critical Care Medicine 12/08/23 documented as of this encounter
--- OUTSIDE RECORDS SUMMARY | 2024-10-17 17:01 | XMS_ITS | Encounter Summary ---
Author Organization [facility] Address [facility]-[id number] [address] [place] [address] Care Team Providers Care Rejector Name Role Phone Becky Dale MD Primary Care Provider [phone] Encounter Details Date Type Department Care Team (Late st Contact Info) Description 03/15/2022 Telephone [facility] Pulmonology-Cystic Fibrosis [address] [facility] [address] [place] [phone] Taisha Adorno, BLUE LEATHER SETTER-BOTTLE LABEL INSPECTOR [address] [facility], [facility] [address] [place], [place] [phone] Social History Tobacco Use Types Packs/Day Years [...] Increase physical activity Lifestyle No Fidelina Henley, MARKER MACHINE Note: Evaluation of progress towards goal: Pt [...] documented as of this encounter Care Teams Rejector Relationship Specialty Start Date End Date Becky Dale MD [address] [place] [address], [place] [address] PCP - General 06/18/14 10/03/24 documented as of this encounter
--- OUTSIDE RECORDS SUMMARY | 2024-10-17 17:01 | XMS_ITS | Encounter Summary ---
Author Organization [facility] Address [facility]-[id number] [address] [place] [address] Care Team Providers Care Credit Clerk Name Role Phone Becky Dale MD Primary Care Provider Encounter Details Date Type Department Care Team (Late st Contact Info) Description 07/22/2020 Orders Only [facility] Pulmonology-Cystic Fibrosis [address] [facility] [address] [place] [phone] Jonah Mosqueda CMA Cystic fibrosis ([facility]) (Primary Dx) Social History Tobacco [...] this encounter Visit Diagnoses Diagnosis Cystic fibrosis ([facility])- Primary Cystic fibrosis without mention of meconium ileus Cystic fibrosis ([facility]) Cystic fibrosis without mention of meconium [...] documented as of this encounter Care Teams Credit Clerk Relationship Specialty Start Date End Date Becky Dale MD [facility] [employer], [address] [place] [address] PCP - General 06/18/14 10/03/24 documented as of this encounter
--- OUTSIDE RECORDS SUMMARY | 2024-10-17 17:01 | XMS_ITS | Encounter Summary ---
Author Organization [employer] Address [facility][id number] [address] [place] [address] Care Team Providers Care Side Stitching Machine Operator Name Role Phone Becky Dale MD Primary Care Provider [phone] Encounter Details Date Type Department Care Team (Late st Contact Info) Description 01/21/2022 Telephone [facility] Pulmonology-Cystic Fibrosis [address] [facility] [address] [place] [phone] Rina Wynn LPN Social History Tobacco Use [...] documented as of this encounter Care Teams Side Stitching Machine Operator Relationship Specialty Start Date End Date Becky Dale MD [facility] [employer], [address] [place], [place] [phone] PCP - General 06/18/14 10/03/24 documented as of this encounter
--- OUTSIDE RECORDS SUMMARY | 2024-10-17 17:01 | XMS_ITS | Encounter Summary ---
Author Organization [facility] tem Address [facility][id number] [address] [place] [address] Care Team Providers Care Tie Presser Name Role Phone Becky Dale MD Primary Care Provider [phone] Encounter Details Date Type Department Care Team (Late st Contact Info) Description 04/19/2022 Telephone [facility] [place] [facility] [address] [place] [phone] Gauri Andrews RN Social History Tobacco Use [...] documented as of this encounter Care Teams Tie Presser Relationship Specialty Start Date End Date Becky Dale MD [address] [place] [address], [place] [address] PCP - General 06/18/14 10/03/24 documented as of this encounter
--- OUTSIDE RECORDS SUMMARY | 2024-10-17 17:01 | XMS_ITS | Encounter Summary ---
Author Organization [facility] Address [facility]-[id number] [address] [place] [address] Care Team Providers Care Telehealth Director Name Role Phone Becky Dale MD Primary Care Provider [phone] Encounter Details Date Type Department Care Team (Late st Contact Info) Description 01/01/2022 Orders Only [facility]-Cystic Fibrosis [address] [facility] [address] [place] [phone] Jonah Mosqueda CMA Cough (Primary Dx) Social [...] documented as of this encounter Care Teams Telehealth Director Relationship Specialty Start Date End Date Becky Dale MD [address] [place] [address], [address] [place] [address] PCP - General 06/18/14 10/03/24 documented as of this encounter
--- OUTSIDE RECORDS SUMMARY | 2024-10-17 17:01 | XMS_ITS | Encounter Summary ---
Author Organization [employer] Sys tem Address [facility] [place][id number] [address] [place] [address] Care Team Providers Care Pet Care Attendant Name Role Phone Becky Dale MD Primary Care Provider [phone] Reason for Visit * Reason Comments Med Refill Encounter Details Date Type Department Care Team (Late st Contact Info) Description 02/17/2024 Refill [facility]mon[facility]-Cystic Fibrosis [address] [facility] [address] [place] [phone] Becky Dale MD [address] [place] [address] [address], [address] [place] [address] Social History Tobacco Use Types Packs/Day Years Used Date Smoking Tobacco: Never Smokeless Tobacco: Never Comments:No smoke exposure Alcohol Use Standard Drinks/Week Comments No 0 (1 standard drink = 0.6 oz pur e alcohol) [facility] Utilities Answer Date Recorded In the past 12 months has [employer], [employer], oil, or water [employer] threatened to shut off services in your [...] Increase physical activity Lifestyle No Fidelina Henley, COMB WINDER Note: Evaluation of progress towards goal: Pt [...] documented as of this encounter Care Teams Pet Care Attendant Relationship Specialty Start Date End Date Becky Dale MD [facility] [address], [address] [place] [address] PCP - General 06/18/14 10/03/24 documented as of this encounter
--- OUTSIDE RECORDS SUMMARY | 2024-10-17 17:01 | XMS_ITS | Encounter Summary ---
Author Organization [employer] Sys tem Address [facility]-[id number] [address] [place] [address] Care Team Providers Care Retail Representative Name Role Phone Becky Dale MD Primary Care Provider Reason for Visit * Reason Onset Date Comments Med Refill 05/08/2018 Encounter Details Date Type Department Care Team (Late st Contact Info) Description 05/08/2018 Refill [facility] Pulmonology-Cystic Fibrosis [address] [facility] [address] [place] [phone] Christy Bhatia RN Social History Tobacco Use [...] documented as of this encounter Care Teams Retail Representative Relationship Specialty Start Date End Date Becky Dale MD [address] [place] [address], [address] [place], [place] [id number] PCP - General 06/18/14 10/03/24 documented as of this encounter
--- OUTSIDE RECORDS SUMMARY | 2024-10-17 17:01 | XMS_ITS | Encounter Summary ---
Author Organization [employer] Sys tem Address [facility] [place][id number] [address] [place] [address] Care Team Providers Care Health Education Director Name Role Phone Becky Dale MD Primary Care Provider [phone] Reason for Visit * Reason Comments Med Refill Encounter Details Date Type Department Care Team (Late st Contact Info) Description 06/20/2024 Refill [facility] Pulmonology-Cystic Fibrosis [address] [place] [address] [address] [place] [phone] Becky Dale MD [address] [place] [address], [address] [place], [place] [phone] Cystic fibrosis ([facility]); Cystic fibrosis ([facility]); Pancreatic insufficiency; Cystic fibrosis of the lung ([facility]); Allergic rhinitis Social History Tobacco Use Types Packs/Day Years Used Date Smoking Tobacco: Never Smokeless Tobacco: Never Comments:No smoke exposure Alcohol Use Standard Drinks/Week Comments No 0 (1 standard drink = 0.6 oz pur e alcohol) [facility] Utilities Answer Date Recorded In the past 12 months has [employer], gas, oil, or water [email or web address] threatened to shut off services in your [...] documented as of this encounter Care Teams Health Education Director Relationship Specialty Start Date End Date Becky Dale MD [address] [place] [address], [address] [place] [id number] PCP - General 06/18/14 10/03/24 documented as of this encounter
--- OUTSIDE RECORDS SUMMARY | 2024-10-17 17:01 | XMS_ITS | Encounter Summary ---
Author Organization [employer] Sys tem Address [id number] [address] [place] [address] Care Team Providers Care Fourth Mate Name Role Phone Becky Dale MD Primary Care Provider [phone] Encounter Details Date Type Department Care Team (Late st Contact Info) Description 04/08/2022 Telephone [facility]mon[facility]-Cystic Fibrosis [address] [phone] Samy Cam RN Social History Tobacco Use [...] Increase physical activity Lifestyle No Fidelina Henley, STARS SPECIALIST Note: Evaluation of progress towards goal: Pt [...] documented as of this encounter Care Teams Fourth Mate Relationship Specialty Start Date End Date Becky Dale MD [address] [place] [address], [place] [address] PCP - General 06/18/14 10/03/24 documented as of this encounter
--- OUTSIDE RECORDS SUMMARY | 2024-10-17 17:01 | XMS_ITS | Encounter Summary ---
Author Organization [employer] Sys tem Address [facility] [id number] [address] [place] [address] Care Team Providers Care Product Development Name Role Phone Becky Dale MD Primary Care Provider [phone] Encounter Details Date Type Department Care Team (Late st Contact Info) Description 03/08/2022 Telephone [facility] Pulmonology-Cystic Fibrosis [address] [phone] Samy Cam RN Social History Tobacco Use [...] Cam RN - 03/08/2022 4:30 PM EST Ice Bag Assembler had a care team conference with Dr. [...] Cam RN - 03/08/2022 4:30 PM EST Ice Bag Assembler called back to let mom know that the [facility] CF team would like her to come in on Tuesday afternoon and be seen with the nurse practitioner in the office. The [facility] doctors do not have any appointments available for the next few weeks and they did not want to wait to get patient in to be seen.They had a plan in place and customs entry writer explained the plan in detail as [...] was pressured speech and defensive towards the customs entry writer and stated that they would not be coming in to see the nurse practitioner because she is just a nurse and what is she going to be able to do for the patient , it would be no different if the customs entry writer was to see the patient for a visit. She needs a physician to be seeing her daughter and they do this to them every time they are sick theythrow them into the adult world during one of their sickest hospital stays and now they are doing it now and they will not be coming. Ice Bag Assembler verbalized she understood the mother's frustration, she stated that the nurse practitioner that they would be seeing is very knowledgeable in CF because she sees and manages the adult cf patients at the center. The nurse practitioner manages some pretty sickadult CF patients and that a new perspective could be a good thing for the patient, also that the [facility] physicians would be available for the nurse practiconer to update and bounce ideas off of because she does not change big things especially in this case without collaborating with a physician first. Plus the nurse practiceoner had a detailed conversation with the [facility] cf team about what their [...] adult providers now that they are sick Ice Bag Assembler let mom know that when the patient [...] documented as of this encounter Care Teams Product Development Relationship Specialty Start Date End Date Becky Dale MD [address] [place] [address], [address] [place] [address] PCP - General 06/18/14 10/03/24 documented as of this encounter
--- OUTSIDE RECORDS SUMMARY | 2024-10-17 17:01 | XMS_ITS | Clinical Summary ---
Author Organization [employer] tem Address [facility] [place]-[id number] [address] [place] [address] Care Team Providers Care Investment Sales Assistant Name Role Phone Unavailable Primary Care Provider Unavailabl e Allergies Active Allergy Reactions Criticality Noted Date Comments Sulfamethoxazole-Trimethoprim Swelling,Rash Medium Voriconazole Facial Swelling 03/30/2023 Medications inhalational spacing device (AEROCHAMBER WITH FLOWSIGNAL) spacerIndications:C ystic fibrosis of the lung ([facility]) use with MDI as directed 1 each 09/23/19 22 Active compressor, for nebulizer (DEVILBISS PULMO-AIDE COMPRESSR) deviceIndications:C ystic fibrosis ([facility]) Per CF guidelines please dispense pulmoaide to nebulize inhaled medications. 1 each 03/16/20 22 Active compressor, for nebulizer deviceIndications:C ystic fibrosis ([facility]) Please dispense [place] Erin nebulizer 1 each 03/22/20 22 Active fluticasone propionate (FLONASE) 50 mcg/actuation nasal sprayIndications:Cy stic fibrosis of the lung ([facility]) Administer 1 spray into each nostril in the morning. 16 g 06/09/19 23 Active pediatric multivit 22-D3-vit K (MVW COMPLETE FORMUL MULTIVIT) 1,500-1,000 unit-mcg tablet,chewableIndi cations:Cystic fibrosis ([facility]) Chew 2 tablets and swallow in the morning. (Treasure flavor). 60 tablet 11 06/09/19 23 Active sodium chloride 3 % nebulizer solution Inhale by nebulization 2 (two) times a day. 750 mL 06/09/19 Active nebulizers miscIndications:Cys tic fibrosis ([facility]) Please dispense 1 altera handset for cayston nebulization. 1 each 10/15/19 Active nebulizers (ALTERA NEBULIZER SYSTEM) miscIndications:Cys tic fibrosis ([facility]) Please dispense altera handset and neb cups for cayston administration 1 each 11/03/19 Active nebulizers (KudoalaA NEBULIZER SYSTEM) miscIndications:Cys tic fibrosis ([facility]) Please dispense 1 altera nebulizer machine for cayston administration 1 each 11/13/19 Active syringe with needle, safety 10 mL 18 gauge x 1 1/2 syringeIndications: Cystic fibrosis ([facility]) To be used to reconstitute medication 28 each 12/07/19 Active sterile water, PF, (sterile water, preservative free,) solutionIndications :Cystic fibrosis ([facility]) To reconstitute with fortaz/ceftazidim e. Mix 10 ml daily for 28 days on and 28 days off cycling. 280 mL 12/07/19 Active aztreonam lysine ([facility]) 75 mg/mL solution for nebulization Inhale 75 mg by nebulization every 8 (eight) hours. Active budesonide (PULMICORT) 0.5 mg/2 mL nebulizer solutionIndications :Cystic fibrosis ([facility]) Administer 2 mL (0.5 mg total) into each nostril in the morning and 2 mL (0.5 mg total) before bedtime. 120 mL 02/06/20 Active sod nkuic-ymzpuc-yzghqs bottle (AYR NASAL RINSE) packet with rinse [...] mg/0.3 mL auto-injectorIndica tions:ABPA (allergic bronchopulmonary aspergillosis) ([facility]),Severe persistent asthma without complication ([facility]) Inject 0.3 mL (0.3 mg total) into the appropriate muscle as needed (anaphylaxis). 2 each 1 02/18/20 23 Active elexacaftor-tezacaf tor-ivacaft (TRIKAFTA) 100-50-75 mg(d) /150 mg (n) tablets, sequentialIndicatio ns:Cystic fibrosis ([facility]) Two tablets in the AM and one tablet in the pm 84 tablet 11 03/03/20 23 Active fluticasone propion-salmeteroL (AIRDUO RESPICLICK) 232-14 mcg/actuation aerosol powdr breath activatedIndication s:Cystic fibrosis ([facility]) Inhale 1 puff in the morning and 1 puff before bedtime. 1 each 03/03/20 23 Active budesonide (PULMICORT) 1 mg/2 mL nebulizer solutionIndications :Cystic fibrosis ([facility]),ABPA (allergic bronchopulmonary aspergillosis) ([facility]),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[facility]) Inhale 2 mL (1 mg total) by nebulization once daily. 60 mL 03/30/20 23 Active predniSONE (DELTASONE) 5 mg tabletIndications:C ystic fibrosis ([facility]),ABPA (allergic bronchopulmonary aspergillosis) ([facility]) Take 1 tablet (5 mg total) by mouth every other day. 30 tablet 04/27/19 24 Active PULMOZYME 1 mg/mL nebulizer solutionIndications :Cystic fibrosis ([facility]) INHALE CONTENTS OF ONE VIAL VIA NEBULIZER ONCE DAILY. KEEP REFRIGERATED UNTIL USE. 75 mL 06/15/19 24 Active omeprazole (PriLOSEC) 20 mg capsuleIndications: Cystic fibrosis ([facility]),Pancreati c insufficiency TAKE 1 CAPSULE (20 MG TOTAL) BY MOUTH IN THE MORNING. 30 capsule 06/15/19 24 Active ALLERGY RELIEF, LORATADINE, 10 mg tabletIndications:C ystic fibrosis of the lung ([facility]),Allergic rhinitis TAKE 1 TABLET (10 MG TOTAL) BY MOUTH DAILY NEEDED FOR ALLERGIES. 30 tablet 06/15/19 24 Active yaoepy-ynaqbcts-xoc lase (CREON) 24,000-76,000 -120,000 unit capsule,delayed release(DR/EC)Indic ations:Cystic fibrosis ([facility]) TAKE 1-2 CAPSULES WITH MEALS AND SNACKS. ALLOWING FOR 3 MEALS AND 3 SNACKS PER DAY. 12 CAPS/DAY 360 capsule 06/15/19 24 Active albuterol (VENTOLIN HFA) 90 mcg/actuation inhalerIndications: Cystic fibrosis of the lung ([facility]) INHALE 2 PUFFS TWICE DAILY AND EVERY 4 HOURS NEEDED. 18 g 06/15/19 24 Active cholecalciferol, vitamin D3, (VITAMIN D3) 5,000 units capsuleIndications: Pancreatic insufficiency due to cystic fibrosis ([facility]) TAKE 1 CAPSULE (5,000 UNITS TOTAL) BY MOUTH IN THE MORNING. 30 capsule 11 06/16/19 24 Active miscellaneous medical supply tray [...] mg/mL syringeIndications: Severe persistent asthma without complication ([facility]),Elevated IgE level,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[facility]) Inject 2 mL (300 mg total) under the skin every 14 (fourteen) days. 4 mL 3 07/25/19 24 Active nebulizers (ANNIE LC D NEBULIZER) miscIndications:Cys tic fibrosis ([facility]) Please dispense annie set up with mask per CF guidelines with inhaled medications 1) Albuterol 2) Hypertonic saline 3% . 3)Fortaz 4)Pulmozyme 5) Pulmicort 10 each 1 08/03/19 24 Active tiotropium bromide (SPIRIVA RESPIMAT) 1.25 mcg/actuation mist INHALE 2 PUFFS BY MOUTH IN THE MORNING. 4 g 5 08/17/19 24 Active Active Problems Problem Noted Date Diagnosed Date Cystic fibrosis exacerbation 05/30/2023 Cystic fibrosis with pulmonary exacerbation 06/0 11/2021 Chronic pansinusitis 04/10/2020 Moderate persistent asthma without complication 03/29/2019 Pseudomonas aeruginosa colonization 09/04/2018 MSSA (methicillin-susceptibl e Staphylococcus aureus) colonization 06/29/2018 Infection due to Stenotrophomonas maltophilia Pancreatic insufficiency 02/18/2005 Cystic fibrosis 02/15/2005 Overview (04/27/2018): [id number] Resolved Problems Problem Noted Date Diagnosed Date Resolved Date Exacerbation of cystic fibrosis 09/30/2022 01/25/2023 Cystic fibrosis exacerbation 11/26/2021 10/01/2022 Anaphylaxis 03/04/2021 07/30/2021 Cystic fibrosis exacerbation 06/25/2020 07/30/2021 Cystic fibrosis with pulmonary exacerbation 01/08/2020 07/30/2021 Exacerbation of cystic fibrosis 06/05/2019 07/30/2021 Cystic fibrosis with pulmonary exacerbation 02/27/2019 06/06/2019 Exacerbation of cystic fibrosis 10/06/2017 03/08/2019 Encounters Date Type Department Care Team Description 10/04/2024 Orders Only Maribel Snow [facility] - Medical Oncology [address] [place] [phone] Karly Da Silva RN 10/02/2024 3:00 PM EDT Infusion Maribel Snow [facility] - Medical Oncology [address] [place] [phone] Cystic fibrosis ([facility]) (Primary Dx) 10/01/2024 Travel 09/12/2024 Travel from Last 3 Months Immunizations Immunization Administration Dates Next Due Covid-19, Mrna, Lnp-s, Pf, 3 0 Mcg/0.3 Ml Dose, King-sucrose 12/11/2021 DTaP 09/11/2007, 4,06/27/2003,04/23,02/19/2003 DTaP, Unspecified 09/11/2007,04/23/2003,02/20/20 [...] drink = 0.6 oz pur e alcohol) [facility] Utilities Answer Date Recorded In the past [...] Done Comments Pap Smear 12/15/2023 COVID-19 Vaccine (2023-2 5 season) 2023 12/11/2021, 08/27/2020, 08/06/2020 Depression [...] short walk. Medical Devices Implanted Type Area Fire Control Technician Device Identifier Shelf Expiration Date Model / Serial / Lot Port Powerport Clrvu 8fr Intmd Kt Slim Implinfn Lf - [id number] Implanted:Qty: 1 on 06/16/2023 at [facility] [id number] 07/23/2024 [id number] / / [id number] Procedures Procedure Name Priority Date/Time Associated Diagnosis Comments ITRACONAZOLE, SERUM Routine 09/12/2024 5 :12 PM EDT Cystic fibrosis with other manifestations (CMS-HCC) IGE Routine 09/12/2024 5:12 PM EDT Cystic fibrosis with other manifestations (CMS-HCC) CBC WITH AUTO DIFFERENTIAL Routine 09/12/2024 5:12 PM EDT Cystic fibrosis with other manifestations (CMS-HCC) from Last 3 Months Results * Itraconazole, Serum (09/12/2024 5:12 PM EDT) ITRACONAZOLE, S <0.1 mcg/mL 11:44 AM EDT [facility] [employer] Comment: REFERENCE VALUE >0.5 (localized infection), >1.0 (systemic infection) HYDROXYITRACONAZOLE <0.1 mcg/mL 09/14 11:44 AM EDT [facility] [employer] Comment: REFERENCE VALUE No therapeutic range established; activity and serum concentration are similar to parent drug. ADDITIONAL INFORMATION This test was developed and its performance characteristics determined by [facility] in a manner consistent with CLIA requirements. This test has not been cleared or approved by the U.S. Food and Drug Administration. Test Performed by: [facility] [employer] - [address] [address] Barge Loader: Patricia Laura Ph.D.; CLIA# [id number] Blood Venous blood / Unknown Venipuncture / Unknown 09/12/2024 5:12 PM EDT 09/12/2024 5:12 PM EDT us Chapo Mitchell MD LAB BLOOD ORDERABLES Final Res ult [facility] [address] [place] [address], * (ABNORMAL) CBC auto differential (09/12/2024 5:12 PM EDT) WBC 17.4(H) 4 - 11 x10E9/L 09/12/2024 9:24 PM EDT [facility] RBC Count 4.24 3.8 - 5.2 X10E12/L 09/12/2024 9:24 PM EDT [facility] Hemoglobin 10.7(L) 11.7 - 15.5 g/dL 09/12/2024 9:24 PM EDT [facility] Hematocrit 33.1(L) 35 - 47 % 09/12/2024 9:24 PM EDT [facility] MCV 78(L) 80 - 100 fL 09/12/2024 9:24 PM EDT [facility] MCH 25.1(L) 27 - 34 pg 09/12/2024 9:24 PM EDT [facility] MCHC 32.2 32 - 36 g/dL 09/12/2024 9:24 PM EDT [facility] RDW 17.1(H) 11.5 - 15 % 09/12/2024 9:24 PM EDT [facility] Platelet Count 454(H) 150 - 450 X10E9/L 09/12/2024 9:24 PM EDT [facility] MPV 7.7 7 - 12 fL 09/12/2024 9:24 PM EDT [facility] Neutrophils % 69.8 % 09/12/2024 9:24 PM EDT [facility] Lymphocytes % 21.6 % 09/12/2024 9:24 PM EDT [facility] Monocytes % 7.2 % 09/12/2024 9:24 PM EDT [facility] Eosinophils % 1.0 % 09/12/2024 9:24 PM EDT [facility] Basophils % 0.4 % 09/12/2024 9:24 PM EDT [facility] Neutrophils Absolute (A) 12.1(H) 1.5 - 6.6 10*3/uL 09/12/2024 9:24 PM EDT [facility] Lymphocytes Absolute 3.8(H) 1.0 - 3.5 10*3/uL 09/12/2024 9:24 PM EDT [facility] Monocytes Absolute 1.2(H) 0.0 - 0.9 10*3/uL 09/12/2024 9:24 PM EDT [facility] Eosinophils Absolute 0.2 0.0 - 0.4 10*3/uL 09/12/2024 9:24 PM EDT [facility] Basophils Absolute 0.1 0.0 - 0.2 10*3/uL 09/12/2024 9:24 PM EDT [facility] Differential Type AUTOMATED DIFFERENTIAL 09/12/2024 9:24 PM EDT [facility] Blood Venous blood / Unknown Venipuncture / Unknown 09/12/2024 5:12 PM EDT 09/12/2024 5:12 PM EDT us Chapo Mitchell MD LAB BLOOD ORDERABLES Final Res ult [facility] [address] [place] [address], [place] [phone] * (ABNORMAL) IgE (09/12/2024 5:12 PM EDT) IGE 1,530(H) <=165 IU/mL 09/13/2024 11:47 AM EDT [facility] Blood Venous blood / Unknown Venipuncture / Unknown 09/12/2024 5:12 PM EDT 09/12/2024 5:12 PM EDT us Chapo Mitchell MD LAB BLOOD ORDERABLES Final Res ult [facility] [address] [place] [address], [place] [phone] from Last 3 Months Additional Health Concerns Infection Onset Date Last Indicated Other MDRO Comment:CYSTIC F 06/05/2007 06/05/2007 Insurance [facility] [employer] MEDICAID [facility] Advance Directives * Full Code (Latest Code [...]
--- OUTSIDE RECORDS SUMMARY | 2024-10-17 17:01 | XMS_ITS | Encounter Summary ---
Author Organization [employer] Sys [employer] Address [facility][id number] [address] [place] [address] Care Team Providers Care Adoption Worker Name Role Phone Becky Dale MD Primary Care Provider [phone] Reason for Visit * Reason Comments Med Refill Encounter Details Date Type Department Care Team (Late st Contact Info) Description 05/24/2024 Refill [facility] Pediatric Pulmonology-Cystic Fibrosis [address] [place] [address] [address] [place] [phone] Becky Dale MD [address] [place] [address], [address] [place] [address] Cystic fibrosis ([facility] ABPA (allergic bronchopulmonary aspergillosis) ([facility]); 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[facility] Social History Tobacco Use Types Packs/Day Years Used Date Smoking Tobacco: Never Smokeless Tobacco: Never Comments:No smoke exposure Alcohol Use Standard Drinks/Week Comments No 0 (1 standard drink = 0.6 oz pur e alcohol) [facility] Utilities Answer Date Recorded In the past 12 months has [employer], gas, oil, or water [employer] threatened to shut off services in your [...] Cystic fibrosis ([facility]) ABPA (allergic bronchopulmonary aspergillosis) ([facility]) Allergic bronchopulmonary aspergillosis 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[facility] documented in this encounter Additional Health Concerns Infection Onset Date Last Indicated Resolved Time Other MDRO Comment:CYSTIC F 06/05/2007 06/05/2007 Assessment Noted Time PHQ-9 Depression Total Score: 0 05/31/19 24 12:42 PM EST documented as of this encounter Care Teams Adoption Worker Relationship Specialty Start Date End Date Becky Dale MD [address] [place] [address], [address] [place] [phone] PCP - General 06/18/14 10/03/24 documented as of this encounter
--- OUTSIDE RECORDS SUMMARY | 2024-10-17 17:01 | XMS_ITS | Encounter Summary ---
Author Organization [facility] Address [facility][id number] [address] [place] [address] Care Team Providers Care Blueprint Clerk Name Role Phone Becky Dale MD Primary Care Provider [phone] Encounter Details Date Type Department Care Team (Late st Contact Info) Description 12/26/2020 Orders Only [facility] Horizontal Boring Mill Set Up Operator Sign In [facility] [place] [address] Ros Muniz MD [address] [place] [address], [address] [place] [address] Social History Tobacco Use Types [...] documented as of this encounter Care Teams Blueprint Clerk Relationship Specialty Start Date End Date Becky Dale MD [address] [place] [address], [address] [place], [place] [id number] PCP - General 06/18/14 10/03/24 documented as of this encounter
--- OUTSIDE RECORDS SUMMARY | 2024-10-17 17:01 | XMS_ITS | Encounter Summary ---
Author Organization [facility] Sys tem Address [facility] [place]-[id number] [address] [place] [address] Care Team Providers Care Sail Repairer Name Role Phone Becky Dale MD Primary Care Provider [phone] Reason for Visit * Reason Comments Med Refill Encounter Details Date Type Department Care Team (Late st Contact Info) Description 06/12/2021 Refill [facility]mon[facility]-Cystic Fibrosis [address] [facility] [address] [place] [phone] Becky Dale MD [address], [address] [place], [place] [phone] Cystic fibrosis ([facility]) Social History Tobacco Use Types Packs/Day Years [...] Increase physical activity Lifestyle No Kale, Fidelina, NETWORK OPERATIONS MANAGER Note: Evaluation of progress towards goal: [...] documented as of this encounter Care Teams Sail Repairer Relationship Specialty Start Date End Date Becky Dale MD [address] [place] [address], [address] [place] [address] PCP - General 06/18/14 10/03/24 documented as of this encounter
--- OUTSIDE RECORDS SUMMARY | 2024-10-17 17:01 | XMS_ITS | Encounter Summary ---
Author Organization [employer] Sys tem Address [facility][id number] [address] [place] [address] Care Team Providers Care Bench Tool Maker Name Role Phone Becky Dale MD Primary Care Provider [phone] Encounter Details Date Type Department Care Team (Late st Contact Info) Description 04/07/2021 Telephone [facility]-Cystic Fibrosis [address] [phone] Reyna Bowser, RN Social History Tobacco Use [...] Bowser RN - 04/07/2021 10:42 AM EST Speech Correction Assistant received a faxed prescription request for Creon 24,000 from [facility]. Previousmedications have been filled through [facility]. Jaiden attempted to contact mom to clarifywhich pharmacy the Creon needs to be at. No answer, display card writer left voicemail for return call. documented in [...] documented as of this encounter Care Teams Bench Tool Maker Relationship Specialty Start Date End Date Becky Dale MD [address] [place] [address], [address] [address] PCP - General 06/18/14 10/03/24 documented as of this encounter
--- OUTSIDE RECORDS SUMMARY | 2024-10-17 17:01 | XMS_ITS | Encounter Summary ---
Author Organization [facility] Address [facility]-[id number] [address] [place] [address] Care Team Providers Care Assistant Professor Of Philosophy Name Role Phone Becky Dale MD Primary Care Provider [phone] Encounter Details Date Type Department Care Team (Late st Contact Info) Description 03/11/2020 Telephone [facility]-Cystic Fibrosis [address] [facility] [address] [place] [phone] Anthony Cardoza MD [address] [place] [address] Social History Tobacco Use Types Packs/Day Years [...] that they would be late for appointment. Asbestos Shingle Inspector spoke with Dr. Cardoza and was told to reschedule appointment for 03/13. Asbestos Shingle Inspector called Mother back and let her knowthat we would be unable to see them today and would have to reschedule for 03/13. Mother voiced concern about having PFT being done in PPA room. Asbestos Shingle Inspector informed her that there was no availability [...] documented as of this encounter Care Teams Assistant Professor Of Philosophy Relationship Specialty Start Date End Date Becky Dale MD [address] [place] [address], [address] [place] [address] PCP - General 06/18/14 10/03/24 documented as of this encounter
--- OUTSIDE RECORDS SUMMARY | 2024-10-17 17:01 | XMS_ITS | Encounter Summary ---
Author Organization [facility] Address [facility][id number] [address] [place] [address] Care Team Providers Care Practice Architect Name Role Phone Becky Dale MD Primary Care Provider [phone] Reason for Visit * Reason Comments Med Refill Encounter Details Date Type Department Care Team (Late st Contact Info) Description 02/13/2024 Refill [facility]-Cystic Fibrosis [address] [facility] [address] [place] [phone] Becky Dale MD [address] [place] [address] DRIVE, [address] [place] [address] Social History Tobacco Use Types Packs/Day Years Used Date Smoking Tobacco: Never Smokeless Tobacco: Never Comments:No smoke exposure Alcohol Use Standard Drinks/Week Comments No 0 (1 standard drink = 0.6 oz pur e alcohol) [facility] Utilities Answer Date Recorded In the past 12 months has [employer], [employer], oil, or water [employer] threatened to shut off services in your [...] Increase physical activity Lifestyle No Fidelina Henley, POTATO SPOTTER Note: Evaluation of progress towards goal: Pt [...] documented as of this encounter Care Teams Practice Architect Relationship Specialty Start Date End Date Becky Dale MD [facility] [employer], [address] [place] [address] PCP - General 06/18/14 10/03/24 documented as of this encounter
--- OUTSIDE RECORDS SUMMARY | 2024-10-17 17:01 | XMS_ITS | Encounter Summary ---
Author Organization [facility] Sys tem Address [facility] [id number] [address] [place] [address] Care Team Providers Care Admissions Nurse Name Role Phone Becky Dale MD Primary Care Provider [phone] Reason for Visit * Reason Comments Med Refill Encounter Details Date Type Department Care Team (Late st Contact Info) Description 04/30/2024 Refill [facility]-Cystic Fibrosis [address] [facility] [address] [place] [phone] Becky Dale MD [address] [place] [address] DRIVE, [address] [place] [address] Social History Tobacco Use Types Packs/Day Years Used Date Smoking Tobacco: Never Smokeless Tobacco: Never Comments:No smoke exposure Alcohol Use Standard Drinks/Week Comments No 0 (1 standard drink = 0.6 oz pur e alcohol) [facility] Utilities Answer Date Recorded In the past 12 months has [employer], [employer], oil, or water [employer] threatened to shut off services in your [...] Increase physical activity Lifestyle No Fidelina Henley, MANAGER ASSEMBLY Note: Evaluation of progress towards goal: Pt [...] documented as of this encounter Care Teams Admissions Nurse Relationship Specialty Start Date End Date Becky Dale MD [facility] [employer], [address] [place] [address] PCP - General 06/18/14 10/03/24 documented as of this encounter
--- OUTSIDE RECORDS SUMMARY | 2024-10-17 17:01 | XMS_ITS | Encounter Summary ---
Author Organization [employer] Sys tem Address [facility] [place]-[id number] [address] [place] [address] Care Team Providers Care Envelope Machine Operator Name Role Phone Becky Dale MD Primary Care Provider [phone] Encounter Details Date Type Department Care Team (Late st Contact Info) Description 03/07/2017 Telephone [facility]-Cystic Fibrosis [address] [place] [address] [address] [place] [phone] Fidelina Henley LSW Social History Tobacco Use [...] documented as of this encounter Care Teams Envelope Machine Operator Relationship Specialty Start Date End Date Bceky Dale MD [address] [place] [address], [address] [place], [place] [id number] PCP - General 06/18/14 10/03/24 documented as of this encounter
--- OUTSIDE RECORDS SUMMARY | 2024-10-17 17:01 | XMS_ITS | Encounter Summary ---
Author Organization [facility] [employer] Sys tem Address [facility] [place]-[id number] [address] [place] [address] Care Team Providers Care Bulk Plant Agent Name Role Phone Becky Dale MD Primary Care Provider [phone] Encounter Details Date Type Department Care Team (Late st Contact Info) Description 06/06/2020 Orders Only [facility]ystic Fibrosis [address] [facility] [address] [place] [phone] Kt Hardin MD [address] [facility], [address] Provider left PM 06/2023 [place] [address] Social History Tobacco Use Types Packs/Day Years [...] documented as of this encounter Care Teams Bulk Plant Agent Relationship Specialty Start Date End Date Becky Dale MD [address] [place] [address], [address] [address] PCP - General 06/18/14 10/03/24 documented as of this encounter
--- OUTSIDE RECORDS SUMMARY | 2024-10-17 17:01 | XMS_ITS | Encounter Summary ---
Author Organization [employer] Sys tem Address [facility] [place][id number] [address] [place] [address] Care Team Providers Care Partnership Development Manager Name Role Phone Becky Dale MD Primary Care Provider [phone] Reason for Visit * Reason Onset Date Comments Maria Guadalupe S Trek aerosol machine 02/17/2017 Let mom know that [facility] has Rx and office visit notes, call NWO to find out when to picker machine operator machine. Encounter Details Date Type Department Care Team (Late st Contact Info) Description 02/17/[address] [address] [facility] [address] [place] [phone] Deonna Oviedo RCP Maria Guadalupe S Trek aerosol machine (Let mom know that [facility] has Rx and office visit notes, call NWO to find out when to picker machine operator machine.) Social History Tobacco Use Types Packs/Day [...] documented as of this encounter Care Teams Partnership Development Manager Relationship Specialty Start Date End Date Becky Dale MD [address] [place] [address], [address] [place], [place] [phone] PCP - General 06/18/14 10/03/24 documented as of this encounter
--- OUTSIDE RECORDS SUMMARY | 2024-10-17 17:01 | XMS_ITS | Encounter Summary ---
Author Organization [facility] tem Address [facility] [place]-[id number] [address] [place] [address] Care Team Providers Care Rover Tender Name Role Phone Becky Dale MD Primary Care Provider [phone] Encounter Details Date Type Department Care Team (Late st Contact Info) Description 08/12/2023 Orders Only [facility] [address] [place] [address] [address] [place] [phone] Nadeen Sandra CMA CF (cystic fibrosis) ([facility]) (Primary Dx) Social History Tobacco Use Types Packs/Day Years Used Date Smoking Tobacco: Never Smokeless Tobacco: Never Comments:No smoke exposure Alcohol Use Standard Drinks/Week Comments No 0 (1 standard drink = 0.6 oz pur e alcohol) [facility] Utilities Answer Date Recorded In the past 12 months has [employer], gas, oil, or water company threatened to [...] Volume Loop) PFT Routine CF (cystic fibrosis) ([facility] 1 Occurrences starting 08/12/2023 until 08/11/2024 documented [...] encounter Visit Diagnoses Diagnosis CF (cystic fibrosis) ([facility] Primary Cystic fibrosis without mention of meconium ileus documented in this encounter Additional Health Concerns Infection Onset Date Last Indicated Resolved Time Other MDRO Comment:CYSTIC F 06/05/2007 06/05/2007 COVID-19 Rule-Out 11/15/2023 11/16/2023 11/16/2023 1:40 AM EDT Assessment Noted Time PHQ-9 Depression Total Score: 0 05/31/19 24 12:42 PM EST documented as of this encounter Care Teams Rover Tender Relationship Specialty Start Date End Date Becky Dale MD [address] [place] [address], [address] [place] [id number] PCP - General 06/18/14 10/03/24 documented as of this encounter
--- OUTSIDE RECORDS SUMMARY | 2024-10-17 17:01 | XMS_ITS | Encounter Summary ---
Author Organization [employer] Sys tem Address [facility] [place] [place]-[id number] [address] [place] [address] Care Team Providers Care Alodize Machine Helper Name Role Phone Becky Dale MD Primary Care Provider [phone] Reason for Visit * Reason Onset Date Comments Med Refill 04/06/2018 Encounter Details Date Type Department Care Team (Late st Contact Info) Description 04/06/2018 Refill [facility]ystic Fibrosis [address] [facility] [address] [place] [phone] Christy Bhatia RN Cystic fibrosis of the lung ([facility]) (Primary Dx) Social History Tobacco [...] CYSTIC SPUTUM Y 04/06/2018 6:22 PM EST [facility] Gram Stain Result >25 WHITE BLOOD CELLS/LPF 04/06/2018 10:51 PM EST [facility] Gram Stain Result 10 to 24 SQUAMOUS EPITHELIAL CELLS/LPF 04/06/2018 10:51 PM [facility] Gram Stain Result 0 CILIATED EPITHELIAL CELLS/LPF 04/06/2018 10:51 PM [facility] Gram Stain Result MANY GRAM POSITIVE COCCI 04/06/2018 10:51 PM [facility] Gram Stain Result RARE GRAM NEGATIVE COCCOBACILLI 04/06/2018 10:51 PM [facility] Gram Stain Result RARE GRAM POSITIVE RODS 04/06/2018 10:51 PM [facility] Culture MANY STAPHYLOCOCCUS AUREUS 04/12/2018 2:26 [...] SUNQUEST Organism STAPHYLOCOCCUS AUREUS 04/09/2018 8:50 AM [facility] Organism STAPHYLOCOCCUS AUREUS 04/09/2018 8:50 AM [facility] Organism STENOTROPHOMONAS MALTOPHILIA 04/10/2018 1:36 PM [facility] Sputum specimen (specimen) Cyst / Unknown [...] MICROBIOLOGY - GENERAL ORDERA BLES Final Result [facility] [address] [place] [address], [place] [employer] documented in this encounter Visit Diagnoses Diagnosis Cystic fibrosis of the lung ([facility] Primary Cystic fibrosis with pulmonary manifestations documented [...] documented as of this encounter Care Teams Alodize Machine Helper Relationship Specialty Start Date End Date Becky Dale MD [facility], [address] [place] [address] PCP - General 06/18/14 10/03/24 documented as of this encounter
--- OUTSIDE RECORDS SUMMARY | 2024-10-17 17:01 | XMS_ITS | Encounter Summary ---
Author Organization [employer] Sys tem Address [facility]-[id number] [address] [place] [address] Care Team Providers Care Bridge Toll Collector Name Role Phone Becky Dale MD Primary Care Provider [phone] Encounter Details Date Type Department Care Team (Late st Contact Info) Description 10/31/2020 Telephone [facility]-Cystic Fibrosis [address] [phone] Reyna Bowser, RN Social History Tobacco Use [...] Bowser RN - 10/31/2020 10:44 AM EDT Film Touch Up Inspector spoke with Dr. Matthews who stated that we will wait on antibiotic until we see Angelia at her appointment and encouraged that she increase her albuterol treatments to 4 times per day. Film Touch Up Inspector informed mom of Dr. Matthews???s advise, mom [...] most likely takeher to the emergency room. Film Touch Up Inspector verbalized understanding and informed mom that Dr. Matthews is clinical education manager if she feels that she needs to [...] documented as of this encounter Care Teams Bridge Toll Collector Relationship Specialty Start Date End Date Becky Dale MD [address] [place] [address], [place] [address] PCP - General 06/18/14 10/03/24 documented as of this encounter
--- OUTSIDE RECORDS SUMMARY | 2024-10-17 17:02 | XMS_ITS | Encounter Summary ---
Author Organization [employer] Sys tem Address [facility]-[id number] [address] [place] [address] Care Team Providers Care Air Conditioning Insulation Installer Name Role Phone Becky Dale MD Primary Care Provider [phone] Reason for Visit * Reason Onset Date Comments Med Refill 06/14/2019 Encounter Details Date Type Department Care Team (Late st Contact Info) Description 06/14/2019 Refill [facility]-Cystic Fibrosis [address] [facility] [address] [place] [phone] Christy Bhatia RN Social History Tobacco Use [...] documented as of this encounter Care Teams Air Conditioning Insulation Installer Relationship Specialty Start Date End Date Becky Dale MD [address] [place] [address], [address] [place], [place] [phone] PCP - General 06/18/14 10/03/24 documented as of this encounter
--- OUTSIDE RECORDS SUMMARY | 2024-10-17 17:02 | XMS_ITS | Encounter Summary ---
Author Organization [facility] Address [address] [place] [address] Care Team Providers Care Bus Company Manager Name Role Phone Chapo Mitchell MD Primary Care Provider [phone] Source Comments In the event this information is protected by the Federal Confidentiality of Alcohol and Drug AbusePatient Records regulations: The Federal rules restrict any use of the information to criminally investigate or prosecute any alcohol or drug abuse patient.[facility] Encounter Details Date Type Department Care Team (Late st Contact Info) Description 10/03/2024 Orders Only Pulmonary Medicine [address] [place] [address] Marily Crain RN ABPA (allergic bronchopulmonary aspergillosis) ([facility]); Cystic fibrosis ([facility]) Social History Tobacco Use Types Packs/Day Years Used Date Smoking Tobacco: Never Passive Smoke Exposure: Never Smokeless Tobacco: Never Alcohol Use Standard Drinks/Week Comments Never 0 (1 standard drink = 0.6 oz pur e alcohol) [facility] Utilities Answer Date Recorded In the past 12 months has e electric, gas, oil, or water [employer] threatened to shut off services in your [...] place to sleep or slept in a long-term (including now)? No 12/09/2023 Housing Stability Vital Sign Answer Ernst e Recorded In the last 12 months, was t here a time when you were not able to pay the mortgage or rent on time? No 07/30/2024 Number of Times Moved in the Last Year Not on fi le 07/30/2024 At any time in the past [address] [facility], were you homeless or living in a long-term (including now)? No 07/30/2024 Area Deprivation Index Answer Date Akhil rded National Score (1-100), lower number is lower ri sk 63 10/03/2024 State Score (1-10), lower number is lower risk 4 10/03/2024 Data from: https://www.neighborhoodatlas.medicine.[facility].edu/. 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] 11/08/2024 9:45 AM EDT Appointment Radiology [address] [place] [id number] US ELASTOGRAPHY LIVER 11/08/2024 10:45 AM EDT Office Visit Pulmonary Medicine [address] [place] [id number] Randee Johnson, JUKEBOX ROUTE DRIVER.AEROTRIANGULATION SPECIALIST [address] [place] [address] follow up 4-5 weeks 11/08/2024 1:30 PM EDT Appointment Radiology [address] [place] [id number] US ABD RIGHT UPPER QUADRANT 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] 11/23/2024 3:05 PM EDT Office Visit Otolaryngology [address] [address] Diya Bedolla MD [address] [place] [address] 6 month follow up documented as of this encounter Visit Diagnoses Diagnosis 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
--- OUTSIDE RECORDS SUMMARY | 2024-10-17 17:02 | XMS_ITS | Encounter Summary ---
Author Organization [facility] Address [address] [place] [address] Care Team Providers Care Weatherization Coordinator Name Role Phone Chapo Mitchell MD Primary Care Provider [phone] Source Comments In the event this information is protected by the Federal Confidentiality of Alcohol and Drug AbusePatient Records regulations: The Federal rules restrict any use of the information to criminally investigate or prosecute any alcohol or drug abuse patient.[facility] Encounter Details Date Type Department Care Team (Late st Contact Info) Description 06/06/2024 Patient Msg Pulmonary Medicine [address] [place], [place] [id number] Consuelo Brooks LISW [facility] renewal Social History Tobacco Use Types Packs/Day Years Used Date Smoking Tobacco: Never Passive Smoke Exposure: Never Smokeless Tobacco: Never Alcohol Use Standard Drinks/Week Comments Never 0 (1 standard drink = 0.6 oz pur e alcohol) [facility] Utilities Answer Date Recorded In [...] to sleep or slept in a senior care (including now)? No 12/09/2023 Area Deprivation Index Answer Date Akhil rded National Score (1-100), lower number is lower ri sk 89 12/08/2023 State Score (1-10), lower number is lower risk 8 12/08/2023 Data from: https://www.neighborhoodatlas.medicine.[facility].edu/. 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] 11/08/2024 9:45 AM EDT Appointment Radiology [address] [place] [id number] US ELASTOGRAPHY LIVER 11/08/2024 10:45 AM EDT Office Visit Pulmonary Medicine [address] [address] Randee Johnson, COREMAKER HELPER.PROPELLANT CHARGE LOADER [address] [place] [address] follow up 4-5 weeks 11/08/2024 1:30 PM EDT Appointment Radiology [address] [address] US ABD RIGHT UPPER QUADRANT 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] 11/23/2024 3:05 PM EDT Office Visit Otolaryngology [address] [address] Diya Bedolla MD [address] [place], [place] [id number] 6 month follow up documented as of this encounter Visit Diagnoses Not on filedocumented in this encounter Additional Health Concerns Infection Onset Date Last Indicated Resolved Time COVID-19 Rule-Out 07/29/2024 07/30/2024 07/30/2024 1:39 AM EDT Respiratory Rule-Out 07/29/2024 07/30/2024 025 1:39 AM EDT Respiratory Rule-Out 10/03/2024 10/03/2024 025 11:45 PM EDT Parainfluenza Virus 10/03/2024 10/03/2024 documented as of this encounter Care Teams Weatherization Coordinator Relationship Specialty Start Date End Date Chapo Mitchell MD [address], [place] [address] PCP - General Pulmonary and Critical Care Medicine 12/08/23 documented as of this encounter
--- OUTSIDE RECORDS SUMMARY | 2024-10-17 17:02 | XMS_ITS | Encounter Summary ---
Author Organization [facility] Address [address] [place] [address] Care Team Providers Care Director Translational Name Role Phone Chapo Mitchell MD Primary Care Provider [phone] Source Comments In the event this information is protected by the Federal Confidentiality of Alcohol and Drug AbusePatient Records regulations: The Federal rules restrict any use of the information to criminally investigate or prosecute any alcohol or drug abuse patient.[facility] Reason for Visit * Reason Comments Medication Problem Encounter Details Date Type Department Care Team (Late st Contact Info) Description 10/10/2024 Telephone Pulmonary Medicine [address] [place] [id number] Helena Johns, RD [address] [id number] Medication Problem Social History Tobacco Use Types Packs/Day Years [...] any time in the past 12 m [facility], were you homeless or living in a skilled nursing (including now)? No 07/30/2024 Area Deprivation Index Answer Date Akhil rded National Score (1-100), lower number is lower ri sk 63 10/03/2024 State Score (1-10), lower number is lower risk 4 10/03/2024 Data from: https://www.neighborhoodatlas.medicine.[facility].edu/. Last address used for calculation [address] [...] encounter Miscellaneous Notes * Telephone Encounter - Helena Johns RD - 10/10/2024 9:24 AM EDT Returned call to [facility] and clarified Alyftrek dosing while patient is on Itraconazole. Patient isalso aware of adjusted dosing while on itraconazole, one tablet of alyftrek once per week. 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] 11/08/2024 9:45 AM EDT Appointment Radiology [address] [address] US ELASTOGRAPHY LIVER 11/08/2024 10:45 AM EDT Office Visit Pulmonary Medicine [address] [address] Randee Johnson APRN.CERTIFIED PATHOLOGY ASSISTANT [address] [place] [address] follow up 4-5 weeks 11/08/2024 1:30 PM EDT Appointment Radiology [address] [place] [phone] US ABD RIGHT UPPER QUADRANT 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
--- OUTSIDE RECORDS SUMMARY | 2024-10-17 17:02 | XMS_ITS | Encounter Summary ---
Author Organization [facility] Address [address] [place] [address] Care Team Providers Care Press Tender Smoke Signal Name Role Phone Chapo Mitchell MD Primary Care Provider [phone] Source Comments In the event this information is protected by the Federal Confidentiality of Alcohol and Drug AbusePatient Records regulations: The Federal rules restrict any use of the information to criminally investigate or prosecute any alcohol or drug abuse patient.[facility] Reason for Visit * Reason Comments Medication Problem Encounter Details Date Type Department Care Team (Late st Contact Info) Description 10/05/2024 Telephone Pulmonary Medicine [address] [place] [address] Chapo Mitchell MD [facility] [place] [address] Medication Problem Social History Tobacco Use Types Packs/Day Years Used Date Smoking Tobacco: Never Passive Smoke Exposure: Never Smokeless Tobacco: Never Alcohol Use Standard Drinks/Week Comments Never 0 (1 standard drink = 0.6 oz pur e alcohol) [facility] Utilities Answer Date Recorded In the [...] any time in the past 12 m [facility], were you homeless or living in a longterm (including now)? No 07/30/2024 Area Deprivation Index Answer Date Akhil rded National Score (1-100), lower number is lower ri sk 63 10/03/2024 State Score (1-10), lower number is lower risk 4 10/03/2024 Data from: https://www.neighborhoodatlas.medicine.[facility].edu/. Last address used for calculation [address] [...] Telephone Encounter - Marily Crain RN - 10/08/2024 2:19 PM EDT [facility] explained that provider is aware of drug interactionbetween Alyftrek and Itraconazole. Patient also aware and has been instructed to take adjusted doseof Alyftrek (ONE pill ONCE a week) while on Itraconazole * Telephone Encounter - Liban September - 10/05/2024 4:01 PM EDT Received call from [facility] stating there is an alert for a major drug interaction with the patients pvcveyofupq-xegkpuigvf-xxyxbnudxoumu (ALYFTREK) 10-50-125 mg tablet Please call and speak to pharmacist to discuss [phone] opt 1, then opt 7 Thank you documented in this encounter Plan of Treatment Upcoming Encounters Date Type Department Care Team (Latest Contact Info) Description 11/08/2024 9:15 AM EDT Procedure Pulmonary Medicine [address] [address] Main, Cf Pulm Lab [address] [address] 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] 11/08/2024 9:45 AM EDT Appointment Radiology [address] [place], [place] [phone] US ELASTOGRAPHY LIVER 11/08/2024 10:45 AM EDT Office Visit Pulmonary Medicine [address] [address] Randee Johnson, ADE.BIODIESEL PRODUCT DEVELOPMENT MANAGER [address] [place] [id number] follow up 4-5 weeks 11/08/2024 1:30 PM EDT Appointment Radiology [address] [place] [phone] US ABD RIGHT UPPER QUADRANT 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] 11/23/2024 3:05 PM EDT Office Visit Otolaryngology [address] [place] [phone] Diya Bedolla MD [address] [place] [address] 6 month follow up documented as of this encounter Visit Diagnoses Not on filedocumented in this encounter Additional Health Concerns Infection Onset Date Last Indicated Resolved Time Parainfluenza Virus 10/03/2024 10/03/2024 documented as of this encounter Care Teams Press Tender Smoke Signal Relationship Specialty Start Date End Date Chapo Mitchell MD [address] [place] [address] PCP - General Pulmonary and Critical Care Medicine 12/08/23 documented as of this encounter
--- OUTSIDE RECORDS SUMMARY | 2024-10-17 17:02 | XMS_ITS | Encounter Summary ---
Author Organization [facility] Address [address] [place] [address] Care Team Providers Care Dietetic Tech Name Role Phone Chapo Mitchell MD Primary Care Provider [phone] Source Comments In the event this information is protected by the Federal Confidentiality of Alcohol and Drug AbusePatient Records regulations: The Federal rules restrict any use of the information to criminally investigate or prosecute any alcohol or drug abuse patient.[facility] Reason for Visit * Reason Comments Encounter Details Date Type Department Care Team (Late st Contact Info) Description 10/03/2024 Social Work Pulmonary Medicine [address] [place] [address] Consuelo Brooks LISW Social History Tobacco Use Types Packs/Day Years Used Date Smoking Tobacco: Never Passive Smoke Exposure: Never Smokeless Tobacco: Never Alcohol Use Standard Drinks/Week Comments Never 0 (1 standard drink = 0.6 oz pur e alcohol) [facility] Utilities Answer Date Recorded In the past 12 months has e electric, gas, oil, or water [employer] threatened to shut off services in your [...] place to sleep or slept in a retirement (including now)? No 12/09/2023 Housing Stability Vital Sign Answer Ernst e Recorded In the last 12 months, was t here a time when you were not able to pay the mortgage or rent on time? No 07/30/2024 Number of Times Moved in the Last Year Not on fi le 07/30/2024 At any time in the past 12 m [facility], were you homeless or living in a retirement (including now)? No 07/30/2024 Area Deprivation Index Answer Date Akhil rded National Score (1-100), lower number is lower ri sk 63 10/03/2024 State Score (1-10), lower number is lower risk 4 10/03/2024 Data from: https://www.neighborhoodatlas.medicine.[facility].edu/. Last address used for calculation [address] [...] Leah Hernández RN documented in this encounter Progress Notes * Consuelo Brooks LISW - 10/03/2024 12:52 PM EDT CYSTIC FIBROSIS SOCIAL WORK PROGRESS NOTE DATE: 10/03/24 TIME: 11:30 AM Mental Health Screening: PHQ-9: 3 ANGELES-7: 1 No concerns for anxiety/depression. SW also discussed next steps with RT and pt re: obtaining additional nebulizers via [facility]. RT to send scripts to [facility], await denial, and then SW to send denial to [facility]. VIOLETTA Lozada, [facility] Cystic Fibrosis Social Work V. [phone] P. 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] 11/08/2024 9:45 AM EDT Appointment Radiology [address] [address] US ELASTOGRAPHY LIVER 11/08/2024 10:45 AM EDT Office Visit Pulmonary Medicine [address] [address] Randee Johnson APRN.ENVIRONMENTAL SCIENCE PROFESSOR [address] [place] [address] follow up 4-5 weeks 11/08/2024 1:30 PM EDT Appointment Radiology [address] [address] US ABD RIGHT UPPER QUADRANT 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] 11/23/2024 3:05 PM EDT Office Visit Otolaryngology [address] [address] Diya Bedolla MD [address] [place] [address] 6 month follow up documented as of this encounter Visit Diagnoses Not on filedocumented in this encounter Additional Health Concerns Infection Onset Date Last Indicated Resolved Time Respiratory Rule-Out 10/03/2024 10/03/2024 025 11:45 PM EDT documented as of this encounter Care Teams Dietetic Tech Relationship Specialty Start Date End Date Chapo Mitchell MD [address] [address] PCP - General Pulmonary and Critical Care Medicine 12/08/23 documented as of this encounter
--- OUTSIDE RECORDS SUMMARY | 2024-10-17 17:02 | XMS_ITS | Encounter Summary ---
Author Organization [facility] Address [id number] [address] [place] [address] Care Team Providers Care Drop Wire Aliner Name Role Phone Becky Dale MD Primary Care Provider [phone] Encounter Details Date Type Department Care Team (Late st Contact Info) Description 06/18/2022 Orders Only [facility] Pediatric Pulmonology-Cystic Fibrosis [address] [facility] [address] [place] [phone] Jonah Mosqueda CMA Cystic fibrosis ([facility]) (Primary Dx) Social History Tobacco Use [...] Diagnosis Cystic fibrosis ([facility])- Primary Cystic fibrosis without mention of meconium ileus Cystic fibrosis ([facility]) Cystic fibrosis without mention of meconium ileus documented in this encounter Additional Health Concerns Infection Onset Date Last Indicated Resolved Time Other MDRO Comment:CYSTIC F 06/05/2007 06/05/2007 COVID-19 Rule-Out 11/15/2023 11/16/2023 11/16/2023 1:40 AM EDT Assessment Noted Time PHQ-9 Depression Total Score: 2 05/25/19 23 4:00 PM EST documented as of this encounter Care Teams Drop Wire Aliner Relationship Specialty Start Date End Date Becky Dale MD [facility] [address], [address] [place] [address] PCP - General 06/18/14 10/03/24 documented as of this encounter
--- OUTSIDE RECORDS SUMMARY | 2024-10-17 17:02 | XMS_ITS | Encounter Summary ---
Author Organization [facility] Address [address] [place] [address] Care Team Providers Care Joint Machine Operator Name Role Phone Chapo Mitchell MD Primary Care Provider [phone] Source Comments In the event this information is protected by the Federal Confidentiality of Alcohol and Drug AbusePatient Records regulations: The Federal rules restrict any use of the information to criminally investigate or prosecute any alcohol or drug abuse patient.[facility] Reason for Visit * Reason Comments Results [facility] Encounter Details Date Type Department Care Team (Late st Contact Info) Description 10/05/2024 Telephone Pulmonary Medicine [address] [place] [address] Chapo Mitchell MD [address] [place] [address] Results ([facility]) Social History Tobacco Use Types Packs/Day Years Used Date Smoking Tobacco: Never Passive Smoke Exposure: Never Smokeless Tobacco: Never Alcohol Use Standard Drinks/Week Comments Never 0 (1 standard drink = 0.6 oz pur e alcohol) [facility] Utilities Answer Date Recorded In the past 12 months has [employer] electric, gas, oil, or water company threatened [...] any time in the past 12 m [facility], were you homeless or living in a nursing home (including now)? No 07/30/2024 Area Deprivation Index Answer Date Akhil rded National Score (1-100), lower number is lower ri sk 63 10/03/2024 State Score (1-10), lower number is lower risk 4 10/03/2024 Data from: https://www.neighborhoodatlas.medicine.[facility].edu/. Last address used for calculation [address] [...] Encounter - Marily Crain RN - 10/05/2024 2:16 PM EDT Result forwarded to providers. Spoke with Dr. Mitchell - no change to pt's therapy at this time (currently on Itraconazole 200 mg BID). Will have patient repeat Itraconazole level again in two weeks. * Telephone Encounter - Nati Smiley - 10/05/2024 11:04 AM EDTSummary: Lab Results Images from the original note were not included. Imported lab results from [facility] (dated ). Please allow time delay for documents to appear in [email or web address] (Scanned Documents Tab). 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] 11/08/2024 9:45 AM EDT Appointment Radiology [address] [address] US ELASTOGRAPHY LIVER 11/08/2024 10:45 AM EDT Office Visit Pulmonary Medicine [address] [address] [address] Randee Johnson, RAIL TRANSPORTATION OPERATOR.SHEET METAL APPRENTICE [address] [place] [address] follow up 4-5 weeks 11/08/2024 1:30 PM EDT Appointment Radiology [address] [address] US ABD RIGHT UPPER QUADRANT 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
--- OUTSIDE RECORDS SUMMARY | 2024-10-17 17:02 | XMS_ITS | Encounter Summary ---
Author Organization [facility] Address [address] [place] [address] Care Team Providers Care Cash Grain Grower Name Role Phone Chapo Mitchell MD Primary Care Provider [phone] Source Comments In the event this information is protected by the Federal Confidentiality of Alcohol and Drug AbusePatient Records regulations: The Federal rules restrict any use of the information to criminally investigate or prosecute any alcohol or drug abuse patient.[facility] Encounter Details Date Type Department Care Team (Late st Contact Info) Description 10/03/2024 Orders Only Pulmonary Medicine [address] [place] [address] Marily Crain, RN Social History Tobacco Use Types Packs/Day Years Used Date Smoking Tobacco: Never Passive Smoke Exposure: Never Smokeless Tobacco: Never Alcohol Use Standard Drinks/Week Comments Never 0 (1 standard drink = 0.6 oz pur e alcohol) [facility] Utilities Answer Date Recorded In [...] any time in the past 12 m [facility], were you homeless or living in a long-term (including now)? No 07/30/2024 Area Deprivation Index Answer Date Akhil rded National Score (1-100), lower number is lower ri sk 63 10/03/2024 State Score (1-10), lower number is lower risk 4 10/03/2024 Data from: https://www.neighborhoodatlas.medicine.[facility].edu/. 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] 11/08/2024 9:45 AM EDT Appointment Radiology [address] [address] US ELASTOGRAPHY LIVER 11/08/2024 10:45 AM EDT Office Visit Pulmonary Medicine [address] [place] [phone] Randee Johnson, ACOUSTIC WARFARE ANALYST.OPERATIONS AND MAINTENANCE TECHNICIAN [address] [facility] [place] [address] follow up 4-5 weeks 11/08/2024 1:30 PM EDT Appointment Radiology [address] [place] [phone] US ABD RIGHT UPPER QUADRANT 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] 11/23/2024 3:05 PM EDT Office Visit Otolaryngology [address] [place] [phone] Diya Bedolla MD [address] [place] [address] 6 month follow up documented as of this encounter Visit Diagnoses Not on filedocumented in this encounter Additional Health Concerns Infection Onset Date Last Indicated Resolved Time Respiratory Rule-Out 10/03/2024 10/03/2024 025 11:45 PM EDT Parainfluenza Virus 10/03/2024 10/03/2024 documented as of this encounter Care Teams Cash Grain Grower Relationship Specialty Start Date End Date Chapo Mitchell MD [address] [place] [address] PCP - General Pulmonary and Critical Care Medicine 12/08/23 documented as of this encounter
--- OUTSIDE RECORDS SUMMARY | 2024-10-17 17:02 | XMS_ITS | Encounter Summary ---
Author Organization [employer] Address [id number] [address] [place] [address] Care Team Providers Care Bowling Ball Weigher And Packer Name Role Phone Becky Dale MD Primary Care Provider [phone] Encounter Details Date Type Department Care Team (Late st Contact Info) Description 08/23/2022 Telephone [facility] Pediatric Pulmonology-Cystic Fibrosis [address] [facility] [address] [place] [phone] Maame Barroso LD Social History Tobacco Use [...] documented as of this encounter Care Teams Bowling Ball Weigher And Packer Relationship Specialty Start Date End Date Becky Dale MD [address] [place] [address], [address] [place], [place] [id number] PCP - General 06/18/14 10/03/24 documented as of this encounter
--- OUTSIDE RECORDS SUMMARY | 2024-10-17 17:02 | XMS_ITS | Encounter Summary ---
Author Organization [employer] Sys tem Address [facility]-[id number] [address] [place] [address] Care Team Providers Care Housekeeper Child Care Name Role Phone Becky Dale MD Primary Care Provider [phone] Reason for Visit * Reason Comments Med Refill Encounter Details Date Type Department Care Team (Late st Contact Info) Description 06/14/2022 Refill [facility] Pediatric Pulmonology-Cystic Fibrosis [address] [facility] [address] [place] [phone] Becky Dale MD [address] [place], [place] [phone] Cystic fibrosis ([facility]) Social History Tobacco Use Types Packs/Day Years [...] this encounter Visit Diagnoses Diagnosis Cystic fibrosis ([facility]) Cystic 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
--- OUTSIDE RECORDS SUMMARY | 2024-10-17 17:02 | XMS_ITS | Encounter Summary ---
Author Organization [facility] Address [id number] [address] [place] [address] Care Team Providers Care Custom Grinder Name Role Phone Becky Dale MD Primary Care Provider [phone] Encounter Details Date Type Department Care Team (Late st Contact Info) Description 08/21/2021 Orders Only [facility] Pediatric Pulmonology-Cystic Fibrosis [address] [facility] [address] [place] [phone] Jonah Mosqueda CMA Cough (Primary Dx); Cystic [...] documented as of this encounter Care Teams Custom Grinder Relationship Specialty Start Date End Date Becky Dale MD [address] [place] [address], [address] [place] [address] PCP - General 06/18/14 10/03/24 documented as of this encounter
--- OUTSIDE RECORDS SUMMARY | 2024-10-17 17:02 | XMS_ITS | Encounter Summary ---
Author Organization [employer] Address [facility]-[id number] [address] [place] [address] Care Team Providers Care Reservoir Engineering Advisor Name Role Phone Becky Dale MD Primary Care Provider [phone] Encounter Details Date Type Department Care Team (Late st Contact Info) Description 04/28/2022 Telephone [facility] Pediatric Pulmonology-Cystic Fibrosis [address] [facility] [address] [place] [phone] Samy Cam RN Social History Tobacco Use [...] Cam RN - 04/28/2022 4:00 PM EST Pilot Teacher spoke with [facility] who stated they did not need a new rx, they were just trying to reach patient to deliver medication. * Telephone Encounter - Samy Cam RN - 04/28/2022 4:00 PM EST Pilot Teacher called and asked if patient was able [...] documented as of this encounter Care Teams Reservoir Engineering Advisor Relationship Specialty Start Date End Date Becky Dale MD [address] [place] [address], [address] [place] [address] PCP - General 06/18/14 10/03/24 documented as of this encounter
--- OUTSIDE RECORDS SUMMARY | 2024-10-17 17:02 | XMS_ITS | Encounter Summary ---
Author Organization [facility] Address [address] [place] [address] Care Team Providers Care Foot Tender Name Role Phone Chapo Mitchell MD Primary Care Provider [phone] Source Comments In the event this information is protected by the Federal Confidentiality of Alcohol and Drug AbusePatient Records regulations: The Federal rules restrict any use of the information to criminally investigate or prosecute any alcohol or drug abuse patient.[facility] Reason for Visit * Reason Comments Orders Encounter Details Date Type Department Care Team (Late st Contact Info) Description 10/04/2024 Telephone Pediatric Pulmonary [address] [place] [phone] Randee Johnson APRN.WOOLEN SUITING SHRINKER [address] [place] [address] Orders Social History Tobacco Use Types Packs/Day Years Used Date Smoking Tobacco: Never Passive Smoke Exposure: Never Smokeless Tobacco: Never Alcohol Use Standard Drinks/Week Comments Never 0 (1 standard drink = 0.6 oz pur e alcohol) [facility] Utilities Answer Date Recorded In the [...] place to sleep or slept in a penitentiary (including now)? No 12/09/2023 Housing Stability Vital [...] were you homeless or living in a penitentiary (including now)? No 07/30/2024 Area Deprivation Index Answer Date Akhil rded National Score (1-100), lower number is lower ri sk 63 10/03/2024 State Score (1-10), lower number is lower risk 4 10/03/2024 Data from: https://www.neighborhoodatlas.medicine.[facility].edu/. Last address used for calculation [address] [...] Assessment Author No 12/30/2023 2:14 PM EDT Leha Hernández RN * Do you have difficulty [...] Telephone Encounter - Marily Crain RN - 10/04/2024 2:24 PM EDT Communication order faxed * Telephone Encounter - Maria D Carolina - 10/04/2024 12:37 PM EDT Patient's Name: Angelia Caro Caller's Name: Karly Relation to Patient: [facility] Reason for Call: Requesting an order for port flushes q4-6 weeks. Please fax order to [phone]. 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] 11/08/2024 9:45 AM EDT Appointment Radiology [address] [address] US ELASTOGRAPHY LIVER 11/08/2024 10:45 AM EDT Office Visit Pulmonary Medicine [address] [address] Randee Johnson, ASSET PROTECTION REPRESENTATIVE.WOOLEN SUITING SHRINKER [address] [place] [address] follow up 4-5 weeks 11/08/2024 1:30 PM EDT Appointment Radiology [address] [address] US ABD RIGHT UPPER QUADRANT 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] 11/23/2024 3:05 PM EDT Office Visit Otolaryngology [address] [address] Diya Bedolla MD [address] [place] [address] 6 month follow up documented as of this encounter Visit Diagnoses Diagnosis Cystic fibrosis (HCC)- Primary Cystic fibrosis without mention of meconium ileus Cystic fibrosis with pulmonary manifestations (HCC) Cystic fibrosis with pulmonary manifestations documented in this encounter Additional Health Concerns Infection Onset Date Last Indicated Resolved Time Parainfluenza Virus 10/03/2024 10/03/2024 documented as of this encounter Care Teams Foot Tender Relationship Specialty Start Date End Date Chapo Mitchell MD [address] [place] [address] PCP - General Pulmonary and Critical Care Medicine 12/08/23 documented as of this encounter
--- OUTSIDE RECORDS SUMMARY | 2024-10-17 17:02 | XMS_ITS | Encounter Summary ---
Author Organization [facility] Address [facility]-[id number] [address] [place] [address] Care Team Providers Care Ornamental Iron Worker Name Role Phone Becky Dale MD Primary Care Provider [phone] Encounter Details Date Type Department Care Team (Late st Contact Info) Description 08/06/2022 Orders Only [facility] Pediatric Pulmonology-Cystic Fibrosis [address] [facility] [address] [place] [phone] Jonah Mosqueda CMA Cystic fibrosis ([facility]) (Primary Dx) Social History Tobacco [...] return home Increase physical activity Lifestyle No Fideilna Henley, SCREW MACHINE SETTER Note: Evaluation of progress towards goal: Pt [...] this encounter Visit Diagnoses Diagnosis Cystic fibrosis ([facility])- Primary Cystic fibrosis without mention of meconium [...] documented as of this encounter Care Teams Ornamental Iron Worker Relationship Specialty Start Date End Date Becky Dale MD [address] [place] [address], [address] [place] [address] PCP - General 06/18/14 10/03/24 documented as of this encounter
--- OUTSIDE RECORDS SUMMARY | 2024-10-17 17:02 | XMS_ITS | Encounter Summary ---
Author Organization [facility] Address [id number] [address] [place] [address] Care Team Providers Care De Alcoholizer Name Role Phone Becky Dale MD Primary Care Provider [phone] Encounter Details Date Type Department Care Team (Late st Contact Info) Description 03/27/2019 Telephone [facility] Pediatric Pulmonology-Cystic Fibrosis [address] [facility] [address] [place] [phone] Fidelina Henley LSW Social History Tobacco Use [...] documented as of this encounter Care Teams De Alcoholizer Relationship Specialty Start Date End Date Becky Dale MD [address] [place] [address], [place] [phone] PCP - General 06/18/14 10/03/24 documented as of this encounter
--- OUTSIDE RECORDS SUMMARY | 2024-10-17 17:02 | XMS_ITS | Encounter Summary ---
Author Organization [employer] Address [id number] [address] [place] [address] Care Team Providers Care Primary Care Nurse Name Role Phone Unavailable Primary Care Provider Unavailabl e Encounter Details Date Type Department Care Team (Late st Contact Info) Description 10/04/2024 Orders Only [facility] - Medical Oncology [address] [place] [phone] Karly Da Silva, ANOOP Social History Tobacco Use Types Packs/Day Years Used Date Smoking Tobacco: Never Smokeless Tobacco: Never Comments:No smoke exposure Alcohol Use Standard Drinks/Week Comments No 0 (1 standard drink = 0.6 oz pur e alcohol) [facility] Utilities Answer Date Recorded In [...]
--- OUTSIDE RECORDS SUMMARY | 2024-10-17 17:02 | XMS_ITS | Encounter Summary ---
Author Organization [employer] Address [facility]-[id number] [address] [place] [address] Care Team Providers Care Ring Making Machine Operator Name Role Phone Becky Dale MD Primary Care Provider [phone] Reason for Visit * Reason Onset Date Comments Med Refill 04/11/2019 Encounter Details Date Type Department Care Team (Late st Contact Info) Description 04/11/2019 Refill [facility] Pediatric Pulmonology-Cystic Fibrosis [address] [facility] [address] [place] [phone] Reyna Bowser RN Cystic fibrosis ([facility]) (Primary Dx) Social History Tobacco Use Types [...] this encounter Visit Diagnoses Diagnosis Cystic fibrosis ([facility])- Primary documented in this encounter Additional Health [...] documented as of this encounter Care Teams Ring Making Machine Operator Relationship Specialty Start Date End Date Becky Dale MD [address] [place] [address], [place] [address] PCP - General 06/18/14 10/03/24 documented as of this encounter
--- OUTSIDE RECORDS SUMMARY | 2024-10-17 17:02 | XMS_ITS | Encounter Summary ---
Author Organization [facility] Address [facility]-[id number] [address] [place] [address] Care Team Providers Care Lawyers Name Role Phone Becky Dale MD Primary Care Provider [phone] Encounter Details Date Type Department Care Team (Late st Contact Info) Description 09/14/2021 Orders Only [facility] Pediatric Pulmonology-Cystic Fibrosis [address] [facility] [address] [place] [phone] Jonah Mosqueda CMA Cough (Primary Dx) Social [...] TRANSCRIBED RESULTS - 09/17/2021 6:49 AM EDT [id number] Evaluation of flow volume loop done on [...] documented as of this encounter Care Teams Lawyers Relationship Specialty Start Date End Date Becky Dale MD [address] [place] [address], [address] [place] [address] PCP - General 06/18/14 10/03/24 documented as of this encounter
--- OUTSIDE RECORDS SUMMARY | 2024-10-17 17:02 | XMS_ITS | Encounter Summary ---
Author Organization [employer] Address [id number] [address] [place] [address] Care Team Providers Care Production Zone Leader Name Role Phone Becky Dale MD Primary Care Provider [phone] Encounter Details Date Type Department Care Team (Late st Contact Info) Description 09/25/2021 Telephone [facility] Pediatric Pulmonology-Cystic Fibrosis [address] [facility] [address] [place] [phone] Reyna Bowser, ANOOP Social History Tobacco Use [...] much. Mom is inquiring about an antibiotic. Telecom Specialist spoke with Dr. Cardoza who informed that they are getting a bronch done next week so he ishesitant about starting an antibiotic. He informed that he will send a prednisone prescription to the pharmacy and to have her stop the current prednisone taper dose. He would like a call Tuesday withan update from mom. Telecom Specialist spoke with mom and informed her of [...] documented as of this encounter Care Teams Production Zone Leader Relationship Specialty Start Date End Date Becky Dale MD [address] [place] [address], [address] [place] [address] PCP - General 06/18/14 10/03/24 documented as of this encounter
--- OUTSIDE RECORDS SUMMARY | 2024-10-17 17:02 | XMS_ITS | Encounter Summary ---
Author Organization [employer] Address [facility]-[id number] [address] [place] [address] Care Team Providers Care Professional Golf Tournament Player Name Role Phone Becky Dale MD Primary Care Provider [phone] Reason for Visit * Reason Onset Date Comments Med Refill 07/02/2016 Encounter Details Date Type Department Care Team (Late st Contact Info) Description 07/02/2016 Refill [facility] Pediatric Pulmonology-Cystic Fibrosis [address] [facility] [address] [place] [phone] Dayan Crouch, REGULATOR PIN INSERTER Cystic fibrosis of the lung (HCC) (Primary [...] documented as of this encounter Care Teams Professional Golf Tournament Player Relationship Specialty Start Date End Date Becky Dale MD [address] [place] [address], [address] [place] [phone] PCP - General 06/18/14 10/03/24 documented as of this encounter
[2024-10-17 17:42] LABS: Alanine Aminotransferase 32 U/L (14-59); Albumin Globulin Ratio 0.8; Albumin Level 3.1 g/dL (3.4-5.0); Alkaline Phosphatase 63 U/L (46-116); Aspartate Amino Transferase 24 U/L (15-37); Bilirubin Total 0.8 mg/dL (0.2-1.0); Calcium 8.7 mg/dL (8.5-10.1); Carbon Dioxide 23.9 mmol/L (21.0-32.0); Chloride 104 mmol/L (98-107); Estimated GFR (African America >60 (>=60 mL/min/1.73m^2); Estimated GFR (Non-African Ame >60 (>=60 mL/min/1.73m^2); Globulin 3.9 g/dL; Glucose 261 mg/dL (74-106); Potassium 3.9 mmol/L (3.5-5.1); Sodium 141 mmol/L (136-145)
== END 2024-10-17 16:52 | disposition home or self-care (01) ==
DX: E84.8 Cystic fibrosis with other manifestations (principal)
CPT/HCPCS: 36415; 80053

== ENCOUNTER 2025-02-28 16:57 | Outpatient (OUT) | payer OTHER, SELFPAY ==
--- OUTSIDE RECORDS SUMMARY | 2025-02-19 14:15 | XMS_ITS | Encounter Summary ---
Author Organization [facility] Address [facility] [place] [address] Care Team Providers Care Body Straightener Name Role Phone Chapo Mitchell MD Primary Care Provider [phone] Source Comments In the event this information is protected by the Federal Confidentiality of Alcohol and Drug AbusePatient Records regulations: The Federal rules restrict any use of the information to criminally investigate or prosecute any alcohol or drug abuse patient.[facility] Reason for Visit * ReasonCommentsSpirometry * Outpatient Procedure (Routine) - ClosedSpecialtyDiagnoses / ProceduresReferred By ContactReferred To ContactLOVELACE [facility] Diagnoses 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) ([facility]) Procedures SPIROMETRY BASELINE ONLY SPMTRY W/VC EXPIRATORY BRIANA W/WO MXML VOL VNTJ Tony Valdes, COMMISSIONER OF OFFICIALS.INTERNET SPECIALIST [address] [place] [address] Phone: tel: fax: [facility] [place] [address] [place] [phone] Referral IDStatusReasonStart DateExpiration DateVisits RequestedVisits [id number] Auto-Generated Referral Encounter Details DateTypeDepartmentCare Team (Latest Contact Info)Cgwpczndqzn32/28/2025 3:15 PM EDTProcedure Pulmonary Medicine [address] [address] [address], [facility] [address] [address] Spirometry Social History Tobacco UseTypesPacks/DayYears UsedDateSmoking Tobacco: NeverPassive Smoke Exposure: NeverSmokeless Tobacco: NeverAlcohol UseStandard Drinks/WeekComments Never0 (1 standard drink = 0.6 oz pure alcohol)Overall Financial Resource Strain (CARDIA)AnswerDate RecordedHow hard is it for you to pay for the very basics like food, housing, medical care, and heating?Not hard at all11/23/2024Housing Stability Vital SignAnswerDate RecordedIn the last 12 months, was there a time when you were not able to pay the mortgage or rent on time?No12/09/2023Number of Places Lived in the Last YearNot on file12/09/2023In the last 12 months, was there a time when you did not have a steady place to sleep or slept in mareniscoelter (including now)?No12/09/2023Housing Stability Vital SignAnswerDate RecordedIn the last 12 months, was there a time when you were not able to pay the mortgage or rent on time?No11/23/2024In the past 12 months, how many times have you moved where you were living?t any time in the past 12 months, were you homeless or living in a intermediate (including now)?No11/23/2024Hunger Vital Sign AnswerDate RecordedWithin the past 12 months, you worried that your food would run out before you got the money to buymore.Never true01/02/2025Within the past 12 months, the food you bought just didn't last and you didn't have money to get more.Never true01/02/2025PRAPARE - TransportationAnswerDate RecordedIn the past 12 months, has lack of transportation kept you from medical appointments or from getting medications?No01/02/2025In the past 12 months, has lack of transportation kept you from meetings, work, or from getting things needed for daily living?01/02/2025Housing Stability Vital SignAnswerDate RecordedIn the last 12 months, was there a time when you were not able to pay the mortgage or rent on time?01/02/2025Number of Times Moved in the Last YearNot on file 01/02/2025t any time in the past 12 months, were you homeless or living in a intermediate (including now)?01/02/2025HC UtilitiesAnswerDate RecordedIn the past 12 months has the electric, gas, oil, or water [employer] threatened to shut off services in your home?01/02/2025rea Deprivation IndexAnswerDate Recorded National Score (1-100), lower number is lower [id number]/30/2025State Score (1- 10), lower number is lower [id number] from: https://www.neighborhoodatlas.medicine.[facility].edu/. Last address used for [id number] [facility] [place]01/30/2025CommentsUnknownSex and Gender InformationValueDate RecordedSex Assigned at BirthNot on fileLegal SexFemale 03/09/2022 2:33 PM ESTGender IdentityNot on fileSexual OrientationNot on file documented as of this encounter Functional Status * Are you deaf or do you have serious difficulty hearing?AnswerDate of YvkzblximdMsfitpCv64/24/2025 1:23 PM Myra Oropeza RN * Are you blind or do you have serious difficulty seeing, even when wearing glasses?AnswerDate of ImvnfubtnkVkxcxmCf03/24/2025 1:23 PM Myra Oropeza RN * Do you have serious difficulty walking or climbing stairs?AnswerDate of GbtvvplbluRgwdvlJz92/24/2025 1:23 PM Myra Oropeza RN * Do you have difficulty dressing or bathing?AnswerDate of AssessmentAuthorNo 01/16/2025 1:23 PM Myra Oropeza RN * Because of a physical, mental, or emotional condition, do you have difficulty doing errands alone such as visiting a doctor's office or shopping?AnswerDate of ZzmygabnukHhmvuxOl80/24/2025 1:23 PM Myra Oropeza RN documented as of this encounter Mental Status * Because of a physical, mental, or emotional condition, do you have serious difficulty concentrating, remembering, or making decisions?AnswerEntry Date RisssnZx27/24/2025 1:23 PM Myra Oropeza RN documented in this encounter Plan of Treatment DateTypeDepartmentCare Team (Latest Contact Info)Rcnhuxvmadi15/07/2025 4:15 PM ESTOffice Visit Otolaryngology [address] [place] [address] Diya Bedolla MD [address] [place], [place] [id number] follow up03/12/2025 3:20 PM ESTOffice Visit Otolaryngology [address] [place] [address] Diya Bedolla MD [address] [place], [place] [id number] Post hospitalization follow updocumented as of this encounter Procedures Procedure NamePriorityDate/TimeAssociated DiagnosisCommentsSPIROMETRY BASELINE ZWRRGkilepe58/28/2025 3:43 PM EDT 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) documented in this encounter Results * SPIROMETRY BASELINE ONLY (02/19/2025 3:43 PM EDT)ComponentValueRef RangeTest MethodAnalysis TimePerformed AtPathologist SignatureFVC PRE (L)2.25LPULMONARY FUNCTION LABFVC PREDICTED (L)3.11LPULMONARY FUNCTION LABFVC LLN (L)2.41L PULMONARY FUNCTION LABFVC ULN (L)3.82LPULMONARY FUNCTION LABFEV1 PRE (L)1.48L PULMONARY FUNCTION LABFEV1 PREDICTED (L)2.77LPULMONARY FUNCTION LABFEV1 LLN (L)2.15LPULMONARY FUNCTION LABFEV1 ULN (L)3.37LPULMONARY FUNCTION LABFEV1/FVC PRE (%)66%PULMONARY FUNCTION LABFEV1/FVC PREDICTED (%)89%PULMONARY FUNCTION LABFEV1/FVC LLN (%)78%PULMONARY FUNCTION JNJTRC77% PRE (L/S)3.26L/SPULMONARY FUNCTION DDWCTK16% PRE (L/S00.22L/SPULMONARY FUNCTION MWDVSM81% PREDICTED (L/S)1.68L/SPULMONARY FUNCTION NFZHMW19% LLN (L/S)0.94L/SPULMONARY FUNCTION YRBLSW30% ULN (L/S)2.74L/SPULMONARY FUNCTION GBCSAE57-23% PRE (L/S)0.73L/S PULMONARY FUNCTION IBYLIO53-46% PREDICTED (L/S)3.44L/SPULMONARY FUNCTION LAB WLW74-10% LLN (L/S)2.28L/SPULMONARY FUNCTION LABPEF PRE (L/S)5.80L/SPULMONARY FUNCTION LABPEF LLN (L/S)4.87L/SPULMONARY FUNCTION LABPEF ULN (L/S)7.99L/S PULMONARY FUNCTION LABFET PRE (S)8.75SPULMONARY FUNCTION LABSpecimen (Source) Anatomical Location / LateralityCollection Method / VolumeCollection Time Received Time02/19/2025 3:43 PM EDT Narrative PULMONARY FUNCTION LAB - 02/21/2025 10:42 AM EDT [facility] ?[address] ? [address] ? [place] [address] ? Test Date: ? 2025-02-19 Pat Name: ?ANGELIA CARO ?Department: ?Room: ? Gender: ?Female ?Appointment Setter: ? : ? 2000 ?Requested By: ?? Order Number: ??[id number] ? Reading MD: ?Jemma Paz MD ? Interpretive Statements Current ATS/ERS acceptability and repeatability standards for spirometry met. Start of test and EOFE criteria met. ?? //HC IMPRESSION: Spirometry indicates obstruction. The severity of obstruction cannot be graded due to the reduced FVC. The reduced FVC may be due to obstruction, however, concomitant restriction cannot be excluded, recommend lung volumes for definitive determination. Electronically Signed On 02-21-2025 10:42:44 EDT by Jemma Paz MD ID: [id number] ?Name: ANGELIA CARO ?Race: Other Ht: 61.02 in ?Wt: 124.56 lbs ?Age: 24 Gender: Female ?: 2000 ?Dx: Cystic Fibrosis - Unspecified. ??May include CFTR disorder. Smoking Hx: Non-smoker ?Doctor: TONY AVLDES Test Date: 02/19/2025 ?Site: [facility] ?Tech: Confer, Beatriz ?PRE-BRONCH ? POST-BRONCH ?Daniel ?LLN ?? Pred ?ULN %Pred ZScore ?? Daniel %Pred ??%Chg ZScore SPIROMETRY FVC ? 2.25 ?? 2.41 ?? 3.11 ?? 3.82 ?72 ??-2.03 ? FEV1 ?1.48 ?? 2.15 ?? 2.77 ?? 3.37 ?53 ??-3.27 ? FEV1/FVC ?0.66 ?? 0.78 ?? 0.89 ?? 0.98 ?73 ??-2.87 ? FEFMax ?5.80 ?? 4.87 ?? 6.43 ?? 7.99 ?90 ??-0.66 ? FEF50 ? 1.03 ?? 2.40 ?? 4.01 ?? 5.61 ?25 ??-3.05 ? FIF50 ? 5.70 ? FEF50/FIF50 ? 0.18 ?90-100 ? FIVC ?1.69 ? VTQ25-78 ?0.73 ?? 2.28 ?? 3.44 ?? 4.76 ?21 ??-4.42 ? ExpiredTime ? 8.75 ? TimeToFEFMax ?0.05 ? AUREA ? 0.04 ? VolExtrap% ? 2 ? Comments: Current ATS/ERS acceptability and repeatability standards for spirometry met. Start of test and EOFE criteria met. ?? //HC Authorizing ProviderResult TypeResult StatusColette Bucur COMMISSIONER OF OFFICIALS.CNPSCHEDULED PROCEDURESFinal ResultPerforming OrganizationAddressCity/State/ZIP CodePhone Number PULMONARY FUNCTION LAB [address] [place] [address] documented in this encounter Visit Diagnoses Diagnosis Cystic fibrosis with pulmonary manifestations (HCC)- Primary Cystic fibrosis with pulmonary manifestations ABPA (allergic bronchopulmonary aspergillosis) (HCC) Allergic bronchopulmonary aspergillosis documented in this encounter Care Teams Team MemberRelationshipSpecialtyStart DateEnd Date Chapo Mitchell MD [address] [place] [address] PCP - GeneralPulmonary and Critical Care Medicine12/08/23documented as of this encounter
--- OUTSIDE RECORDS SUMMARY | 2025-02-19 14:30 | XMS_ITS | Encounter Summary ---
Author Organization [facility] Address [facility] [place] [address] Care Team Providers Care Storage Specialist Name Role Phone Chapo Mitchell MD Primary Care Provider [phone] Source Comments In the event this information is protected by the Federal Confidentiality of Alcohol and Drug AbusePatient Records regulations: The Federal rules restrict any use of the information to criminally investigate or prosecute any alcohol or drug abuse patient.[facility] Reason for Referral * Medication Prior Authorization - Pending ReviewSpecialtyDiagnoses / Procedures Referred By ContactReferred To Contact Diagnoses Chronic bronchitis, unspecified chronic bronchitis type (HCC) ABPA (allergic bronchopulmonary aspergillosis) (HCC) Aung Anderson MD [address] [place] [address] Phone: tel: fax: Referral IDStatusReasonStart DateExpiration DateVisits RequestedVisits [id number] * Medication Prior Authorization - Pending ReviewSpecialtyDiagnoses / Procedures Referred By ContactReferred To Contact Diagnoses Chronic bronchitis, unspecified chronic bronchitis type (HCC) Aung Anderson MD [address] [place] [address] Phone: tel: fax: Referral IDStatusReasonStart DateExpiration DateVisits RequestedVisits [id number] * Medication Prior Authorization - ClosedSpecialtyDiagnoses / ProceduresReferred By ContactReferred To Contact Diagnoses Cystic fibrosis (HCC) Chronic bronchitis, unspecified chronic bronchitis type (HCC) Aung Anderson MD [address] [place] [address] Phone: tel: fax: Referral IDStatusReasonStart DateExpiration DateVisits RequestedVisits [id number] * Medication Prior Authorization - Pending ReviewSpecialtyDiagnoses / Procedures Referred By ContactReferred To Contact Diagnoses Chronic bronchitis, unspecified chronic bronchitis type (HCC) Aung Anderson MD [address] [place] [address] Phone: tel: fax: Referral IDStatusReasonStsturgis DateExpiration DateVisits RequestedVisits [id number] * Outpatient Procedure (Routine) - New RequestSpecialtyDiagnoses / Procedures Referred By ContactRef[facility] Diagnoses Cystic fibrosis (HCC) Procedures SPIROMETRY BASELINE ONLY SPMTRY W/VC EXPIRATORY BRIANA W/WO MXML VOL VNTJ Aung Anderson MD [address] [place] [address] Phone: tel: fax: [facility] [address] [place] [address] Referral IDStatusEmiliaasonStart DateExpiration DateVisits RequestedVisits [id number] Request Auto-Generated Referral 1/ Reason for Visit * ReasonCommentsRecheck Encounter Details DateTypeDepartmentCare Team (Latest Contact Info)Ylibcpawelc20/28/2025 3:30 PM EDTOffice Visit Pulmonary Medicine [address] [place] [address] Aung Anderson MD [address] [place], [place] [id number] Cystic fibrosis (HCC) (Primary Dx); Chronic bronchitis, unspecified chronic bronchitis type (HCC); ABPA (allergic bronchopulmonary aspergillosis) (HCC); Mixed simple and mucopurulent chronic bronchitis (HCC); Chronic obstructive pulmonary disease, unspecified COPD type (HCC) Social History Tobacco UseTypesPacks/DayYears UsedDateSmoking Tobacco: NeverPassive Smoke Exposure: NeverSmokeless Tobacco: Never Tobacco Cessation:Counseling Given: Not Answered Alcohol UseStandard Drinks/WeekCommentsNever0 (1 standard drink = 0.6 oz pure alcohol)Overall Financial Resource Strain (CARDIA)AnswerDate RecordedHow hard is it for you to pay for the very basics like food, housing, medical care, and heating?Not hard at all11/23/2024Housing Stability Vital SignAnswerDate Recorded In the last 12 months, was there a time when you were not able to pay the mortgage or rent on time?No12/09/2023Number of Places Lived in the Last YearNot on file12/09/2023In the last 12 months, was there a time when you did not have a steady place to sleep or slept in thedfordelter (including now)?No12/09/2023Housing Stability Vital SignAnswerDate RecordedIn the last 12 months, was there a time when you were not able to pay the mortgage or rent on time?No11/23/2024In the past 12 months, how many times have you moved where you were living? At any time in the past 12 months, were you homeless or living in a fci (including now)?No11/23/2024Hunger Vital SignAnswerDate RecordedWithin the past 12 months, you worried that your food would run out before you got the money to buymore.Never true01/02/2025Within the past 12 months, the food you bought just didn't last and you didn't have money to get more.Never true01/02/2025PRAPARE - TransportationAnswerDate RecordedIn the past 12 months, has lack of transportation kept you from medical appointments or from getting medications?No 01/02/2025In the past 12 months, has lack of transportation kept you from meetings, work, or from getting things needed for daily living?No01/02/2025 Housing Stability Vital SignAnswerDate RecordedIn the last 12 months, was there a time when you were not able to pay the mortgage or rent on time?No01/02/2025 Number of Times Moved in the Last YearNot on file01/02/2025t any time in the past 12 months, were you homeless or living in a fci (including now)?No 01/02/2025HC UtilitiesAnswerDate RecordedIn the past 12 months has the electric, gas, oil, or water company threatened to shut off services in your home?No01/02/2025rea Deprivation IndexAnswerDate RecordedNational Score (1- 100), lower number is lower fzyr815001/30/2025State Score (1-10), lower number is lower yqgr722Data from: https://www.neighborhoodatlas.medicine.[facility].edu/. Last address used for ijtrkigiktk[address]01/30/2025CommentsUnknownSex and Gender InformationValueDate RecordedSex Assigned at BirthNot on fileLegal SexFemale 03/09/2022 2:33 PM ESTGender IdentityNot on fileSexual OrientationNot on file documented as of this encounter Last Filed Vital Signs Vital SignReadingTime TakenCommentsBlood Xwwfcniu073/7002/19/2025 3:21 PM EDT Feiru13783/28/2025 3:21 PM JWVVxinpfcrcni18.8 ??C (98.2 ??F)02/19/2025 3:21 PM EDTRespiratory Mcbv6006 3:21 PM EDTOxygen Yyuqxqgvfe81%02/19/2025 3:21 PM EDTInhaled Oxygen Concentration--Jqoelc07.5 kg (124 lb 9 oz)02/19/2025 3:21 PM EDTHeight--Body Mass Index23.5409 5:40 PM EDTdocumented in this encounter Functional Status * Are you deaf or do you have serious difficulty hearing?AnswerDate of OvecchdtdcJpwgdsSi10/24/2025 1:23 PM Myra Oropeza RN * Are you blind or do you have serious difficulty seeing, even when wearing glasses?AnswerDate of EoarubdergHtnmijEp24/24/2025 1:23 PM Myra Oropeza RN * Do you have serious difficulty walking or climbing stairs?AnswerDate of GcyumxlnuhNnrylxZd24/24/2025 1:23 PM Myra Oropeza RN * Do you have difficulty dressing or bathing?AnswerDate of AssessmentAuthorNo 01/16/2025 1:23 PM Myra Oropeza RN * Because of a physical, mental, or emotional condition, do you have difficulty doing errands alone such as visiting a doctor's office or shopping?AnswerDate of QrmvwetjoeJwsgjqSn16/24/2025 1:23 PM Myra Oropeza RN documented as of this encounter Mental Status * Because of a physical, mental, or emotional condition, do you have serious difficulty concentrating, remembering, or making decisions?AnswerEntry Date ZdjwmrGo83/24/2025 1:23 PM Myra Oropeza RN documented in this encounter Patient Instructions * Patient Instructions* Aung Anderson MD - 02/19/2025 5:06 PM EDT Stopping the advair Pulmicort stop Arfkormoterol Revefenacin Posaconazole dupilimab Decrease alyrtrek as indicated documented in this encounter Progress Notes * Aung Anderson MD - 02/19/2025 4:46 PM EDT Images from the original note were not included. History of present illness: Angelia Caro is a 24 year old female presents for post hospitalization visit. Improving on levaquin Activity/exercise tolerance: Some dyspnea but improved on Levaquin. Can walk at least 1-2 miles without stopping Cough frequency/sputum productivity: Improved since antibiotis. No awakening. Sputum production Scant amounts. No blood No fevers, chills. Rare chest tightness Sinus complaints: There is no unusual history of sinus pressure, pain or discharge. The patient will continue the current recommended topical anti- inflammatory therapy and nasal/sinus lavages Gastroenterology complaints: There is no history of N/V, abdominal pain, cramping bloating, indigestion, difficulty swallowing or globus Stool character: 1-2 BM daily. The stool is of normal consistency. There is no persistent problem with diarrhea or constipation. Appetite: Good weight is stable Psych NO UNUSUAL Dyphoria or anxeit Review of systems was completed and is as noted below except as noted above: General/constitutional: Negative HEENT: Negative Cardiac: Negative Endocrinologic: Negative GI: Negative Genitourinary: Negative Neuro: Negative Musculoskeletal: Negative Dermatologic: Negative Psych: Negative Allregic/Immunologic-negative. Current Respiratory Regimen Inhaled therapies Hypertonic Saline: inhaled 3% HS bid Pulmozyme: inhale 2.5 mg qd Bronchodilators: Albuterol Nebulization Inhaled Abx: Inhaled colistin and ceftaz cycle monthly CFTR Modulator Therapy: alyftrek Airway clearance therapies Vest: bid Exercise: NA Other: Azithromycin: 500 qMWF Past medical history: PAST MEDICAL HISTORY Diagnosis Date Cystic fibrosis (HCC) Allergies: Sulfamethoxazole-Trimethoprim and Voriconazole Medications: Current Outpatient Medications Medication Sig azithromycin (ZITHROMAX) 500 mg tablet TAKE 1 TABLET BY MOUTH EVERY TUESDAY, TUESDAY, AND TUESDAY levoFLOXacin (LEVAQUIN) 750 mg tablet Take 1 tablet by mouth once daily. cefTAZidime (FORTAZ) 1 gram solr Inhale 500 mg as instructed q 12 HR. Use 1 month on, 1 month off, alternating with coly-mycin. colistimethate (COLY-MYCIN M) 150 mg injection Inhale 2cc (150mg) twice daily every other month sterile water (STERILE WATER FOR INJECTION) injection Inject 4 mL intravenously two times a day. Inject 4 mls in 1 vial of ceftaz, then pull up 2 mls and nebulize twice daily sterile water (STERILE WATER FOR INJECTION) injection Inject 2 mL intravenously two times a day. Inject 2 mls in 1 vial of colistimethate and nebulize twice daily Syringe with Needle, Safety (3CC SAFETY SYRINGE 22GX1 ) 3 mL 22 gauge x 1 syrg 1 each two times a day. 1 Each two times a day.To pull up sterile water to inject into colistin vial Syringe with Needle, Safety (ECLIPSE SYRINGE) 3 mL 21 gauge x 1 syrg 1 Units two times a day. Pullup 4 mls sterile water and mix with ceftaz . Then pull up 2 mls and nebulize. Every other month lactobacillus rhamnosus (CULTURELLE) 10 billion cell capsule Take 1 capsule by mouth once daily. albuterol (PROVENTIL) 2.5 mg /3 mL (0.083 %) nebulizer solution Use 3 mL via nebulizer four times daily. polyethylene glycol 3350 17 gram/dose powder Take 17 g by mouth two times a day as needed for constipation. Dissolve dose in 4 - 8 ounces of liquid and take as directed. Cholecalciferol, Vitamin D3, 125 mcg (5,000 unit) cap TAKE 1 CAPSULE BY MOUTH EVERY DAY loratadine (CLARITIN) 10 mg tablet TAKE 1 TABLET BY MOUTH EVERY DAY omeprazole (PRILOSEC) 20 mg capsule TAKE 1 CAPSULE BY MOUTH EVERY DAY albuterol (PROVENTIL) 2.5 mg /3 mL (0.083 %) nebulizer solution Use 3 mL via nebulizer three times a day as needed for wheezing/shortness of breath. Inhale over 5-15 minutes dornase odilon (PULMOZYME) 1 mg/mL nebulizer solution Inhale 2.5 mL as instructed once daily. budesonide (PULMICORT) 0.5 mg/2 mL nebulizer solution Add the entire 2 mL of budesonide to 240 mL of normal saline irrigation bottle and mix well. Apply half of this mixture (about 120 mL) to each nasal cavity, two times a day. fluticasone propion-salmeterol 232-14 mcg/actuation Inhale 1 Inhalation as instructed two times a day. albuterol HFA (PROVENTIL HFA, VENTOLIN HFA) 90 mcg/actuation inhaler Inhale 2 Puffs as instructed once daily. fluticasone (FLONASE) 50 mcg/actuation nasal spray Use 1 Argillite in each nostril once daily. cholecalciferol (VITAMIN D3) 5,000 unit tab Take 1 tablet by mouth once daily. sodium chloride 3% solution 3 % nebulizer solution Use 4 mL via nebulizer two times a day. Omeprazole Magnesium (PRILOSEC OTC) 20 mg tablet Take 1 tablet by mouth once daily. ferrous sulfate (FEROSUL) 325 mg (65 mg iron) tablet Take 1 tablet by mouth every other day. sodium chloride 0.65 % nasal spray Use 2 Sprays in the nose as needed. erjkwu-munumwoa-jipenuw (CREON 24) 24,000-76,000 -120,000 unit delayed release capsule Take 3 capsules with meals and 1 with snacks. Total 12 capsules per day pseudoephedrine (SUDAFED) 30 mg tablet Take 1 tablet by mouth every 6 hours as needed. Nebulizer [facility] [place] dispense tubing for nebulizer budesonide (PULMICORT) 1 mg/2 mL nebulizer solution INHALE CONTENTS OF 1 VIAL( 2 MILLILITERS) IN NEBULIZER ONCE DAILY aeaxjhznrfn-mkpyyzdnjl-mkxfktplgpsds (ALYFTREK) 10-50-125 mg tablet Take 2 tablets by mouth once daily. acetaminophen (TYLENOL) 500 mg tablet Take 2 tablets by mouth every 8 hours as needed for pain. No current facility-administered medications for this visit. Physical exam: BP 124/70 Pulse 118 Temp 36.8 ??C (98.2 ??F) (Temporal) Resp 18 Wt 56.5 kg (124 lb 9 oz) LMP (LMP Unknown) SpO2 99% BMI 23.54 kg/m?? General: Alert and oriented to person, place and time. The patient is well developed but near target weight and BMI. Eyes: No scleral icterus or conjunctival erythema. PERRLA HEENT: normocephalic, atraumatic. Nasal mucosa: mild moderate nasal mucosal edema. There is no frontal/maxillary sinus tenderness. Trachea is midline. No thyroid enlargement. Pulmonary: The patient has an increased AP chest diameter. decreased breath sounds. Rare scatterd rhonchi. Cardiac: regular rate and rhythm. No murmurs, rubs or gallops. No JVD. Abdomen: No hepatosplenomegaly, normal bowel sounds. No abdominal tenderness. Skin: No rashes. Warm and dry. No petechia Musculoskeletal/Extremities: No cyanosis or edema. Normal gait, 5/5 muscle strength in all extremities. Psychiatric: Normal mood and affect. The follow labs were reviewed. WBC (k/uL) Date Value 01/14/2025 8.43 RBC (m/uL) Date Value 01/14/2025 4.50 Hematocrit (%) Date Value 01/14/2025 37.4 MCV (fL) Date Value 01/14/2025 83.1 MCHC (g/dL) Date Value 01/14/2025 32.1 Platelet Count (k/uL) Date Value 01/14/2025 320 MPV (fL) Date Value 01/14/2025 9.7 INR (no units) Date Value 07/29/2024 1.0 Sodium (mmol/L) Date Value 01/14/2025 138 Potassium (mmol/L) Date Value 01/14/2025 3.9 01/23/2022 3.5 BUN (mg/dL) Date Value 01/14/2025 16 Creatinine (mg/dL) Date Value 01/14/2025 0.83 Calcium, Total (mg/dL) Date Value 01/14/2025 8.6 AST (U/L) Date Value 01/14/2025 25 ALT (U/L) Date Value 01/14/2025 16 Albumin (g/dL) Date Value 01/14/2025 3.2 Bilirubin, Total (mg/dL) Date Value 01/14/2025 1.1 No results found for: PREALB No results found for: TRIG , CHOL , HDL , LDLCALC No components found for: RETVITA , ATOCOPHRVITE , VDT IgE (kU/l) Date Value 01/01/2025 217.0 No results found for: TSH , FREET4 No components found for: TESTOSTMALE , TESTOSTRNFRE The were no major concerns with this lab work Micro Steno Aspergillus The ZNX1jvc trend: Latest Ref Rng & Units 02/19/2025 01/15/2025 01/09/2025 01/02/2025 Spirometry Data FVC PRE (L) L 2.25 P 2.64 2.61 2.36 FEV1 PRE (L) L 1.48 P 1.75 1.78 1.63 FEV1/FVC PRE (%) % 66 P 66 68 69 HBD34-28% PRE (L/S) L/S 0.73 P 0.83 0.93 0.90 PEF PRE (L/S) L/S 5.80 P 6.49 5.70 5.08 P Preliminary result Last Radiology study: I personally reviewed the images below and agree with the official read. Assessment and Plan: Angelia Caro is a 24 year old female presents for a hospital follow up visit. I am seeing this patient for ongoing residential management of CF which is a chronic complex medical condition with critical sinus, pulmonary, gastrointestinal, endocrine and mental health manifestations. 1) Respiratory Disease: This patient has moderate CF lung disease. She is having many issues with very frequent exacerbations despite aggressive therapy and CFtR modulators. She responded well to antibiotic therapy recently but worsened again. She was given levaquin and at least symptomatically is improving. Her lung function is down though. I reviewed her respiratory therapies and her adherence which appear quite well. We discussed three options. 1) Bronchodilator optimization. We decided the current approach with inhaled steroids and advair isnot optimal. Given her chronic aspergillus infections, stopping the inhaled steroids would be good.Also a dry powder LABA is obviously not achieving our goals For this reason, we will start therapy with nebulized LAMA and LABA and after stabilization we can de-escalate Revefenacin and arformoterol were ordered. 2) The second strategy would be to restart dupixent. She has a T2 phenotype with obstructive lung disease, chronic rhinosinusitis and ABPA. She tried this earlier this year but she only was on the therapy for 6 weeks. A longer course is clearly needed. 3) Aspergillus infection. She also has ABPA She could concurrently have an infection causing inflammation in addition to the inflammaton from the ABPA. The past approach has been to use voriconazole and steroid courses over the course of several months. This has been used repeatedly with no major changes in the clinical course. We discussed options and we decided on alternative options *stop the ICS *start Posaconazole using levels to titrate dosing. The intent is to treat until cultures remain negative with at least 6 months of dosing. Voriconazole was not tolerated and has not been effective *decrease alyftrek dosing per pharmacy *Environmental mitigation with HEPA filter if possible 2) Sinusitis: There is no unusual history of sinus pressure, pain or discharge. The patient will continue the current recommended topical anti-inflammatory therapy and nasal/sinus lavages 3) Pancreatic Malabsorption/Malnutrition: There are no signs or symptoms of malabsorption. Nutritional status is stable. The current approachto pancreatic enzyme replacement as well as vitamin and calorie supplementation will be maintained. 4) The patient has no signs or symptoms of severe constipation. The patient will continue regular use of laxative therapy. Chart Preparation Time: 8 minutes Face to face clinic time: 28 minutes Case management and chart finalization: 8 minutes Aung Anderson MD [facility] Staff Physician documented in this encounter Miscellaneous Notes * Addendum Note - Chandan Hooks - 02/27/2025 4:16 PM ESTAddended by: CHANDAN HOOKS on: 02/27/2025 04:16 PM Modules accepted: Orders * Addendum Note - Chandan Hooks - 02/22/2025 1:06 PM EDTAddended by: CHANDAN HOOKS on: 02/22/2025 01:06 PM Modules accepted: Orders documented in this encounter Plan of Treatment DateTypeDepartmentCare Team (Latest Contact Info)Sflcnamrcwg66/07/2025 4:15 PM ESTOffice Visit Otolaryngology [address] [address] Diya Bedolla MD [address] [place] [address] follow up03/12/2025 3:20 PM ESTOffice Visit Otolaryngology [address] [place] [address] Diya Bedolla MD [address] [place] [address] Post hospitalization follow upNameTypePriorityAssociated DiagnosesDate/TimeAFB CULTURE & STAIN FOR PATIENTS WITH CYSTIC FIBROSISMicrobiologyRoutine Cystic fibrosis (HCC) 02/19/2025 5:28 PM EDTFUNGAL CULTURE AND SMEAR (NON DERMAL)MicrobiologyRoutine Cystic fibrosis ([facility]) 02/19/2025 5:28 PM EDTNameTypePriorityAssociated DiagnosesOrder Schedule SPIROMETRY BASELINE ONLYPFTRoutine Cystic fibrosis (HCC) 1 Occurrences starting 02/19/2025 until 03/21/2026FB CULTURE & STAIN FOR PATIENTS WITH CYSTIC FIBROSISMicrobiologyRoutine Cystic fibrosis ([facility]) Expected: 02/19/2025, Expires: 05/21/2025FUNGAL CULTURE AND SMEAR (NON DERMAL) MicrobiologyRoutine Cystic fibrosis ([facility]) Ordered: 02/19/2025ACTERIAL CULTURE, RESPIRATORY, CYSTIC FIBROSISMicrobiology Routine Cystic fibrosis ([facility]) Ordered: 02/19/2025documented as of this encounter Procedures Procedure NamePriorityDate/TimeAssociated DiagnosisCommentsAFB CULTURE & STAIN FOR PATIENTS WITH CYSTIC NHTYPYOHQorsxtz10/28/2025 5:28 PM EDT Cystic fibrosis ([facility]) BACTERIAL CULTURE, RESPIRATORY, CYSTIC FVPAMMWGKvdbcbr45/28/2025 5:28 PM EDT Cystic fibrosis ([facility]) ORGANISM IDENT. MOLD (LAB ORDER ONLY)Fmagykh7902/19/2025 5:28 PM EDT Cystic fibrosis ([facility]) Chronic bronchitis, unspecified chronic bronchitis type ([facility]) ABPA (allergic bronchopulmonary aspergillosis) ([facility]) FUNGAL CULTURE AND SMEAR (NON DERMAL)Kyxmbvr3402/19/2025 5:28 PM EDT Cystic fibrosis ([facility]) documented in this encounter Results * (ABNORMAL) ORGANISM IDENT. MOLD (LAB ORDER ONLY) (02/19/2025 5:28 PM EDT) ComponentValueRef RangeTest MethodAnalysis TimePerformed AtPathologist SignatureCulture, Organism ID MoldAspergillus fumigatus(A)02/27/2025 4:16 PM [facility] LABComment:By MALDI TOF Mass Spectrometry.Specimen (Source)Anatomical Location / LateralityCollection Method / VolumeCollection TimeReceived TimeSputumSPUTUM SPECIMEN / UnknownNon Blood / Saaunky9302/19/2025 5:28 PM EDT1 3:35 PM EDT Narrative Authorizing ProviderResult TypeResult StatusDouglas Justin MDMICROBIOLOGYFinal ResultPerforming OrganizationAddressCity/State/ZIP CodePhone Number [facility] [address] [place] [address], * (ABNORMAL) BACTERIAL CULTURE, RESPIRATORY, CYSTIC FIBROSIS (02/19/2025 5:28 PM EDT)ComponentValueRef RangeTest MethodAnalysis TimePerformed AtPathologist SignatureCulture, Resp Cystic FibrosisRare Aspergillus species(A) MINIMUM INHIBITORY CONCENTRATION ([place]) 02/28/2025 7:27 AM [facility] LABComment:Refer to Organism Identification, Mold culture, for species identification.Culture, Resp Cystic FibrosisRare Stenotrophomonas maltophilia(A) MINIMUM INHIBITORY CONCENTRATION ([place]) 02/28/2025 7:27 AM [facility] LABCulture, Resp Cystic FibrosisOne colony Staphylococcus aureus(A) MINIMUM INHIBITORY CONCENTRATION(VITEK) 02/28/2025 7:27 AM [facility] LABClearview PBP2a SA Culture [place] SscxYSG8q was not detected by an immunochromatographic assay, so this isolate is methicillin-susceptible.02/28/2025 7:27 AM [facility] LABCulture, Resp Cystic FibrosisFew normal respiratory bentley(A) MINIMUM INHIBITORY CONCENTRATION ([place]) 02/28/2025 7:27 AM [facility] LABSpecimen (Source)Anatomical Location / LateralityCollection Method / VolumeCollection TimeReceived Time SputumSPUTUM SPECIMEN / UnknownNon Blood / Ospbjqm6102/19/2025 5:28 PM EDT 02/20/2025 3:35 PM EDT Narrative [facility] - 02/28/2025 7:27 AM EST No Pseudomonas aeruginosa isolated. No Burkholderia cepacia complex isolated. This test was developed and its performance characteristics determined by the [facility] [place] ([facility]). It has not been cleared or approved by the FDA. [facility] is regulated under CLIA as qualified to perform high-complexity testing. This test is used for clinical purposes. It should not be regarded as investigational or for research. OrganismAntibioticMethodSusceptibilityStenotrophomonas maltophiliaTrimeth sulfamethMINIMUM INHIBITORY CONCENTRATION ([place]) <=1: Susceptible Comment:Stenotrophomonas maltophilia is intrinsically resistant to aminoglycosides and most B-lactam agentsincluding carbapenem.Stenotrophomonas maltophiliaLevofloxacinMINIMUM INHIBITORY CONCENTRATION ([place]) 8: Resistant Stenotrophomonas maltophiliaMinocyclineMINIMUM INHIBITORY CONCENTRATION ([place]) 2: Susceptible Staphylococcus aureusOxacillinMINIMUM INHIBITORY CONCENTRATION([facility]ITEK) 1: Susceptible Comment:Oxacillin-susceptible staphylococci are susceptible to other penicilllinase-stable penicillins, beta-lactam/beta-lactamase inhibitor combinations, anti-staphylococcal cephems, and carbapenems.Staphylococcus aureus ErythromycinMINIMUM INHIBITORY CONCENTRATION(VITEK) Resistant Staphylococcus aureusClindamycinMINIMUM INHIBITORY CONCENTRATION(VITEK) Resistant Comment:Inducible clindamycin resistance detected.Staphylococcus aureusTrimeth sulfamethMINIMUM INHIBITORY CONCENTRATION(VITEK) <=10: Susceptible Staphylococcus aureusVancomycinMINIMUM INHIBITORY CONCENTRATION(VITEK) 1: Susceptible Staphylococcus aureusRifampinMINIMUM INHIBITORY CONCENTRATION(VITEK) <=0.5: Susceptible Comment:Rifampin should not be used alone for antimicrobial therapy. Staphylococcus aureusTetracyclineMINIMUM INHIBITORY CONCENTRATION(VITEK) >=16: Resistant Staphylococcus aureusDoxycyclineMINIMUM INHIBITORY CONCENTRATION(VITEK) >=16: Resistant Authorizing ProviderResult TypeResult StatusDouglas Justin MDMICROBIOLOGYFinal ResultPerforming OrganizationAddressCity/State/ZIP CodePhone Number [facility] [address] documented in this encounter Visit Diagnoses Diagnosis Cystic fibrosis (HCC)- Primary Cystic fibrosis without mention of meconium ileus Chronic bronchitis, unspecified chronic bronchitis type (HCC) ABPA (allergic bronchopulmonary aspergillosis) (HCC) Allergic bronchopulmonary aspergillosis Mixed simple and mucopurulent chronic bronchitis (HCC) Other chronic bronchitis Chronic obstructive pulmonary disease, unspecified COPD type (HCC) documented in this encounter Care Teams Team MemberRelationshipSpecialtyStart DateEnd Date Chapo Mitchell MD [address] [place] [address] PCP - GeneralPulmonary and Critical Care Medicine12/08/23documented as of this encounter
--- OUTSIDE RECORDS SUMMARY | 2025-02-20 10:00 | XMS_ITS | Encounter Summary ---
Author Organization [facility] Address [address] [place] [address] Care Team Providers Care Home Assessment Nurse Name Role Phone Chapo Mitchell MD Primary Care Provider [phone] Source Comments In the event this information is protected by the Federal Confidentiality of Alcohol and Drug AbusePatient Records regulations: The Federal rules restrict any use of the information to criminally investigate or prosecute any alcohol or drug abuse patient.[facility] Reason for Referral * Consult, Test, Treat (Routine) - New RequestSpecialtyDiagnoses / Procedures Referred By ContactReferred To Contact Diagnoses 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 PLEASE CALL TO SCHEDULE YOUR APPOINTMENT FOLLOWS: [facility] [phone] [facility] [phone] [facility] [phone] [facility] [phone] ALL OTHER [facility] LOCATIONS [phone] This order is valid for 12 months from the date of order. 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) (Primary Dx) Social History Tobacco UseTypesPacks/DayYears UsedDateSmoking Tobacco: NeverPassive [...] steady place to sleep or slept in [facility] (including now)?No12/09/2023Housing Stability Vital SignAnswerDate RecordedIn the last 12 months, was there a time when you were not able to pay the mortgage or rent on time?No11/23/2024In the past 12 months, how many times have you moved where you were living?t any time in the past 12 months, were you homeless or living in a chcf (including now)?No11/23/2024Hunger Vital Sign AnswerDate RecordedWithin the [...] or from getting things needed for daily living?No01/02/2025Housing Stability Vital SignAnswerDate RecordedIn the last 12 months, was there a time when you were not able to pay the mortgage or rent on time?No01/02/2025Number of Times Moved in the Last YearNot on file 01/02/2025t any time in the past 12 months, were you homeless or living in a chcf (including now)?No01/02/2025HC UtilitiesAnswerDate RecordedIn the past 12 months has the electric, gas, oil, or water company threatened to shut off services in your home?01/02/2025rea Deprivation IndexAnswerDate Recorded National Score (1-100), lower number is lower [id number]/30/2025State Score (1- 10), lower number is lower [id number] from: https://www.neighborhoodatlas.medicine.[facility].edu/. Last address used for [address]01/30/2025CommentsUnknownSex and Gender InformationValueDate RecordedSex Assigned at BirthNot on fileLegal SexFemale 03/09/2022 2:33 PM ESTGender IdentityNot on fileSexual OrientationNot on file documented as of this encounter Functional Status * Are you deaf or do you have serious difficulty hearing?AnswerDate of XrednlqdxcBqgltdVz65/24/2025 1:23 PM Myra Oropeza RN * Are you blind or do you have serious difficulty seeing, even when wearing glasses?AnswerDate of RgnzyjsrauWayjygHd02/24/2025 1:23 PM Myra Oropeza RN * Do you have serious difficulty walking or climbing stairs?AnswerDate of ZsyqfybyxuZujzecHv39/24/2025 1:23 PM Myra Oropeza RN * Do you have difficulty dressing or bathing?AnswerDate of AssessmentAuthorNo 01/16/2025 1:23 PM Myra Oropeza RN * Because of a physical, mental, or emotional condition, do you have difficulty doing errands alone such as visiting a doctor's office or shopping?AnswerDate of SjqklkcifiOgtrnwJl22/24/2025 1:23 PM Myra Oropeza RN documented as of this encounter Mental Status * Because of a physical, mental, or emotional condition, do you have serious difficulty concentrating, remembering, or making decisions?AnswerEntry Date YydgilYz81/24/2025 1:23 PM Myra Oropeza RN documented in this encounter Progress Notes * Qiana Gaspar MD - 02/20/2025 11:04 AM EDT ENDOCRINOLOGY [facility] VISIT This visit was conducted via my chart I have communicated my name and active licensure. The patient's identity and physical location wereverified at the time of this visit. The patient consents to proceed with the evaluation remotely. SUBJECTIVE: Angelia Caro is a 24 year old female presents for an initial visit for the management of Cystic Fibrosis Related Diabetes. Cystic Fibrosis was diagnosis at age 4 years. Her twin sister also has CF The initial diagnosis of diabetes was made recently, her A1c was 6.8 in dec 2024. Prior to that, she has impaired glucose tolerance Diabetes complications include: None. Her mother has prediabetes Maternal side has T2DM. Current diabetes treatment regimen: None Blood glucose times and ranges (mg/dl): Currently checks sugars 0 times daily CFTR modulator: previously Trikafta, currently on Alyftrek Current steroid use: reports steroids use for 3-4 months this year. Nutrition: 2 meals and 1 snack Changes in weight: No Exercise- she walks 3-4 times a week, 30-60 mins Immunization History Administered Date(s) Administered COVID-19 original vaccine, age 12+ yr, monovalent (Girls Guide To - PURPLE TOP) 08/06/2020 08/27/2020 COVID-19 vaccine, [...] vaccine, quadrivalent (GARDASIL) 06/27/2014 influenza (IIV3) vaccine, age 6 mo - 64 yr, trivalent, PF (AFLURIA, FLUARIX, FLULAVAL, FLUVIRIN, FLUZONE) 01/16/2025 influenza (IIV3) vaccine, trivalent (AFLURIA, FLULAVAL, FLUVIRIN, [...] (MenACWY-D) vaccine, quadrivalent (MENACTRA) 06/27/2014 novel influenza (O0M5-74) vaccine 05/21/2009 pneumococcal (PCV7) vaccine, 7 valent (PREVNAR 7) 06/27/2003 03/18/2004 pneumococcal conjugate (PCV13) vaccine, 13 valent (PREVNAR 13) 01/06/2016 pneumococcal vaccine, unspecified formulation 02/19/2003 04/23/2003 05/21/2009 poliovirus (IPV) vaccine, inactivated (IPOL) 02/19/2003 04/23/2003 09/30/2003 09/11/2007 tetanus diphtheria pertussis (Tdap) vaccine, age 7+ yr (ADACEL, BOOSTRIX) 06/27/2014 varicella (JOAQUINA) vaccine (VARIVAX) 12/23/2003 05/21/2009 Hemoglobin A1C Date Value Ref Range Status 01/01/2025 6.8 (H) 4.3 - 5.6 % Final Comment: English Diabetes Association guidelines indicate that patients with HgbA1c in the range 5.7-6.4% are at increased risk for development of diabetes, and intervention by lifestyle modification may be beneficial. HgbA1c greater or equal to 6.5% is considered diagnostic of diabetes. 07/29/2024 5.6 4.3 - 5.6 % Final Comment: English Diabetes Association guidelines indicate that patients with HgbA1c in the range 5.7-6.4% are at increased risk for development of diabetes, and intervention by lifestyle modification may be beneficial. HgbA1c greater or equal to 6.5% is considered diagnostic of diabetes. 05/25/2024 5.9 (H) 4.3 - 5.6 % Final Comment: English Diabetes Association guidelines indicate that patients with HgbA1c in the range 5.7-6.4% are at increased risk for development of diabetes, and intervention by lifestyle modification may be beneficial. HgbA1c greater or equal to 6.5% is considered diagnostic of diabetes. 04/07/2024 6.3 (H) 4.3 - 5.6 % Final Comment: English Diabetes Association guidelines indicate that patients with HgbA1c in the range 5.7-6.4% are at increased risk for development of diabetes, and intervention by lifestyle modification may be beneficial. HgbA1c greater or equal to 6.5% is considered diagnostic of diabetes. 12/08/2023 5.8 (H) 4.3 - 5.6 % Final Comment: English Diabetes Association guidelines indicate that patients with HgbA1c in the range 5.7-6.4% are at increased risk for development of diabetes, and intervention by lifestyle modification may be beneficial. HgbA1c greater or equal to 6.5% is considered diagnostic of diabetes. Last DM education - No REVIEW OF SYSTEMS: GENERAL:No weight loss, malaise or fevers RESPIRATORY: Negative for cough, hemoptysis, wheezing or shortness of breath CARDIOVASCULAR: Negative for chest pain, leg swelling or palpitations SKIN:Negative for lesions, rash, and itching ENDOCRINE: Negative for cold or heat intolerance or goiter Current Outpatient Medications on File Prior to Visit Medication Sig revefenacin (YUPELRI) 175 mcg/3 mL solution for nebulization Inhale 3 mL as instructed once daily. arformoterol (BROVANA) 15 mcg/2 mL nebulizer solution Inhale 2 mL as instructed every 12 hours. dupilumab 200 mg/1.14 mL subcutaneous syringe ([employer]) Inject 1.14 mL subcutaneously every [address] (NOXAFIL) 100 mg tablet Take 3 tablets by mouth once daily. azithromycin (ZITHROMAX) 500 mg tablet TAKE 1 [...] Take 1 capsule by mouth once daily. polyethylene glycol 3350 17 gram/dose powder [...] 2.5 mL as instructed once daily. fluticasone propion-salmeterol 232-14 mcg/actuation Inhale 1 Inhalation as instructed two times a day. albuterol HFA (PROVENTIL HFA, VENTOLIN HFA) 90 mcg/actuation inhaler Inhale 2 Puffs as instructed once daily. fluticasone (FLONASE) 50 mcg/actuation nasal spray Use 1 Engadine in each nostril once daily. cholecalciferol (VITAMIN [...] 2 Sprays in the nose as needed. afynxb-jeaotpvp-hmemnbt (CREON 24) 24,000-76,000 -120,000 unit delayed release capsule Take 3 capsules with meals and 1 with snacks. Total 12 capsules per day pseudoephedrine (SUDAFED) 30 mg tablet Take 1 tablet by mouth every 6 hours as needed. Nebulizer Accessories [facility] Please dispense tubing for nebulizer budesonide (PULMICORT) 1 mg/2 mL nebulizer solution INHALE CONTENTS OF 1 VIAL( 2 MILLILITERS) IN NEBULIZER ONCE DAILY taavjdrnqjg-itnmqfebvt-ptgjekrkgrpoj (ALYFTREK) 10-50-125 mg tablet Take 2 tablets by mouth once daily. acetaminophen (TYLENOL) 500 mg tablet Take 2 tablets by mouth every 8 hours as needed for pain. No current facility-administered medications on file prior to visit. ALLERGIES Allergen Reactions Sulfamethoxazole-Tr* Rash, Swelling Voriconazole Other: See Comments PAST MEDICAL HISTORY Diagnosis Date Cystic fibrosis (HCC) No past surgical history on file. FAMILY HISTORY Problem Relation Age of Onset Diabetes Mother prediabetes Cystic Fibrosis Sister SOCIAL HISTORY[1] PHYSICAL EXAM: General:alert and oriented X 3, no acute distress LAB: Hemoglobin A1C Date Value Ref Range Status 01/01/2025 6.8 (H) 4.3 - 5.6 % Final Comment: English Diabetes Association guidelines indicate that patients with HgbA1c in the range 5.7-6.4% are at increased risk for development of diabetes, and intervention by lifestyle modification may be beneficial. HgbA1c greater or equal to 6.5% is considered diagnostic of diabetes. 07/29/2024 5.6 4.3 - 5.6 % Final Comment: English Diabetes Association guidelines indicate that patients with HgbA1c in the range 5.7-6.4% are at increased risk for development of diabetes, and intervention by lifestyle modification may be beneficial. HgbA1c greater or equal to 6.5% is considered diagnostic of diabetes. 05/25/2024 5.9 (H) 4.3 - 5.6 % Final Comment: English Diabetes Association guidelines indicate that patients with HgbA1c in the range 5.7-6.4% are at increased risk for development of diabetes, and intervention by lifestyle modification may be beneficial. HgbA1c greater or equal to 6.5% is considered diagnostic of diabetes. 04/07/2024 6.3 (H) 4.3 - 5.6 % Final Comment: English Diabetes Association guidelines indicate that patients with HgbA1c in the range 5.7-6.4% are at increased risk for development of diabetes, and intervention by lifestyle modification may be beneficial. HgbA1c greater or equal to 6.5% is considered diagnostic of diabetes. 12/08/2023 5.8 (H) 4.3 - 5.6 % Final Comment: English Diabetes Association guidelines indicate that patients with HgbA1c in the range 5.7-6.4% are at increased risk for development of diabetes, and intervention by lifestyle modification may be beneficial. HgbA1c greater or equal to 6.5% is considered diagnostic of diabetes. Glucose (mg/dL) Date Value 01/14/2025 143 07/31/2021 135 Potassium (mmol/L) Date Value 01/14/2025 3.9 01/23/2022 3.5 Sodium (mmol/L) Date Value 01/14/2025 138 Chloride (mmol/L) Date Value 01/14/2025 104 CO2 (mmol/L) Date Value 01/14/2025 21 Creatinine (mg/dL) Date Value 01/14/2025 0.83 BUN (mg/dL) Date Value 01/14/2025 16 Anion Gap (mmol/L) Date Value 01/14/2025 13 Calcium, Total (mg/dL) Date Value 01/14/2025 8.6 No results found for: TSH No results found for: UALBCR Vitamin D 25 Hydroxy (ng/mL) Date Value 01/01/2025 48.2 ] ASSESSMENT/PLAN: Cystic Fibrosis Related Diabetes Vitamin D deficiency 1. Glycemic Control: recent A1c confirms diabetes Previous OGTT revealed impaired glucose tolerance Discussed glycemic targets Recommended her start testing BG once a day- either fasting, pre meal or bedtime Rx sent for glucometer and testing supplies This patient will also benefit from CGM RX sent for freestyle anya Recommended her to send me her BG log in 4 weeks Based on the glycemic trend, will determine if she needs to start basal or prandial insulin regimen Refer to diabetes education- patient will schedule a virtual visit Continue physical activity Follow up in 3 months iQana Gaspar MD [1] Social History Tobacco Use Smoking status: Never Passive exposure: Never Smokeless tobacco: Never Vaping Use Vaping status: Never Used Substance Use Topics Alcohol use: Never Drug use: Never documented in this encounter Plan of Treatment DateTypeDepartmentCare Team (Latest Contact Info)Dvjixlrqwul83/07/2025 4:15 PM ESTOffice Visit Otolaryngology [address] [address] Diya Bedolla MD [address] [place], [place] [phone] follow up03/12/2025 3:20 PM ESTOffice Visit Otolaryngology [address] [address] Diya Bedolla MD [address] [place], [place] [phone] Post hospitalization follow upNameTypePriorityAssociated DiagnosesOrder Schedule CONSULT TO DIABETES EDUCATION DSMEReferralRoutine 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
--- OUTSIDE RECORDS SUMMARY | 2025-02-28 17:02 | XMS_ITS | Encounter Summary ---
Author Organization [facility] Address [address] [place] [address] Care Team Providers Care Peanut Sorter Name Role Phone Chapo Mitchell MD Primary Care Provider [phone] Source Comments In the event this information is protected by the Federal Confidentiality of Alcohol and Drug AbusePatient Records regulations: The Federal rules restrict any use of the information to criminally investigate or prosecute any alcohol or drug abuse patient.[facility] Reason for Visit * ReasonCommentsPatient UpdateMuscle pain Encounter Details DateTypeDepartmentCare Team (Latest Contact Info)Rlhgmhjytil08/05/2025Telephone Pulmonary Medicine [address] [place] [phone] Consuelo Brooks LISW Patient Update (Muscle pain) Social History Tobacco UseTypesPacks/DayYears UsedDateSmoking Tobacco: NeverPassive [...] steady place to sleep or slept in [facility] (including now)?No12/09/2023Housing Stability Vital SignAnswerDate RecordedIn the last 12 months, was there a time when you were not able to pay the mortgage or rent on time?No11/23/2024In the past 12 months, how many times have you moved where you were living?t any time in the past 12 months, were you homeless or living in a alf (including now)?No11/23/2024Hunger Vital Sign AnswerDate RecordedWithin the [...] were you homeless or living in a alf (including now)?01/02/2025HC UtilitiesAnswerDate RecordedIn the past 12 months has the [employer], gas, oil, or water [employer] threatened to shut off services in your home?No01/02/2025rea Deprivation IndexAnswerDate Recorded National Score (1-100), lower number is lower [id number]/30/2025State Score (1- 10), lower number is lower [id number] from: https://www.neighborhoodatlas.[facility]/. Last address used for Les Stark01/30/2025CommentsUnknownSex and Gender InformationValueDate RecordedSex Assigned at BirthNot on fileLegal SexFemale 03/09/2022 2:33 PM ESTGender IdentityNot on fileSexual OrientationNot on file documented as of this encounter Functional Status * Are you deaf or do you have serious difficulty hearing?AnswerDate of VhuwkzfktiEsnbfmAg57/24/2025 1:23 PM Myra Oropeza RN * Are you blind or do you have serious difficulty seeing, even when wearing glasses?AnswerDate of UloeikpmnbHgbgcmOq82/24/2025 1:23 PM Myra Oropeza RN * Do you have serious difficulty walking or climbing stairs?AnswerDate of JjhlfuxkirHzaabeMs24/24/2025 1:23 PM Myra Oropeza RN * Do you have difficulty dressing or bathing?AnswerDate of AssessmentAuthorNo 01/16/2025 1:23 PM Myra Oropeza RN * Because of a physical, mental, or emotional condition, do you have difficulty doing errands alone such as visiting a doctor's office or shopping?AnswerDate of TewmijteckIvyrxqXb72/24/2025 1:23 PM Myra Oropeza RN documented as of this encounter Mental Status * Because of a physical, mental, or emotional condition, do you have serious difficulty concentrating, remembering, or making decisions?AnswerEntry Date ThesytCs19/24/2025 1:23 PM Myra Oropeza RN documented in this encounter Miscellaneous Notes * Telephone Encounter - ToddConsuelo LISW - 02/27/2025 5:28 PM EST Re-contacted by pt re: update on any labs needed for severe all over muscle/joint pain. Spoke with pt. Onset about 10 days ago. Both pt and twin sibling woke up with sore muscles in neck,hips, legs, arms but got better throughout the day. As of 4 days ago, pain has continued throughoutthe day and is severe. Pt and sibling continue on high dose ibuprofen, no new medications, no fever, no cough, no other symptoms. Briefly spoke to pts mom who stated pain for them was severe when trying to move and when sitting still. Discussed / RN. Awaiting discussion w/ . Me PERRY 02/27/25 5:27 PM Note Spoke to CF HERBERT Johnson re: symptoms and timeline for pts muscle/joint pain. Appears to be unrelated to any new treatments. Pt mentioned that she and sibling had low potassium in the past and have readthat the aformoterol can cause a loss of potassium. Aformoterol was started day after last visit (7days ago) and feels that symptoms worsened after starting that medication. INCLINOMETER TESTER recommended due to severity and worsening of symptoms and not pulmonary related, pt and siblinggo to ED for further evaluation and lab work. Spoke with pt and sibling on speaker phone. Pt and sibling declined to go to ED, and then again requested potassium level and labs. RN sent lab requisition letters sent to pt via [employer]. Updated pt and sibling on plan of care. Advised if worsening symptoms or change in symptoms, go to nearest ED. CF INCLINOMETER TESTER advised and agreed with plan of care. Sibling also asking about interaction with afomoterol and sudafed because pt and sibling do take sudafed occasionally. Will discuss with MD tomorrow. Will f/u with pt tomorrow. documented in this encounter Plan of Treatment DateTypeDepartmentCare Team (Latest Contact Info)Kcefajyxtza22/07/2025 4:15 PM ESTOffice Visit Otolaryngology [address] [place] [phone] Diya Bedolla MD [address] [place] [address] follow up03/12/2025 3:20 PM ESTOffice Visit Otolaryngology [address] [place] [address] Diya Bedolla MD [address] [place] [address] Post hospitalization follow updocumented as of this encounter Visit Diagnoses Not on filedocumented in this encounter Care Teams Team MemberRelationshipSpecialtyStart DateEnd Date Chapo Mitchell MD [address] [place] [id number] PCP - GeneralPulmonary and Critical Care Medicine12/08/23documented as of this encounter
--- OUTSIDE RECORDS SUMMARY | 2025-02-28 17:02 | XMS_ITS | Encounter Summary ---
Author Organization [facility] Address [address] [place] [address] Care Team Providers Care Parts Department Manager Name Role Phone Chapo Mitchell MD Primary Care Provider [phone] Source Comments In the event this information is protected by the Federal Confidentiality of Alcohol and Drug AbusePatient Records regulations: The Federal rules restrict any use of the information to criminally investigate or prosecute any alcohol or drug abuse patient.[facility] Reason for Visit * ReasonCommentsColistimethate Prior Authorization Encounter Details DateTypeDepartmentCare Team (Latest Contact Info)Sksszorfuyw23/29/2025Telephone Pulmonary Medicine [address] [place] [address] Marily Crain RN Colistimethate Prior Authorization Social History Tobacco UseTypesPacks/DayYears UsedDateSmoking Tobacco: NeverPassive [...] steady place to sleep or slept in pioneertownelter (including now)?No12/09/2023Housing Stability Vital SignAnswerDate RecordedIn the last 12 months, was there a time when you were not able to pay the mortgage or rent on time?No11/23/2024In the past 12 months, how many times have you moved where you were living?t any time in the past 12 months, were you homeless or living in a fdc (including now)?No11/23/2024Hunger Vital Sign AnswerDate RecordedWithin the [...] were you homeless or living in a fdc (including now)?01/02/2025HC UtilitiesAnswerDate RecordedIn the past 12 months has the [employer], gas, oil, or water [employer] threatened to shut off services in your home?No01/02/2025rea Deprivation IndexAnswerDate Recorded National Score (1-100), lower number is lower [id number]/30/2025State Score (1- 10), lower number is lower [id number] from: https://www.neighborhoodatlas.medicine.[facility].edu/. Last address used for [address]01/30/2025CommentsUnknownSex and Gender InformationValueDate RecordedSex Assigned at BirthNot on fileLegal SexFemale 03/09/2022 2:33 PM ESTGender IdentityNot on fileSexual OrientationNot on file documented as of this encounter Functional Status * Are you deaf or do you have serious difficulty hearing?AnswerDate of QiluwsukzlTghhamSx45/24/2025 1:23 PM Myra Oropeza RN * Are you blind or do you have serious difficulty seeing, even when wearing glasses?AnswerDate of PdpsglagxqKhnprlDm87/24/2025 1:23 PM Myra Oropeza RN * Do you have serious difficulty walking or climbing stairs?AnswerDate of UyhjncypgpVcrcqyRh54/24/2025 1:23 PM Myra Oropeza RN * Do you have difficulty dressing or bathing?AnswerDate of AssessmentAuthorNo 01/16/2025 1:23 PM Myra Oropeza RN * Because of a physical, mental, or emotional condition, do you have difficulty doing errands alone such as visiting a doctor's office or shopping?AnswerDate of DtcrxmypcmTjplqvGw87/24/2025 1:23 PM Myra Oropeza RN documented as of this encounter Mental Status * Because of a physical, mental, or emotional condition, do you have serious difficulty concentrating, remembering, or making decisions?AnswerEntry Date FezttaCz78/24/2025 1:23 PM Myra Oropeza RN documented in this encounter Miscellaneous Notes * Telephone Encounter - Marily Crain RN - 02/20/2025 1:14 PM EDT Medication: Colistimethate Sodium (CBA) 150MG solution Date Submitted: February 20, 2025 Prescribing Provider: Randee Johnson CNP Method of Submission: CoverMyMeds ([facility] Member Services Form) [place]: [id number] Outcome: Approved 02/20/2025 - 02/19/2026 Outcome Date: 02/20/2025 documented in this encounter Plan of Treatment DateTypeDepartmentCare Team (Latest Contact Info)Qnkbtxyvojj77/07/2025 4:15 PM ESTOffice Visit Otolaryngology [address] [address] Diya Bedolla MD [address] [place], [place] [phone] follow up03/12/2025 3:20 PM ESTOffice Visit Otolaryngology [address] [place] [address] Diya Bedolla MD [address] [place], [place] [phone] Post hospitalization follow updocumented as of this encounter Visit Diagnoses Not on filedocumented in this encounter Care Teams Team MemberRelationshipSpecialtyStart DateEnd Date Chapo Mitchell MD [address] [place] [id number] PCP - GeneralPulmonary and Critical Care Medicine12/08/23documented as of this encounter
--- OUTSIDE RECORDS SUMMARY | 2025-02-28 17:02 | XMS_ITS | Encounter Summary ---
Author Organization [facility] Address [address] [place] [address] Care Team Providers Care Head Start Coordinator Name Role Phone Chapo Mitchell MD Primary Care Provider [phone] Source Comments In the event this information is protected by the Federal Confidentiality of Alcohol and Drug AbusePatient Records regulations: The Federal rules restrict any use of the information to criminally investigate or prosecute any alcohol or drug abuse patient.[facility] Encounter Details DateTypeDepartmentCare Team (Latest Contact Info)Xkeurjyscio68/26/2025Travel Social History Tobacco UseTypesPacks/DayYears UsedDateSmoking Tobacco: NeverPassive [...] steady place to sleep or slept in flomotelter (including now)?No12/09/2023Housing Stability Vital SignAnswerDate RecordedIn the last 12 months, was there a time when you were not able to pay the mortgage or rent on time?No11/23/2024In the past 12 months, how many times have you moved where you were living?t any time in the past 12 months, were you homeless or living in a long term (including now)?No11/23/2024Hunger Vital Sign AnswerDate RecordedWithin the [...] Moved in the Last YearNot on file 01/02/2025 any time in the past 12 months, were you homeless or living in a long term (including now)?01/02/2025HC UtilitiesAnswerDate RecordedIn the past 12 months has the [employer], gas, oil, or water [employer] threatened to shut off services in your home?01/02/2025rea Deprivation IndexAnswerDate Recorded National Score (1-100), lower number is lower [id number]/30/2025State Score (1- 10), lower number is lower [id number] from: https://www.neighborhoodatlas.medicine.[facility].edu/. Last address used for [address] 01/30/2025CommentsUnknownSex and Gender InformationValueDate RecordedSex Assigned at BirthNot on fileLegal SexFemale 03/09/2022 2:33 PM ESTGender IdentityNot on fileSexual OrientationNot on file documented as of this encounter Functional Status * Are you deaf or do you have serious difficulty hearing?AnswerDate of NsrmnrthszQezzhnJj14/24/2025 1:23 PM Myra Oropeza RN * Are you blind or do you have serious difficulty seeing, even when wearing glasses?AnswerDate of WossabqpelRgkselSb74/24/2025 1:23 PM Myra Oropeza RN * Do you have serious difficulty walking or climbing stairs?AnswerDate of VhwhtxiihiZtwpqkHb83/24/2025 1:23 PM Myra Oropeza RN * Do you have difficulty dressing or bathing?AnswerDate of AssessmentAuthorNo 01/16/2025 1:23 PM Myra Oropeza RN * Because of a physical, mental, or emotional condition, do you have difficulty doing errands alone such as visiting a doctor's office or shopping?AnswerDate of ZsfhjesbcxRzfugxKu14/24/2025 1:23 PM Myra Oropeza RN documented as of this encounter Mental Status * Because of a physical, mental, or emotional condition, do you have serious difficulty concentrating, remembering, or making decisions?AnswerEntry Date BvxyquEv39/24/2025 1:23 PM Myra Oropeza RN documented in this encounter Plan of Treatment DateTypeDepartmentCare Team (Latest Contact Info)Fqvanxnqufz04/07/2025 4:15 PM ESTOffice Visit Otolaryngology [address] [phone] Diya Bedolla MD [address] [place] [address] follow up03/12/2025 3:20 PM ESTOffice Visit Otolaryngology [address] [place] [address] Diya Bedolla MD [address] [place] [address] Post hospitalization follow updocumented as of this encounter Visit Diagnoses Not on filedocumented in this encounter Care Teams Team MemberRelationshipSpecialtyStart DateEnd Date Chapo Mitchell MD [address] [place] [address] PCP - GeneralPulmonary and Critical Care Medicine12/08/23documented as of this encounter
--- OUTSIDE RECORDS SUMMARY | 2025-02-28 17:02 | XMS_ITS | Clinical Summary ---
Author Organization [facility] Address [address] [place] [id number] Care Team Providers [facility] Worker Name Role Phone Chapo Mitchell MD Primary Care Provider [phone] Allergies Active AllergyReactionsCriticalityNoted DateComments Sulfamethoxazole-TrimethoprimRash,IqbmoxktEekfoz80/30/2020VoriconazoleOther: See Sukahzta32/06/2023 Medications MedicationSigDispense QuantityRefillsLast FilledStart DateEnd DateStatus acetaminophen (TYLENOL) 500 mg tablet Take 2 tablets by mouth every 8 hours as needed for pain. 90 tablet 04/27/2024 12:51 PM EST5Active yjmhbcikeej-jqjjlctjnp-lwmzctrxeugmd (ALYFTREK) 10-50-125 mg tablet Take 2 tablets by mouth once daily. 56 tablet 5Active budesonide (PULMICORT) 1 mg/2 mL nebulizer solution Indications:Cystic fibrosis with pulmonary manifestations (HCC)INHALE CONTENTS OF 1 VIAL( 2 MILLILITERS) IN NEBULIZER ONCE DAILY 60 mL 1105Active Nebulizer Accessories [facility] Indications:Cystic fibrosis with pulmonary manifestations (HCC)Please dispense tubing for nebulizer 2 Each 5Active pseudoephedrine (SUDAFED) 30 mg tablet Take 1 tablet by mouth every 6 hours as needed. 30 tablet 5Active cfuwwr-llqqwxjk-uylhqnv (CREON 24) 24,000-76,000 -120,000 unit delayed release capsule Indications:Pancreatic insufficiency due to cystic fibrosis (HCC)Take 3 capsules with meals and 1 with snacks. Total 12 capsules per day 360 capsule 5Active fluticasone propion-salmeterol 232-14 mcg/actuation Indications:Cystic fibrosis (HCC),Cystic fibrosis with pulmonary manifestations (HCC),Chronic sinusitis, unspecified locationInhale 1 Inhalation as instructed two times a day. 1 Each tive albuterol HFA (PROVENTIL HFA, VENTOLIN HFA) 90 mcg/actuation inhaler Indications:Cystic fibrosis (HCC),Cystic fibrosis with pulmonary manifestations (HCC),Chronic sinusitis, unspecified locationInhale 2 Puffs as instructed once daily. 1 g tive fluticasone (FLONASE) 50 mcg/actuation nasal spray Indications:Cystic fibrosis (HCC),Cystic fibrosis with pulmonary manifestations (HCC),Chronic sinusitis, unspecified locationUse 1 Wood in each nostril once daily. 1 Each tive cholecalciferol (VITAMIN D3) 5,000 unit tab Indications:Cystic fibrosis (HCC),Cystic fibrosis with pulmonary manifestations (HCC),Chronic sinusitis, unspecified locationTake 1 tablet by mouth once daily. 30 tablet tive sodium chloride 3% solution 3 % nebulizer solution Indications:Cystic fibrosis (HCC),Cystic fibrosis with pulmonary manifestations (HCC),Chronic sinusitis, unspecified locationUse 4 mL via nebulizer two times a day. 240 mL 5Active Omeprazole Magnesium (PRILOSEC OTC) 20 mg tablet Indications:Cystic fibrosis (HCC),Cystic fibrosis with pulmonary manifestations (HCC),Chronic sinusitis, unspecified locationTake 1 tablet by mouth once daily. 30 tablet 6Active ferrous sulfate (FEROSUL) 325 mg (65 mg iron) tablet Indications:Cystic fibrosis (HCC),Cystic fibrosis with pulmonary manifestations (HCC),Chronic sinusitis, unspecified locationTake 1 tablet by mouth every other day. 15 tablet 5Active sodium chloride 0.65 % nasal spray Indications:Cystic fibrosis (HCC),Cystic fibrosis with pulmonary manifestations (HCC),Chronic sinusitis, unspecified locationUse 2 Sprays in the nose as needed. 50 mL 5Active albuterol (PROVENTIL) 2.5 mg /3 mL (0.083 %) nebulizer solution Indications:Cystic fibrosis (HCC),Cystic fibrosis with pulmonary manifestations (HCC),Chronic sinusitis, unspecified locationUse 3 mL via nebulizer three times a day as needed for wheezing/shortness of breath. Inhale over 5-15 minutes 270 mL 5Active dornase odilon (PULMOZYME) 1 mg/mL nebulizer solution Indications:Cystic fibrosis (HCC),Cystic fibrosis with pulmonary manifestations (HCC),Chronic sinusitis, unspecified locationInhale 2.5 mL as instructed once daily. 75 mL 5Active Cholecalciferol, Vitamin D3, 125 mcg (5,000 unit) cap TAKE 1 CAPSULE BY MOUTH EVERY DAY 30 capsule 5Active loratadine (CLARITIN) 10 mg tablet Indications:Cystic fibrosis (HCC),Cystic fibrosis with pulmonary manifestations (HCC),Chronic sinusitis, unspecified locationTAKE 1 TABLET BY MOUTH EVERY DAY 30 tablet 5Active omeprazole (PRILOSEC) 20 mg capsule TAKE 1 CAPSULE BY MOUTH EVERY DAY 30 capsule 5Active lactobacillus rhamnosus (CULTURELLE) 10 billion cell capsule Indications:Cystic fibrosis (HCC),ABPA (allergic bronchopulmonary aspergillosis) (HCC)Take 1 capsule by mouth once daily. 30 capsule 5Active polyethylene glycol 3350 17 gram/dose powder Take 17 g by mouth two times a day as needed for constipation. Dissolve dose in 4 - 8 ounces of liquid and take as directed. 238 g 5Active cefTAZidime (FORTAZ) 1 gram solr Indications:Cystic fibrosis (HCC),Cystic fibrosis with pulmonary manifestations (HCC),Chronic sinusitis, unspecified locationInhale 500 mg as instructed q 12 HR. Use 1 month on, 1 month off, alternating with coly-mycin. 28 g 5Active colistimethate (COLY-MYCIN M) 150 mg injection Indications:Cystic fibrosis (HCC),Cystic fibrosis with pulmonary manifestations (HCC),Chronic sinusitis, unspecified locationInhale 2cc (150mg) twice daily every other month 60 each 5Active sterile water (STERILE WATER FOR INJECTION) injection Indications:Cystic fibrosis (HCC),Cystic fibrosis with pulmonary manifestations (HCC),Chronic sinusitis, unspecified locationInject 4 mL intravenously two times a day. Inject 4 mls in 1 vial of ceftaz, then pull up 2 mls andnebulize twice daily 240 mL 5Active sterile water (STERILE WATER FOR INJECTION) injection Indications:Cystic fibrosis (HCC),Cystic fibrosis with pulmonary manifestations (HCC),Chronic sinusitis, unspecified locationInject 2 mL intravenously two times a day. Inject 2 mls in 1 vial of colistimethate and nebulize twice daily 120 mL 5Active Syringe with Needle, Safety (3CC SAFETY SYRINGE 22GX1 ) 3 mL 22 gauge x 1 syrg Indications:Cystic fibrosis (HCC),Cystic fibrosis with pulmonary manifestations (HCC),Chronic sinusitis, unspecified location1 each two times a day. 1 Each two times a day.To pull up sterile water to inject into colistin vial 60 each 5Active Syringe with Needle, Safety (ECLIPSE SYRINGE) 3 mL 21 gauge x 1 syrg Indications:Cystic fibrosis (HCC),Cystic fibrosis with pulmonary manifestations (HCC),Chronic sinusitis, unspecified location1 Units two times a day. Pull up 4 mls sterile water and mix with ceftaz . Then pull up 2 mls and nebulize. Every other month 60 each 5Active levoFLOXacin (LEVAQUIN) 750 mg tablet Indications:Cystic fibrosis with pulmonary manifestations (HCC)Take 1 tablet by mouth once daily. 21 tablet 5Active azithromycin (ZITHROMAX) 500 mg tablet Indications:Cystic fibrosis (HCC),Cystic fibrosis with pulmonary manifestations (HCC),Chronic sinusitis, unspecified locationTAKE 1 TABLET BY MOUTH EVERY TUESDAY, TUESDAY, AND TUESDAY 12 tablet 5Active revefenacin (YUPELRI) 175 mcg/3 mL solution for nebulization Indications:Chronic bronchitis, unspecified chronic bronchitis type (HCC)Inhale 3 mL as instructed once daily. 30 each 5Active arformoterol (BROVANA) 15 mcg/2 mL nebulizer solution Indications:Cystic fibrosis (HCC),Chronic bronchitis, unspecified chronic bronchitis type (HCC)Inhale 2 mL as instructed every 12 hours. 120 mL /105555/6Active dupilumab 200 mg/1.14 mL subcutaneous syringe (DUPIXSkip Hop) Indications:Chronic bronchitis, unspecified chronic bronchitis type (HCC)Inject 1.14 mL subcutaneously every 2 weeks. 2.[address] (NOXAFIL) 100 mg tablet Indications:Chronic bronchitis, unspecified chronic bronchitis type (HCC),ABPA (allergic bronchopulmonary aspergillosis) ([facility])Take 3 tablets by mouth once daily. 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 60 each 5Active azithromycin (ZITHROMAX) 500 mg tablet Indications:Cystic fibrosis (HCC),Cystic fibrosis with pulmonary manifestations (HCC),Chronic sinusitis, unspecified [id number] mg every Tuesday, Tuesday, Tuesday 12 tablet Discontinued budesonide (PULMICORT) 0.5 mg/2 mL nebulizer solution Indications:Cystic fibrosis with pulmonary manifestations (HCC),Chronic sinusitis, unspecified location,Cystic fibrosis (HCC)Add the entire 2 mL of budesonide to 240 mL of normal saline irrigation bottle and mix well. Apply half of this mixture (about 120 mL) to each nasal cavity, two times a day. 120 mL Discontinued Syringe with Needle, Safety (ECLIPSE SYRINGE) 3 mL 21 gauge x 1 syrg Indications:Cystic fibrosis (HCC),Cystic fibrosis with pulmonary manifestations (HCC),Chronic sinusitis, unspecified location1 Units two times a day. Pull up 4 mls sterile water and mix with ceftaz . Then pull up 2 mls and nebulize. Every other month 60 each /12/2024Discontinued Syringe with Needle, Safety (3CC SAFETY SYRINGE 22GX1 ) 3 mL 22 gauge x 1 syrg Indications:Cystic fibrosis (HCC),Cystic fibrosis with pulmonary manifestations (HCC),Chronic sinusitis, unspecified location1 each two times a day. 1 Each two times a day.To pull up sterile water to inject into colistin vial 60 each Discontinued sterile water (STERILE WATER FOR INJECTION) injection Indications:Cystic fibrosis (HCC),Cystic fibrosis with pulmonary manifestations (HCC),Chronic sinusitis, unspecified locationInject 4 mL intravenously two times a day. Inject 4 mls in 1 vial of ceftaz, then pull up 2 mls andnebulize twice daily 240 mL Discontinued sterile water (STERILE WATER FOR INJECTION) injection Indications:Cystic fibrosis (HCC),Cystic fibrosis with pulmonary manifestations (HCC),Chronic sinusitis, unspecified locationInject 2 mL intravenously two times a day. Inject 2 mls in 1 vial of colistimethate and nebulize twice daily 120 mL Discontinued colistimethate (COLY-MYCIN M) 150 mg injection Indications:Cystic fibrosis (HCC),Cystic fibrosis with pulmonary manifestations (HCC),Chronic sinusitis, unspecified locationInhale 2cc (150mg) twice daily every other month 60 each Discontinued cefTAZidime (FORTAZ) 1 gram solr Indications:Cystic fibrosis (HCC),Cystic fibrosis with pulmonary manifestations (HCC),Chronic sinusitis, unspecified locationInhale 500 mg as instructed q 12 HR. Use 1 month on, 1 month off, alternating with coly-mycin. 28 g Discontinued albuterol (PROVENTIL) 2.5 mg /3 mL (0.083 %) nebulizer solution Use 3 mL via nebulizer four times daily. 360 mL /Discontinued minocycline (MINOCIN, DYNACIN) 100 mg capsule Indications:Cystic fibrosis with pulmonary manifestations (HCC)Take 1 capsule by mouth two times a day for 14 days. 28 capsule /11/2024Discontinued minocycline (MINOCIN, DYNACIN) 100 mg capsule Indications:Cystic fibrosis with pulmonary manifestations (HCC)Take 1 capsule by mouth two times a day for 21 days. 42 capsule /Discontinued(Side Effects) Blood-Glucose Meter Test One time a day. Insulin Dep? No E84.8 1 each Expired Active Problems ProblemNoted DateDiagnosed KzzbIuxwzwlzlqn84/11/2025 Assessment & Plan (01/15/2025 4:05 PM EDT): Replete as needed Assessment & Plan (01/14/2025 3:33 PM EDT): Replete as needed Assessment & Plan (01/12/2025 1:55 PM EDT): Replete as needed Assessment & Plan (01/12/2025 9:08 AM EDT): Replete as needed Assessment & Plan (01/11/2025 12:10 PM EDT): Replete as needed Assessment & Plan (01/10/2025 12:10 PM EDT): Replete as needed Assessment & Plan (01/09/2025 12:40 PM EDT): Replete as needed Assessment & Plan (01/08/2025 12:18 PM EDT): Replete as needed Assessment & Plan (01/08/2025 6:54 AM EDT): Replete as needed Assessment & Plan (01/06/2025 11:26 AM EDT): Replete as needed Assessment & Plan (01/05/2025 1:52 PM EDT): Replete as needed Assessment & Plan (01/04/2025 3:12 PM EDT): Replete as needed Assessment & Plan (01/03/2025 3:51 PM EDT): Replete potassium today Sinusitis yqvfhxy6101/02/2025 Assessment & Plan (01/15/2025 4:05 PM EDT): -PRN Nasal Wood Assessment & Plan (01/14/2025 3:33 PM EDT): -PRN Nasal Wood Assessment & Plan (01/13/2025 1:47 PM EDT): -PRN Nasal Wood Assessment & Plan (01/12/2025 1:55 PM EDT): -PRN Nasal Wood Assessment & Plan (01/12/2025 9:08 AM EDT): -PRN Nasal Wood Assessment & Plan (01/11/2025 12:10 PM EDT): -PRN Nasal Wood Assessment & Plan (01/10/2025 12:10 PM EDT): -PRN Nasal Wood Assessment & Plan (01/09/2025 12:40 PM EDT): -PRN Nasal Wood Assessment & Plan (01/08/2025 12:18 PM EDT): -PRN Nasal Wood Assessment & Plan (01/08/2025 6:54 AM EDT): -PRN Nasal Wood Assessment & Plan (01/06/2025 11:26 AM EDT): -PRN Nasal Wood Assessment & Plan (01/05/2025 1:52 PM EDT): -PRN Nasal Wood Assessment & Plan (01/04/2025 3:12 PM EDT): -PRN Nasal Wood Assessment & Plan (01/03/2025 3:24 PM EDT): -PRN Nasal Wood Assessment & Plan (01/03/2025 3:51 PM EDT): -PRN Nasal Wood Pseudomonas aeruginosa sqvwtssav35/16/2025Hx of allergic bronchopulmonary yifkayqpprujh26/06/2025 Assessment & Plan (01/13/2025 1:47 PM EDT): Cystic fibrosis, c/b moderated stage lung disease, chronic stenotrophomonas infection , chronic pseudomonas infection, MSSA and intermittent MRSA, pancreatic insufficiency She has been having increased cough, congestion and shortness of breath for the past couple weeks. She completed a course of po levaquin 3 weeks ago after seeing ENT. She was supposed to contact ENT if symptoms did not improve on the levaquin and plan was to do minocycline, however due to worseningcongestion and cough it was decided to admit for IV antibiotics. She is being admitted for a CF pulmonary exacerbation. Plan -Appreciate CF team recs - Discussed case with CF staff 01/07, recommended against azole in light of ongoing aspergillus in sputum. - Additionally, recommended returning to zosyn instead of oxacillin. -C/w IV colistin 60 mg q8h. (01/01-ongoing) -Continue IV Zosyn 3.375 g q6h. (01/01-,01/07-ongoing), oxacillin 01/04-01/07 - Continue IV minocycline 200 mg q12h. (01/01-ongoing) S/p prednisone taper (10 mg QOD) 01/06 per CF team - F/u respiratory cx - Sputum MSSA. Fungal with aspergillus - RVP, Afb, neg -s/p PFTs 01/09- FEV1 64% -C/w CF BPH, VEST ,Pulmozyme, 3%saline INH -C/w home Asthma Bronchodilator therapy -PRN Nasal Wood Chronic catzealsf33/17/6395Pehvtggfecn25/14/2024BPA (allergic bronchopulmonary aspergillosis)12/21/2023 Assessment & Plan (01/15/2025 4:05 PM EDT): Cystic fibrosis, c/b moderated stage lung disease, chronic stenotrophomonas infection , chronic pseudomonas infection, MSSA and intermittent MRSA, pancreatic insufficiency She has been having increased cough, congestion and shortness of breath for the past couple weeks. She completed a course of po levaquin 3 weeks ago after seeing ENT. She was supposed to contact ENT if symptoms did not improve on the levaquin and plan was to do minocycline, however due to worseningcongestion and cough it was decided to admit for IV antibiotics. She is being admitted for a CF pulmonary exacerbation. Plan -Appreciate CF team recs - Discussed case with CF staff 01/07, recommended against azole in light of ongoing aspergillus in sputum. - Additionally, recommended returning to zosyn instead of oxacillin. -C/w IV colistin 60 mg q8h. (01/01-ongoing) -Continue IV Zosyn 3.375 g q6h. (01/01-,01/07-ongoing), oxacillin 01/04-01/07 - Continue IV minocycline 200 mg q12h. (01/01-ongoing) S/p prednisone taper (10 mg QOD) 01/06 per CF team - F/u respiratory cx - Sputum MSSA. Fungal with aspergillus - RVP, [employer], neg -s/p PFTs 01/09- FEV1 64% -C/w CF BPH, VEST ,Pulmozyme, 3%saline INH -C/w home Asthma Bronchodilator therapy -PRN Nasal Wood Assessment & Plan (01/14/2025 3:33 PM EDT): Cystic fibrosis, c/b moderated stage lung disease, chronic stenotrophomonas infection , chronic pseudomonas infection, MSSA and intermittent MRSA, pancreatic insufficiency She has been having increased cough, congestion and shortness of breath for the past couple weeks. She completed a course of po levaquin 3 weeks ago after seeing ENT. She was supposed to contact ENT if symptoms did not improve on the levaquin and plan was to do minocycline, however due to worseningcongestion and cough it was decided to admit for IV antibiotics. She is being admitted for a CF pulmonary exacerbation. Plan -Appreciate CF team recs - Discussed case with CF staff 01/07, recommended against azole in light of ongoing aspergillus in sputum. - Additionally, recommended returning to zosyn instead of oxacillin. -C/w IV colistin 60 mg q8h. (01/01-ongoing) -Continue IV Zosyn 3.375 g q6h. (,01/07-ongoing), oxacillin 01/04-01/07 - Continue IV minocycline 200 mg q12h. (01/01-ongoing) S/p prednisone taper (10 mg QOD) 01/06 per CF team - F/u respiratory cx - Sputum MSSA. Fungal with aspergillus - RVP, [employer], neg -s/p PFTs 01/09- FEV1 64% -C/w CF BPH, VEST ,Pulmozyme, 3%saline INH -C/w home Asthma Bronchodilator therapy -PRN Nasal Wood Assessment & Plan (01/13/2025 1:47 PM EDT): Cystic fibrosis, c/b moderated stage lung disease, chronic stenotrophomonas infection , chronic pseudomonas infection, MSSA and intermittent MRSA, pancreatic insufficiency She has been having increased cough, congestion and shortness of breath for the past couple weeks. She completed a course of po levaquin 3 weeks ago after seeing ENT. She was supposed to contact ENT if symptoms did not improve on the levaquin and plan was to do minocycline, however due to worseningcongestion and cough it was decided to admit for IV antibiotics. She is being admitted for a CF pulmonary exacerbation. Plan -Appreciate CF team recs - Discussed case with CF staff 01/07, recommended against azole in light of ongoing aspergillus in sputum. - Additionally, recommended returning to zosyn instead of oxacillin. -C/w IV colistin 60 mg q8h. (01/01-ongoing) -Continue IV Zosyn 3.375 g q6h. (,01/07-ongoing), oxacillin 01/04-01/07 - Continue IV minocycline 200 mg q12h. (01/01-ongoing) S/p prednisone taper (10 mg QOD) 01/06 per CF team - F/u respiratory cx - Sputum MSSA. Fungal with aspergillus - RVP, [employer], neg -s/p PFTs 01/09- FEV1 64% -C/w CF BPH, VEST ,Pulmozyme, 3%saline INH -C/w home Asthma Bronchodilator therapy -PRN Nasal Wood Assessment & Plan (01/12/2025 1:55 PM EDT): Cystic fibrosis, c/b moderated stage lung disease, chronic stenotrophomonas infection , chronic pseudomonas infection, MSSA and intermittent MRSA, pancreatic insufficiency She has been having increased cough, congestion and shortness of breath for the past couple weeks. She completed a course of po levaquin 3 weeks ago after seeing ENT. She was supposed to contact ENT if symptoms did not improve on the levaquin and plan was to do minocycline, however due to worseningcongestion and cough it was decided to admit for IV antibiotics. She is being admitted for a CF pulmonary exacerbation. Plan -Appreciate CF team recs - Discussed case with CF staff 01/07, recommended against azole in light of ongoing aspergillus in sputum. - Additionally, recommended returning to zosyn instead of oxacillin. -C/w IV colistin 60 mg q8h. (01/01-ongoing) -Continue IV Zosyn 3.375 g q6h. (01/01-,01/07-ongoing), oxacillin 01/04-01/07 - Continue IV minocycline 200 mg q12h. (01/01-ongoing) S/p prednisone taper (10 mg QOD) 01/06 per CF team - F/u respiratory cx - Sputum MSSA. Fungal with aspergillus - RVP, [employer], neg -s/p PFTs 01/09- FEV1 64% -C/w CF BPH, VEST ,Pulmozyme, 3%saline INH -C/w home Asthma Bronchodilator therapy -PRN Nasal Wood Assessment & Plan (01/12/2025 9:08 AM EDT): #Cystic fibrosis, c/b moderated stage lung disease, chronic stenotrophomonas infection , chronic pseudomonas infection, MSSA and intermittent MRSA, pancreatic insufficiency She has been having increased cough, congestion and shortness of breath for the past couple weeks. She completed a course of po levaquin 3 weeks ago after seeing ENT. She was supposed to contact ENT if symptoms did not improve on the levaquin and plan was to do minocycline, however due to worseningcongestion and cough it was decided to admit for IV antibiotics. She is being admitted for a CF pulmonary exacerbation. Plan -Appreciate CF team recs - Discussed case with CF staff 01/07, recommended against azole in light of ongoing aspergillus in sputum. - Additionally, recommended returning to zosyn instead of oxacillin. C/w IV colistin 60 mg q8h. (01/01-ongoing) IV Zosyn 3.375 g q6h. (01/01-,01/07-ongoing), oxacillin 01/04-01/07 IV minocycline 200 mg q12h. (01/01-ongoing) S/p prednisone taper (10 mg QOD) 01/06 per CF team - F/u respiratory cx - Sputum MSSA. Fungal with aspergillus - RVP, [employer], neg -s/p PFTs 01/09 -C/w CF BPH, VEST ,Pulmozyme, 3%saline INH -C/w home Asthma Bronchodilator therapy -PRN Nasal Wood Assessment & Plan (01/11/2025 12:10 PM EDT): #Cystic fibrosis, c/b moderated stage lung disease, chronic stenotrophomonas infection , chronic pseudomonas infection, MSSA and intermittent MRSA, pancreatic insufficiency She has been having increased cough, congestion and shortness of breath for the past couple weeks. She completed a course of po levaquin 3 weeks ago after seeing ENT. She was supposed to contact ENT if symptoms did not improve on the levaquin and plan was to do minocycline, however due to worseningcongestion and cough it was decided to admit for IV antibiotics. She is being admitted for a CF pulmonary exacerbation. Plan -Appreciate CF team recs - Discussed case with CF staff 01/07, recommended against azole in light of ongoing aspergillus in sputum. - Additionally, recommended returning to zosyn instead of oxacillin. C/w IV colistin 60 mg q8h. (01/01-ongoing) IV Zosyn 3.375 g q6h. (,01/07-ongoing), oxacillin 01/04-01/07 IV minocycline 200 mg q12h. (01/01-ongoing) S/p prednisone taper (10 mg QOD) 01/06 per CF team - F/u respiratory cx - Sputum MSSA. Fungal with aspergillus - RVP, [employer], neg -s/p PFTs 01/09 -C/w CF BPH, VEST ,Pulmozyme, 3%saline INH -C/w home Asthma Bronchodilator therapy -PRN Nasal Wood Assessment & Plan (01/10/2025 12:10 PM EDT): #Cystic fibrosis, c/b moderated stage lung disease, chronic stenotrophomonas infection , chronic pseudomonas infection, MSSA and intermittent MRSA, pancreatic insufficiency She has been having increased cough, congestion and shortness of breath for the past couple weeks. She completed a course of po levaquin 3 weeks ago after seeing ENT. She was supposed to contact ENT if symptoms did not improve on the levaquin and plan was to do minocycline, however due to worseningcongestion and cough it was decided to admit for IV antibiotics. She is being admitted for a CF pulmonary exacerbation. Plan -Appreciate CF team recs - Discussed case with CF staff 01/07, recommended against azole in light of ongoing aspergillus in sputum. - Additionally, recommended returning to zosyn instead of oxacillin. C/w IV colistin 60 mg q8h. (01/01-ongoing) IV Zosyn 3.375 g q6h. (01/01-,01/07-ongoing), oxacillin 01/04-01/07 IV minocycline 200 mg q12h. (01/01-ongoing) S/p prednisone taper (10 mg QOD) 01/06 per CF team - F/u respiratory cx - Sputum MSSA. Fungal with aspergillus - RVP, [employer], neg -s/p PFTs 01/09 -C/w CF BPH, VEST ,Pulmozyme, 3%saline INH -C/w home Asthma Bronchodilator therapy -PRN Nasal Wood Assessment & Plan (01/09/2025 12:40 PM EDT): #Cystic fibrosis, c/b moderated stage lung disease, chronic stenotrophomonas infection , chronic pseudomonas infection, MSSA and intermittent MRSA, pancreatic insufficiency She has been having increased cough, congestion and shortness of breath for the past couple weeks. She completed a course of po levaquin 3 weeks ago after seeing ENT. She was supposed to contact ENT if symptoms did not improve on the levaquin and plan was to do minocycline, however due to worseningcongestion and cough it was decided to admit for IV antibiotics. She is being admitted for a CF pulmonary exacerbation. Plan -Appreciate CF team recs - Discussed case with CF staff 01/07, recommended against azole in light of ongoing aspergillus in sputum. - Additionally, recommended returning to zosyn instead of oxacillin. C/w IV colistin 60 mg q8h. (01/01-ongoing) IV Zosyn 3.375 g q6h. (01/01-,01/07-ongoing) switched to oxacillin 01/04-01/07 IV minocycline 200 mg q12h. (01/01-ongoing) S/p prednisone taper (10 mg QOD) 01/06 per CF team - F/u respiratory cx - Sputum MSSA. Fungal with aspergillus - RVP, [employer], neg -Plan for PFTs 01/09 -C/w CF BPH, VEST ,Pulmozyme, 3%saline INH -C/w home Asthma Bronchodilator therapy -PRN Nasal [place] Assessment & Plan (01/08/2025 12:18 PM EDT): #Cystic fibrosis, c/b moderated stage lung disease, chronic stenotrophomonas infection , chronic pseudomonas infection, MSSA and intermittent MRSA, pancreatic insufficiency She has been having increased cough, congestion and shortness of breath for the past couple weeks. She completed a course of po levaquin 3 weeks ago after seeing ENT. She was supposed to contact ENT if symptoms did not improve on the levaquin and plan was to do minocycline, however due to worseningcongestion and cough it was decided to admit for IV antibiotics. She is being admitted for a CF pulmonary exacerbation. Plan -Appreciate CF team recs C/w IV colistin 60 mg q8h. (01/01-ongoing) IV Zosyn 3.375 g q6h. (01/01-) switched to oxacillin 01/04-ongoing IV minocycline 200 mg q12h. (01/01-ongoing) Inhaled colistin. S/p prednisone taper (10 mg QOD) 01/06 per CF team - F/u respiratory cx - Sputum MSSA. Fungal with mold - RVP, [employer], neg -Plan for PFTs this week -C/w CF BPH, VEST ,Pulmozyme, 3%saline INH -C/w home Asthma Bronchodilator therapy -PRN Nasal [place] Assessment & Plan (01/08/2025 6:54 AM EDT): Cystic fibrosis, c/b moderated stage lung disease, chronic stenotrophomonas infection , chronic pseudomonas infection, MSSA and intermittent MRSA, pancreatic insufficiency She has been having increased cough, congestion and shortness of breath for the past couple weeks. She completed a course of po levaquin 3 weeks ago after seeing ENT. She was supposed to contact ENT if symptoms did not improve on the levaquin and plan was to do minocycline, however due to worseningcongestion and cough it was decided to admit for IV antibiotics. She is being admitted for a CF pulmonary exacerbation. Plan -Appreciate CF team recs C/w IV colistin 60 mg q8h. (01/01-ongoing) IV Zosyn 3.375 g q6h. (01/01-) switched to oxacillin 01/04-ongoing IV minocycline 200 mg q12h. (01/01-ongoing) Inhaled colistin. S/p prednisone taper (10 mg QOD) 01/06 per CF team - F/u respiratory cx - Sputum MSSA. Fungal with mold - RVP, [employer], neg -Plan for PFTs this week -C/w CF BPH, VEST ,Pulmozyme, 3%saline INH -C/w home Asthma Bronchodilator therapy -PRN Nas[facility] [place] Assessment & Plan (01/06/2025 11:26 AM EDT): cystic fibrosis, c/b moderated stage lung disease, chronic stenotrophomonas infection , chronic pseudomonas infection, MSSA and intermittent MRSA, pancreatic insufficiency She has been having increased cough, congestion and shortness of breath for the past couple weeks. She completed a course of po levaquin 3 weeks ago after seeing ENT. She was supposed to contact ENT if symptoms did not improve on the levaquin and plan was to do minocycline, however due to worseningcongestion and cough it was decided to admit for IV antibiotics. She is being admitted for a CF pulmonary exacerbation. Plan -Appreciate CF team recs C/w IV colistin 60 mg q8h. (01/01- IV Zosyn 3.375 g q6h. (01/01- IV minocycline 200 mg q12h. (01/01- Inhaled colistin. Continue prednisone taper (10 mg QOD) until 01/06 per CF team -IV fluid hydration - F/u respiratory cx - Sputum MSSA. Fungal with mold (discuss with CF team if itraconazole needed) - RVP, [employer], neg -Plan for PFTs next week -C/w CF BPH, VEST ,Pulmozyme, 3%saline INH -C/w home Asthma Bronchodilator therapy -PRN Nas[facility] [place] Assessment & Plan (01/05/2025 1:52 PM EDT): cystic fibrosis, c/b moderated stage lung disease, chronic stenotrophomonas infection , chronic pseudomonas infection, MSSA and intermittent MRSA, pancreatic insufficiency She has been having increased cough, congestion and shortness of breath for the past couple weeks. She completed a course of po levaquin 3 weeks ago after seeing ENT. She was supposed to contact ENT if symptoms did not improve on the levaquin and plan was to do minocycline, however due to worseningcongestion and cough it was decided to admit for IV antibiotics. She is being admitted for a CF pulmonary exacerbation. Plan -Appreciate CF team recs C/w IV colistin 60 mg q8h. (01/01- IV Zosyn 3.375 g q6h. (01/01- IV minocycline 200 mg q12h. (01/01- Inhaled colistin. Continue prednisone taper (10 mg QOD) until 01/06 per CF team -IV fluid hydration - F/u respiratory cx - Sputum MSSA. Fungal with mold (discuss with CF team if itraconazole needed) - RVP, [employer], neg -Plan for PFTs next week -C/w CF BPH, VEST ,Pulmozyme, 3%saline INH -C/w home Asthma Bronchodilator therapy -PRN Nasal [place] Assessment & Plan (01/04/2025 3:12 PM EDT): cystic fibrosis, c/b moderated stage lung disease, chronic stenotrophomonas infection , chronic pseudomonas infection, MSSA and intermittent MRSA, pancreatic insufficiency She has been having increased cough, congestion and shortness of breath for the past couple weeks. She completed a course of po levaquin 3 weeks ago after seeing ENT. She was supposed to contact ENT if symptoms did not improve on the levaquin and plan was to do minocycline, however due to worseningcongestion and cough it was decided to admit for IV antibiotics. She is being admitted for a CF pulmonary exacerbation. Plan -Appreciate CF team recs C/w IV colistin 60 mg q8h. (01/01- IV Zosyn 3.375 g q6h. (01/01- IV minocycline 200 mg q12h. (01/01- Inhaled colistin. Continue prednisone taper (10 mg QOD) until 01/06 per CF team -IV fluid hydration - F/u respiratory cx - Sputum MSSA - RVP, [employer], fungal negative -Plan for PFTs next week -C/w CF BPH, VEST ,Pulmozyme, 3%saline INH -C/w home Asthma Bronchodilator therapy -PRN Nasal [place] Assessment & Plan (01/03/2025 3:24 PM EDT): cystic fibrosis, c/b moderated stage lung disease, chronic stenotrophomonas infection , chronic pseudomonas infection, MSSA and intermittent MRSA, pancreatic insufficiency She has been having increased cough, congestion and shortness of breath for the past couple weeks. She completed a course of po levaquin 3 weeks ago after seeing ENT. She was supposed to contact ENT if symptoms did not improve on the levaquin and plan was to do minocycline, however due to worseningcongestion and cough it was decided to admit for IV antibiotics. She is being admitted for a CF pulmonary exacerbation. Plan - CF team recs at [place] -S/P IV colistin 60 mg q8h. IV Zosyn 3.375 g q6h.,IV minocycline 200 mg q12h, Inhaled colistin x days . ENT-directed prednisone taper (10 mg QOD) finished -CF SPutum CX -C/w home CF BPH, VEST ,Pulmozyme, 3%saline INH -C/w home Asthma Bronchodilator therapy -PRN Nas[facility] [place] Assessment & Plan (01/03/2025 3:51 PM EDT): cystic fibrosis, c/b moderated stage lung disease, chronic stenotrophomonas infection , chronic pseudomonas infection, MSSA and intermittent MRSA, pancreatic insufficiency She has been having increased cough, congestion and shortness of breath for the past couple weeks. She completed a course of po levaquin 3 weeks ago after seeing ENT. She was supposed to contact ENT if symptoms did not improve on the levaquin and plan was to do minocycline, however due to worseningcongestion and cough it was decided to admit for IV antibiotics. She is being admitted for a CF pulmonary exacerbation. Plan -Appreciate CF team recs C/w IV colistin 60 mg q8h. IV Zosyn 3.375 g q6h. IV minocycline 200 mg q12h. Inhaled colistin. Continue ENT-directed prednisone taper (10 mg QOD). -IV fluid hydration -Appreciate sputum recs -C/w CF BPH, VEST ,Pulmozyme, 3%saline INH -C/w home Asthma Bronchodilator therapy -Cw ENT Pred taper 10 mg QOD -PRN Nasal [place] Infection due to Stenotrophomonas /16/2024 Assessment & Plan (01/15/2025 4:05 PM EDT): Cystic fibrosis, c/b moderated stage lung disease, chronic stenotrophomonas infection , chronic pseudomonas infection, MSSA and intermittent MRSA, pancreatic insufficiency She has been having increased cough, congestion and shortness of breath for the past couple weeks. She completed a course of po levaquin 3 weeks ago after seeing ENT. She was supposed to contact ENT if symptoms did not improve on the levaquin and plan was to do minocycline, however due to worseningcongestion and cough it was decided to admit for IV antibiotics. She is being admitted for a CF pulmonary exacerbation. Plan -Appreciate CF team recs - Discussed case with CF staff 01/07, recommended against azole in light of ongoing aspergillus in sputum. - Additionally, recommended returning to zosyn instead of oxacillin. -C/w IV colistin 60 mg q8h. (01/01-ongoing) -Continue IV Zosyn 3.375 g q6h. (01/01-,01/07-ongoing), oxacillin 01/04-01/07 - Continue IV minocycline 200 mg q12h. (01/01-ongoing) S/p prednisone taper (10 mg QOD) 01/06 per CF team - F/u respiratory cx - Sputum MSSA. Fungal with aspergillus - RVP, [employer], neg -s/p PFTs 01/09- FEV1 64% -C/w CF BPH, VEST ,Pulmozyme, 3%saline INH -C/w home Asthma Bronchodilator therapy -PRN Nas[facility] [place] Assessment & Plan (01/14/2025 3:33 PM EDT): Cystic fibrosis, c/b moderated stage lung disease, chronic stenotrophomonas infection , chronic pseudomonas infection, MSSA and intermittent MRSA, pancreatic insufficiency She has been having increased cough, congestion and shortness of breath for the past couple weeks. She completed a course of po levaquin 3 weeks ago after seeing ENT. She was supposed to contact ENT if symptoms did not improve on the levaquin and plan was to do minocycline, however due to worseningcongestion and cough it was decided to admit for IV antibiotics. She is being admitted for a CF pulmonary exacerbation. Plan -Appreciate CF team recs - Discussed case with CF staff 01/07, recommended against azole in light of ongoing aspergillus in sputum. - Additionally, recommended returning to zosyn instead of oxacillin. -C/w IV colistin 60 mg q8h. (01/01-ongoing) -Continue IV Zosyn 3.375 g q6h. (01/01-,01/07-ongoing), oxacillin 01/04-01/07 - Continue IV minocycline 200 mg q12h. (01/01-ongoing) S/p prednisone taper (10 mg QOD) 01/06 per CF team - F/u respiratory cx - Sputum MSSA. Fungal with aspergillus - RVP, [employer], neg -s/p PFTs 01/09- FEV1 64% -C/w CF BPH, VEST ,Pulmozyme, 3%saline INH -C/w home Asthma Bronchodilator therapy -PRN Nas[facility] [place] Assessment & Plan (01/13/2025 1:47 PM EDT): Cystic fibrosis, c/b moderated stage lung disease, chronic stenotrophomonas infection , chronic pseudomonas infection, MSSA and intermittent MRSA, pancreatic insufficiency She has been having increased cough, congestion and shortness of breath for the past couple weeks. She completed a course of po levaquin 3 weeks ago after seeing ENT. She was supposed to contact ENT if symptoms did not improve on the levaquin and plan was to do minocycline, however due to worseningcongestion and cough it was decided to admit for IV antibiotics. She is being admitted for a CF pulmonary exacerbation. Plan -Appreciate CF team recs - Discussed case with CF staff 01/07, recommended against azole in light of ongoing aspergillus in sputum. - Additionally, recommended returning to zosyn instead of oxacillin. -C/w IV colistin 60 mg q8h. (01/01-ongoing) -Continue IV Zosyn 3.375 g q6h. (01/01-,01/07-ongoing), oxacillin 01/04-01/07 - Continue IV minocycline 200 mg q12h. (01/01-ongoing) S/p prednisone taper (10 mg QOD) 01/06 per CF team - F/u respiratory cx - Sputum MSSA. Fungal with aspergillus - RVP, [employer], neg -s/p PFTs 01/09- FEV1 64% -C/w CF BPH, VEST ,Pulmozyme, 3%saline INH -C/w home Asthma Bronchodilator therapy -PRN Nas[facility] [place] Assessment & Plan (01/12/2025 1:55 PM EDT): Cystic fibrosis, c/b moderated stage lung disease, chronic stenotrophomonas infection , chronic pseudomonas infection, MSSA and intermittent MRSA, pancreatic insufficiency She has been having increased cough, congestion and shortness of breath for the past couple weeks. She completed a course of po levaquin 3 weeks ago after seeing ENT. She was supposed to contact ENT if symptoms did not improve on the levaquin and plan was to do minocycline, however due to worseningcongestion and cough it was decided to admit for IV antibiotics. She is being admitted for a CF pulmonary exacerbation. Plan -Appreciate CF team recs - Discussed case with CF staff 01/07, recommended against azole in light of ongoing aspergillus in sputum. - Additionally, recommended returning to zosyn instead of oxacillin. -C/w IV colistin 60 mg q8h. (01/01-ongoing) -Continue IV Zosyn 3.375 g q6h. (01/01-,01/07-ongoing), oxacillin 01/04-01/07 - Continue IV minocycline 200 mg q12h. (01/01-ongoing) S/p prednisone taper (10 mg QOD) 01/06 per CF team - F/u respiratory cx - Sputum MSSA. Fungal with aspergillus - RVP, [employer], neg -s/p PFTs 01/09- FEV1 64% -C/w CF BPH, VEST ,Pulmozyme, 3%saline INH -C/w home Asthma Bronchodilator therapy -PRN Nasal [place] Assessment & Plan (01/12/2025 9:08 AM EDT): #Cystic fibrosis, c/b moderated stage lung disease, chronic stenotrophomonas infection , chronic pseudomonas infection, MSSA and intermittent MRSA, pancreatic insufficiency She has been having increased cough, congestion and shortness of breath for the past couple weeks. She completed a course of po levaquin 3 weeks ago after seeing ENT. She was supposed to contact ENT if symptoms did not improve on the levaquin and plan was to do minocycline, however due to worseningcongestion and cough it was decided to admit for IV antibiotics. She is being admitted for a CF pulmonary exacerbation. Plan -Appreciate CF team recs - Discussed case with CF staff 01/07, recommended against azole in light of ongoing aspergillus in sputum. - Additionally, recommended returning to zosyn instead of oxacillin. C/w IV colistin 60 mg q8h. (01/01-ongoing) IV Zosyn 3.375 g q6h. (01/01-,01/07-ongoing), oxacillin 01/04-01/07 IV minocycline 200 mg q12h. (01/01-ongoing) S/p prednisone taper (10 mg QOD) 01/06 per CF team - F/u respiratory cx - Sputum MSSA. Fungal with aspergillus - RVP, [employer], neg -s/p PFTs 01/09 -C/w CF BPH, VEST ,Pulmozyme, 3%saline INH -C/w home Asthma Bronchodilator therapy -PRN Nasal [place] Assessment & Plan (01/11/2025 12:10 PM EDT): #Cystic fibrosis, c/b moderated stage lung disease, chronic stenotrophomonas infection , chronic pseudomonas infection, MSSA and intermittent MRSA, pancreatic insufficiency She has been having increased cough, congestion and shortness of breath for the past couple weeks. She completed a course of po levaquin 3 weeks ago after seeing ENT. She was supposed to contact ENT if symptoms did not improve on the levaquin and plan was to do minocycline, however due to worseningcongestion and cough it was decided to admit for IV antibiotics. She is being admitted for a CF pulmonary exacerbation. Plan -Appreciate CF team recs - Discussed case with CF staff 01/07, recommended against azole in light of ongoing aspergillus in sputum. - Additionally, recommended returning to zosyn instead of oxacillin. C/w IV colistin 60 mg q8h. (01/01-ongoing) IV Zosyn 3.375 g q6h. (01/01-,01/07-ongoing), oxacillin 01/04-01/07 IV minocycline 200 mg q12h. (01/01-ongoing) S/p prednisone taper (10 mg QOD) 01/06 per CF team - F/u respiratory cx - Sputum MSSA. Fungal with aspergillus - RVP, [employer], neg -s/p PFTs 01/09 -C/w CF BPH, VEST ,Pulmozyme, 3%saline INH -C/w home Asthma Bronchodilator therapy -PRN Nas[facility] [place] Assessment & Plan (01/10/2025 12:10 PM EDT): #Cystic fibrosis, c/b moderated stage lung disease, chronic stenotrophomonas infection , chronic pseudomonas infection, MSSA and intermittent MRSA, pancreatic insufficiency She has been having increased cough, congestion and shortness of breath for the past couple weeks. She completed a course of po levaquin 3 weeks ago after seeing ENT. She was supposed to contact ENT if symptoms did not improve on the levaquin and plan was to do minocycline, however due to worseningcongestion and cough it was decided to admit for IV antibiotics. She is being admitted for a CF pulmonary exacerbation. Plan -Appreciate CF team recs - Discussed case with CF staff 01/07, recommended against azole in light of ongoing aspergillus in sputum. - Additionally, recommended returning to zosyn instead of oxacillin. C/w IV colistin 60 mg q8h. (01/01-ongoing) IV Zosyn 3.375 g q6h. (,01/07-ongoing), oxacillin 01/04-01/07 IV minocycline 200 mg q12h. (01/01-ongoing) S/p prednisone taper (10 mg QOD) 01/06 per CF team - F/u respiratory cx - Sputum MSSA. Fungal with aspergillus - RVP, [employer], neg -s/p PFTs 01/09 -C/w CF BPH, VEST ,Pulmozyme, 3%saline INH -C/w home Asthma Bronchodilator therapy -PRN Nas[facility] [place] Assessment & Plan (01/09/2025 12:40 PM EDT): #Cystic fibrosis, c/b moderated stage lung disease, chronic stenotrophomonas infection , chronic pseudomonas infection, MSSA and intermittent MRSA, pancreatic insufficiency She has been having increased cough, congestion and shortness of breath for the past couple weeks. She completed a course of po levaquin 3 weeks ago after seeing ENT. She was supposed to contact ENT if symptoms did not improve on the levaquin and plan was to do minocycline, however due to worseningcongestion and cough it was decided to admit for IV antibiotics. She is being admitted for a CF pulmonary exacerbation. Plan -Appreciate CF team recs - Discussed case with CF staff 01/07, recommended against azole in light of ongoing aspergillus in sputum. - Additionally, recommended returning to zosyn instead of oxacillin. C/w IV colistin 60 mg q8h. (01/01-ongoing) IV Zosyn 3.375 g q6h. (01/01-,01/07-ongoing) switched to oxacillin 01/04-01/07 IV minocycline 200 mg q12h. (01/01-ongoing) S/p prednisone taper (10 mg QOD) 01/06 per CF team - F/u respiratory cx - Sputum MSSA. Fungal with aspergillus - RVP, [employer], neg -Plan for PFTs 01/09 -C/w CF BPH, VEST ,Pulmozyme, 3%saline INH -C/w home Asthma Bronchodilator therapy -PRN Nas[facility] [place] Assessment & Plan (01/08/2025 12:18 PM EDT): #Cystic fibrosis, c/b moderated stage lung disease, chronic stenotrophomonas infection , chronic pseudomonas infection, MSSA and intermittent MRSA, pancreatic insufficiency She has been having increased cough, congestion and shortness of breath for the past couple weeks. She completed a course of po levaquin 3 weeks ago after seeing ENT. She was supposed to contact ENT if symptoms did not improve on the levaquin and plan was to do minocycline, however due to worseningcongestion and cough it was decided to admit for IV antibiotics. She is being admitted for a CF pulmonary exacerbation. Plan -Appreciate CF team recs C/w IV colistin 60 mg q8h. (01/01-ongoing) IV Zosyn 3.375 g q6h. (01/01-) switched to oxacillin 01/04-ongoing IV minocycline 200 mg q12h. (01/01-ongoing) Inhaled colistin. S/p prednisone taper (10 mg QOD) 01/06 per CF team - F/u respiratory cx - Sputum MSSA. Fungal with mold - RVP, [employer], neg -Plan for PFTs this week -C/w CF BPH, VEST ,Pulmozyme, 3%saline INH -C/w home Asthma Bronchodilator therapy -PRN Nasal [place] Assessment & Plan (01/08/2025 6:54 AM EDT): Cystic fibrosis, c/b moderated stage lung disease, chronic stenotrophomonas infection , chronic pseudomonas infection, MSSA and intermittent MRSA, pancreatic insufficiency She has been having increased cough, congestion and shortness of breath for the past couple weeks. She completed a course of po levaquin 3 weeks ago after seeing ENT. She was supposed to contact ENT if symptoms did not improve on the levaquin and plan was to do minocycline, however due to worseningcongestion and cough it was decided to admit for IV antibiotics. She is being admitted for a CF pulmonary exacerbation. Plan -Appreciate CF team recs C/w IV colistin 60 mg q8h. (01/01-ongoing) IV Zosyn 3.375 g q6h. (01/01-) switched to oxacillin 01/04-ongoing IV minocycline 200 mg q12h. (01/01-ongoing) Inhaled colistin. S/p prednisone taper (10 mg QOD) 01/06 per CF team - F/u respiratory cx - Sputum MSSA. Fungal with mold - RVP, [employer], neg -Plan for PFTs this week -C/w CF BPH, VEST ,Pulmozyme, 3%saline INH -C/w home Asthma Bronchodilator therapy -PRN Nas[facility] [place] Assessment & Plan (01/06/2025 11:26 AM EDT): cystic fibrosis, c/b moderated stage lung disease, chronic stenotrophomonas infection , chronic pseudomonas infection, MSSA and intermittent MRSA, pancreatic insufficiency She has been having increased cough, congestion and shortness of breath for the past couple weeks. She completed a course of po levaquin 3 weeks ago after seeing ENT. She was supposed to contact ENT if symptoms did not improve on the levaquin and plan was to do minocycline, however due to worseningcongestion and cough it was decided to admit for IV antibiotics. She is being admitted for a CF pulmonary exacerbation. Plan -Appreciate CF team recs C/w IV colistin 60 mg q8h. (01/01- IV Zosyn 3.375 g q6h. (01/01- IV minocycline 200 mg q12h. (01/01- Inhaled colistin. Continue prednisone taper (10 mg QOD) until 01/06 per CF team -IV fluid hydration - F/u respiratory cx - Sputum MSSA. Fungal with mold (discuss with CF team if itraconazole needed) - RVP, [employer], neg -Plan for PFTs next week -C/w CF BPH, VEST ,Pulmozyme, 3%saline INH -C/w home Asthma Bronchodilator therapy -PRN Nas[facility] [place] Assessment & Plan (01/05/2025 1:52 PM EDT): cystic fibrosis, c/b moderated stage lung disease, chronic stenotrophomonas infection , chronic pseudomonas infection, MSSA and intermittent MRSA, pancreatic insufficiency She has been having increased cough, congestion and shortness of breath for the past couple weeks. She completed a course of po levaquin 3 weeks ago after seeing ENT. She was supposed to contact ENT if symptoms did not improve on the levaquin and plan was to do minocycline, however due to worseningcongestion and cough it was decided to admit for IV antibiotics. She is being admitted for a CF pulmonary exacerbation. Plan -Appreciate CF team recs C/w IV colistin 60 mg q8h. (01/01- IV Zosyn 3.375 g q6h. (01/01- IV minocycline 200 mg q12h. (01/01- Inhaled colistin. Continue prednisone taper (10 mg QOD) until 01/06 per CF team -IV fluid hydration - F/u respiratory cx - Sputum MSSA. Fungal with mold (discuss with CF team if itraconazole needed) - RVP, [employer], neg -Plan for PFTs next week -C/w CF BPH, VEST ,Pulmozyme, 3%saline INH -C/w home Asthma Bronchodilator therapy -PRN Nas[facility] [place] Assessment & Plan (01/04/2025 3:12 PM EDT): cystic fibrosis, c/b moderated stage lung disease, chronic stenotrophomonas infection , chronic pseudomonas infection, MSSA and intermittent MRSA, pancreatic insufficiency She has been having increased cough, congestion and shortness of breath for the past couple weeks. She completed a course of po levaquin 3 weeks ago after seeing ENT. She was supposed to contact ENT if symptoms did not improve on the levaquin and plan was to do minocycline, however due to worseningcongestion and cough it was decided to admit for IV antibiotics. She is being admitted for a CF pulmonary exacerbation. Plan -Appreciate CF team recs C/w IV colistin 60 mg q8h. (01/01- IV Zosyn 3.375 g q6h. (01/01- IV minocycline 200 mg q12h. (01/01- Inhaled colistin. Continue prednisone taper (10 mg QOD) until 01/06 per CF team -IV fluid hydration - F/u respiratory cx - Sputum MSSA - RVP, [employer], fungal negative -Plan for PFTs next week -C/w CF BPH, VEST ,Pulmozyme, 3%saline INH -C/w home Asthma Bronchodilator therapy -PRN Nas[facility] [place] Assessment & Plan (01/03/2025 3:24 PM EDT): cystic fibrosis, c/b moderated stage lung disease, chronic stenotrophomonas infection , chronic pseudomonas infection, MSSA and intermittent MRSA, pancreatic insufficiency She has been having increased cough, congestion and shortness of breath for the past couple weeks. She completed a course of po levaquin 3 weeks ago after seeing ENT. She was supposed to contact ENT if symptoms did not improve on the levaquin and plan was to do minocycline, however due to worseningcongestion and cough it was decided to admit for IV antibiotics. She is being admitted for a CF pulmonary exacerbation. Plan - CF team recs at [place] -S/P IV colistin 60 mg q8h. IV Zosyn 3.375 g q6h.,IV minocycline 200 mg q12h, Inhaled colistin x days . ENT-directed prednisone taper (10 mg QOD) finished -CF SPutum CX -C/w home CF BPH, VEST ,Pulmozyme, 3%saline INH -C/w home Asthma Bronchodilator therapy -PRN Nasal Wood Assessment & Plan (01/03/2025 3:51 PM EDT): cystic fibrosis, c/b moderated stage lung disease, chronic stenotrophomonas infection , chronic pseudomonas infection, MSSA and intermittent MRSA, pancreatic insufficiency She has been having increased cough, congestion and shortness of breath for the past couple weeks. She completed a course of po levaquin 3 weeks ago after seeing ENT. She was supposed to contact ENT if symptoms did not improve on the levaquin and plan was to do minocycline, however due to worseningcongestion and cough it was decided to admit for IV antibiotics. She is being admitted for a CF pulmonary exacerbation. Plan -Appreciate CF team recs C/w IV colistin 60 mg q8h. IV Zosyn 3.375 g q6h. IV minocycline 200 mg q12h. Inhaled colistin. Continue ENT-directed prednisone taper (10 mg QOD). -IV fluid hydration -Appreciate sputum recs -C/w CF BPH, VEST ,Pulmozyme, 3%saline INH -C/w home Asthma Bronchodilator therapy -Cw ENT Pred taper 10 mg QOD -PRN Nasal [facility] Cystic fibrosis [id number]/2024arrier of multidrug- resistant Stenotrophomonas [id number]/04/2024 Assessment & Plan (01/15/2025 4:05 PM EDT): Cystic fibrosis, c/b moderated stage lung disease, chronic stenotrophomonas infection , chronic pseudomonas infection, MSSA and intermittent MRSA, pancreatic insufficiency She has been having increased cough, congestion and shortness of breath for the past couple weeks. She completed a course of po levaquin 3 weeks ago after seeing ENT. She was supposed to contact ENT if symptoms did not improve on the levaquin and plan was to do minocycline, however due to worseningcongestion and cough it was decided to admit for IV antibiotics. She is being admitted for a CF pulmonary exacerbation. Plan -Appreciate CF team recs - Discussed case with CF staff 01/07, recommended against azole in light of ongoing aspergillus in sputum. - Additionally, recommended returning to zosyn instead of oxacillin. -C/w IV colistin 60 mg q8h. (01/01-ongoing) -Continue IV Zosyn 3.375 g q6h. (01/01-,01/07-ongoing), oxacillin 01/04-01/07 - Continue IV minocycline 200 mg q12h. (01/01-ongoing) S/p prednisone taper (10 mg QOD) 01/06 per CF team - F/u respiratory cx - Sputum MSSA. Fungal with aspergillus - RVP, [employer], neg -s/p PFTs 01/09- FEV1 64% -C/w CF BPH, VEST ,Pulmozyme, 3%saline INH -C/w home Asthma Bronchodilator therapy -PRN Nasal [place] Assessment & Plan (01/14/2025 3:33 PM EDT): Cystic fibrosis, c/b moderated stage lung disease, chronic stenotrophomonas infection , chronic pseudomonas infection, MSSA and intermittent MRSA, pancreatic insufficiency She has been having increased cough, congestion and shortness of breath for the past couple weeks. She completed a course of po levaquin 3 weeks ago after seeing ENT. She was supposed to contact ENT if symptoms did not improve on the levaquin and plan was to do minocycline, however due to worseningcongestion and cough it was decided to admit for IV antibiotics. She is being admitted for a CF pulmonary exacerbation. Plan -Appreciate CF team recs - Discussed case with CF staff 01/07, recommended against azole in light of ongoing aspergillus in sputum. - Additionally, recommended returning to zosyn instead of oxacillin. -C/w IV colistin 60 mg q8h. (01/01-ongoing) -Continue IV Zosyn 3.375 g q6h. (,01/07-ongoing), oxacillin 01/04-01/07 - Continue IV minocycline 200 mg q12h. (01/01-ongoing) S/p prednisone taper (10 mg QOD) 01/06 per CF team - F/u respiratory cx - Sputum MSSA. Fungal with aspergillus - RVP, [employer], neg -s/p PFTs 01/09- FEV1 64% -C/w CF BPH, VEST ,Pulmozyme, 3%saline INH -C/w home Asthma Bronchodilator therapy -PRN Nasal [place] Assessment & Plan (01/13/2025 1:47 PM EDT): Cystic fibrosis, c/b moderated stage lung disease, chronic stenotrophomonas infection , chronic pseudomonas infection, MSSA and intermittent MRSA, pancreatic insufficiency She has been having increased cough, congestion and shortness of breath for the past couple weeks. She completed a course of po levaquin 3 weeks ago after seeing ENT. She was supposed to contact ENT if symptoms did not improve on the levaquin and plan was to do minocycline, however due to worseningcongestion and cough it was decided to admit for IV antibiotics. She is being admitted for a CF pulmonary exacerbation. Plan -Appreciate CF team recs - Discussed case with CF staff 01/07, recommended against azole in light of ongoing aspergillus in sputum. - Additionally, recommended returning to zosyn instead of oxacillin. -C/w IV colistin 60 mg q8h. (01/01-ongoing) -Continue IV Zosyn 3.375 g q6h. (,01/07-ongoing), oxacillin 01/04-01/07 - Continue IV minocycline 200 mg q12h. (01/01-ongoing) S/p prednisone taper (10 mg QOD) 01/06 per CF team - F/u respiratory cx - Sputum MSSA. Fungal with aspergillus - RVP, [employer], neg -s/p PFTs 01/09- FEV1 64% -C/w CF BPH, VEST ,Pulmozyme, 3%saline INH -C/w home Asthma Bronchodilator therapy -PRN Nasal [place] Assessment & Plan (01/12/2025 1:55 PM EDT): Cystic fibrosis, c/b moderated stage lung disease, chronic stenotrophomonas infection , chronic pseudomonas infection, MSSA and intermittent MRSA, pancreatic insufficiency She has been having increased cough, congestion and shortness of breath for the past couple weeks. She completed a course of po levaquin 3 weeks ago after seeing ENT. She was supposed to contact ENT if symptoms did not improve on the levaquin and plan was to do minocycline, however due to worseningcongestion and cough it was decided to admit for IV antibiotics. She is being admitted for a CF pulmonary exacerbation. Plan -Appreciate CF team recs - Discussed case with CF staff 01/07, recommended against azole in light of ongoing aspergillus in sputum. - Additionally, recommended returning to zosyn instead of oxacillin. -C/w IV colistin 60 mg q8h. (01/01-ongoing) -Continue IV Zosyn 3.375 g q6h. (01/01-,01/07-ongoing), oxacillin 01/04-01/07 - Continue IV minocycline 200 mg q12h. (01/01-ongoing) S/p prednisone taper (10 mg QOD) 01/06 per CF team - F/u respiratory cx - Sputum MSSA. Fungal with aspergillus - RVP, [employer], neg -s/p PFTs 01/09- FEV1 64% -C/w CF BPH, VEST ,Pulmozyme, 3%saline INH -C/w home Asthma Bronchodilator therapy -PRN Nasal [place] Assessment & Plan (01/12/2025 9:08 AM EDT): #Cystic fibrosis, c/b moderated stage lung disease, chronic stenotrophomonas infection , chronic pseudomonas infection, MSSA and intermittent MRSA, pancreatic insufficiency She has been having increased cough, congestion and shortness of breath for the past couple weeks. She completed a course of po levaquin 3 weeks ago after seeing ENT. She was supposed to contact ENT if symptoms did not improve on the levaquin and plan was to do minocycline, however due to worseningcongestion and cough it was decided to admit for IV antibiotics. She is being admitted for a CF pulmonary exacerbation. Plan -Appreciate CF team recs - Discussed case with CF staff 01/07, recommended against azole in light of ongoing aspergillus in sputum. - Additionally, recommended returning to zosyn instead of oxacillin. C/w IV colistin 60 mg q8h. (01/01-ongoing) IV Zosyn 3.375 g q6h. (,01/07-ongoing), oxacillin 01/04-01/07 IV minocycline 200 mg q12h. (01/01-ongoing) S/p prednisone taper (10 mg QOD) 01/06 per CF team - F/u respiratory cx - Sputum MSSA. Fungal with aspergillus - RVP, [employer], neg -s/p PFTs 01/09 -C/w CF BPH, VEST ,Pulmozyme, 3%saline INH -C/w home Asthma Bronchodilator therapy -PRN Nasal [place] Assessment & Plan (01/11/2025 12:10 PM EDT): #Cystic fibrosis, c/b moderated stage lung disease, chronic stenotrophomonas infection , chronic pseudomonas infection, MSSA and intermittent MRSA, pancreatic insufficiency She has been having increased cough, congestion and shortness of breath for the past couple weeks. She completed a course of po levaquin 3 weeks ago after seeing ENT. She was supposed to contact ENT if symptoms did not improve on the levaquin and plan was to do minocycline, however due to worseningcongestion and cough it was decided to admit for IV antibiotics. She is being admitted for a CF pulmonary exacerbation. Plan -Appreciate CF team recs - Discussed case with CF staff 01/07, recommended against azole in light of ongoing aspergillus in sputum. - Additionally, recommended returning to zosyn instead of oxacillin. C/w IV colistin 60 mg q8h. (01/01-ongoing) IV Zosyn 3.375 g q6h. (,01/07-ongoing), oxacillin 01/04-01/07 IV minocycline 200 mg q12h. (01/01-ongoing) S/p prednisone taper (10 mg QOD) 01/06 per CF team - F/u respiratory cx - Sputum MSSA. Fungal with aspergillus - RVP, [employer], neg -s/p PFTs 01/09 -C/w CF BPH, VEST ,Pulmozyme, 3%saline INH -C/w home Asthma Bronchodilator therapy -PRN Nasal [place] Assessment & Plan (01/10/2025 12:10 PM EDT): #Cystic fibrosis, c/b moderated stage lung disease, chronic stenotrophomonas infection , chronic pseudomonas infection, MSSA and intermittent MRSA, pancreatic insufficiency She has been having increased cough, congestion and shortness of breath for the past couple weeks. She completed a course of po levaquin 3 weeks ago after seeing ENT. She was supposed to contact ENT if symptoms did not improve on the levaquin and plan was to do minocycline, however due to worseningcongestion and cough it was decided to admit for IV antibiotics. She is being admitted for a CF pulmonary exacerbation. Plan -Appreciate CF team recs - Discussed case with CF staff 01/07, recommended against azole in light of ongoing aspergillus in sputum. - Additionally, recommended returning to zosyn instead of oxacillin. C/w IV colistin 60 mg q8h. (01/01-ongoing) IV Zosyn 3.375 g q6h. (01/01-,01/07-ongoing), oxacillin 01/04-01/07 IV minocycline 200 mg q12h. (01/01-ongoing) S/p prednisone taper (10 mg QOD) 01/06 per CF team - F/u respiratory cx - Sputum MSSA. Fungal with aspergillus - RVP, [employer], neg -s/p PFTs 01/09 -C/w CF BPH, VEST ,Pulmozyme, 3%saline INH -C/w home Asthma Bronchodilator therapy -PRN Nas[facility] [place] Assessment & Plan (01/09/2025 12:40 PM EDT): #Cystic fibrosis, c/b moderated stage lung disease, chronic stenotrophomonas infection , chronic pseudomonas infection, MSSA and intermittent MRSA, pancreatic insufficiency She has been having increased cough, congestion and shortness of breath for the past couple weeks. She completed a course of po levaquin 3 weeks ago after seeing ENT. She was supposed to contact ENT if symptoms did not improve on the levaquin and plan was to do minocycline, however due to worseningcongestion and cough it was decided to admit for IV antibiotics. She is being admitted for a CF pulmonary exacerbation. Plan -Appreciate CF team recs - Discussed case with CF staff 01/07, recommended against azole in light of ongoing aspergillus in sputum. - Additionally, recommended returning to zosyn instead of oxacillin. C/w IV colistin 60 mg q8h. (01/01-ongoing) IV Zosyn 3.375 g q6h. (,01/07-ongoing) switched to oxacillin 01/04-01/07 IV minocycline 200 mg q12h. (01/01-ongoing) S/p prednisone taper (10 mg QOD) 01/06 per CF team - F/u respiratory cx - Sputum MSSA. Fungal with aspergillus - RVP, [employer], neg -Plan for PFTs 01/09 -C/w CF BPH, VEST ,Pulmozyme, 3%saline INH -C/w home Asthma Bronchodilator therapy -PRN Nasal [place] Assessment & Plan (01/08/2025 12:18 PM EDT): #Cystic fibrosis, c/b moderated stage lung disease, chronic stenotrophomonas infection , chronic pseudomonas infection, MSSA and intermittent MRSA, pancreatic insufficiency She has been having increased cough, congestion and shortness of breath for the past couple weeks. She completed a course of po levaquin 3 weeks ago after seeing ENT. She was supposed to contact ENT if symptoms did not improve on the levaquin and plan was to do minocycline, however due to worseningcongestion and cough it was decided to admit for IV antibiotics. She is being admitted for a CF pulmonary exacerbation. Plan -Appreciate CF team recs C/w IV colistin 60 mg q8h. (01/01-ongoing) IV Zosyn 3.375 g q6h. (01/01-) switched to oxacillin 01/04-ongoing IV minocycline 200 mg q12h. (01/01-ongoing) Inhaled colistin. S/p prednisone taper (10 mg QOD) 01/06 per CF team - F/u respiratory cx - Sputum MSSA. Fungal with mold - RVP, [employer], neg -Plan for PFTs this week -C/w CF BPH, VEST ,Pulmozyme, 3%saline INH -C/w home Asthma Bronchodilator therapy -PRN Nasal [place] Assessment & Plan (01/08/2025 6:54 AM EDT): Cystic fibrosis, c/b moderated stage lung disease, chronic stenotrophomonas infection , chronic pseudomonas infection, MSSA and intermittent MRSA, pancreatic insufficiency She has been having increased cough, congestion and shortness of breath for the past couple weeks. She completed a course of po levaquin 3 weeks ago after seeing ENT. She was supposed to contact ENT if symptoms did not improve on the levaquin and plan was to do minocycline, however due to worseningcongestion and cough it was decided to admit for IV antibiotics. She is being admitted for a CF pulmonary exacerbation. Plan -Appreciate CF team recs C/w IV colistin 60 mg q8h. (01/01-ongoing) IV Zosyn 3.375 g q6h. (01/01-) switched to oxacillin 01/04-ongoing IV minocycline 200 mg q12h. (01/01-ongoing) Inhaled colistin. S/p prednisone taper (10 mg QOD) 01/06 per CF team - F/u respiratory cx - Sputum MSSA. Fungal with mold - RVP, [employer], neg -Plan for PFTs this week -C/w CF BPH, VEST ,Pulmozyme, 3%saline INH -C/w home Asthma Bronchodilator therapy -PRN Nasal [place] Assessment & Plan (01/06/2025 11:26 AM EDT): cystic fibrosis, c/b moderated stage lung disease, chronic stenotrophomonas infection , chronic pseudomonas infection, MSSA and intermittent MRSA, pancreatic insufficiency She has been having increased cough, congestion and shortness of breath for the past couple weeks. She completed a course of po levaquin 3 weeks ago after seeing ENT. She was supposed to contact ENT if symptoms did not improve on the levaquin and plan was to do minocycline, however due to worseningcongestion and cough it was decided to admit for IV antibiotics. She is being admitted for a CF pulmonary exacerbation. Plan -Appreciate CF team recs C/w IV colistin 60 mg q8h. (01/01- IV Zosyn 3.375 g q6h. (01/01- IV minocycline 200 mg q12h. (01/01- Inhaled colistin. Continue prednisone taper (10 mg QOD) until 01/06 per CF team -IV fluid hydration - F/u respiratory cx - Sputum MSSA. Fungal with mold (discuss with CF team if itraconazole needed) - RVP, [employer], neg -Plan for PFTs next week -C/w CF BPH, VEST ,Pulmozyme, 3%saline INH -C/w home Asthma Bronchodilator therapy -PRN Nasal [place] Assessment & Plan (01/05/2025 1:52 PM EDT): cystic fibrosis, c/b moderated stage lung disease, chronic stenotrophomonas infection , chronic pseudomonas infection, MSSA and intermittent MRSA, pancreatic insufficiency She has been having increased cough, congestion and shortness of breath for the past couple weeks. She completed a course of po levaquin 3 weeks ago after seeing ENT. She was supposed to contact ENT if symptoms did not improve on the levaquin and plan was to do minocycline, however due to worseningcongestion and cough it was decided to admit for IV antibiotics. She is being admitted for a CF pulmonary exacerbation. Plan -Appreciate CF team recs C/w IV colistin 60 mg q8h. (01/01- IV Zosyn 3.375 g q6h. (01/01- IV minocycline 200 mg q12h. (01/01- Inhaled colistin. Continue prednisone taper (10 mg QOD) until 01/06 per CF team -IV fluid hydration - F/u respiratory cx - Sputum MSSA. Fungal with mold (discuss with CF team if itraconazole needed) - RVP, [employer], neg -Plan for PFTs next week -C/w CF BPH, VEST ,Pulmozyme, 3%saline INH -C/w home Asthma Bronchodilator therapy -PRN Nasal [place] Assessment & Plan (01/04/2025 3:12 PM EDT): cystic fibrosis, c/b moderated stage lung disease, chronic stenotrophomonas infection , chronic pseudomonas infection, MSSA and intermittent MRSA, pancreatic insufficiency She has been having increased cough, congestion and shortness of breath for the past couple weeks. She completed a course of po levaquin 3 weeks ago after seeing ENT. She was supposed to contact ENT if symptoms did not improve on the levaquin and plan was to do minocycline, however due to worseningcongestion and cough it was decided to admit for IV antibiotics. She is being admitted for a CF pulmonary exacerbation. Plan -Appreciate CF team recs C/w IV colistin 60 mg q8h. (01/01- IV Zosyn 3.375 g q6h. (01/01- IV minocycline 200 mg q12h. (01/01- Inhaled colistin. Continue prednisone taper (10 mg QOD) until 01/06 per CF team -IV fluid hydration - F/u respiratory cx - Sputum MSSA - RVP, [employer], fungal negative -Plan for PFTs next week -C/w CF BPH, VEST ,Pulmozyme, 3%saline INH -C/w home Asthma Bronchodilator therapy -PRN Nasal [place] Assessment & Plan (01/03/2025 3:24 PM EDT): cystic fibrosis, c/b moderated stage lung disease, chronic stenotrophomonas infection , chronic pseudomonas infection, MSSA and intermittent MRSA, pancreatic insufficiency She has been having increased cough, congestion and shortness of breath for the past couple weeks. She completed a course of po levaquin 3 weeks ago after seeing ENT. She was supposed to contact ENT if symptoms did not improve on the levaquin and plan was to do minocycline, however due to worseningcongestion and cough it was decided to admit for IV antibiotics. She is being admitted for a CF pulmonary exacerbation. Plan - CF team recs at [place] -S/P IV colistin 60 mg q8h. IV Zosyn 3.375 g q6h.,IV minocycline 200 mg q12h, Inhaled colistin x days . ENT-directed prednisone taper (10 mg QOD) finished -CF SPutum CX -C/w home CF BPH, VEST ,Pulmozyme, 3%saline INH -C/w home Asthma Bronchodilator therapy -PRN Nasal [place] Assessment & Plan (01/03/2025 3:51 PM EDT): cystic fibrosis, c/b moderated stage lung disease, chronic stenotrophomonas infection , chronic pseudomonas infection, MSSA and intermittent MRSA, pancreatic insufficiency She has been having increased cough, congestion and shortness of breath for the past couple weeks. She completed a course of po levaquin 3 weeks ago after seeing ENT. She was supposed to contact ENT if symptoms did not improve on the levaquin and plan was to do minocycline, however due to worseningcongestion and cough it was decided to admit for IV antibiotics. She is being admitted for a CF pulmonary exacerbation. Plan -Appreciate CF team recs C/w IV colistin 60 mg q8h. IV Zosyn 3.375 g q6h. IV minocycline 200 mg q12h. Inhaled colistin. Continue ENT-directed prednisone taper (10 mg QOD). -IV fluid hydration -Appreciate sputum recs -C/w CF BPH, VEST ,Pulmozyme, 3%saline INH -C/w home Asthma Bronchodilator therapy -Cw ENT Pred taper 10 mg QOD -PRN Nasal [place] Staph aureus [id number]/2024 Assessment & Plan (01/15/2025 4:05 PM EDT): Cystic fibrosis, c/b moderated stage lung disease, chronic stenotrophomonas infection , chronic pseudomonas infection, MSSA and intermittent MRSA, pancreatic insufficiency She has been having increased cough, congestion and shortness of breath for the past couple weeks. She completed a course of po levaquin 3 weeks ago after seeing ENT. She was supposed to contact ENT if symptoms did not improve on the levaquin and plan was to do minocycline, however due to worseningcongestion and cough it was decided to admit for IV antibiotics. She is being admitted for a CF pulmonary exacerbation. Plan -Appreciate CF team recs - Discussed case with CF staff 01/07, recommended against azole in light of ongoing aspergillus in sputum. - Additionally, recommended returning to zosyn instead of oxacillin. -C/w IV colistin 60 mg q8h. (01/01-ongoing) -Continue IV Zosyn 3.375 g q6h. (01/01-,01/07-ongoing), oxacillin 01/04-01/07 - Continue IV minocycline 200 mg q12h. (01/01-ongoing) S/p prednisone taper (10 mg QOD) 01/06 per CF team - F/u respiratory cx - Sputum MSSA. Fungal with aspergillus - RVP, [employer], neg -s/p PFTs 01/09- FEV1 64% -C/w CF BPH, VEST ,Pulmozyme, 3%saline INH -C/w home Asthma Bronchodilator therapy -PRN Nasal [place] Assessment & Plan (01/14/2025 3:33 PM EDT): Cystic fibrosis, c/b moderated stage lung disease, chronic stenotrophomonas infection , chronic pseudomonas infection, MSSA and intermittent MRSA, pancreatic insufficiency She has been having increased cough, congestion and shortness of breath for the past couple weeks. She completed a course of po levaquin 3 weeks ago after seeing ENT. She was supposed to contact ENT if symptoms did not improve on the levaquin and plan was to do minocycline, however due to worseningcongestion and cough it was decided to admit for IV antibiotics. She is being admitted for a CF pulmonary exacerbation. Plan -Appreciate CF team recs - Discussed case with CF staff 01/07, recommended against azole in light of ongoing aspergillus in sputum. - Additionally, recommended returning to zosyn instead of oxacillin. -C/w IV colistin 60 mg q8h. (01/01-ongoing) -Continue IV Zosyn 3.375 g q6h. (01/01-,01/07-ongoing), oxacillin 01/04-01/07 - Continue IV minocycline 200 mg q12h. (01/01-ongoing) S/p prednisone taper (10 mg QOD) 01/06 per CF team - F/u respiratory cx - Sputum MSSA. Fungal with aspergillus - RVP, [employer], neg -s/p PFTs 01/09- FEV1 64% -C/w CF BPH, VEST ,Pulmozyme, 3%saline INH -C/w home Asthma Bronchodilator therapy -PRN Nasal [place] Assessment & Plan (01/13/2025 1:47 PM EDT): Cystic fibrosis, c/b moderated stage lung disease, chronic stenotrophomonas infection , chronic pseudomonas infection, MSSA and intermittent MRSA, pancreatic insufficiency She has been having increased cough, congestion and shortness of breath for the past couple weeks. She completed a course of po levaquin 3 weeks ago after seeing ENT. She was supposed to contact ENT if symptoms did not improve on the levaquin and plan was to do minocycline, however due to worseningcongestion and cough it was decided to admit for IV antibiotics. She is being admitted for a CF pulmonary exacerbation. Plan -Appreciate CF team recs - Discussed case with CF staff 01/07, recommended against azole in light of ongoing aspergillus in sputum. - Additionally, recommended returning to zosyn instead of oxacillin. -C/w IV colistin 60 mg q8h. (01/01-ongoing) -Continue IV Zosyn 3.375 g q6h. (01/01-,01/07-ongoing), oxacillin 01/04-01/07 - Continue IV minocycline 200 mg q12h. (01/01-ongoing) S/p prednisone taper (10 mg QOD) 01/06 per CF team - F/u respiratory cx - Sputum MSSA. Fungal with aspergillus - RVP, [employer], neg -s/p PFTs 01/09- FEV1 64% -C/w CF BPH, VEST ,Pulmozyme, 3%saline INH -C/w home Asthma Bronchodilator therapy -PRN Nasal [place] Assessment & Plan (01/12/2025 1:55 PM EDT): Cystic fibrosis, c/b moderated stage lung disease, chronic stenotrophomonas infection , chronic pseudomonas infection, MSSA and intermittent MRSA, pancreatic insufficiency She has been having increased cough, congestion and shortness of breath for the past couple weeks. She completed a course of po levaquin 3 weeks ago after seeing ENT. She was supposed to contact ENT if symptoms did not improve on the levaquin and plan was to do minocycline, however due to worseningcongestion and cough it was decided to admit for IV antibiotics. She is being admitted for a CF pulmonary exacerbation. Plan -Appreciate CF team recs - Discussed case with CF staff 01/07, recommended against azole in light of ongoing aspergillus in sputum. - Additionally, recommended returning to zosyn instead of oxacillin. -C/w IV colistin 60 mg q8h. (01/01-ongoing) -Continue IV Zosyn 3.375 g q6h. (,01/07-ongoing), oxacillin 01/04-01/07 - Continue IV minocycline 200 mg q12h. (01/01-ongoing) S/p prednisone taper (10 mg QOD) 01/06 per CF team - F/u respiratory cx - Sputum MSSA. Fungal with aspergillus - RVP, [employer], neg -s/p PFTs 01/09- FEV1 64% -C/w CF BPH, VEST ,Pulmozyme, 3%saline INH -C/w home Asthma Bronchodilator therapy -PRN Nasal [place] Assessment & Plan (01/12/2025 9:08 AM EDT): #Cystic fibrosis, c/b moderated stage lung disease, chronic stenotrophomonas infection , chronic pseudomonas infection, MSSA and intermittent MRSA, pancreatic insufficiency She has been having increased cough, congestion and shortness of breath for the past couple weeks. She completed a course of po levaquin 3 weeks ago after seeing ENT. She was supposed to contact ENT if symptoms did not improve on the levaquin and plan was to do minocycline, however due to worseningcongestion and cough it was decided to admit for IV antibiotics. She is being admitted for a CF pulmonary exacerbation. Plan -Appreciate CF team recs - Discussed case with CF staff 01/07, recommended against azole in light of ongoing aspergillus in sputum. - Additionally, recommended returning to zosyn instead of oxacillin. C/w IV colistin 60 mg q8h. (01/01-ongoing) IV Zosyn 3.375 g q6h. (01/01-,01/07-ongoing), oxacillin 01/04-01/07 IV minocycline 200 mg q12h. (01/01-ongoing) S/p prednisone taper (10 mg QOD) 01/06 per CF team - F/u respiratory cx - Sputum MSSA. Fungal with aspergillus - RVP, [employer], neg -s/p PFTs 01/09 -C/w CF BPH, VEST ,Pulmozyme, 3%saline INH -C/w home Asthma Bronchodilator therapy -PRN Nasal [place] Assessment & Plan (01/11/2025 12:10 PM EDT): #Cystic fibrosis, c/b moderated stage lung disease, chronic stenotrophomonas infection , chronic pseudomonas infection, MSSA and intermittent MRSA, pancreatic insufficiency She has been having increased cough, congestion and shortness of breath for the past couple weeks. She completed a course of po levaquin 3 weeks ago after seeing ENT. She was supposed to contact ENT if symptoms did not improve on the levaquin and plan was to do minocycline, however due to worseningcongestion and cough it was decided to admit for IV antibiotics. She is being admitted for a CF pulmonary exacerbation. Plan -Appreciate CF team recs - Discussed case with CF staff 01/07, recommended against azole in light of ongoing aspergillus in sputum. - Additionally, recommended returning to zosyn instead of oxacillin. C/w IV colistin 60 mg q8h. (01/01-ongoing) IV Zosyn 3.375 g q6h. (01/01-,01/07-ongoing), oxacillin 01/04-01/07 IV minocycline 200 mg q12h. (01/01-ongoing) S/p prednisone taper (10 mg QOD) 01/06 per CF team - F/u respiratory cx - Sputum MSSA. Fungal with aspergillus - RVP, [employer], neg -s/p PFTs 01/09 -C/w CF BPH, VEST ,Pulmozyme, 3%saline INH -C/w home Asthma Bronchodilator therapy -PRN Nasal Wood Assessment & Plan (01/10/2025 12:10 PM EDT): #Cystic fibrosis, c/b moderated stage lung disease, chronic stenotrophomonas infection , chronic pseudomonas infection, MSSA and intermittent MRSA, pancreatic insufficiency She has been having increased cough, congestion and shortness of breath for the past couple weeks. She completed a course of po levaquin 3 weeks ago after seeing ENT. She was supposed to contact ENT if symptoms did not improve on the levaquin and plan was to do minocycline, however due to worseningcongestion and cough it was decided to admit for IV antibiotics. She is being admitted for a CF pulmonary exacerbation. Plan -Appreciate CF team recs - Discussed case with CF staff 01/07, recommended against azole in light of ongoing aspergillus in sputum. - Additionally, recommended returning to zosyn instead of oxacillin. C/w IV colistin 60 mg q8h. (01/01-ongoing) IV Zosyn 3.375 g q6h. (,01/07-ongoing), oxacillin 01/04-01/07 IV minocycline 200 mg q12h. (01/01-ongoing) S/p prednisone taper (10 mg QOD) 01/06 per CF team - F/u respiratory cx - Sputum MSSA. Fungal with aspergillus - RVP, [employer], neg -s/p PFTs 01/09 -C/w CF BPH, VEST ,Pulmozyme, 3%saline INH -C/w home Asthma Bronchodilator therapy -PRN Nasal Wood Assessment & Plan (01/09/2025 12:40 PM EDT): #Cystic fibrosis, c/b moderated stage lung disease, chronic stenotrophomonas infection , chronic pseudomonas infection, MSSA and intermittent MRSA, pancreatic insufficiency She has been having increased cough, congestion and shortness of breath for the past couple weeks. She completed a course of po levaquin 3 weeks ago after seeing ENT. She was supposed to contact ENT if symptoms did not improve on the levaquin and plan was to do minocycline, however due to worseningcongestion and cough it was decided to admit for IV antibiotics. She is being admitted for a CF pulmonary exacerbation. Plan -Appreciate CF team recs - Discussed case with CF staff 01/07, recommended against azole in light of ongoing aspergillus in sputum. - Additionally, recommended returning to zosyn instead of oxacillin. C/w IV colistin 60 mg q8h. (01/01-ongoing) IV Zosyn 3.375 g q6h. (,01/07-ongoing) switched to oxacillin 01/04-01/07 IV minocycline 200 mg q12h. (01/01-ongoing) S/p prednisone taper (10 mg QOD) 01/06 per CF team - F/u respiratory cx - Sputum MSSA. Fungal with aspergillus - RVP, [employer], neg -Plan for PFTs 01/09 -C/w CF BPH, VEST ,Pulmozyme, 3%saline INH -C/w home Asthma Bronchodilator therapy -PRN Nasal [place] Assessment & Plan (01/08/2025 12:18 PM EDT): #Cystic fibrosis, c/b moderated stage lung disease, chronic stenotrophomonas infection , chronic pseudomonas infection, MSSA and intermittent MRSA, pancreatic insufficiency She has been having increased cough, congestion and shortness of breath for the past couple weeks. She completed a course of po levaquin 3 weeks ago after seeing ENT. She was supposed to contact ENT if symptoms did not improve on the levaquin and plan was to do minocycline, however due to worseningcongestion and cough it was decided to admit for IV antibiotics. She is being admitted for a CF pulmonary exacerbation. Plan -Appreciate CF team recs C/w IV colistin 60 mg q8h. (01/01-ongoing) IV Zosyn 3.375 g q6h. (01/01-) switched to oxacillin 01/04-ongoing IV minocycline 200 mg q12h. (01/01-ongoing) Inhaled colistin. S/p prednisone taper (10 mg QOD) 01/06 per CF team - F/u respiratory cx - Sputum MSSA. Fungal with mold - RVP, [employer], neg -Plan for PFTs this week -C/w CF BPH, VEST ,Pulmozyme, 3%saline INH -C/w home Asthma Bronchodilator therapy -PRN Nasal [place] Assessment & Plan (01/08/2025 6:54 AM EDT): Cystic fibrosis, c/b moderated stage lung disease, chronic stenotrophomonas infection , chronic pseudomonas infection, MSSA and intermittent MRSA, pancreatic insufficiency She has been having increased cough, congestion and shortness of breath for the past couple weeks. She completed a course of po levaquin 3 weeks ago after seeing ENT. She was supposed to contact ENT if symptoms did not improve on the levaquin and plan was to do minocycline, however due to worseningcongestion and cough it was decided to admit for IV antibiotics. She is being admitted for a CF pulmonary exacerbation. Plan -Appreciate CF team recs C/w IV colistin 60 mg q8h. (01/01-ongoing) IV Zosyn 3.375 g q6h. (01/01-) switched to oxacillin 01/04-ongoing IV minocycline 200 mg q12h. (01/01-ongoing) Inhaled colistin. S/p prednisone taper (10 mg QOD) 01/06 per CF team - F/u respiratory cx - Sputum MSSA. Fungal with mold - RVP, [employer], neg -Plan for PFTs this week -C/w CF BPH, VEST ,Pulmozyme, 3%saline INH -C/w home Asthma Bronchodilator therapy -PRN Nasal [place] Assessment & Plan (01/06/2025 11:26 AM EDT): cystic fibrosis, c/b moderated stage lung disease, chronic stenotrophomonas infection , chronic pseudomonas infection, MSSA and intermittent MRSA, pancreatic insufficiency She has been having increased cough, congestion and shortness of breath for the past couple weeks. She completed a course of po levaquin 3 weeks ago after seeing ENT. She was supposed to contact ENT if symptoms did not improve on the levaquin and plan was to do minocycline, however due to worseningcongestion and cough it was decided to admit for IV antibiotics. She is being admitted for a CF pulmonary exacerbation. Plan -Appreciate CF team recs C/w IV colistin 60 mg q8h. (01/01- IV Zosyn 3.375 g q6h. (01/01- IV minocycline 200 mg q12h. (01/01- Inhaled colistin. Continue prednisone taper (10 mg QOD) until 01/06 per CF team -IV fluid hydration - F/u respiratory cx - Sputum MSSA. Fungal with mold (discuss with CF team if itraconazole needed) - RVP, [employer], neg -Plan for PFTs next week -C/w CF BPH, VEST ,Pulmozyme, 3%saline INH -C/w home Asthma Bronchodilator therapy -PRN Nasal [place] Assessment & Plan (01/05/2025 1:52 PM EDT): cystic fibrosis, c/b moderated stage lung disease, chronic stenotrophomonas infection , chronic pseudomonas infection, MSSA and intermittent MRSA, pancreatic insufficiency She has been having increased cough, congestion and shortness of breath for the past couple weeks. She completed a course of po levaquin 3 weeks ago after seeing ENT. She was supposed to contact ENT if symptoms did not improve on the levaquin and plan was to do minocycline, however due to worseningcongestion and cough it was decided to admit for IV antibiotics. She is being admitted for a CF pulmonary exacerbation. Plan -Appreciate CF team recs C/w IV colistin 60 mg q8h. (01/01- IV Zosyn 3.375 g q6h. (01/01- IV minocycline 200 mg q12h. (01/01- Inhaled colistin. Continue prednisone taper (10 mg QOD) until 01/06 per CF team -IV fluid hydration - F/u respiratory cx - Sputum MSSA. Fungal with mold (discuss with CF team if itraconazole needed) - RVP, [employer], neg -Plan for PFTs next week -C/w CF BPH, VEST ,Pulmozyme, 3%saline INH -C/w home Asthma Bronchodilator therapy -PRN Nasal [place] Assessment & Plan (01/04/2025 3:12 PM EDT): cystic fibrosis, c/b moderated stage lung disease, chronic stenotrophomonas infection , chronic pseudomonas infection, MSSA and intermittent MRSA, pancreatic insufficiency She has been having increased cough, congestion and shortness of breath for the past couple weeks. She completed a course of po levaquin 3 weeks ago after seeing ENT. She was supposed to contact ENT if symptoms did not improve on the levaquin and plan was to do minocycline, however due to worseningcongestion and cough it was decided to admit for IV antibiotics. She is being admitted for a CF pulmonary exacerbation. Plan -Appreciate CF team recs C/w IV colistin 60 mg q8h. (01/01- IV Zosyn 3.375 g q6h. (01/01- IV minocycline 200 mg q12h. (01/01- Inhaled colistin. Continue prednisone taper (10 mg QOD) until 01/06 per CF team -IV fluid hydration - F/u respiratory cx - Sputum MSSA - RVP, [employer], fungal negative -Plan for PFTs next week -C/w CF BPH, VEST ,Pulmozyme, 3%saline INH -C/w home Asthma Bronchodilator therapy -PRN Nasal [place] Assessment & Plan (01/03/2025 3:24 PM EDT): cystic fibrosis, c/b moderated stage lung disease, chronic stenotrophomonas infection , chronic pseudomonas infection, MSSA and intermittent MRSA, pancreatic insufficiency She has been having increased cough, congestion and shortness of breath for the past couple weeks. She completed a course of po levaquin 3 weeks ago after seeing ENT. She was supposed to contact ENT if symptoms did not improve on the levaquin and plan was to do minocycline, however due to worseningcongestion and cough it was decided to admit for IV antibiotics. She is being admitted for a CF pulmonary exacerbation. Plan - CF team recs at [place] -S/P IV colistin 60 mg q8h. IV Zosyn 3.375 g q6h.,IV minocycline 200 mg q12h, Inhaled colistin x days . ENT-directed prednisone taper (10 mg QOD) finished -CF SPutum CX -C/w home CF BPH, VEST ,Pulmozyme, 3%saline INH -C/w home Asthma Bronchodilator therapy -PRN Nasal [place] Assessment & Plan (01/03/2025 3:51 PM EDT): cystic fibrosis, c/b moderated stage lung disease, chronic stenotrophomonas infection , chronic pseudomonas infection, MSSA and intermittent MRSA, pancreatic insufficiency She has been having increased cough, congestion and shortness of breath for the past couple weeks. She completed a course of po levaquin 3 weeks ago after seeing ENT. She was supposed to contact ENT if symptoms did not improve on the levaquin and plan was to do minocycline, however due to worseningcongestion and cough it was decided to admit for IV antibiotics. She is being admitted for a CF pulmonary exacerbation. Plan -Appreciate CF team recs C/w IV colistin 60 mg q8h. IV Zosyn 3.375 g q6h. IV minocycline 200 mg q12h. Inhaled colistin. Continue ENT-directed prednisone taper (10 mg QOD). -IV fluid hydration -Appreciate sputum recs -C/w CF BPH, VEST ,Pulmozyme, 3%saline INH -C/w home Asthma Bronchodilator therapy -Cw ENT Pred taper 10 mg QOD -PRN Nasal Wood History of infection by MDR Stenotrophomonas [id number]/04/2024ancreatic insufficiency due to cystic [id number]/04/2024 Assessment & Plan (01/15/2025 4:05 PM EDT): -C/w Enzymes: Creon 41755.7600-120,00 -PPI , Miralax Assessment & Plan (01/14/2025 3:33 PM EDT): -C/w Enzymes: Creon 75195.7600-120,00 -PPI , Miralax Assessment & Plan (01/13/2025 1:47 PM EDT): -C/w Enzymes: Creon 51995.7600-120,00 -PPI , Miralax Assessment & Plan (01/12/2025 1:55 PM EDT): -C/w Enzymes: Creon 60994.7600-120,00 -PPI , Miralax Assessment & Plan (01/12/2025 9:08 AM EDT): -C/w Enzymes: Creon 15513.7600-120,00 -PPI , Miralax Assessment & Plan (01/11/2025 12:10 PM EDT): -C/w Enzymes: Creon 82479.7600-120,00 -PPI , Miralax Assessment & Plan (01/10/2025 12:10 PM EDT): -C/w Enzymes: Creon 09592.7600-120,00 -PPI , Miralax Assessment & Plan (01/09/2025 12:40 PM EDT): -C/w Enzymes: Creon 86101.7600-120,00 -PPI , Miralax Assessment & Plan (01/08/2025 12:18 PM EDT): -C/w Enzymes: Creon 44914.7600-120,00 -PPI , Miralax Assessment & Plan (01/08/2025 6:54 AM EDT): -C/w Enzymes: Creon 54669.7600-120,00 -PPI , Miralax Assessment & Plan (01/06/2025 11:26 AM EDT): -C/w Enzymes: Creon 95438.7600-120,00 -PPI , Miralax Assessment & Plan (01/05/2025 1:52 PM EDT): -C/w Enzymes: Creon 24346.7600-120,00 -PPI , Miralax Assessment & Plan (01/04/2025 3:12 PM EDT): -C/w Enzymes: Creon 12744.7600-120,00 -PPI , Miralax Assessment & Plan (01/03/2025 3:24 PM EDT): -C/w Enzymes: Creon 83491.7600-120,00 -PPI , Miralax Assessment & Plan (01/03/2025 3:51 PM EDT): -C/w Enzymes: Creon 40798.7600-120,00 -PPI , Miralax Sinusitis (chronic)09/27/2023ystic fibrosis with pulmonary exacerbation 09/27/2023 Assessment & Plan (01/15/2025 4:05 PM EDT): Cystic fibrosis, c/b moderated stage lung disease, chronic stenotrophomonas infection , chronic pseudomonas infection, MSSA and intermittent MRSA, pancreatic insufficiency She has been having increased cough, congestion and shortness of breath for the past couple weeks. She completed a course of po levaquin 3 weeks ago after seeing ENT. She was supposed to contact ENT if symptoms did not improve on the levaquin and plan was to do minocycline, however due to worseningcongestion and cough it was decided to admit for IV antibiotics. She is being admitted for a CF pulmonary exacerbation. Plan -Appreciate CF team recs - Discussed case with CF staff 01/07, recommended against azole in light of ongoing aspergillus in sputum. - Additionally, recommended returning to zosyn instead of oxacillin. -C/w IV colistin 60 mg q8h. (01/01-ongoing) -Continue IV Zosyn 3.375 g q6h. (,01/07-ongoing), oxacillin 01/04-01/07 - Continue IV minocycline 200 mg q12h. (01/01-ongoing) S/p prednisone taper (10 mg QOD) 01/06 per CF team - F/u respiratory cx - Sputum MSSA. Fungal with aspergillus - RVP, [employer], neg -s/p PFTs 01/09- FEV1 64% -C/w CF BPH, VEST ,Pulmozyme, 3%saline INH -C/w home Asthma Bronchodilator therapy -PRN Nasal [place] Assessment & Plan (01/14/2025 3:33 PM EDT): Cystic fibrosis, c/b moderated stage lung disease, chronic stenotrophomonas infection , chronic pseudomonas infection, MSSA and intermittent MRSA, pancreatic insufficiency She has been having increased cough, congestion and shortness of breath for the past couple weeks. She completed a course of po levaquin 3 weeks ago after seeing ENT. She was supposed to contact ENT if symptoms did not improve on the levaquin and plan was to do minocycline, however due to worseningcongestion and cough it was decided to admit for IV antibiotics. She is being admitted for a CF pulmonary exacerbation. Plan -Appreciate CF team recs - Discussed case with CF staff 01/07, recommended against azole in light of ongoing aspergillus in sputum. - Additionally, recommended returning to zosyn instead of oxacillin. -C/w IV colistin 60 mg q8h. (01/01-ongoing) -Continue IV Zosyn 3.375 g q6h. (,01/07-ongoing), oxacillin 01/04-01/07 - Continue IV minocycline 200 mg q12h. (01/01-ongoing) S/p prednisone taper (10 mg QOD) 01/06 per CF team - F/u respiratory cx - Sputum MSSA. Fungal with aspergillus - RVP, [employer], neg -s/p PFTs 01/09- FEV1 64% -C/w CF BPH, VEST ,Pulmozyme, 3%saline INH -C/w home Asthma Bronchodilator therapy -PRN Nasal [place] Assessment & Plan (01/13/2025 1:47 PM EDT): Cystic fibrosis, c/b moderated stage lung disease, chronic stenotrophomonas infection , chronic pseudomonas infection, MSSA and intermittent MRSA, pancreatic insufficiency She has been having increased cough, congestion and shortness of breath for the past couple weeks. She completed a course of po levaquin 3 weeks ago after seeing ENT. She was supposed to contact ENT if symptoms did not improve on the levaquin and plan was to do minocycline, however due to worseningcongestion and cough it was decided to admit for IV antibiotics. She is being admitted for a CF pulmonary exacerbation. Plan -Appreciate CF team recs - Discussed case with CF staff 01/07, recommended against azole in light of ongoing aspergillus in sputum. - Additionally, recommended returning to zosyn instead of oxacillin. -C/w IV colistin 60 mg q8h. (01/01-ongoing) -Continue IV Zosyn 3.375 g q6h. (01/01-,01/07-ongoing), oxacillin 01/04-01/07 - Continue IV minocycline 200 mg q12h. (01/01-ongoing) S/p prednisone taper (10 mg QOD) 01/06 per CF team - F/u respiratory cx - Sputum MSSA. Fungal with aspergillus - RVP, [employer], neg -s/p PFTs 01/09- FEV1 64% -C/w CF BPH, VEST ,Pulmozyme, 3%saline INH -C/w home Asthma Bronchodilator therapy -PRN Nasal [place] Assessment & Plan (01/12/2025 1:55 PM EDT): Cystic fibrosis, c/b moderated stage lung disease, chronic stenotrophomonas infection , chronic pseudomonas infection, MSSA and intermittent MRSA, pancreatic insufficiency She has been having increased cough, congestion and shortness of breath for the past couple weeks. She completed a course of po levaquin 3 weeks ago after seeing ENT. She was supposed to contact ENT if symptoms did not improve on the levaquin and plan was to do minocycline, however due to worseningcongestion and cough it was decided to admit for IV antibiotics. She is being admitted for a CF pulmonary exacerbation. Plan -Appreciate CF team recs - Discussed case with CF staff 01/07, recommended against azole in light of ongoing aspergillus in sputum. - Additionally, recommended returning to zosyn instead of oxacillin. -C/w IV colistin 60 mg q8h. (01/01-ongoing) -Continue IV Zosyn 3.375 g q6h. (,01/07-ongoing), oxacillin 01/04-01/07 - Continue IV minocycline 200 mg q12h. (01/01-ongoing) S/p prednisone taper (10 mg QOD) 01/06 per CF team - F/u respiratory cx - Sputum MSSA. Fungal with aspergillus - RVP, [employer], neg -s/p PFTs 01/09- FEV1 64% -C/w CF BPH, VEST ,Pulmozyme, 3%saline INH -C/w home Asthma Bronchodilator therapy -PRN Nasal [place] Assessment & Plan (01/12/2025 9:08 AM EDT): #Cystic fibrosis, c/b moderated stage lung disease, chronic stenotrophomonas infection , chronic pseudomonas infection, MSSA and intermittent MRSA, pancreatic insufficiency She has been having increased cough, congestion and shortness of breath for the past couple weeks. She completed a course of po levaquin 3 weeks ago after seeing ENT. She was supposed to contact ENT if symptoms did not improve on the levaquin and plan was to do minocycline, however due to worseningcongestion and cough it was decided to admit for IV antibiotics. She is being admitted for a CF pulmonary exacerbation. Plan -Appreciate CF team recs - Discussed case with CF staff 01/07, recommended against azole in light of ongoing aspergillus in sputum. - Additionally, recommended returning to zosyn instead of oxacillin. C/w IV colistin 60 mg q8h. (01/01-ongoing) IV Zosyn 3.375 g q6h. (01/01-,01/07-ongoing), oxacillin 01/04-01/07 IV minocycline 200 mg q12h. (01/01-ongoing) S/p prednisone taper (10 mg QOD) 01/06 per CF team - F/u respiratory cx - Sputum MSSA. Fungal with aspergillus - RVP, [employer], neg -s/p PFTs 01/09 -C/w CF BPH, VEST ,Pulmozyme, 3%saline INH -C/w home Asthma Bronchodilator therapy -PRN Nasal [place] Assessment & Plan (01/11/2025 12:10 PM EDT): #Cystic fibrosis, c/b moderated stage lung disease, chronic stenotrophomonas infection , chronic pseudomonas infection, MSSA and intermittent MRSA, pancreatic insufficiency She has been having increased cough, congestion and shortness of breath for the past couple weeks. She completed a course of po levaquin 3 weeks ago after seeing ENT. She was supposed to contact ENT if symptoms did not improve on the levaquin and plan was to do minocycline, however due to worseningcongestion and cough it was decided to admit for IV antibiotics. She is being admitted for a CF pulmonary exacerbation. Plan -Appreciate CF team recs - Discussed case with CF staff 01/07, recommended against azole in light of ongoing aspergillus in sputum. - Additionally, recommended returning to zosyn instead of oxacillin. C/w IV colistin 60 mg q8h. (01/01-ongoing) IV Zosyn 3.375 g q6h. (01/01-,01/07-ongoing), oxacillin 01/04-01/07 IV minocycline 200 mg q12h. (01/01-ongoing) S/p prednisone taper (10 mg QOD) 01/06 per CF team - F/u respiratory cx - Sputum MSSA. Fungal with aspergillus - RVP, [employer], neg -s/p PFTs 01/09 -C/w CF BPH, VEST ,Pulmozyme, 3%saline INH -C/w home Asthma Bronchodilator therapy -PRN Nasal [place] Assessment & Plan (01/10/2025 12:10 PM EDT): #Cystic fibrosis, c/b moderated stage lung disease, chronic stenotrophomonas infection , chronic pseudomonas infection, MSSA and intermittent MRSA, pancreatic insufficiency She has been having increased cough, congestion and shortness of breath for the past couple weeks. She completed a course of po levaquin 3 weeks ago after seeing ENT. She was supposed to contact ENT if symptoms did not improve on the levaquin and plan was to do minocycline, however due to worseningcongestion and cough it was decided to admit for IV antibiotics. She is being admitted for a CF pulmonary exacerbation. Plan -Appreciate CF team recs - Discussed case with CF staff 01/07, recommended against azole in light of ongoing aspergillus in sputum. - Additionally, recommended returning to zosyn instead of oxacillin. C/w IV colistin 60 mg q8h. (01/01-ongoing) IV Zosyn 3.375 g q6h. (,01/07-ongoing), oxacillin 01/04-01/07 IV minocycline 200 mg q12h. (01/01-ongoing) S/p prednisone taper (10 mg QOD) 01/06 per CF team - F/u respiratory cx - Sputum MSSA. Fungal with aspergillus - RVP, [employer], neg -s/p PFTs 01/09 -C/w CF BPH, VEST ,Pulmozyme, 3%saline INH -C/w home Asthma Bronchodilator therapy -PRN Nasal [place] Assessment & Plan (01/09/2025 12:40 PM EDT): #Cystic fibrosis, c/b moderated stage lung disease, chronic stenotrophomonas infection , chronic pseudomonas infection, MSSA and intermittent MRSA, pancreatic insufficiency She has been having increased cough, congestion and shortness of breath for the past couple weeks. She completed a course of po levaquin 3 weeks ago after seeing ENT. She was supposed to contact ENT if symptoms did not improve on the levaquin and plan was to do minocycline, however due to worseningcongestion and cough it was decided to admit for IV antibiotics. She is being admitted for a CF pulmonary exacerbation. Plan -Appreciate CF team recs - Discussed case with CF staff 01/07, recommended against azole in light of ongoing aspergillus in sputum. - Additionally, recommended returning to zosyn instead of oxacillin. C/w IV colistin 60 mg q8h. (01/01-ongoing) IV Zosyn 3.375 g q6h. (,01/07-ongoing) switched to oxacillin 01/04-01/07 IV minocycline 200 mg q12h. (01/01-ongoing) S/p prednisone taper (10 mg QOD) 01/06 per CF team - F/u respiratory cx - Sputum MSSA. Fungal with aspergillus - RVP, [employer], neg -Plan for PFTs 01/09 -C/w CF BPH, VEST ,Pulmozyme, 3%saline INH -C/w home Asthma Bronchodilator therapy -PRN [facility] Assessment & Plan (01/08/2025 12:18 PM EDT): #Cystic fibrosis, c/b moderated stage lung disease, chronic stenotrophomonas infection , chronic pseudomonas infection, MSSA and intermittent MRSA, pancreatic insufficiency She has been having increased cough, congestion and shortness of breath for the past couple weeks. She completed a course of po levaquin 3 weeks ago after seeing ENT. She was supposed to contact ENT if symptoms did not improve on the levaquin and plan was to do minocycline, however due to worseningcongestion and cough it was decided to admit for IV antibiotics. She is being admitted for a CF pulmonary exacerbation. Plan -Appreciate CF team recs C/w IV colistin 60 mg q8h. (01/01-ongoing) IV Zosyn 3.375 g q6h. (01/01-) switched to oxacillin 01/04-ongoing IV minocycline 200 mg q12h. (01/01-ongoing) Inhaled colistin. S/p prednisone taper (10 mg QOD) 01/06 per CF team - F/u respiratory cx - Sputum MSSA. Fungal with mold - RVP, [employer], neg -Plan for PFTs this week -C/w CF BPH, VEST ,Pulmozyme, 3%saline INH -C/w home Asthma Bronchodilator therapy -PRN [facility] Assessment & Plan (01/08/2025 6:54 AM EDT): Cystic fibrosis, c/b moderated stage lung disease, chronic stenotrophomonas infection , chronic pseudomonas infection, MSSA and intermittent MRSA, pancreatic insufficiency She has been having increased cough, congestion and shortness of breath for the past couple weeks. She completed a course of po levaquin 3 weeks ago after seeing ENT. She was supposed to contact ENT if symptoms did not improve on the levaquin and plan was to do minocycline, however due to worseningcongestion and cough it was decided to admit for IV antibiotics. She is being admitted for a CF pulmonary exacerbation. Plan -Appreciate CF team recs C/w IV colistin 60 mg q8h. (01/01-ongoing) IV Zosyn 3.375 g q6h. (01/01-) switched to oxacillin 01/04-ongoing IV minocycline 200 mg q12h. (01/01-ongoing) Inhaled colistin. S/p prednisone taper (10 mg QOD) 01/06 per CF team - F/u respiratory cx - Sputum MSSA. Fungal with mold - RVP, [employer], neg -Plan for PFTs this week -C/w CF BPH, VEST ,Pulmozyme, 3%saline INH -C/w home Asthma Bronchodilator therapy -PRN [facility] [place] Assessment & Plan (01/06/2025 11:26 AM EDT): cystic fibrosis, c/b moderated stage lung disease, chronic stenotrophomonas infection , chronic pseudomonas infection, MSSA and intermittent MRSA, pancreatic insufficiency She has been having increased cough, congestion and shortness of breath for the past couple weeks. She completed a course of po levaquin 3 weeks ago after seeing ENT. She was supposed to contact ENT if symptoms did not improve on the levaquin and plan was to do minocycline, however due to worseningcongestion and cough it was decided to admit for IV antibiotics. She is being admitted for a CF pulmonary exacerbation. Plan -Appreciate CF team recs C/w IV colistin 60 mg q8h. (01/01- IV Zosyn 3.375 g q6h. (01/01- IV minocycline 200 mg q12h. (01/01- Inhaled colistin. Continue prednisone taper (10 mg QOD) until 01/06 per CF team -IV fluid hydration - F/u respiratory cx - Sputum MSSA. Fungal with mold (discuss with CF team if itraconazole needed) - RVP, [employer], neg -Plan for PFTs next week -C/w CF BPH, VEST ,Pulmozyme, 3%saline INH -C/w home Asthma Bronchodilator therapy -PRN [facility] [place] Assessment & Plan (01/05/2025 1:52 PM EDT): cystic fibrosis, c/b moderated stage lung disease, chronic stenotrophomonas infection , chronic pseudomonas infection, MSSA and intermittent MRSA, pancreatic insufficiency She has been having increased cough, congestion and shortness of breath for the past couple weeks. She completed a course of po levaquin 3 weeks ago after seeing ENT. She was supposed to contact ENT if symptoms did not improve on the levaquin and plan was to do minocycline, however due to worseningcongestion and cough it was decided to admit for IV antibiotics. She is being admitted for a CF pulmonary exacerbation. Plan -Appreciate CF team recs C/w IV colistin 60 mg q8h. (01/01- IV Zosyn 3.375 g q6h. (01/01- IV minocycline 200 mg q12h. (01/01- Inhaled colistin. Continue prednisone taper (10 mg QOD) until 01/06 per CF team -IV fluid hydration - F/u respiratory cx - Sputum MSSA. Fungal with mold (discuss with CF team if itraconazole needed) - RVP, [employer], neg -Plan for PFTs next week -C/w CF BPH, VEST ,Pulmozyme, 3%saline INH -C/w home Asthma Bronchodilator therapy -PRN [facility] [place] Assessment & Plan (01/04/2025 3:12 PM EDT): cystic fibrosis, c/b moderated stage lung disease, chronic stenotrophomonas infection , chronic pseudomonas infection, MSSA and intermittent MRSA, pancreatic insufficiency She has been having increased cough, congestion and shortness of breath for the past couple weeks. She completed a course of po levaquin 3 weeks ago after seeing ENT. She was supposed to contact ENT if symptoms did not improve on the levaquin and plan was to do minocycline, however due to worseningcongestion and cough it was decided to admit for IV antibiotics. She is being admitted for a CF pulmonary exacerbation. Plan -Appreciate CF team recs C/w IV colistin 60 mg q8h. (01/01- IV Zosyn 3.375 g q6h. (01/01- IV minocycline 200 mg q12h. (01/01- Inhaled colistin. Continue prednisone taper (10 mg QOD) until 01/06 per CF team -IV fluid hydration - F/u respiratory cx - Sputum MSSA - RVP, [employer], fungal negative -Plan for PFTs next week -C/w CF BPH, VEST ,Pulmozyme, 3%saline INH -C/w home Asthma Bronchodilator therapy -PRN [facility] [place] Assessment & Plan (01/03/2025 3:24 PM EDT): cystic fibrosis, c/b moderated stage lung disease, chronic stenotrophomonas infection , chronic pseudomonas infection, MSSA and intermittent MRSA, pancreatic insufficiency She has been having increased cough, congestion and shortness of breath for the past couple weeks. She completed a course of po levaquin 3 weeks ago after seeing ENT. She was supposed to contact ENT if symptoms did not improve on the levaquin and plan was to do minocycline, however due to worseningcongestion and cough it was decided to admit for IV antibiotics. She is being admitted for a CF pulmonary exacerbation. Plan - CF team recs at [place] -S/P IV colistin 60 mg q8h. IV Zosyn 3.375 g q6h.,IV minocycline 200 mg q12h, Inhaled colistin x days . ENT-directed prednisone taper (10 mg QOD) finished -CF SPutum CX -C/w home CF BPH, VEST ,Pulmozyme, 3%saline INH -C/w home Asthma Bronchodilator therapy -PRN [facility] Assessment & Plan (01/03/2025 3:51 PM EDT): cystic fibrosis, c/b moderated stage lung disease, chronic stenotrophomonas infection , chronic pseudomonas infection, MSSA and intermittent MRSA, pancreatic insufficiency She has been having increased cough, congestion and shortness of breath for the past couple weeks. She completed a course of po levaquin 3 weeks ago after seeing ENT. She was supposed to contact ENT if symptoms did not improve on the levaquin and plan was to do minocycline, however due to worseningcongestion and cough it was decided to admit for IV antibiotics. She is being admitted for a CF pulmonary exacerbation. Plan -Appreciate CF team recs C/w IV colistin 60 mg q8h. IV Zosyn 3.375 g q6h. IV minocycline 200 mg q12h. Inhaled colistin. Continue ENT-directed prednisone taper (10 mg QOD). -IV fluid hydration -Appreciate sputum recs -C/w CF BPH, VEST ,Pulmozyme, 3%saline INH -C/w home Asthma Bronchodilator therapy -Cw ENT Pred taper 10 mg QOD -PRN Nas[facility] CF (cystic fibrosis)09/26/2023 Assessment & Plan (01/15/2025 4:05 PM EDT): Cystic fibrosis, c/b moderated stage lung disease, chronic stenotrophomonas infection , chronic pseudomonas infection, MSSA and intermittent MRSA, pancreatic insufficiency She has been having increased cough, congestion and shortness of breath for the past couple weeks. She completed a course of po levaquin 3 weeks ago after seeing ENT. She was supposed to contact ENT if symptoms did not improve on the levaquin and plan was to do minocycline, however due to worseningcongestion and cough it was decided to admit for IV antibiotics. She is being admitted for a CF pulmonary exacerbation. Plan -Appreciate CF team recs - Discussed case with CF staff 01/07, recommended against azole in light of ongoing aspergillus in sputum. - Additionally, recommended returning to zosyn instead of oxacillin. -C/w IV colistin 60 mg q8h. (01/01-ongoing) -Continue IV Zosyn 3.375 g q6h. (01/01-,01/07-ongoing), oxacillin 01/04-01/07 - Continue IV minocycline 200 mg q12h. (01/01-ongoing) S/p prednisone taper (10 mg QOD) 01/06 per CF team - F/u respiratory cx - Sputum MSSA. Fungal with aspergillus - RVP, [employer], neg -s/p PFTs 01/09- FEV1 64% -C/w CF BPH, VEST ,Pulmozyme, 3%saline INH -C/w home Asthma Bronchodilator therapy -PRN [facility] [place] Assessment & Plan (01/14/2025 3:33 PM EDT): Cystic fibrosis, c/b moderated stage lung disease, chronic stenotrophomonas infection , chronic pseudomonas infection, MSSA and intermittent MRSA, pancreatic insufficiency She has been having increased cough, congestion and shortness of breath for the past couple weeks. She completed a course of po levaquin 3 weeks ago after seeing ENT. She was supposed to contact ENT if symptoms did not improve on the levaquin and plan was to do minocycline, however due to worseningcongestion and cough it was decided to admit for IV antibiotics. She is being admitted for a CF pulmonary exacerbation. Plan -Appreciate CF team recs - Discussed case with CF staff 01/07, recommended against azole in light of ongoing aspergillus in sputum. - Additionally, recommended returning to zosyn instead of oxacillin. -C/w IV colistin 60 mg q8h. (01/01-ongoing) -Continue IV Zosyn 3.375 g q6h. (,01/07-ongoing), oxacillin 01/04-01/07 - Continue IV minocycline 200 mg q12h. (01/01-ongoing) S/p prednisone taper (10 mg QOD) 01/06 per CF team - F/u respiratory cx - Sputum MSSA. Fungal with aspergillus - RVP, [employer], neg -s/p PFTs 01/09- FEV1 64% -C/w CF BPH, VEST ,Pulmozyme, 3%saline INH -C/w home Asthma Bronchodilator therapy -PRN [facility] [place] Assessment & Plan (01/13/2025 1:47 PM EDT): Cystic fibrosis, c/b moderated stage lung disease, chronic stenotrophomonas infection , chronic pseudomonas infection, MSSA and intermittent MRSA, pancreatic insufficiency She has been having increased cough, congestion and shortness of breath for the past couple weeks. She completed a course of po levaquin 3 weeks ago after seeing ENT. She was supposed to contact ENT if symptoms did not improve on the levaquin and plan was to do minocycline, however due to worseningcongestion and cough it was decided to admit for IV antibiotics. She is being admitted for a CF pulmonary exacerbation. Plan -Appreciate CF team recs - Discussed case with CF staff 01/07, recommended against azole in light of ongoing aspergillus in sputum. - Additionally, recommended returning to zosyn instead of oxacillin. -C/w IV colistin 60 mg q8h. (01/01-ongoing) -Continue IV Zosyn 3.375 g q6h. (,01/07-ongoing), oxacillin 01/04-01/07 - Continue IV minocycline 200 mg q12h. (01/01-ongoing) S/p prednisone taper (10 mg QOD) 01/06 per CF team - F/u respiratory cx - Sputum MSSA. Fungal with aspergillus - RVP, [employer], neg -s/p PFTs 01/09- FEV1 64% -C/w CF BPH, VEST ,Pulmozyme, 3%saline INH -C/w home Asthma Bronchodilator therapy -PRN [facility] [place] Assessment & Plan (01/12/2025 1:55 PM EDT): Cystic fibrosis, c/b moderated stage lung disease, chronic stenotrophomonas infection , chronic pseudomonas infection, MSSA and intermittent MRSA, pancreatic insufficiency She has been having increased cough, congestion and shortness of breath for the past couple weeks. She completed a course of po levaquin 3 weeks ago after seeing ENT. She was supposed to contact ENT if symptoms did not improve on the levaquin and plan was to do minocycline, however due to worseningcongestion and cough it was decided to admit for IV antibiotics. She is being admitted for a CF pulmonary exacerbation. Plan -Appreciate CF team recs - Discussed case with CF staff 01/07, recommended against azole in light of ongoing aspergillus in sputum. - Additionally, recommended returning to zosyn instead of oxacillin. -C/w IV colistin 60 mg q8h. (01/01-ongoing) -Continue IV Zosyn 3.375 g q6h. (01/01-,01/07-ongoing), oxacillin 01/04-01/07 - Continue IV minocycline 200 mg q12h. (01/01-ongoing) S/p prednisone taper (10 mg QOD) 01/06 per CF team - F/u respiratory cx - Sputum MSSA. Fungal with aspergillus - RVP, [employer], neg -s/p PFTs 01/09- FEV1 64% -C/w CF BPH, VEST ,Pulmozyme, 3%saline INH -C/w home Asthma Bronchodilator therapy -PRN [facility] [place] Assessment & Plan (01/12/2025 9:08 AM EDT): #Cystic fibrosis, c/b moderated stage lung disease, chronic stenotrophomonas infection , chronic pseudomonas infection, MSSA and intermittent MRSA, pancreatic insufficiency She has been having increased cough, congestion and shortness of breath for the past couple weeks. She completed a course of po levaquin 3 weeks ago after seeing ENT. She was supposed to contact ENT if symptoms did not improve on the levaquin and plan was to do minocycline, however due to worseningcongestion and cough it was decided to admit for IV antibiotics. She is being admitted for a CF pulmonary exacerbation. Plan -Appreciate CF team recs - Discussed case with CF staff 01/07, recommended against azole in light of ongoing aspergillus in sputum. - Additionally, recommended returning to zosyn instead of oxacillin. C/w IV colistin 60 mg q8h. (01/01-ongoing) IV Zosyn 3.375 g q6h. (,01/07-ongoing), oxacillin 01/04-01/07 IV minocycline 200 mg q12h. (01/01-ongoing) S/p prednisone taper (10 mg QOD) 01/06 per CF team - F/u respiratory cx - Sputum MSSA. Fungal with aspergillus - RVP, [employer], neg -s/p PFTs 01/09 -C/w CF BPH, VEST ,Pulmozyme, 3%saline INH -C/w home Asthma Bronchodilator therapy -PRN [facility] [place] Assessment & Plan (01/11/2025 12:10 PM EDT): #Cystic fibrosis, c/b moderated stage lung disease, chronic stenotrophomonas infection , chronic pseudomonas infection, MSSA and intermittent MRSA, pancreatic insufficiency She has been having increased cough, congestion and shortness of breath for the past couple weeks. She completed a course of po levaquin 3 weeks ago after seeing ENT. She was supposed to contact ENT if symptoms did not improve on the levaquin and plan was to do minocycline, however due to worseningcongestion and cough it was decided to admit for IV antibiotics. She is being admitted for a CF pulmonary exacerbation. Plan -Appreciate CF team recs - Discussed case with CF staff 01/07, recommended against azole in light of ongoing aspergillus in sputum. - Additionally, recommended returning to zosyn instead of oxacillin. C/w IV colistin 60 mg q8h. (01/01-ongoing) IV Zosyn 3.375 g q6h. (01/01-,01/07-ongoing), oxacillin 01/04-01/07 IV minocycline 200 mg q12h. (01/01-ongoing) S/p prednisone taper (10 mg QOD) 01/06 per CF team - F/u respiratory cx - Sputum MSSA. Fungal with aspergillus - RVP, [employer], neg -s/p PFTs 01/09 -C/w CF BPH, VEST ,Pulmozyme, 3%saline INH -C/w home Asthma Bronchodilator therapy -PRN [facility] [place] Assessment & Plan (01/10/2025 12:10 PM EDT): #Cystic fibrosis, c/b moderated stage lung disease, chronic stenotrophomonas infection , chronic pseudomonas infection, MSSA and intermittent MRSA, pancreatic insufficiency She has been having increased cough, congestion and shortness of breath for the past couple weeks. She completed a course of po levaquin 3 weeks ago after seeing ENT. She was supposed to contact ENT if symptoms did not improve on the levaquin and plan was to do minocycline, however due to worseningcongestion and cough it was decided to admit for IV antibiotics. She is being admitted for a CF pulmonary exacerbation. Plan -Appreciate CF team recs - Discussed case with CF staff 01/07, recommended against azole in light of ongoing aspergillus in sputum. - Additionally, recommended returning to zosyn instead of oxacillin. C/w IV colistin 60 mg q8h. (01/01-ongoing) IV Zosyn 3.375 g q6h. (01/01-,01/07-ongoing), oxacillin 01/04-01/07 IV minocycline 200 mg q12h. (01/01-ongoing) S/p prednisone taper (10 mg QOD) 01/06 per CF team - F/u respiratory cx - Sputum MSSA. Fungal with aspergillus - RVP, [employer], neg -s/p PFTs 01/09 -C/w CF BPH, VEST ,Pulmozyme, 3%saline INH -C/w home Asthma Bronchodilator therapy -PRN [facility] [place] Assessment & Plan (01/09/2025 12:40 PM EDT): #Cystic fibrosis, c/b moderated stage lung disease, chronic stenotrophomonas infection , chronic pseudomonas infection, MSSA and intermittent MRSA, pancreatic insufficiency She has been having increased cough, congestion and shortness of breath for the past couple weeks. She completed a course of po levaquin 3 weeks ago after seeing ENT. She was supposed to contact ENT if symptoms did not improve on the levaquin and plan was to do minocycline, however due to worseningcongestion and cough it was decided to admit for IV antibiotics. She is being admitted for a CF pulmonary exacerbation. Plan -Appreciate CF team recs - Discussed case with CF staff 01/07, recommended against azole in light of ongoing aspergillus in sputum. - Additionally, recommended returning to zosyn instead of oxacillin. C/w IV colistin 60 mg q8h. (01/01-ongoing) IV Zosyn 3.375 g q6h. (,01/07-ongoing) switched to oxacillin 01/04-01/07 IV minocycline 200 mg q12h. (01/01-ongoing) S/p prednisone taper (10 mg QOD) 01/06 per CF team - F/u respiratory cx - Sputum MSSA. Fungal with aspergillus - RVP, [employer], neg -Plan for PFTs 01/09 -C/w CF BPH, VEST ,Pulmozyme, 3%saline INH -C/w home Asthma Bronchodilator therapy -PRN [facility] [place] Assessment & Plan (01/08/2025 12:18 PM EDT): #Cystic fibrosis, c/b moderated stage lung disease, chronic stenotrophomonas infection , chronic pseudomonas infection, MSSA and intermittent MRSA, pancreatic insufficiency She has been having increased cough, congestion and shortness of breath for the past couple weeks. She completed a course of po levaquin 3 weeks ago after seeing ENT. She was supposed to contact ENT if symptoms did not improve on the levaquin and plan was to do minocycline, however due to worseningcongestion and cough it was decided to admit for IV antibiotics. She is being admitted for a CF pulmonary exacerbation. Plan -Appreciate CF team recs C/w IV colistin 60 mg q8h. (01/01-ongoing) IV Zosyn 3.375 g q6h. (01/01-) switched to oxacillin 01/04-ongoing IV minocycline 200 mg q12h. (01/01-ongoing) Inhaled colistin. S/p prednisone taper (10 mg QOD) 01/06 per CF team - F/u respiratory cx - Sputum MSSA. Fungal with mold - RVP, [employer], neg -Plan for PFTs this week -C/w CF BPH, VEST ,Pulmozyme, 3%saline INH -C/w home Asthma Bronchodilator therapy -PRN [facility] [place] Assessment & Plan (01/08/2025 6:54 AM EDT): Cystic fibrosis, c/b moderated stage lung disease, chronic stenotrophomonas infection , chronic pseudomonas infection, MSSA and intermittent MRSA, pancreatic insufficiency She has been having increased cough, congestion and shortness of breath for the past couple weeks. She completed a course of po levaquin 3 weeks ago after seeing ENT. She was supposed to contact ENT if symptoms did not improve on the levaquin and plan was to do minocycline, however due to worseningcongestion and cough it was decided to admit for IV antibiotics. She is being admitted for a CF pulmonary exacerbation. Plan -Appreciate CF team recs C/w IV colistin 60 mg q8h. (01/01-ongoing) IV Zosyn 3.375 g q6h. (01/01-) switched to oxacillin 01/04-ongoing IV minocycline 200 mg q12h. (01/01-ongoing) Inhaled colistin. S/p prednisone taper (10 mg QOD) 01/06 per CF team - F/u respiratory cx - Sputum MSSA. Fungal with mold - RVP, [employer], neg -Plan for PFTs this week -C/w CF BPH, VEST ,Pulmozyme, 3%saline INH -C/w home Asthma Bronchodilator therapy -PRN [facility] [place] Assessment & Plan (01/06/2025 11:26 AM EDT): cystic fibrosis, c/b moderated stage lung disease, chronic stenotrophomonas infection , chronic pseudomonas infection, MSSA and intermittent MRSA, pancreatic insufficiency She has been having increased cough, congestion and shortness of breath for the past couple weeks. She completed a course of po levaquin 3 weeks ago after seeing ENT. She was supposed to contact ENT if symptoms did not improve on the levaquin and plan was to do minocycline, however due to worseningcongestion and cough it was decided to admit for IV antibiotics. She is being admitted for a CF pulmonary exacerbation. Plan -Appreciate CF team recs C/w IV colistin 60 mg q8h. (01/01- IV Zosyn 3.375 g q6h. (01/01- IV minocycline 200 mg q12h. (01/01- Inhaled colistin. Continue prednisone taper (10 mg QOD) until 01/06 per CF team -IV fluid hydration - F/u respiratory cx - Sputum MSSA. Fungal with mold (discuss with CF team if itraconazole needed) - RVP, [employer], neg -Plan for PFTs next week -C/w CF BPH, VEST ,Pulmozyme, 3%saline INH -C/w home Asthma Bronchodilator therapy -PRN [facility] [place] Assessment & Plan (01/05/2025 1:52 PM EDT): cystic fibrosis, c/b moderated stage lung disease, chronic stenotrophomonas infection , chronic pseudomonas infection, MSSA and intermittent MRSA, pancreatic insufficiency She has been having increased cough, congestion and shortness of breath for the past couple weeks. She completed a course of po levaquin 3 weeks ago after seeing ENT. She was supposed to contact ENT if symptoms did not improve on the levaquin and plan was to do minocycline, however due to worseningcongestion and cough it was decided to admit for IV antibiotics. She is being admitted for a CF pulmonary exacerbation. Plan -Appreciate CF team recs C/w IV colistin 60 mg q8h. (01/01- IV Zosyn 3.375 g q6h. (01/01- IV minocycline 200 mg q12h. (01/01- Inhaled colistin. Continue prednisone taper (10 mg QOD) until 01/06 per CF team -IV fluid hydration - F/u respiratory cx - Sputum MSSA. Fungal with mold (discuss with CF team if itraconazole needed) - RVP, [employer], neg -Plan for PFTs next week -C/w CF BPH, VEST ,Pulmozyme, 3%saline INH -C/w home Asthma Bronchodilator therapy -PRN [facility] [place] Assessment & Plan (01/04/2025 3:12 PM EDT): cystic fibrosis, c/b moderated stage lung disease, chronic stenotrophomonas infection , chronic pseudomonas infection, MSSA and intermittent MRSA, pancreatic insufficiency She has been having increased cough, congestion and shortness of breath for the past couple weeks. She completed a course of po levaquin 3 weeks ago after seeing ENT. She was supposed to contact ENT if symptoms did not improve on the levaquin and plan was to do minocycline, however due to worseningcongestion and cough it was decided to admit for IV antibiotics. She is being admitted for a CF pulmonary exacerbation. Plan -Appreciate CF team recs C/w IV colistin 60 mg q8h. (01/01- IV Zosyn 3.375 g q6h. (01/01- IV minocycline 200 mg q12h. (01/01- Inhaled colistin. Continue prednisone taper (10 mg QOD) until 01/06 per CF team -IV fluid hydration - F/u respiratory cx - Sputum MSSA - RVP, [employer], fungal negative -Plan for PFTs next week -C/w CF BPH, VEST ,Pulmozyme, 3%saline INH -C/w home Asthma Bronchodilator therapy -PRN [facility] [place] Assessment & Plan (01/03/2025 3:24 PM EDT): cystic fibrosis, c/b moderated stage lung disease, chronic stenotrophomonas infection , chronic pseudomonas infection, MSSA and intermittent MRSA, pancreatic insufficiency She has been having increased cough, congestion and shortness of breath for the past couple weeks. She completed a course of po levaquin 3 weeks ago after seeing ENT. She was supposed to contact ENT if symptoms did not improve on the levaquin and plan was to do minocycline, however due to worseningcongestion and cough it was decided to admit for IV antibiotics. She is being admitted for a CF pulmonary exacerbation. Plan - CF team recs at [place] -S/P IV colistin 60 mg q8h. IV Zosyn 3.375 g q6h.,IV minocycline 200 mg q12h, Inhaled colistin x days . ENT-directed prednisone taper (10 mg QOD) finished -CF SPutum CX -C/w home CF BPH, VEST ,Pulmozyme, 3%saline INH -C/w home Asthma Bronchodilator therapy -PRN [facility] [place] Assessment & Plan (01/03/2025 3:51 PM EDT): cystic fibrosis, c/b moderated stage lung disease, chronic stenotrophomonas infection , chronic pseudomonas infection, MSSA and intermittent MRSA, pancreatic insufficiency She has been having increased cough, congestion and shortness of breath for the past couple weeks. She completed a course of po levaquin 3 weeks ago after seeing ENT. She was supposed to contact ENT if symptoms did not improve on the levaquin and plan was to do minocycline, however due to worseningcongestion and cough it was decided to admit for IV antibiotics. She is being admitted for a CF pulmonary exacerbation. Plan -Appreciate CF team recs C/w IV colistin 60 mg q8h. IV Zosyn 3.375 g q6h. IV minocycline 200 mg q12h. Inhaled colistin. Continue ENT-directed prednisone taper (10 mg QOD). -IV fluid hydration -Appreciate sputum recs -C/w CF BPH, VEST ,Pulmozyme, 3%saline INH -C/w home Asthma Bronchodilator therapy -Cw ENT Pred taper 10 mg QOD -PRN Nasal Wood Encounters DateTypeDepartmentCare HfccLuerpreorne12/05/2025Telephone Pulmonary Medicine [address] [place], [place] [phone] Consuelo Brooks LISW Patient Update (Muscle pain)02/27/2025Orders Only Pulmonary Medicine [address] [place], [place] [phone] Marily Crain RN Mixed simple and mucopurulent chronic bronchitis (HCC) (Primary Dx); Cystic fibrosis (HCC)02/26/2025Telephone Pulmonary Medicine [address] [place], [place] [phone] Consuelo Brooks LISW Prior Authorization (Posaconazole)02/20/2025 11:00 [facility] [address] [place], [place] [phone] Qiana Gaspar MD 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) (Primary Dx)02/20/2025 Telephone Pulmonary Medicine [address] [place], [place] [phone] Marily Crain, ANOOP Colistimethate Prior Swcrkzwfpzpav94/28/2025 3:30 PM EDTOffice Visit Pulmonary Medicine [address] [place] [address] Aung Anderson MD Cystic fibrosis ([facility]) (Primary Dx); Chronic bronchitis, unspecified chronic bronchitis type ([facility]); ABPA (allergic bronchopulmonary aspergillosis) ([facility]); Mixed simple and mucopurulent chronic bronchitis ([facility]); Chronic obstructive pulmonary disease, unspecified COPD type ([facility])02/19/2025 3:15 PM EDTProcedure Pulmonary Medicine [address] [place] [address] Main, Cf Pulm Lab Sxmwgllqgx58/26/7913Trtnwd79/21/2025bstract Pulmonary Medicine [address] [place], [place] [phone] Marily Crain RN 02/04/2025Refill Pulmonary Medicine [address] [place] [phone] Tony Johnson APRN.TECHNICAL SUPPORT ASSISTANT Refill Nbzkcaw4802/01/2025Telephone Pulmonary Medicine [address] [place] [phone] Tony Johnson APRN.TECHNICAL SUPPORT ASSISTANT Orders; Medication Problem (Express scripts medication clarification)01/31/2025 Orders Only Pulmonary Medicine [address] [place], [place] [phone] Marily Crain RN Cystic fibrosis ([facility]); Cystic fibrosis with pulmonary manifestations ([facility]); Chronic sinusitis, unspecified lfbjnijm38/08/2025 Get Medical Advice Pulmonary Medicine [address] [place], [place] [phone] Chapo Mitchell MD Appointment Reschedule/ Wellness Wwnltt1101/28/2025bstract Pulmonary Medicine [address] [place] [address] Helena Johns, MICHELLE Hpbsyasn59/23/2025 2:30 PM EDTOffice Visit Pulmonary Medicine [address] [place] [address] Main, Cf Pulm Lab CF (cystic fibrosis) ([facility]) (Primary Dx)01/09/2025 2:15 PM EDTOffice Visit Pulmonary Medicine [address] [place] [address] Main, Cf Pulm Lab CF (cystic fibrosis) ([facility]) (Primary Dx)01/02/2025 1:00 PM EDTOffice Visit Pulmonary Medicine [address] [place], [place] [phone] Main, Cf Pulm Lab CF (cystic fibrosis) ([facility]) (Primary Dx)01/01/2025 5:12 PM EDT - 01/16/2025 4:31 PM EDTHospital Encounter [id number] [place] [phone] Kaleigh Campbell MD Balakrishnan, Bathmapriya, MD Taliercio, Rachel M, DO Cystic fibrosis, unspecified ([facility]) [E84.9] Discharge Disposition: Home01/01/20255494Jkhqcf89/05/2025Telephone Pulmonary Medicine [address] [place] [phone] Marily Crain RN 12/28/2024Orders Only Pulmonary Medicine [address] [place] [address] Marily Crain, ANOOP Cystic fibrosis ([facility]) (Primary Dx); Cystic fibrosis with pulmonary manifestations ([facility])12/24/2024Refill Pulmonary Medicine [address] [place], [place] [phone] Tony Johnson APRN.TECHNICAL SUPPORT ASSISTANT Refill Flqlaku4312/21/2024Telephone Pulmonary Medicine [address] [place], [place] [phone] Tony Johnson APRN.TECHNICAL SUPPORT ASSISTANT 12/18/2024Orders Only Pulmonary Medicine [address] [place] [address] Marily Crain RN Cystic fibrosis with pulmonary manifestations ([facility]) (Primary Dx); ABPA (allergic bronchopulmonary aspergillosis) ([facility])12/12/2024Telephone Otolaryngology [address] [place], [place] [phone] Diya Bedolla MD 12/11/2024Telephone Otolaryngology [address] [place], [place] [phone] Diya Bedolla MD 12/11/2024 Patient Msg Otolaryngology [address] [place] [phone] Diya Bedolla MD ID consult and jkvlaook87/14/2025Telephone Otolaryngology [address] [address] Diya Bedolla MD 12/06/2024E-Consult [facility] [address] [facility] [place] [phone] Thelma Chance, Clinician To Clinician Rrzkzwt2312/06/2024Orders Only Otolaryngology [address] [place] [address] Diya Bedolla MD Other chronic sinusitis (Primary Dx)12/04/2024Telephone Pulmonary Medicine [address] [place], [place] [phone] Tony Johnson, ADE.TECHNICAL SUPPORT ASSISTANT Patient Update ([facility] specialty)12/03/2024Telephone Pulmonary Medicine [address] [place] [address] Tony Johnson APRN.TECHNICAL SUPPORT ASSISTANT 11/30/2024Telephone Pulmonary Medicine [address] [place] [phone] Tony Johnson, ADE.TECHNICAL SUPPORT ASSISTANT from Last 3 Months Immunizations ImmunizationAdministration DatesNext DueCOVID-19 vaccine, unspecified szzjybdwowh55/19/2022Haemophilus influenzae b (Hib PRP-T) vaccine, 4-dose series (ACTHIB, HIBERIX)03/18/2004Haemophilus influenzae b (Hib) vaccine, unspecified /30/2004,04/23/2003,02/21/2003,02/19/2003Haemophilus influenzae b- hepatitis B (Hib-HepB) vaccine (COMVAX)12/23/2003diphtheria tetanus pertussis (DTaP) vaccine, pediatric (INFANRIX)09/11/2007,03/18/2004,06/27/2003,04/23/2003, 02/19/2003hepatitis A (HepA) vaccine, adult (HAVRIX, VAQTA)09/11/2007,03/02/2007 hepatitis B (HepB) vaccine, 3-dose series, age 20+ yr (ENGERIX-B, RECOMBIVAX HB) 12/23/2003,04/23/2003,02/19/2003human papillomavirus (HPV4) vaccine, quadrivalent (GARDASIL)06/27/2014influenza (IIV3) vaccine, age 6 mo - 64 yr, trivalent, PF (AFLURIA, FLUARIX, FLULAVAL, FLUVIRIN, FLUZONE)01/16/2025influenza (IIV3) vaccine, trivalent (AFLURIA, FLULAVAL, FLUVIRIN, FLUZONE)01/28/2009, 03/05/2008,03/02/2007influenza (IIV3) vaccine, trivalent, PF (AFLURIA, FLUARIX, FLULAVAL, FLUVIRIN, FLUZONE)01/06/2016,03/01/2013,12/28/2011,02/08/2011influenza (IIV4) vaccine, age 6 mo - 64 yr, quadrivalent, PF (AFLURIA, FLUARIX, FLULAVAL, FLUZONE)02/18/2022,03/04/2020,03/29/2019,03/09/2018,02/15/2017influenza (IIV4) vaccine, quadrivalent (AFLURIA, FLULAVAL, FLUZONE)04/16/2014influenza (LAIV) vaccine, nasal, unspecified uxxpssskixs45/12/2010influenza vaccine, whole virus 03/04/2005measles mumps rubella (MMR) vaccine (M-M-R II, PRIORIX)03/05/2008, 03/18/2004meningococcal (MenACWY-D) vaccine, quadrivalent (MENACTRA)06/27/2014 novel influenza (Y3Y3-85) zlqulhp2805/21/2009pneumococcal (PCV7) vaccine, 7 valent (PREVNAR 7)03/18/2004,06/27/2003pneumococcal conjugate (PCV13) vaccine, 13 valent (PREVNAR 13)01/06/2016pneumococcal vaccine, unspecified formulation 05/21/2009,04/23/2003,02/19/2003poliovirus (IPV) vaccine, inactivated (IPOL) 09/11/2007,09/30/2003,04/23/2003,02/19/2003tetanus diphtheria pertussis (Tdap) vaccine, age 7+ yr (ADACEL, BOOSTRIX)06/27/2014varicella (JOAQUINA) vaccine (VARIVAX) 05/21/2009,12/23/2003 Family History Medical HistoryRelationCommentsDiabetesMotherprediabetesCystic FibrosisSister RelationStatusCommentsMotherSister Social History Tobacco UseTypesPacks/DayYears UsedDateSmoking Tobacco: NeverPassive [...] steady place to sleep or slept in phoenixelter (including now)?No12/09/2023Housing Stability Vital SignAnswerDate RecordedIn the last 12 months, was there a time when you were not able to pay the mortgage or rent on time?No11/23/2024In the past 12 months, how many times have you moved where you were living? At any time in the past 12 months, were you homeless or living in a usp (including now)?No11/23/2024Hunger Vital SignAnswerDate RecordedWithin the past [...] were you homeless or living in a usp (including now)?No 01/02/2025HC UtilitiesAnswerDate RecordedIn the past 12 months has the electric, gas, oil, or water company threatened to shut off services in your home?No01/02/2025rea Deprivation IndexAnswerDate RecordedNational Score (1- 100), lower number is lower azyi347201/30/2025State Score (1-10), lower number is lower hdgt511Data from: https://www.neighborhoodatlas.medicine.[facility].edu/. Last address used for ieixejwnpen[address]01/30/2025CommentsUnknownSex and Gender InformationValueDate RecordedSex Assigned at BirthNot on fileLegal SexFemale 03/09/2022 2:33 PM ESTGender IdentityNot on fileSexual OrientationNot on file Last Filed Vital Signs Vital SignReadingTime TakenCommentsBlood Bsjwjoej156/7002/19/2025 3:21 PM EDT Eckst56038/28/2025 3:21 PM URRKgyemjsbkmd92.8 ??C (98.2 ??F)02/19/2025 3:21 PM EDTRespiratory Palt4387 3:21 PM EDTOxygen Wjmcyscaip59%02/19/2025 3:21 PM EDTInhaled Oxygen Concentration--Uohglv32.5 kg (124 lb 9 oz)02/19/2025 3:21 PM LYVZdmxid300.9 cm (5' 1 )01/01/2025 5:40 PM EDTBody Mass Index23.54001/01/2025 5:40 PM EDT Plan of Treatment DateTypeDepartmentCare Team (Latest Contact Info)Yemxtbpatom13/07/2025 4:15 PM ESTOffice Visit Otolaryngology [address] [place] [phone] Diya Bedolla MD [address] [place], [place] [phone] follow up03/12/2025 3:20 PM ESTOffice Visit Otolaryngology [address] [place] [address] Diya Bedolla MD [address] [place] [address] Post hospitalization follow upHealth MaintenanceDue DateLast DoneCommentsPeds To Adult Transition Initial Xaqbzsbnjk12/22/2015HPV Vaccine (2 - 2-dose series) /08/2014Pneumococcal Vaccine (2 of 2 - PPSV23, PCV20, or PCV21) /, 05/21/2009, 03/18/2004, Additional history existsPeds To Adult Transition Annual Rowikckqyb37/22/2017Meningococcal B Vaccine (1 of 2 - Standard)2018Anxiety Fxogkfbgu82/22/2021hlamydia Screening (18-24) 2020epression Ybnbxgyap08/22/2021GC (Gonorrhea) Screening (18-24) 2020HIV Urpjrvqmw08/22/2021Hepatitis C Diozwnfpv97/22/2021ervical Cancer Ranpokjrv02/22/2024DTaP,Tdap,Td Vaccine (7 - Td or Tdap)503/08/2014, 09/11/2007, 03/18/2004, Additional history existsCovid-19 Vaccine ( season)/, 08/27/2020, 08/06/2020Hepatitis B VaccineCompleted 12/23/2003, 12/23/2003, 04/23/2003, Additional history existsInfluenza Vaccine Gbqwwnpem72/24/2025, 02/17/2023, 02/18/2022, Additional history exists Procedures Procedure NamePriorityDate/TimeAssociated DiagnosisCommentsORGANISM IDENT. MOLD (LAB ORDER ONLY)Kocdehu2202/19/2025 5:28 PM EDT Cystic fibrosis ([facility]) Chronic bronchitis, unspecified chronic bronchitis type ([facility]) ABPA (allergic bronchopulmonary aspergillosis) ([facility]) BACTERIAL CULTURE, RESPIRATORY, CYSTIC FESBBYUJTrkxbfg68/28/2025 5:28 PM EDT Cystic fibrosis ([facility]) FUNGAL CULTURE AND SMEAR (NON DERMAL)Oehnrgg2802/19/2025 5:28 PM EDT Cystic fibrosis ([facility]) AFB CULTURE & STAIN FOR PATIENTS WITH CYSTIC RGVXQQIOPcwcfdq44/28/2025 5:28 PM EDT Cystic fibrosis ([facility]) SPIROMETRY BASELINE BMDDIcspnqn71/28/2025 3:43 PM EDT Cystic fibrosis with pulmonary manifestations ([facility]) ABPA (allergic bronchopulmonary aspergillosis) ([facility]) SPIROMETRY BASELINE WOWCMyjawex95/23/2025 2:41 PM EDT MAGNESIUM MXAQfrcp17/23/2025 10:24 AM EDT MAGNESIUM ESVSfknjcg48/22/2025 10:22 AM EDT CBC + GHBACjzfxlq65/22/2025 10:22 AM EDT COMPREHENSIVE METABOLIC SLZEJHihwudy78/22/2025 10:22 AM EDT SPIROMETRY BASELINE GBLXMaqyufk37/17/2025 2:13 PM EDT POTASSIUM BVWTawwcnu03/16/2025 12:34 AM EDT XR CHEST 1V FRONTAL TZQBDKOA26/15/2025 11:34 AM EDT MAGNESIUM GODSwzrckr79/15/2025 5:50 AM EDT CBC + FNRVZajxxos52/15/2025 5:50 AM EDT COMPREHENSIVE METABOLIC WSYFVSidtbav76/15/2025 5:50 AM EDT SPIROMETRY BASELINE VNRZDydnnji47/10/2025 1:29 PM EDT AFB CULTURE & STAIN FOR PATIENTS WITH CYSTIC YFRDHPIPPjlxkaw72/09/2025 6:39 PM EDT FUNGAL CULTURE (NON DERMAL)Scogequ8201/01/2025 6:39 PM EDT BACTERIAL CULTURE, RESPIRATORY, CYSTIC ADJJSRULNzclxbd51/09/2025 6:39 PM EDT EXPANDED RESPIRATORY PATHOGEN PANEL BY PCR, DDVAAJDBdbaqot96/09/2025 6:39 PM EDT MAGNESIUM ECWIswsefv07/09/2025 6:39 PM EDT CBC + DRRCWobpgga06/09/2025 6:39 PM EDT COMPREHENSIVE METABOLIC YDYLHZjrmtdy87/09/2025 6:39 PM EDT SEDIMENTATION GVRZVsjxots82/09/2025 6:39 PM EDT C-REACTIVE PROTEIN (CRP)Hemwptj5001/01/2025 6:39 PM EDT VITAMIN D 25 CVQECCWTefraxf60/09/2025 6:39 PM EDT HEMOGLOBIN Z3KHfvhdsp90/09/2025 6:39 PM EDT IGE LWKPcfpywg77/09/2025 6:39 PM EDT HCG ZMWUNSHBNSAVAneruer57/09/2025 6:39 PM EDT from Last 3 Months Results * (ABNORMAL) BACTERIAL CULTURE, RESPIRATORY, CYSTIC FIBROSIS (02/19/2025 5:28 PM EDT) Only the most recent of2 resultswithin the time period is included. ComponentValueRef RangeTest MethodAnalysis TimePerformed AtPathologist Signature Culture, Resp Cystic FibrosisRare Aspergillus species(A) MINIMUM INHIBITORY CONCENTRATION (VIZION) 02/28/2025 7:27 AM [facility] MA[facility] LABComment:Refer to Organism Identification, Mold culture, for species identification.Culture, Resp Cystic FibrosisRare Stenotrophomonas maltophilia(A) MINIMUM INHIBITORY CONCENTRATION (VIZION) 02/28/2025 7:27 AM [facility] MAIN LABCulture, Resp Cystic FibrosisOne colony Staphylococcus aureus(A) MINIMUM INHIBITORY CONCENTRATION(VITEK) 02/28/2025 7:27 AM [facility] PBP2a SA Culture [place] FxgtGWV4i was not detected by an immunochromatographic assay, so this isolate is methicillin-susceptible.02/28/2025 7:27 AM [facility] LAB Culture, Resp Cystic FibrosisFew normal respiratory bentley(A) MINIMUM INHIBITORY CONCENTRATION (VIZION) 02/28/2025 7:27 AM [facility] LABSpecimen (Source)Anatomical Location / LateralityCollection Method / VolumeCollection TimeReceived Time SputumSPUTUM SPECIMEN / UnknownNon Blood / Rumxdow0202/19/2025 5:28 PM EDT 02/20/2025 3:35 PM EDT Narrative [facility] LAB - 02/28/2025 7:27 AM EST No Pseudomonas aeruginosa isolated. No Burkholderia cepacia complex isolated. This test was developed and its performance characteristics determined by the [facility]'s [facility] Medicine [place] ([facility]). It has not been cleared or approved by the FDA. -[facility] is regulated under CLIA as qualified [...] StatusDouglas Justin MDMICROBIOLOGYFinal ResultPerforming OrganizationAddressCity/State/ZIP CodePhone Number [facility] LAB [address] * (ABNORMAL) ORGANISM IDENT. MOLD (LAB ORDER ONLY) (02/19/2025 5:28 PM EDT) ComponentValueRef RangeTest MethodAnalysis TimePerformed AtPathologist SignatureCulture, Organism ID MoldAspergillus fumigatus(A)02/27/2025 4:16 PM [facility] MAIN LABComment:By MALDI TOF Mass Spectrometry.Specimen (Source)Anatomical Location / LateralityCollection Method / VolumeCollection TimeReceived TimeSputumSPUTUM SPECIMEN / UnknownNon Blood / Sbvxozu8602/19/2025 5:28 PM EDT1 3:35 PM EDT Narrative Authorizing ProviderResult TypeResult StatusDouglas Justin MDMICROBIOLOGYFinal ResultPerforming OrganizationAddressCity/State/ZIP CodePhone Number [facility] [address] [place] [address], * SPIROMETRY BASELINE ONLY (02/19/2025 3:43 PM EDT)ComponentValueRef RangeTest MethodAnalysis TimePerformed AtPathologist SignatureFVC PRE (L)2.25LPULMONARY FUNCTION LABFVC PREDICTED (L)3.11LPULMONARY FUNCTION LABFVC LLN (L)2.41L PULMONARY FUNCTION LABFVC ULN (L)3.82LPULMONARY FUNCTION LABFEV1 PRE (L)1.48L PULMONARY FUNCTION LABFEV1 PREDICTED (L)2.77LPULMONARY FUNCTION LABFEV1 LLN (L)2.15LPULMONARY FUNCTION LABFEV1 ULN (L)3.37LPULMONARY FUNCTION LABFEV1/FVC PRE (%)66%PULMONARY FUNCTION LABFEV1/FVC PREDICTED (%)89%PULMONARY FUNCTION LABFEV1/FVC LLN (%)78%PULMONARY FUNCTION BLZZJB34% PRE (L/S)3.26L/SPULMONARY FUNCTION EVUEVM37% PRE (L/S00.22L/SPULMONARY FUNCTION XNKDPC51% PREDICTED (L/S)1.68L/SPULMONARY FUNCTION HKRGND01% LLN (L/S)0.94L/SPULMONARY FUNCTION UPFZBM51% ULN (L/S)2.74L/SPULMONARY FUNCTION TTPDMW94-15% PRE (L/S)0.73L/S PULMONARY FUNCTION FGRCWX46-21% PREDICTED (L/S)3.44L/SPULMONARY FUNCTION LAB OFC56-14% LLN (L/S)2.28L/SPULMONARY FUNCTION LABPEF PRE (L/S)5.80L/SPULMONARY FUNCTION LABPEF LLN (L/S)4.87L/SPULMONARY FUNCTION LABPEF ULN (L/S)7.99L/S PULMONARY FUNCTION LABFET PRE (S)8.75SPULMONARY FUNCTION LABSpecimen (Source) Anatomical Location / LateralityCollection Method / VolumeCollection Time Received Time02/19/2025 3:43 PM EDT Narrative PULMONARY FUNCTION LAB - 02/21/2025 10:42 AM EDT [facility] ?[address] ? [address] ? [place] [address] ? Test Date: ? 2025-02-19 Pat Name: ?ANGELIA LAURA ?Department: ?Room: ? Gender: ?Female ?Rear Admiral: ? : ? 2000 ?Requested By: ?? Order Number: ??[id number] ? Reading MD: ?Jemma Paz MD ? [...] 10:42:44 EDT by Jemma Paz MD ID: [id number] ?Name: ANGELIA SANCHEZ ?Race: Other Ht: 61.02 in ?Wt: 124.56 lbs ?Age: 24 Gender: Female ?: 2000 ?Dx: Cystic Fibrosis - Unspecified. ??May include CFTR disorder. Smoking Hx: Non-smoker ?Doctor: TONY JOHNSON Test Date: 02/19/2025 ?Site: ?Tech: Confer, Beatriz ?PRE-BRONCH ? POST-BRONCH ?Daniel [...] ? 0.18 ?90-100 ? FIVC ?1.69 ? KGF66-38 ?0.73 ?? 2.28 ?? 3.44 ?? 4.76 ?21 ??-4.42 ? ExpiredTime ? 8.75 ? TimeToFEFMax ?0.05 ? AUREA ? 0.04 ? VolExtrap% ? 2 ? Comments: Current ATS/ERS acceptability and repeatability standards for spirometry met. Start of test and EOFE criteria met. ?? //HC Authorizing ProviderResult TypeResult StatusColette Bucur LOCKSTITCH COAT JOINER.CNPSCHEDULED PROCEDURESFinal ResultPerforming OrganizationAddressCity/State/ZIP CodePhone Number PUL[facility]CTION LAB [address] [facility] [place] [address] * SPIROMETRY BASELINE ONLY (01/15/2025 2:41 PM EDT)ComponentValueRef RangeTest MethodAnalysis TimePerformed AtPathologist SignatureFVC PRE (L)2.64LPULMONARY FUNCTION LABFVC PREDICTED (L)3.11LPULMONARY FUNCTION LABFVC LLN (L)2.41L PULMONARY FUNCTION LABFVC ULN (L)3.82LPULMONARY FUNCTION LABFEV1 PRE (L)1.75L PULMONARY FUNCTION LABFEV1 PREDICTED (L)2.77LPULMONARY FUNCTION LABFEV1 LLN (L)2.15LPULMONARY FUNCTION LABFEV1 ULN (L)3.37LPULMONARY FUNCTION LABFEV1/FVC PRE (%)66%PULMONARY FUNCTION LABFEV1/FVC PREDICTED (%)89%PULMONARY FUNCTION LABFEV1/FVC LLN (%)78%PULMONARY FUNCTION WBUPBU77% PRE (L/S)3.67L/SPULMONARY FUNCTION HMDBJI99% PRE (L/S00.25L/SPULMONARY FUNCTION BWXXFL07% PREDICTED (L/S)1.68L/SPULMONARY FUNCTION DKRDQI64% LLN (L/S)0.94L/SPULMONARY FUNCTION LMAVHC66% ULN (L/S)2.74L/SPULMONARY FUNCTION EMQQGO56-05% PRE (L/S)0.83L/S PULMONARY FUNCTION XMHTOU94-03% PREDICTED (L/S)3.45L/SPULMONARY FUNCTION LAB MDL83-96% LLN (L/S)2.28L/SPULMONARY FUNCTION LABPEF PRE (L/S)6.49L/SPULMONARY FUNCTION LABPEF LLN (L/S)4.87L/SPULMONARY FUNCTION LABPEF ULN (L/S)7.98L/S PULMONARY FUNCTION LABFET PRE (S)9.63SPULMONARY FUNCTION LABSpecimen (Source) Anatomical Location / LateralityCollection Method / VolumeCollection Time Received Time01/15/2025 2:41 PM EDT Narrative PULMONARY FUNCTION LAB - 01/29/2025 12:22 PM EDT [facility] ?[address] ? [address] ? [place] [address] ? Test Date: ? 2025-01-15 Pat Name: ?ANGELIA LAURA ?Department: ?Room: ?D327-100 Gender: ?Female ?Rear Admiral: ? : ? 2000 ?Requested By: ?? Order Number: ??[id number] ?Reading MD: ?Diego Grider MD ? Interpretive Statements IP. ??Current ATS/ERS acceptability and repeatability standards for spirometry met. Start of test and EOFE criteria met. ?? //HC IMPRESSION: Spirometry indicates moderate obstruction. Electronically Signed On 01-29-2025 12:22:19 EDT by Diego Grider MD ID: [id number] ?Name: ANGELIA SANCHEZ ?Race: Other Ht: 61.02 in ?Wt: 126.77 lbs ?Age: 24 Gender: Female ?: 2000 ?Dx: Cystic Fibrosis - Unspecified. ??May include CFTR disorder. Smoking Hx: Non-smoker ?Doctor: Test Date: 01/15/2025 ?Site: [facility] ?Tech: Confer, Beatriz ?PRE-BRONCH ? POST-BRONCH ?Daniel ?LLN ?? Pred ?ULN %Pred ZScore ?? Daniel %Pred ??%Chg ZScore SPIROMETRY FVC ? 2.64 ?? 2.41 ?? 3.11 ?? 3.82 ?84 ??-1.10 ? FEV1 ?1.75 ?? 2.15 ?? 2.77 ?? 3.37 ?63 ??-2.62 ? FEV1/FVC ?0.66 ?? 0.78 ?? 0.89 ?? 0.98 ?74 ??-2.83 ? FEFMax ?6.49 ?? 4.87 ?? 6.43 ?? 7.98 ?? 100 ?? 0.07 ? FEF50 ? 1.37 ?? 2.40 ?? 4.01 ?? 5.62 ?34 ??-2.70 ? FIF50 ? 5.09 ? FEF50/FIF50 ? 0.27 ?90-100 ? FIVC ?2.40 ? MPG04-19 ?0.83 ?? 2.28 ?? 3.45 ?? 4.76 ?24 ??-4.20 ? ExpiredTime ? 9.63 ? TimeToFEFMax ?0.05 ? AUREA ? 0.04 ? VolExtrap% ? 1 ? Comments: IP. ??Current ATS/ERS acceptability and repeatability standards for spirometry met. Start of test and EOFE criteria met. ?? //HC Authorizing ProviderResult TypeResult StatusRonnie Scullark PA-CPULMONARYFinal ResultPerforming OrganizationAddressCity/State/ZIP CodePhone Number [facility] [address] [facility] [place] [phone] * MAGNESIUM (01/15/2025 10:24 AM EDT) Only the most recent of4 resultswithin the time period is included. ComponentValueRef RangeTest MethodAnalysis TimePerformed AtPathologist Signature Magnesium1.81.7 - 2.3 mg/dL01/15/2025 12:10 PM EDTCUPPER VALLEY [facility] LABSpecimen (Source)Anatomical Location / LateralityCollection Method / Volume Collection TimeReceived TimeBloodBLOOD SPECIMEN / UnknownVenipuncture / Unknown 01/15/2025 10:24 AM EDT01/15/2025 10:32 AM EDT Narrative Authorizing ProviderResult TypeResult StatusRamarleen Rebecca Raudelyaneclarke DOLABORATORYFinal ResultPerforming OrganizationAddressCity/State/ZIP CodePhone Number [facility] [address] [address], * (ABNORMAL) COMPREHENSIVE METABOLIC PANEL (01/14/2025 10:22 AM EDT) Only the most recent of3 resultswithin the time period is included. ComponentValueRef RangeTest MethodAnalysis TimePerformed AtPathologist Signature Protein, Total6.46.3 - 8.0 g/dL01/14/2025 11:36 AM [facility] LABAlbumin3.2(L)3.9 - 4.9 g/dL01/14/2025 11:36 AM [facility] LABCalcium, Total8.68.5 - 10.2 mg/dL01/14/2025 11:36 AM [facility] LABBilirubin, Total1.10.2 - 1.3 mg/dL01/14/2025 11:36 AM EDT [facility] LABAlkaline [id number] - 123 U/L01/14/2025 11:36 AM [facility] [id number] - 35 U/L01/14/2025 11:36 AM [facility] [id number] - 38 U/L01/14/2025 11:36 AM EDT [facility] ZABMsmjlpb551(H)74 - 99 mg/dL01/14/2025 11:36 AM [facility] LABComment: [employer] (ADA) provides guidance for cutoff values for fasting glucose andrandom glucose. The ADA defines fasting as no [...] Standards of Medical Care in Diabetes 2016, [place] [employer]. Diabetes Care. 2016.39(Suppl 1). WZW377 - 21 mg/dL01/14/2025 11:36 AM [facility] Creatinine0.830.58 - 0.96 mg/dL01/14/2025 11:36 AM [facility] GWBByjhcc308994 - 144 mmol/L01/14/2025 11:36 AM [facility] LABPotassium3.93.7 - 5.1 mmol/L01/14/2025 11:36 AM [facility] ZISTlwktrmh32438 - 107 mmol/L01/14/2025 11:36 AM [facility] DSDMR223(L)22 - 30 mmol/L01/14/2025 11:36 AM [facility] LABAnion Dia564 - 15 mmol/L01/14/2025 11:36 AM [facility] LABEstimated Glomerular Filtration Vwuu224>=60 mL/min/1.73m 01/14/2025 11:36 AM [facility] LABComment:Estimated Glomerular Filtration Rate (eGFR) is calculated using the 2020 CKD-EPI creatinine equation. This equation utilizes serum creatinine, sex, and age as parameters. The creatinine assay has traceable calibration to isotope dilution- mass spectrometry. Refer to KDIGO guidelines for clinical interpretation. In patients with unstable renal function, e.g. those with acute kidney injury, the eGFRmay not accurately reflect actual GFR.Specimen (Source)Anatomical Location / LateralityCollection Method / VolumeCollection TimeReceived TimeBloodBLOOD SPECIMEN / UnknownVenipuncture / Qtspiks6301/14/2025 10:22 AM EDT01/14/2025 10:29 AM EDT Narrative Authorizing ProviderResult TypeResult StatusAlice Adrian SMITHLABORATORYFinal ResultPerforming OrganizationAddressCity/State/ZIP CodePhone Number [facility] [address] [phone], * COMPLETE BLOOD COUNT AND DIFFERENTIAL (01/14/2025 10:22 AM EDT) Only the most recent of3 resultswithin the time period is included. ComponentValueRef RangeTest MethodAnalysis TimePerformed AtPathologist Signature WBC8.433.70 - 11.00 k/uL01/14/2025 10:43 AM [facility] RBC4.503.90 - 5.20 m/uL01/14/2025 10:43 AM [facility] Yedkxvxmvu15.011.5 - 15.5 g/dL01/14/2025 10:43 AM [facility] TFBYhfzfoiffg85.436.0 - 46.0 %01/14/2025 10:43 AM [facility] LDKTNA08.180.0 - 100.0 fL01/14/2025 10:43 AM [facility] UUWRUE54.726.0 - 34.0 pg01/14/2025 10:43 AM [facility] RAOLYGI89.130.5 - 36.0 g/dL01/14/2025 10:43 AM [facility] LABRDW-CV14.011.5 - 15.0 %01/14/2025 10:43 AM [facility] LABPlatelet Irqbx343520 - 400 k/uL01/14/2025 10:43 AM [facility] LABMPV9.79.0 - 12.7 fL01/14/2025 10:43 AM [facility] LABNeutrophils %50.8%01/14/2025 10:43 AM [facility] LABAbs Neut4.281.45 - 7.50 k/uL01/14/2025 10:43 AM [facility] LABLymphocytes %38.1%01/14/2025 10:43 AM [facility] LABAbs Lymph3.211.00 - 4.00 k/uL01/14/2025 10:43 AM [facility] LABMonocytes %8.3%01/14/2025 10:43 AM [facility] Abs Mono0.70<0.87 k/01/14/2025 10:43 AM [facility] Eosinophils %1.8%01/14/2025 10:43 AM [facility] LABAbs Eosin0.15<0.46 k/01/14/2025 10:43 AM [facility] Basophils %0.8%01/14/2025 10:43 AM [facility] LABAbs Baso 0.07<0.11 k/01/14/2025 10:43 AM [facility] LABImmature Granulocytes %0.2%01/14/2025 10:43 AM [facility] LABAbs Immature Gran<0.03<0.10 /01/14/2025 10:43 AM [facility] LABNRBC0.0/100 WBC01/14/2025 10:43 AM [facility] Absolute nRBC<0.01<0.01 /01/14/2025 10:43 AM [facility] LABDiff KqypMjob02/22/2025 10:43 AM [facility] LABSpecimen (Source)Anatomical Location / LateralityCollection Method / VolumeCollection TimeReceived TimeBloodBLOOD SPECIMEN / UnknownVenipuncture / Lavnwgk4501/14/2025 10:22 AM EDT01/14/2025 10:29 AM EDT Narrative Authorizing ProviderResult TypeResult StatusAlice Adrian SMITHLABORATORYFinal ResultPerforming OrganizationAddressCity/State/ZIP CodePhone Number [facility] [address] [place] [address], * SPIROMETRY BASELINE ONLY (01/09/2025 2:13 PM EDT)ComponentValueRef RangeTest MethodAnalysis TimePerformed AtPathologist SignatureFVC PRE (L)2.61LPULMONARY FUNCTION LABFVC PREDICTED (L)3.11LPULMONARY FUNCTION LABFVC LLN (L)2.41L PULMONARY FUNCTION LABFVC ULN (L)3.82LPULMONARY FUNCTION LABFEV1 PRE (L)1.78L PULMONARY FUNCTION LABFEV1 PREDICTED (L)2.77LPULMONARY FUNCTION LABFEV1 LLN (L)2.15LPULMONARY FUNCTION LABFEV1 ULN (L)3.37LPULMONARY FUNCTION LABFEV1/FVC PRE (%)68%PULMONARY FUNCTION LABFEV1/FVC PREDICTED (%)89%PULMONARY FUNCTION LABFEV1/FVC LLN (%)78%PULMONARY FUNCTION QHUAZG19% PRE (L/S)3.60L/SPULMONARY FUNCTION XGEQDO89% PRE (L/S00.28L/SPULMONARY FUNCTION WZCCJZ42% PREDICTED (L/S)1.69L/SPULMONARY FUNCTION PVIGCT36% LLN (L/S)0.94L/SPULMONARY FUNCTION TMFWNW07% ULN (L/S)2.74L/SPULMONARY FUNCTION KXYLKU25-48% PRE (L/S)0.93L/S PULMONARY FUNCTION YVABFY69-60% PREDICTED (L/S)3.45L/[facility] LAB EFY43-45% LLN (L/S)2.28L/SPULMONARY FUNCTION LABPEF PRE (L/S)5.70L/SPULMONARY FUNCTION LABPEF LLN (L/S)4.87L/SPULMONARY FUNCTION LABPEF ULN (L/S)7.98L/S P[facility] FUNCTION LABFET PRE (S)9.63SPULMONARY FUNCTION LABSpecimen (Source) Anatomical Location / LateralityCollection Method / VolumeCollection Time Received Time01/09/2025 2:13 PM EDT Narrative [facility] - 01/16/2025 3:26 PM EDT [facility] ?[address] ? [address] ? [place] [address] ? Test Date: ? 2025-01-09 Pat Name: ?ANGELIA SANCHEZ ?Department: ?Room: ? Gender: ?Female ?Rear Admiral: ? : ? 2000 ?Requested By: ?? Order Number: ??[id number] ?Reading MD: ?Tiago Gomez MD ? Interpretive Statements Current ATS/ERS acceptability and repeatability standards for spirometry met. Start of test and EOFE criteria met. ??//HC IMPRESSION: Spirometry indicates moderate obstruction. Electronically Signed On 01-16-2025 15:26:03 EDT by Tiago Gomez MD ID: [id number] ?Name: ANGELIA SANCHEZ ?Race: Other Ht: 61.02 in ?Wt: 126.77 lbs ?Age: 24 Gender: Female ?: 2000 ?Dx: Cystic Fibrosis - Unspecified. ??May include CFTR disorder. Smoking Hx: Non-smoker ?Doctor: Test Date: 01/09/2025 ?Site: [facility] ?Tech: Confer, Beatriz ?PRE-BRONCH ? POST-BRONCH ?Daniel ?LLN ?? Pred ?ULN %Pred ZScore ?? Daniel %Pred ??%Chg ZScore SPIROMETRY FVC ? 2.61 ?? 2.41 ?? 3.11 ?? 3.82 ?84 ??-1.16 ? FEV1 ?1.78 ?? 2.15 ?? 2.77 ?? 3.37 ?64 ??-2.57 ? FEV1/FVC ?0.68 ?? 0.78 ?? 0.89 ?? 0.98 ?76 ??-2.71 ? FEFMax ?5.70 ?? 4.87 ?? 6.43 ?? 7.98 ?88 ??-0.77 ? FEF50 ? 1.42 ?? 2.40 ?? 4.01 ?? 5.62 ?35 ??-2.65 ? FIF50 ? 5.79 ? FEF50/FIF50 ? 0.24 ?90-100 ? FIVC ?2.37 ? DEP14-49 ?0.93 ?? 2.28 ?? 3.45 ?? 4.76 ?26 ??-4.00 ? ExpiredTime ? 9.63 ? TimeToFEFMax ?0.05 ? AUREA ? 0.04 ? VolExtrap% ? 2 ? Comments: Current ATS/ERS acceptability and repeatability standards for spirometry met. Start of test and EOFE criteria met. ??//HC Authorizing ProviderResult TypeResult StatusMaster Worley PA-CPULMONARYFinal ResultPerforming OrganizationAddressCity/State/ZIP CodePhone Number [facility] [address] [facility] [place] [address] * POTASSIUM (01/08/2025 12:34 AM EDT)ComponentValueRef RangeTest MethodAnalysis TimePerformed AtPathologist SignaturePotassium4.13.7 - 5.1 mmol/L01/08/2025 2:03 AM [facility] LABSpecimen (Source)Anatomical Location / LateralityCollection Method / VolumeCollection TimeReceived Time BloodBLOOD SPECIMEN / UnknownVenipuncture / Ejikfxt9601/08/2025 12:34 AM EDT 01/08/2025 12:39 AM EDT Narrative Authorizing ProviderResult TypeResult StatusBlaine Tesfaye MD LABORATORYFinal ResultPerforming OrganizationAddressty/State/ZIP CodePhone Number [facility] [address] [place] [phone], * XR CHEST 1V FRONTAL PORT (01/07/2025 11:34 AM EDT)Anatomical RegionLaterality ModalityChestRadiographic ImagingSpecimen (Source)Anatomical Location / LateralityCollection Method / VolumeCollection TimeReceived Time01/07/2025 11:33 AM EDT Impressions 01/07/2025 4:52 PM EDT IMPRESSION: See result. Software Configuration Analyst: RAFAELA ?? Transcribe Date/Time: Jan 07 2025 ??1:29P Dictated by : ROYCE DOOLEY MD This examination was interpreted and the report reviewed and electronically signed by: DORITA TAYLOR MD on Jan 07 2025 ??4:49PM ??EST Narrative 01/07/2025 4:52 PM EDT * * *Final Report* * * DATE OF EXAM: Jan 07 2025 11:33AM ?? JIX ?? [id number] ??- ??XR CHEST 1V FRONTAL PORT ??/ PROCEDURE REASON: Cough ? * * * * Physician Interpretation * * * * EXAMINATION: ??CHEST RADIOGRAPH (PORTABLE SINGLE VIEW AP) Exam Date/Time: ??01/07/2025 11:33 AM Clinical History: Cough . ??History of cystic fibrosis with recurrent infections. MQ: ??XCPMC_6 Comparison: ??CT chest 07/30/2024. RESULT: Lines, tubes, and devices: ??Right-sided chest wall port tip terminating in the lower third of the superior vena cava. Lungs and pleura: ??Diffuse bilateral upper lobe predominant bronchiectasis with mucoid impaction and scattered airspace opacities and to a lesser degree in the lower lobes. ??These findings are consistent with acute on chronic inflammatory/infectious process in the setting of cystic fibrosis. ??No pneumothorax or pleural effusion. Cardiomediastinal silhouette: ??Stable cardiomediastinal silhouette. Other: ??. Procedure Note Provider, [facility] [place] - 01/07/2025 * * *Final Report* * * DATE OF EXAM: Jan 07 2025 11:33AM JIX [id number] - XR CHEST 1V FRONTAL PORT / PROCEDURE REASON: Cough * * * * Physician Interpretation * * * * EXAMINATION: CHEST RADIOGRAPH (PORTABLE SINGLE VIEW AP) Exam Date/Time: 01/07/2025 11:33 AM Clinical History: Cough . History of cystic fibrosis with recurrent infections. MQ: XCPMC_6 Comparison: CT chest 07/30/2024. RESULT: Lines, tubes, and devices: Right-sided chest wall port tip terminating in the lower third of the superior vena cava. Lungs and pleura: Diffuse bilateral upper lobe predominant bronchiectasis with mucoid impaction and scattered airspace opacities and to a lesser degree in the lower lobes. These findings are consistent with acute on chronic inflammatory/infectious process in the setting of cystic fibrosis. No pneumothorax or pleural effusion. Cardiomediastinal silhouette: Stable cardiomediastinal silhouette. Other: . IMPRESSION IMPRESSION: See result. Software Configuration Analyst: RAFAELA Transcribe Date/Time: Jan 07 2025 1:29P Dictated by : ROYCE DOOLEY MD This examination was interpreted and the report reviewed and electronically signed by: DORITA TAYLOR MD on Jan 07 2025 4:49PM EST Authorizing ProviderResult TypeResult StatusBathcinda Mirelesrishnan MDRAD-PAMA Final Result * SPIROMETRY BASELINE ONLY (01/02/2025 1:29 PM EDT)ComponentValueRef RangeTest MethodAnalysis TimePerformed AtPathologist SignatureFVC PRE (L)2.36LPULMONARY FUNCTION LABFVC PREDICTED (L)3.11LPULMONARY FUNCTION LABFVC LLN (L)2.41L PULMONARY FUNCTION LABFVC ULN (L)3.82LPULMONARY FUNCTION LABFEV1 PRE (L)1.63L PULMONARY FUNCTION LABFEV1 PREDICTED (L)2.77LPULMONARY FUNCTION LABFEV1 LLN (L)2.15LPULMONARY FUNCTION LABFEV1 ULN (L)3.37LPULMONARY FUNCTION LABFEV1/FVC PRE (%)69%PULMONARY FUNCTION LABFEV1/FVC PREDICTED (%)89%PULMONARY FUNCTION LABFEV1/FVC LLN (%)78%PULMONARY FUNCTION IKBFFK43% PRE (L/S)3.51L/SPULMONARY FUNCTION IFIXIL52% PRE (L/S00.56L/SPULMONARY FUNCTION SZBVXB56% PREDICTED (L/S)1.69L/SPULMONARY FUNCTION IIXQFR34% LLN (L/S)0.94L/SPULMONARY FUNCTION XGVKLK09% ULN (L/S)2.74L/SPULMONARY FUNCTION TLDJGQ33-82% PRE (L/S)0.90L/S PULMONARY FUNCTION KGABDV69-98% PREDICTED (L/S)3.45L/SPULMON[facility] FUNCTION LAB AMV87-11% LLN (L/S)2.29L/SPULMONARY FUNCTION LABPEF PRE (L/S)5.08L/SPULMONARY FUNCTION LABPEF LLN (L/S)4.87L/SPULMONARY FUNCTION LABPEF ULN (L/S)7.98L/S PULMONARY FUNCTION LABFET PRE (S)7.89SPULMONARY FUNCTION LABSpecimen (Source) Anatomical Location / LateralityCollection Method / VolumeCollection Time Received Time01/02/2025 1:29 PM EDT Narrative [facility] - 01/09/2025 1:04 PM EDT [facility] ?[address] ? [address] ? [place] [address] ? Test Date: ? 2025-01-02 Pat Name: ?ANGELIA LAURA ?Department: ?Room: ? Gender: ?Female ?Rear Admiral: ? : ? 2000 ?Requested By: ?? Order Number: ??[id number] ?Reading MD: ?Tiago Gomez MD ? Interpretive Statements Best test reported. ??FVC repeatable x3, FEV1 repeatable x2. ?? Coughing noted throughout. ??//HC IMPRESSION: Spirometry indicates obstruction. The severity of obstruction cannot be graded due to the reduced FVC. The reduced FVC may be due to obstruction, however, concomitant restriction cannot be excluded, recommend lung volumes for definitive determination. Electronically Signed On 01-09-2025 13:04:19 EDT by Tiago Gomez MD ID: [id number] ?Name: ANGELIA SANCHEZ ?Race: Other Ht: 61.02 in ?Wt: 130.51 lbs ?Age: 24 Gender: Female ?: 2000 ?Dx: Cystic Fibrosis - Unspecified. ??May include CFTR disorder. Smoking Hx: Non-smoker ?Doctor: Test Date: 01/02/2025 ?Site: [facility] ?Tech: Confer, Beatriz ?PRE-BRONCH ? POST-BRONCH ?Daniel ?LLN ?? Pred ?ULN %Pred ZScore ?? Daniel %Pred ??%Chg ZScore SPIROMETRY FVC ? 2.36 ?? 2.41 ?? 3.11 ?? 3.82 ?75 ??-1.77 ? FEV1 ?1.63 ?? 2.15 ?? 2.77 ?? 3.37 ?58 ??-2.91 ? FEV1/FVC ?0.69 ?? 0.78 ?? 0.89 ?? 0.98 ?77 ??-2.59 ? FEFMax ?5.08 ?? 4.87 ?? 6.43 ?? 7.98 ?79 ??-1.43 ? FEF50 ? 1.50 ?? 2.40 ?? 4.01 ?? 5.62 ?37 ??-2.56 ? FIF50 ? 5.58 ? FEF50/FIF50 ? 0.27 ?90-100 ? FIVC ?2.16 ? CPL42-93 ?0.90 ?? 2.29 ?? 3.45 ?? 4.76 ?26 ??-4.06 ? ExpiredTime ? 7.89 ? TimeToFEFMax ?0.09 ? AUREA ? 0.07 ? VolExtrap% ? 3 ? Comments: Best test reported. ??FVC repeatable x3, FEV1 repeatable x2. ?? Coughing noted throughout. ??//HC Authorizing ProviderResult TypeResult StatusColette Bucur LOCKSTITCH COAT JOINER.CNPPULMONARYFinal ResultPerforming OrganizationAddressCity/State/ZIP CodePhone Number [facility] [address] [place] [address] * AFB CULTURE & STAIN FOR PATIENTS WITH CYSTIC FIBROSIS (01/01/2025 6:39 PM EDT) ComponentValueRef RangeTest MethodAnalysis TimePerformed AtPathologist SignatureCulture, AFBNo Acid Fast Bacilli isolated after 42 days02/13/2025 8:04 AM [facility] LABAFB StainNo acid fast bacilli seen by fluorochrome stain02/13/2025 8:04 AM [facility]TC[facility] LABSpecimen (Source)Anatomical Location / LateralityCollection Method / VolumeCollection TimeReceived TimeSputumSPUTUM SPECIMEN / UnknownNon Blood / Hpgutss1301/01/2025 6:39 PM EDT01/01/2025 6:47 PM EDT Narrative Authorizing ProviderResult TypeResult StatusAlice Adrian MDMICROBIOLOGYFinal ResultPerforming OrganizationAddressCity/[facility]/ZIP CodePhone Number [facility] [address] * EXPANDED RESPIRATORY PATHOGEN PANEL BY PCR, ROUTINE (01/01/2025 6:39 PM EDT) ComponentValueRef RangeTest MethodAnalysis TimePerformed AtPathologist EkrceeuifVUGI-FsD-2 (Agent of COVID-19) RNANot detectedSee kmtpihv2201/02/2025 7:[address] [facility] LABInfluenza A RNANot detectedNot mjkiulgh73/10/2025 [address] [facility] LABInfluenza B RNA Not detectedNot fkuvbyux47/10/2025 7:[address] [facility] Respiratory syncytial virus (RSV) RNANot detectedNot nehpovav07/10/2025 7:[address] [facility] LABHuman metapneumovirus (hMPV) RNANot detectedNot isxdhfgm81/10/2025 7:[address] [facility] Human rhinovirus/enterovirus RNANot detectedNot xitjpfqh09/10/2025 7:45 AM EDT [facility] LABAdenovirus DNANot detectedNot detected 01/02/2025 7:[address] [facility] LABParainfluenza 1 RNANot detectedNot xbswrujs90/10/2025 7:[address] [facility] Parainfluenza 2 RNANot detectedNot /10/2025 7:[address] [facility] LABParainfluenza 3 RNANot detectedNot exzuhxpe94/10/2025 7:45 AM [facility] LABParainfluenza 4 RNANot detectedNot /10/2025 7:[address] [facility] LABCoronavirus 229E RNANot detectedNot /10/2025 7:[address] [facility] LABCoronavirus OC43 RNANot detectedNot aaltquhg22/10/2025 7:45 AM EDT [facility] LABCoronavirus NL63 RNANot detectedNot detected 01/02/2025 7:[address] [facility] LABCoronavirus HKU1 RNANot detectedNot /10/2025 7:45 AM [facility] Chlamydia pneumoniae DNANot detectedNot gfxqbvob87/10/2025 7:45 AM EDT [facility] LABMycoplasma pneumoniae DNANot detectedNot mmlopwyz17/10/2025 7:[address] [facility] LABBordetella pertussis DNANot detectedNot nezblszh47/10/2025 7:45 AM [facility] LABBordetella parapertussis DNANot detectedNot /10/2025 7:45 AM [facility] LABSpecimen (Source)Anatomical Location / LateralityCollection Method / VolumeCollection TimeReceived Time SwabNASOPHARYNGEAL SWAB / UnknownNon Blood / Cvtbkip3001/01/2025 6:39 PM EDT 01/01/2025 6:47 PM EDT Narrative [facility] - 01/02/2025 7:45 AM EDT Reference Range (the expected result in uninfected individuals): Not detected Authorizing ProviderResult TypeResult StatusAlice [facility] MDMICROBIOLOGYFinal ResultPerforming OrganizationAddressCity/State/ZIP CodePhone Number [facility] [place] [address], [place] * (ABNORMAL) FUNGAL CULTURE (NON DERMAL) (01/01/2025 6:39 PM EDT)ComponentValue Ref RangeTest MethodAnalysis TimePerformed AtPathologist SignatureCulture, FungalRare Aspergillus fumigatus(A) MINIMUM INHIBITORY CONCENTRATION(VITEK) 01/31/2025 8:[address] [facility] LABComment: By MALDI TOF Mass Spectrometry. Specimen (Source)Anatomical Location / LateralityCollection Method / Volume Collection TimeReceived TimeSputumSPUTUM SPECIMEN / UnknownNon Blood / Unknown 01/01/2025 6:39 PM EDT01/01/2025 6:47 PM EDT Narrative [facility] - 01/31/2025 8:38 AM EDT This test was developed and its performance characteristics determined by the [facility]'s [facility] [place] (-[facility]). It has not been cleared or approved by the FDA. RT-PLKY is regulated under CLIA as qualified to perform high-complexity testing. This test is used for clinical purposes. It should not be regarded as investigational or for research. Authorizing ProviderResult TypeResult StatusAlice [facility] Medical CenterICROBIOLOGYFinal ResultPerforming OrganizationAddressCity/State/ZIP CodePhone Number [facility] [address] [place] [phone], [place] * VITAMIN D 25 HYDROXY (01/01/2025 6:39 PM EDT)ComponentValueRef RangeTest MethodAnalysis TimePerformed AtPathologist SignatureVitamin D 25 Eptyveh96.2 31.0 - 80.0 ng/mL01/01/2025 10:[address] [facility] Specimen (Source)Anatomical Location / LateralityCollection Method / Volume Collection TimeReceived TimeBloodBLOOD SPECIMEN / UnknownVenipuncture / Zgkgubc5401/01/2025 6:39 PM EDT01/01/2025 6:48 PM EDT Narrative Authorizing ProviderResult TypeResult StatusKaleigh Campbell MDLABORATORYFinal ResultPerforming OrganizationAddressCity/State/ZIP CodePhone Number [facility] [address] [place] [phone], * SEDIMENTATION RATE, WESTERGREN (01/01/2025 6:39 PM EDT)ComponentValueRef Range Test MethodAnalysis TimePerformed AtPathologist SignatureSed Rate, Westergren 120 - 20 mm/hr01/01/2025 9:[address] [facility] LABSpecimen (Source)Anatomical Location / LateralityCollection Method / VolumeCollection TimeReceived TimeBloodBLOOD SPECIMEN / UnknownVenipuncture / Bywuffk8201/01/2025 6:39 PM EDT01/01/2025 6:47 PM EDT Narrative Authorizing ProviderResult TypeResult StatusKaleigh Campbell MDLABORATORYFinal ResultPerforming OrganizationAddressCity/State/ZIP CodePhone Number [facility] [address] [place] [phone], * (ABNORMAL) IMMUNOGLOBULIN E (01/01/2025 6:39 PM EDT)ComponentValueRef Range Test MethodAnalysis TimePerformed AtPathologist FljfmwqmzDrW581.0(H)<114.0 kU/l01/02/2025 12:[address] [facility] LABSpecimen (Source) Anatomical Location / LateralityCollection Method / VolumeCollection Time Received TimeBloodBLOOD SPECIMEN / UnknownVenipuncture / Hdmmjno0201/01/2025 6:39 PM EDT01/01/2025 6:48 PM EDT Narrative Authorizing ProviderResult TypeResult StatusKaleigh Campbell MDLABORATORYFinal ResultPerforming OrganizationAddressCity/State/ZIP CodePhone Number [facility] [address] [place] [address], [place] * (ABNORMAL) HEMOGLOBIN A1C (01/01/2025 6:39 PM EDT)ComponentValueRef RangeTest MethodAnalysis TimePerformed AtPathologist SignatureHemoglobin A1C6.8(H)4.3 - 5.6 %01/02/2025 9:07 AM [facility] LABComment:[place] Diabetes Association guidelines indicate that patients with HgbA1c in the range 5.7-6.4% are at increased risk for development of diabetes, and intervention by lifestyle modification may be beneficial. HgbA1c greater or equal to 6.5% is considered diagnostic of diabetes.Estimated Average Glucose 148mg/dL01/02/2025 9:07 AM [facility] LABComment:eAG: (Estimated average glucose) is a calculated value from HgbA1c and is corporate representative of the average blood glucose level in the last 2-3 month period.Specimen (Source)Anatomical Location / LateralityCollection Method / VolumeCollection TimeReceived TimeBloodBLOOD SPECIMEN / UnknownVenipuncture / Dajwshl2701/01/2025 6:39 PM EDT01/01/2025 6:48 PM EDT Narrative Authorizing ProviderResult TypeResult StatusKaleigh CHANDORATORYFinal ResultPerforming OrganizationAddressCity/State/ZIP CodePhone Number [facility] [address] [place] [address], [place] * HCG QUANTITATIVE (01/01/2025 6:39 PM EDT)ComponentValueRef RangeTest Method Analysis TimePerformed AtPathologist SignaturehCG Quantitative, Blood<0.6<5.0 mIU/mL01/01/2025 9:10 PM [facility] LABComment:Negative Specimen (Source)Anatomical Location / LateralityCollection Method / Volume Collection TimeReceived TimeBloodBLOOD SPECIMEN / UnknownVenipuncture / Qynnnzz4301/01/2025 6:39 PM EDT01/01/2025 6:48 PM EDT Narrative Authorizing ProviderResult TypeResult StatusKaleigh Campbell MDLABORATORYFinal ResultPerforming OrganizationAddressCity/State/ZIP CodePhone Number [facility] [address] [place] [address], * (ABNORMAL) C-REACTIVE PROTEIN (01/01/2025 6:39 PM EDT)ComponentValueRef Range Test MethodAnalysis TimePerformed AtPathologist SignatureCRP1.3(H)<0.9 mg/dL 01/01/2025 9:03 PM [facility]TCUPP[facility] LABSpecimen (Source) Anatomical Location / LateralityCollection Method / VolumeCollection Time Received TimeBloodBLOOD SPECIMEN / UnknownVenipuncture / Apxgxiq3701/01/2025 6:39 PM EDT01/01/2025 6:48 PM EDT Narrative Authorizing ProviderResult TypeResult StatusAlice Adrian SMITHLABORATORYFinal ResultPerforming OrganizationAddressCity/State/ZIP CodePhone Number [facility] [address] [address], from Last 3 Months Insurance * Guarantor: Laurel Sanchez TypeRelation to PatientDate of BirthPhone Billing AddressPersonal/CblalkDahi31/22[birth year][address] [address] Advance Directives * Full Code (Latest Code Status on File) Date ActivatedDate InactivatedComments01/01/2025 10:13 PM01/16/2025 7:42 PMQuestion AnswerCommentsFull Code Order Discussed With:* Patient * Full Code Date ActivatedDate InactivatedComments07/29/2024 10:09 PM08/22/2024 7:35 PMQuestion AnswerCommentsFull Code Order Discussed With:* Patient * Full Code Date ActivatedDate EoxulkalkiwQyxzbjsb67/13/2024 11:25 PM1/07/2024 4:13 AM QuestionAnswerCommentsFull Code Order Discussed With:* Patient Care Teams Team MemberRelationshipSpecialtyStart DateEnd Date Chapo Mitchell MD [address] [place] [address] PCP - GeneralPulmonary and Critical Care Medicine12/08/23
--- OUTSIDE RECORDS SUMMARY | 2025-02-28 17:02 | XMS_ITS | Clinical Summary ---
Author Organization [facility] tem Address [id number] [address] [place] [address] Care Team Providers Care Lecturer In Computer Science Name Role Phone Unavailable Primary Care Provider Unavailabl e Allergies Active AllergyReactionsCriticalityNoted DateComments Sulfamethoxazole-TrimethoprimSwelling,DibhHxhstq21/30/2020VoriconazoleFacial Qalfpuje29/06/2023 Medications MedicationSigDispense QuantityRefillsLast FilledStart DateEnd DateStatus inhalational spacing device (AEROCHAMBER WITH FLOWSIGNAL) spacer Indications:Cystic fibrosis of the lung ([facility])use with MDI as directed 1 each 09/22/2021ctive compressor, for nebulizer (DEVILBISS PULMO-AIDE COMPRESSR) device Indications:Cystic fibrosis ([facility])Per CF guidelines please dispense pulmoaide to nebulize inhaled medications. 1 each 03/16/2022ctive compressor, for nebulizer device Indications:Cystic fibrosis ([facility])Please dispense Daisetta Erin nebulizer 1 each 03/22/2022ctive fluticasone propionate (FLONASE) 50 mcg/actuation nasal spray Indications:Cystic fibrosis of the lung ([facility])Administer 1 spray into each nostril in the morning. 16 g ctive pediatric multivit 22-D3-vit K (MVW COMPLETE FORMUL MULTIVIT) 1,500-1,000 unit- mcg tablet,chewable Indications:Cystic fibrosis ([facility])Chew 2 tablets and swallow in the morning. (Parke flavor). 60 tablet ctive sodium chloride 3 % nebulizer solution Inhale by nebulization 2 (two) times a day. 750 mL 06/09/2022ctive nebulizers [facility] [place] Indications:Cystic fibrosis ([facility])Please dispense 1 altera handset for cayston nebulization. 1 each 10/14/2022ctive nebulizers (ALTERA NEBULIZER SYSTEM) [facility] [place] Indications:Cystic fibrosis ([facility])Please dispense altera handset and neb cups for cayston administration 1 each ctive nebulizers (ALTERA NEBULIZER SYSTEM) [facility] [place] Indications:Cystic fibrosis ([facility])Please dispense 1 altera nebulizer machine for cayston administration 1 each 11/12/2022ctive syringe with needle, safety 10 mL 18 gauge x 1 1/2 syringe Indications:Cystic fibrosis ([facility])To be used to reconstitute medication 28 each ctive sterile water, PF, (sterile water, preservative free,) solution Indications:Cystic fibrosis ([facility])To reconstitute with fortaz/ceftazidime. Mix 10 ml daily for 28 days on and 28 days off cycling. 280 mL ctive aztreonam lysine ([facility]) 75 mg/mL solution for nebulization Inhale 75 mg by nebulization every 8 (eight) hours.Active budesonide (PULMICORT) 0.5 mg/2 mL nebulizer solution Indications:Cystic fibrosis ([facility])Administer 2 mL (0.5 mg total) into each nostril in the morning and 2 mL (0.5 mg total) before bedtime. 120 mL ctive sod grcbx-qppinn-epditb bottle (AYR NASAL RINSE) packet with rinse device nasal solution Administer 1 packet into each nostril in the morning and 1 packet before bedtime. 30 each ctive calcium carbonate (TUMS) 200 mg elemental (500 mg) chewable tablet Chew 1 tablet (200 mg total) and swallow daily as needed for indigestion or heartburn. 30 tablet ctive EPINEPHrine (EPIPEN) 0.3 mg/0.3 mL auto-injector Indications:ABPA (allergic bronchopulmonary aspergillosis) ([facility]),Severe persistent asthma without complication ([facility])Inject 0.3 mL (0.3 mg total) into the appropriate muscle as needed (anaphylaxis). 2 each ctive sanrpjssrai-xaqkyyeelh-tplgcma (TRIKAFTA) 100-50-75 mg(d) /150 mg (n) tablets, sequential Indications:Cystic fibrosis ([facility])Two tablets in the AM and one tablet in the pm 84 tablet ctive fluticasone propion-salmeteroL (AIRDUO RESPICLICK) 232-14 mcg/actuation aerosol powdr breath activated Indications:Cystic fibrosis ([facility])Inhale 1 puff in the morning and 1 puff before bedtime. 1 each ctive budesonide (PULMICORT) 1 mg/2 mL nebulizer solution Indications:Cystic fibrosis ([facility]),ABPA (allergic bronchopulmonary aspergillosis) ([facility]),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[facility])Inhale 2 mL (1 mg total) by nebulization once daily. 60 mL ctive predniSONE (DELTASONE) 5 mg tablet Indications:Cystic fibrosis ([facility]),ABPA (allergic bronchopulmonary aspergillosis) ([facility])Take 1 tablet (5 mg total) by mouth every other day. 30 tablet ctive PULMOZYME 1 mg/mL nebulizer solution Indications:Cystic fibrosis ([facility])INHALE CONTENTS OF ONE VIAL VIA NEBULIZER ONCE DAILY. KEEP REFRIGERATED UNTIL USE. 75 mL ctive omeprazole (PriLOSEC) 20 mg capsule Indications:Cystic fibrosis ([facility]),Pancreatic insufficiencyTAKE 1 CAPSULE (20 MG TOTAL) BY MOUTH IN THE MORNING. 30 capsule ctive ALLERGY RELIEF, LORATADINE, 10 mg tablet Indications:Cystic fibrosis of the lung ([facility]),Allergic rhinitisTAKE 1 TABLET (10 MG TOTAL) BY MOUTH DAILY NEEDED FOR ALLERGIES. 30 tablet ctive sgoihr-liwguryc-hmpbnsy (CREON) 24,000-76,000 -120,000 unit capsule,delayed release(DR/EC) Indications:Cystic fibrosis ([facility])TAKE 1-2 CAPSULES WITH MEALS AND SNACKS. ALLOWING FOR 3 MEALS AND 3 SNACKS PER DAY. 12 CAPS/DAY 360 capsule ctive albuterol (VENTOLIN HFA) 90 mcg/actuation inhaler Indications:Cystic fibrosis of the lung ([facility])INHALE 2 PUFFS TWICE DAILY AND EVERY 4 HOURS NEEDED. 18 g ctive cholecalciferol, vitamin D3, (VITAMIN D3) 5,000 units capsule Indications:Pancreatic insufficiency due to cystic fibrosis ([facility])TAKE 1 CAPSULE (5,000 UNITS TOTAL) BY MOUTH IN THE MORNING. 30 capsule 11006/16/2023ctive miscellaneous medical supply tray Apply 1 Application topically as needed (Maintain PICC line per agency protocol). 100 each ctive sodium chloride injection Infuse 10-20 mL into a venous catheter as needed for line care (Per agency protocol and PRN for PICC maintenance and lab draws). 1000 mL ctive miscellaneous medical supply tray Apply 1 Application topically as needed (Maintain PICC line per agency protocol). 100 each ctive omalizumab (XOLAIR) 150 mg/mL syringe Indications:Severe persistent asthma without complication ([facility]),Elevated IgE level,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[facility])Inject 2 mL (300 mg total) under the skin every 14 (fourteen) days. 4 mL ctive nebulizers (ANNIE LC D NEBULIZER) [facility] [place] Indications:Cystic fibrosis ([facility])Please dispense annie set up with mask per CF guidelines with inhaled medications 1) Albuterol 2) Hypertonic saline 3% . 3)Fortaz 4)Pulmozyme 5) Pulmicort 10 each ctive tiotropium bromide (SPIRIVA RESPIMAT) 1.25 mcg/actuation mist INHALE 2 PUFFS BY MOUTH IN THE MORNING. 4 g ctive Active Problems ProblemNoted DateDiagnosed DateCystic fibrosis xeorrmcjwjyo92/05/2024Cystic fibrosis with pulmonary kegihgqehkjj82/08/2022Chronic sxnrnlinzpus31/17/2020 Moderate persistent asthma without szxmazamvjui44/05/2019Pseudomonas aeruginosa mjjdwwnwattx88/13/2019MSSA (methicillin-susceptible Staphylococcus aureus) icfrhsusfyzw08/07/2019Infection due to Stenotrophomonas /07/2019 Pancreatic ayhmiweqkanlw47/27/2005Cystic gdtkqpac72/24/2005 Overview (04/27/2018): 1154insTC/H7074W Resolved Problems ProblemNoted DateDiagnosed DateResolved DateExacerbation of cystic fibrosis /ystic fibrosis usyjruqfnwsr99/04/202206/naphylaxis /ystic fibrosis jkldyytgxcbr22/03/202104/ystic fibrosis with pulmonary wxsnnmgtnlta19Exacerbation of cystic lbjmvikc66/ystic fibrosis with pulmonary exacerbation Exacerbation of cystic pwnyixjc63 Immunizations ImmunizationAdministration DatesNext DueCovid-19, Mrna, Lnp-s, Pf, 30 Mcg/0.3 Ml Dose, King-nepssji73/19/6233RQxC93/19/2008,03/18/2004,06/27/2003,04/23/2003, 02/19/2003DTaP, Tvwutyfgjek57/19/2008,04/23/2003,02/19/2003H1N1 Inj05/21/2009 H1N1 Inj Preservative Free05/21/2009HPV Edrrabqpjggd15/05/2015HPV, Unspecified 06/27/2014Hep A, 2 Dose09/11/2007,03/02/2007Hep B / HIB12/23/2003Hep B, Adolescent or Axkwmqtxj40/30/2003,02/19/2003Hepatitis A009/11/2007,03/02/2007 Hepatitis B012/23/2003,04/23/2003,02/19/2003HiB03/18/2004,12/23/2003,04/23/2003, 02/21/2003,02/19/2003Hib (PRP-T)03/18/2004IPV09/11/2007,09/30/2003,04/23/2003, 02/19/2003Influenza (IM) Preservative Free01/06/2016,03/01/2013,12/28/2011, 02/08/2011Influenza Whole01/06/2016,03/04/2005Influenza, Im Pediatric (Pf) 04/16/2014Influenza, Im Trivalent Utjseommrlzu51/12/2010,01/28/2009,03/05/2008, 03/02/2007Influenza, Injectable, Klwjqzstadnm22/23/2014Influenza, Injectable, quadrivalent (PF)02/17/2023,02/18/2022,03/04/2020,03/29/2019,03/09/2018, 02/15/2017Influenza, Tefbnqlqegi17/23/2014,03/01/2013,12/28/2011,02/08/2011, 02/03/2010MMR105/05/2007,03/18/2004Meningococcal Awcjpkbxx83/05/2015Meningococcal KZO5P3206/27/2014Pneumococcal Zizbtnhwc15/24/2004,06/27/2003,04/23/2003,02/19/2003 Pneumococcal Conjugate 13-Lnudul1501/06/2016Pneumococcal, Uqlamltcwfv52/27/2010, 04/23/2003,02/19/2003Polio, Jpjqnnfdhqg24/30/2003,02/19/2003Tdap06/27/2014 Ofxpqaxmg77/27/2010,12/23/2003 Family History Medical HistoryRelationNameCommentsNo Known ProblemsFatherBirth defectsMaternal AuntCancerMaternal GrandfatherNo Known ProblemsMotherCystic fibrosisSister RelationNameStatusCommentsFatherMaternal AuntMaternal GrandfatherMotherSister Social History Tobacco UseTypesPacks/DayYears UsedDateSmoking Tobacco: NeverSmokeless Tobacco: Never Tobacco Cessation:Counseling Given: Not Answered Comments:No smoke exposure Alcohol UseStandard Drinks/WeekCommentsNo0 (1 standard drink = 0.6 oz pure alcohol)[facility] UtilitiesAnswerDate RecordedIn the past 12 months has the [place], gas, oil, or water company threatened to shut off services in your home?No 4AUDIT-CAnswerDate RecordedQ1: How often do you have a drink containing alcohol?Never05/31/2023Q2: How many drinks containing alcohol do you have on a typical day when you are drinking?Patient does not drink05/31/2023Q3: How often do you have six or more drinks on one occasion?Never4PHQ-2AnswerDate RecordedTotal Tnuae8514PRAPARE - TransportationAnswerDate RecordedIn the past 12 months, has lack of transportation kept you from medical appointments or from getting medications?No06/07/2023In the past 12 months, has lack of transportation kept you from meetings, work, or from getting things needed for daily living?No06/07/2023Housing InstabilityAnswerDate RecordedAre you worried or concerned that in the next two months you may not have stable housing that you own, rent or stay in as a part of a household?No4ChildcareAnswer Date MdlaijepRuhijlvkcNznsqcy11/10/2019EmploymentAnswerDate RecordedEmployment Tvswdih7410/02/2018Hunger ScreeningAnswerDate RecordedWithin the past 12 months we worried whether our food would run out before we got money to buy more.Never True08/16/2023Within the past 12 months the food we bought just didn't last and we didn't have money to get more.Never True4Purpose - LifeAnswerDate RecordedPurpose and direction in abzdOnaljgq49/12/2021CommentsNoSex and Gender InformationValueDate RecordedSex Assigned at BirthNot on fileLegal Sex Udrimg6911/26/2014 4:18 PM EDTGender IdentityNot on fileSexual OrientationNot on file Last Filed Vital Signs Vital SignReadingTime TakenCommentsBlood Xzhcvjlz026/7307 2:30 AM EDT Bdflg86541/24/2024 2:30 AM DYQYvwvxpbnzfk75.6 ??C (99.7 ??F)11/15/2023 11:46 PM EDTRespiratory Bxlk285911/16/2023 2:30 AM EDTOxygen Hplnluozrx45%11/16/2023 2:30 AM EDTInhaled Oxygen Concentration--Bjaspt31.7 kg (125 lb)11/15/2023 11:46 PM JOYEmjvht749.9 cm (5' 1 )11/15/2023 11:46 PM EDTBody Mass Index23.62011/15/2023 11:46 PM EDT Plan of Treatment Health MaintenanceDue DateLast DoneCommentsPap Smear12/15/2023epression Vvxqnlnis19/06/735582/TaP,Tdap and Td Vaccines (7 - Td or Tdap) /08/2014, 09/11/2007, 09/11/2007, Additional history existsAdult BMI Glaqworym90Tobacco Vmmnprsqe26OVID-19 Vaccine ( season)/, 08/27/2020, 08/06/2020 Influenza Otzfnxv92/, 02/18/2022, 03/04/2020, Additional history exists Goals GoalPatient Goal TypeAssociated ProblemsRecent ProgressPatient-Stated?Author return home Elizabeth Medina RN Note: Evaluation of progress towards goal: return home Increase physical activity Fidelina Lopez LSW Note: Evaluation of progress towards goal: Pt started online schooling recently and will get up during lessons to take a short walk. Medical Devices ImplantedTypeAreaManufacturerDevice IdentifierShelf Expiration DateModel / Serial / LotPort Powerport Clrvu 8fr Intmd Kt Slim Implinfn Lf - [id number] Implanted:Qty[facility] [id number] / / [id number] Additional Health Concerns InfectionOnset DateLast IndicatedOther MDRO Comment:CYSTIC F Insurance Advance Directives * Full Code (Latest Code Status on File) Date ActivatedDate InactivatedComments05/30/2023 11:32 PM2 8:50 PM * Full Code Date ActivatedDate GtoasvjbkhoIkytmmcg38/2/2023 5:19 PM10 9:03 PM * Full Code Date ActivatedDate InactivatedComments09/30/2022 5:53 PM10/14/2022 7:58 PM * Full Code Date ActivatedDate InactivatedComments01/21/2022 3:16 PM10 5:01 PM * Full Code Date ActivatedDate InactivatedComments11/26/2021 7:25 PM12/11/2021 2:53 PM
--- OUTSIDE RECORDS SUMMARY | 2025-02-28 17:02 | XMS_ITS | Encounter Summary ---
Author Organization [facility] Address [address] [place] [address] Care Team Providers Care Terrazzo Worker Name Role Phone Chapo Mitchell MD Primary Care Provider [phone] Source Comments In the event this information is protected by the Federal Confidentiality of Alcohol and Drug AbusePatient Records regulations: The Federal rules restrict any use of the information to criminally investigate or prosecute any alcohol or drug abuse patient.[facility] Reason for Referral * Medication Prior Authorization - ClosedSpecialtyDiagnoses / ProceduresReferred By ContactReferred To Contact Diagnoses Mixed simple and mucopurulent chronic bronchitis (HCC) Cystic fibrosis (HCC) Aung Anderson MD [address] [place] [address] Phone: tel: fax: Referral IDStatusReasonStart DateExpiration DateVisits RequestedVisits [id number] Encounter Details DateTypeDepartmentCare Team (Latest Contact Info)Rgprrkdpemz75/05/2025Orders Only Pulmonary Medicine [address] [place] [id number] Marily Crain RN Mixed simple and mucopurulent chronic bronchitis (HCC) (Primary Dx); Cystic fibrosis (HCC) Social History Tobacco UseTypesPacks/DayYears UsedDateSmoking Tobacco: [...] steady place to sleep or slept in [place] (including now)?No12/09/2023Housing Stability Vital SignAnswerDate RecordedIn the last 12 months, was there a time when you were not able to pay the mortgage or rent on time?No11/23/2024In the past 12 months, how many times have you moved where you were living?t any time in the past 12 months, were you homeless or living in a [place] (including now)?No11/23/2024Hunger Vital Sign AnswerDate RecordedWithin the [...] in a [place] (including now)?01/02/2025HC UtilitiesAnswerDate RecordedIn the past 12 months has the electric, gas, oil, or water company threatened to shut off services in your home?01/02/2025rea Deprivation IndexAnswerDate Recorded National Score (1-100), lower number is lower cetu147801/30/2025State Score (1- 10), lower number is lower homb682Data from: https://www.neighborhoodatlas.medicine.[facility].edu/. Last address used for [address]nxf[address] Les 01/30/2025CommentsUnknownSex and Gender InformationValueDate RecordedSex Assigned at BirthNot on fileLegal SexFemale 03/09/2022 2:33 PM ESTGender IdentityNot on fileSexual OrientationNot on file documented as of this encounter Functional Status * Are you deaf or do you have serious difficulty hearing?AnswerDate of AypgctucejPwpgjmJz05/24/2025 1:23 PM Myra Oropeza RN * Are you blind or do you have serious difficulty seeing, even when wearing glasses?AnswerDate of AqfxucqbjiTbcssuKp18/24/2025 1:23 PM Myra Oropeza RN * Do you have serious difficulty walking or climbing stairs?AnswerDate of PfunuoouupDaafccUv76/24/2025 1:23 PM Myra Oropeza RN * Do you have difficulty dressing or bathing?AnswerDate of AssessmentAuthorNo 01/16/2025 1:23 PM Myra Oropeza RN * Because of a physical, mental, or emotional condition, do you have difficulty doing errands alone such as visiting a doctor's office or shopping?AnswerDate of SeviqahklmWqukmwPa06/24/2025 1:23 PM Myra Oropeza RN documented as of this encounter Mental Status * Because of a physical, mental, or emotional condition, do you have serious difficulty concentrating, remembering, or making decisions?AnswerEntry Date InrioePz85/24/2025 1:23 PM Myra Oropeza RN documented in this encounter Plan of Treatment DateTypeDepartmentCare Team (Latest Contact Info)Tvnmdwomikh05/07/2025 4:15 PM ESTOffice Visit Otolaryngology [address] [address] Diya Bedolla MD [address] [place], [place] [phone] follow up03/12/2025 3:20 PM ESTOffice Visit Otolaryngology [address] [address] Diya Bedolla MD [address] [place] [address] Post hospitalization follow updocumented as of this encounter Visit Diagnoses Diagnosis Mixed simple and mucopurulent chronic bronchitis (HCC)- Primary Other chronic bronchitis Cystic fibrosis (HCC) Cystic fibrosis without mention of meconium ileus documented in this encounter Care Teams Team MemberRelationshipSpecialtyStart DateEnd Date Chapo Mitchell MD [address] [phone] PCP - GeneralPulmonary and Critical Care Medicine12/08/23documented as of this encounter
--- OUTSIDE RECORDS SUMMARY | 2025-02-28 17:02 | XMS_ITS | Encounter Summary ---
Author Organization [facility] Address [address] [place] [address] Care Team Providers Care Heel Caser Name Role Phone Chapo Mitchell MD Primary Care Provider [phone] Source Comments In the event this information is protected by the Federal Confidentiality of Alcohol and Drug AbusePatient Records regulations: The Federal rules restrict any use of the information to criminally investigate or prosecute any alcohol or drug abuse patient.[facility] Reason for Visit * ReasonCommentsPrior AuthorizationPosaconazole Encounter Details DateTypeDepartmentCare Team (Latest Contact Info)Scqbmvqsxox05/04/2025Telephone Pulmonary Medicine [address] [place] [id number] Consuelo Brooks LISW Prior Authorization (Posaconazole) Social History Tobacco UseTypesPacks/DayYears UsedDateSmoking Tobacco: NeverPassive [...] steady place to sleep or slept in [place] (including now)?No12/09/2023Housing Stability Vital SignAnswerDate RecordedIn the last 12 months, was there a time when you were not able to pay the mortgage or rent on time?No11/23/2024In the past 12 months, how many times have you moved where you were living?t any time in the past 12 months, were you homeless or living in a jail (including now)?No11/23/2024Hunger Vital Sign AnswerDate RecordedWithin the [...] were you homeless or living in a jail (including now)?01/02/2025HC UtilitiesAnswerDate RecordedIn the past 12 months has the [facility], gas, oil, or water [employer] threatened to shut off services in your home?No01/02/2025rea Deprivation IndexAnswerDate Recorded National Score (1-100), lower number is lower ygrk043601/30/2025State Score (1- 10), lower number is lower mjll993Data from: https://www.neighborhoodatlas.[facility]/. Last address used for Les Stark01/30/2025CommentsUnknownSex and Gender InformationValueDate RecordedSex Assigned at BirthNot on fileLegal SexFemale 03/09/2022 2:33 PM ESTGender IdentityNot on fileSexual OrientationNot on file documented as of this encounter Functional Status * Are you deaf or do you have serious difficulty hearing?AnswerDate of MgyqnyezgmMazsjeAq19/24/2025 1:23 PM Myra Oropeza RN * Are you blind or do you have serious difficulty seeing, even when wearing glasses?AnswerDate of XloumxdhudIlbfqyHn15/24/2025 1:23 PM Myra Oropeza RN * Do you have serious difficulty walking or climbing stairs?AnswerDate of VkhjodhguzPjezwrPm50/24/2025 1:23 PM Myra Oropeza RN * Do you have difficulty dressing or bathing?AnswerDate of AssessmentAuthorNo 01/16/2025 1:23 PM Myra Oropeza RN * Because of a physical, mental, or emotional condition, do you have difficulty doing errands alone such as visiting a doctor's office or shopping?AnswerDate of UtspxdmnjgQgsnhhDn64/24/2025 1:23 PM Myra Oropeza RN documented as of this encounter Mental Status * Because of a physical, mental, or emotional condition, do you have serious difficulty concentrating, remembering, or making decisions?AnswerEntry Date WqzzxfRz25/24/2025 1:23 PM Myra Oropeza RN documented in this encounter Miscellaneous Notes * Telephone Encounter - Consuelo Brooks LISW - 02/26/2025 1:40 PM EST Images from the original note were not included. Medication: Posaconazole Date Submitted: February 26, 2025 Prescribing Provider: Justin Method of Submission[facility] Outcome: Approved Outcome Date: 02/26/25 HAMLET Lozada documented in this encounter Plan of Treatment DateTypeDepartmentCare Team (Latest Contact Info)Nnhborwttat31/07/2025 4:15 PM ESTOffice Visit Otolaryngology [address] [address] Diya Bedolla MD [address] [place], [place] [phone] follow up03/12/2025 3:20 PM ESTOffice Visit Otolaryngology [address] [address] Diya Bedolla MD [address] [place] [address] Post hospitalization follow updocumented as of this encounter Visit Diagnoses Not on filedocumented in this encounter Care Teams Team MemberRelationshipSpecialtyStart DateEnd Date Chapo Mitchell MD [address] [place] [phone] PCP - GeneralPulmonary and Critical Care Medicine12/08/23documented as of this encounter
[2025-02-28 18:15] LABS: Alanine Aminotransferase 12 U/L (14-59); Albumin Globulin Ratio 0.6; Albumin Level 2.7 g/dL (3.4-5.0); Alkaline Phosphatase 68 U/L (46-116); Anion Gap 12.9; Aspartate Amino Transferase 15 U/L (15-37); Blood Urea Nitrogen 8.0 mg/dL (7.0-18.0); Calcium 8.9 mg/dL (8.5-10.1); Carbon Dioxide 25.1 mmol/L (21.0-32.0); Chloride 107 mmol/L (98-107); Estimated GFR (African America >60 (>=60 mL/min/1.73m^2); Estimated GFR (Non-African Ame >60 (>=60 mL/min/1.73m^2); Globulin 4.2 g/dL; Glucose 89 mg/dL (74-106); Magnesium 1.8 mg/dL (1.8-2.4); Potassium 4.0 mmol/L (3.5-5.1); Sodium 141 mmol/L (136-145); Total Protein 6.9 g/dL (6.4-8.2)
== END 2025-02-28 16:58 | disposition home or self-care (01) ==
LOC: LAB 16:58
DX: E84.8 Cystic fibrosis with other manifestations (principal)
CPT/HCPCS: 36415; 80053; 83735

== ENCOUNTER 2025-03-13 17:20 | Outpatient (RCR) | payer OTHER, SELFPAY ==
[2025-03-13 17:41] LABS: Hematocrit 34.5 % (36.0-48.0); Hemoglobin 11.0 g/dL (12.0-16.0); Immature Granulocytes Abs Auto 0.03 10^3/uL (0.00-0.03); Immature Granulocytes Pct Auto 0.3 % (0.0-0.5); Lymphocytes Absolute Auto 1.9 10^3/uL (1.2-3.8); Mean Corpuscular HGB Conc 31.9 g/dL (29.9-35.2); Mean Corpuscular Hemoglobin 26.5 pg (26.7-34.0); Mean Corpuscular Volume 83.1 fL (81.0-99.0); Platelet Count 445 10^3/uL (150-450); Red Blood Count 4.15 10^6/uL (4.20-5.40); White Blood Count 10.5 10^3/uL (4.0-11.0)
[2025-03-13 17:57] LABS: Alanine Aminotransferase 19 U/L (14-59); Albumin Globulin Ratio 0.7; Albumin Level 3.1 g/dL (3.4-5.0); Alkaline Phosphatase 86 U/L (46-116); Anion Gap 13.2; Aspartate Amino Transferase 22 U/L (15-37); Blood Urea Nitrogen 10.0 mg/dL (7.0-18.0); Calcium 9.3 mg/dL (8.5-10.1); Carbon Dioxide 25.5 mmol/L (21.0-32.0); Chloride 106 mmol/L (98-107); Estimated GFR (African America >60 (>=60 mL/min/1.73m^2); Estimated GFR (Non-African Ame >60 (>=60 mL/min/1.73m^2); Globulin 4.6 g/dL; Glucose 117 mg/dL (74-106); Potassium 3.7 mmol/L (3.5-5.1); Sodium 141 mmol/L (136-145); Total Protein 7.7 g/dL (6.4-8.2)
== END 2025-03-25 08:30 | disposition home or self-care (01) ==
LOC: LAB 17:20
PROVIDERS: PCP Internal Medicine; Visit Provider Internal Medicine
DX: E84.8 Cystic fibrosis with other manifestations (principal); Z51.81 Encounter for therapeutic drug level monitoring
CPT/HCPCS: 36415; 80053; 80187; 82785; 85025